=== PATIENT | female | born 1965 | race Caucasian/White ===

== ENCOUNTER 2016-05-10 15:37 | Observation (INO) | payer OTHER ==
[2016-05-10] MEDS ORDERED: ZOFRAN INJ 4 MG VIAL IVP PRN (17:17)
[2016-05-10] MEDS ORDERED: PHENERGAN INJ 25 MG IVP PRN ×2 (17:17→18:22)
[2016-05-10] MEDS ORDERED: PHENERGAN INJ 25 MG ONE (17:28)
[2016-05-10] MEDS: NS 1000 ML 1,000 ML IV SCH (17:31)
--- NOTE | 2016-05-10 18:10 | DR.H&P ---
H&P - History & Physical for Day of: H&P Date: 05/10/16 - Chief Complaint Chief Complaint: abdominal pain, N/V, weak - Allergies Allergies/Adverse Reactions: Allergies Allergy/AdvReac Type Severity Reaction Status Date / Time No Known Drug Allergy Allergy Verified 04/12/16 21:17 - History of Present Illness History of Present Illness: pt was a direct admit from dr perez office after presenting with co abdominal pain and n/v for several days. pt is very weak and had near syncope episode. PMH OA, HTN, HAMMAD, DEPRESSION. PLAN TO ADMIT, CT ABD PELVIS, IV HYDRATION, ADMISSION LABS, PAIN AND NAUSEA CONTROL - Past Medical History Past Medical History: Anxiety, Hypertension - Past Surgical History Surgical History: , Hysterectomy - Family History Family Medical History: Diabetes Mellitus, Cancer, Hypertension - Social History Does patient currently use any type of tobacco product: Yes Have you used tobacco products in the last 12 months: Yes Type of Tobacco Use: Cigarettes Does any household member use tobacco: No Alcohol Use: None Drug Use: None - Review of Systems Constitutional: No Symptoms Reported Eyes: No Symptoms Reported ENT: No Symptoms Reported Respiratory: SOB with Excertion, Wheezing Cardiovascular: No Symptoms Reported Gastrointestinal: Nausea, Vomiting, Abdominal Pain Musculoskeletal: Back Pain Skin: No Symptoms Reported Neurological: No Symptoms Reported - Physical Exam Vital Signs: Temperature 98 F Pulse Rate [Right Brachial] 79 Respiratory Rate 18 Blood Pressure [Right Arm] 169/89 Blood Pressure [Left Arm] 139/89 Blood Pressure 142/84 O2 Sat by Pulse Oximetry 97 Oriented: Normal Eyes: Normal Ear: Normal Nose: Normal Throat: Red, Exudate, Dry Respiratory: RLL Exp. Wheeze, LLL Exp. Wheeze Cardiovascular: Normal : Normal Auscultation: Bowel Sounds: Normal Palpation: Normal Tenderness: Diffuse, Epigastric Skin: Decreased Turgur Musculoskeletal: Back:Lumbar Psychiatric: Normal Mood Description: Calm Speech Pattern: Clear - Assessment/Plan (1) Abdominal pain Qualifiers: Abdominal location: A Status: Acute Plan: ADMIT, CT ABD PELVIS, ADMISSION, LABS. CBC CMP UA AMYLASE LIPASE. IV HYDRATION, IV PAIN AND NAUSEA CONTROL (2) N&V (nausea and vomiting) Qualifiers: Vomiting type: V Vomiting Intractability: V Status: Acute (3) GERD (gastroesophageal reflux disease) Qualifiers: Esophagitis presence: E Status: Acute Plan: PROTONIX (4) Hypertension Qualifiers: Hypertension type: H Status: Acute Plan: RESUME HOME MEDS, REST (5) Lumbar degenerative disc disease Status: Acute Plan: PAIN CONTROL
[2016-05-10 18:22] LABS: BASOPHILS % (AUTO) 0.3 % (0.2-1.0); EOSINOPHILS # (AUTO) 0.1 x10^3/uL (0.0-0.2); EOSINOPHILS % (AUTO) 0.9 % (0.9-2.9); HEMATOCRIT 38.2 % (36.0-47.0); HEMOGLOBIN 12.7 g/dL (12.0-16.0); LYMPHOCYTES # (AUTO) 4.1 X10^3/uL (1.3-2.9); LYMPHOCYTES % (AUTO) 44.3 % (21.0-51.0); MEAN CORPUSCULAR HEMOGLOBIN 29.6 pg (27.0-34.0); MEAN CORPUSCULAR HGB CONC 33.3 g/dL (33.0-35.0); MEAN PLATELET VOLUME 9.1 fL (7.4-11.0); MONOCYTES # (AUTO) 0.5 x10^3/uL (0.3-0.8); MONOCYTES % (AUTO) 5.4 % (0.0-13.0); NEUTROPHILS # (AUTO) 4.5 x10^3/uL (2.2-4.8); NEUTROPHILS % (AUTO) 49.1 % (42.0-75.0); PLATELET COUNT 266 X10^3/uL (150.0-450.0); RED CELL DISTRIBUTION WIDTH 14.2 % (11.6-16.5); WHITE BLOOD COUNT 9.3 X10^3/uL (3.6-10.0)
[2016-05-10 18:33] LABS: ALANINE AMINOTRANSFERASE 49 Units/L (12-78); ALBUMIN 3.8 g/dL (3.4-5.0); ALKALINE PHOSPHATASE 155 Units/L (46-116); AMYLASE 53 Units/L (25-115); ASPARTATE AMINO TRANSFERASE 38 Units/L (15-37); BLOOD UREA NITROGEN 6 mg/dL (7-18); CALCIUM 8.5 mg/dL (8.5-10.1); CARBON DIOXIDE 23.2 mmol/L (21-32); CHLORIDE 105 mmol/L (98-107); CREATININE 0.74 mg/dL (0.55-1.02); GLUCOSE 91 mg/dL (65-99); LIPASE 101 Units/L (73-393); SODIUM 141 mmol/L (136-145); TOTAL PROTEIN 8.2 g/dL (6.4-8.2); eGFR BLACK RACES > 60 (>60); eGFR NON BLACK RACES > 60 (>60)
[2016-05-10 18:49] LABS: BILIRUBIN,URINE NEGATIVE (NEGATIVE); BLOOD/HEMOGLOBIN,URINE NEGATIVE (NEGATIVE); GLUCOSE, URINE NEGATIVE (NEGATIVE); KETONES,URINE NEGATIVE (NEGATIVE); LEUKOCYTE ESTERASE ,URINE 2+ (NEGATIVE); NITRITES,URINE NEGATIVE (NEGATIVE); PROTEIN,URINE NEGATIVE (NEGATIVE); UROBILINOGEN,URINE NORMAL (NORMAL)
[2016-05-10] MEDS: MORPHINE SULFATE INJ 2 MG IVP PRN (18:51)
[2016-05-10] MEDS: PROTONIX INJ 40 MG VIAL 40 MG in NS 50 ML IV 50 ML IV SCH (18:51)
--- NOTE | 2016-05-10 18:51 | RAD ---
HISTORY: Abdominal Pain Study: Frontal view of the chest, flat and upright views of the abdomen Comparison: 04/30/2012 Findings: Cardiomediastinal silhouette is normal in size. No focal consolidations, pleural effusions or pneumo thorax. Osseous structures are without acute abnormality. Flat and upright views of the abdomen demonstrates a normal bowel gas pattern. No free air. No abno rmal calcifications or abnormal soft tissue shadows. No acute bony abnormalities. IMPRESSION: 1. No acute cardiopulmonary disease. 2. No evidence for acute abdominal pathology. Reported By:
[2016-05-10 18:55] LABS: APPEARANCE,URINE HAZY (CLEAR); BACTERIA,URINE TRACE /HPF (NEGATIVE); COLOR,URINE YELLOW (YELLOW); RBC,URINE 0-2 /HPF (NEGATIVE); SQUAMOUS EPITHELIAL CELL,UR RARE /HPF (NEGATIVE)
[2016-05-10 21:18] VITALS: BMI 29.0
[2016-05-10] MEDS ORDERED: PREVNAR 13 IM ONE (21:18)
[2016-05-10] MEDS ORDERED: AFLURIA IM ONE (21:18)
[2016-05-11] MEDS ORDERED: PREVNAR 13 IM ONE (05:18)
[2016-05-11] MEDS: MORPHINE SULFATE INJ 2 MG IVP PRN ×3 (05:23→23:37)
[2016-05-11] MEDS: NS 1000 ML 1,000 ML IV SCH ×2 (05:23→23:40)
[2016-05-11] MEDS: PROTONIX INJ 40 MG VIAL 40 MG in NS 50 ML IV 50 ML IV SCH (10:24)
[2016-05-11] MEDS ORDERED: NS 100 ML IV 100 ML IV ONE (16:40)
[2016-05-11] MEDS ORDERED: MVI INJ (ADULT) IV SCH (17:00)
[2016-05-11] MEDS ORDERED: NS 1000 ML 1,000 ML with MVI INJ (ADULT) 10 ML IV SCH ×2 (18:00)
[2016-05-11] MEDS ORDERED: METHOCARBAMOL PO PRN (21:19)
[2016-05-11] MEDS ORDERED: ULTRAM PO PRN (21:19)
[2016-05-11] MEDS ORDERED: AMBIEN PO PRN (21:19)
[2016-05-11] MEDS ORDERED: NORCO 5/325 MG TAB PO PRN (21:19)
[2016-05-11] MEDS ORDERED: ZANAFLEX PO PRN (21:33)
--- NOTE | 2016-05-11 22:36 | CT ---
HISTORY: Abdominal pain with nausea and vomiting Study: CT abdomen and pelvis with IV and oral contrast Comparison: July 15, 2013 Technique: Multiple axial images of the abdomen and pelvis were obtained from the lung bases to the pubic symph ysis with the administration of IV contrast. Sagittal and coronal reformations were provided. Findings: The visualized portions of the lung bases are unremarkable. The liver, spleen, pancreas, kidneys, a nd adrenal glands are unremarkable in their CT appearance. The gallbladder is unremarkable in its CT appearance. No significant mesenteric lymphadenopathy or stranding can be observed. No free fluid or free air is seen within the abdomen. I do not identify the appendix but no inflammatory changes are demonstrated. No bowel wall thickening or bowel dilatation is present. The colon is unremarkab le. Specifically, there is no diverticulosis noted within the sigmoid colon. The urinary bladder is grossly unremarkable. The bony structures are grossly intact. IMPRESSION: 1. Negative CT of the abdomen and pelvis. Reported By:
[2016-05-11] MEDS: NYSTATIN OINT TOP SCH (23:27)
[2016-05-11] MEDS: ROCEPHIN VIAL 1 GM 1 GM in NS 50 ML IV + SPIKE MINIBAG* 50 ML IV SCH (23:28)
[2016-05-11] MEDS: PROTONIX INJ 40 MG VIAL IVP SCH (23:28)
[2016-05-12] MEDS: NYSTATIN OINT TOP SCH ×2 (05:27→13:24)
[2016-05-12 06:09] LABS: BASOPHILS % (AUTO) 0.6 % (0.2-1.0); EOSINOPHILS # (AUTO) 0.1 x10^3/uL (0.0-0.2); EOSINOPHILS % (AUTO) 1.3 % (0.9-2.9); HEMATOCRIT 35.3 % (36.0-47.0); HEMOGLOBIN 11.7 g/dL (12.0-16.0); LYMPHOCYTES # (AUTO) 3.4 X10^3/uL (1.3-2.9); MEAN CORPUSCULAR HEMOGLOBIN 29.8 pg (27.0-34.0); MEAN CORPUSCULAR HGB CONC 33.2 g/dL (33.0-35.0); MEAN CORPUSCULAR VOLUME 89.9 fL (80.0-100.0); MEAN PLATELET VOLUME 9.3 fL (7.4-11.0); MONOCYTES # (AUTO) 0.5 x10^3/uL (0.3-0.8); MONOCYTES % (AUTO) 7.5 % (0.0-13.0); NEUTROPHILS # (AUTO) 2.9 x10^3/uL (2.2-4.8); NEUTROPHILS % (AUTO) 41.6 % (42.0-75.0); PLATELET COUNT 278 X10^3/uL (150.0-450.0); RED BLOOD COUNT 3.93 X10^6/uL (3.5-5.4); RED CELL DISTRIBUTION WIDTH 14.6 % (11.6-16.5); WHITE BLOOD COUNT 6.9 X10^3/uL (3.6-10.0)
[2016-05-12 06:28] LABS: ALANINE AMINOTRANSFERASE 75 Units/L (12-78); ALBUMIN 3.1 g/dL (3.4-5.0); ALKALINE PHOSPHATASE 131 Units/L (46-116); ASPARTATE AMINO TRANSFERASE 59 Units/L (15-37); BLOOD UREA NITROGEN 5 mg/dL (7-18); CARBON DIOXIDE 25.3 mmol/L (21-32); CHLORIDE 108 mmol/L (98-107); CHOL/HDL RATIO 5.2 (0.0-5.0); CHOLESTEROL 151 mg/dL (0-200); COR CA(FOR HYPOALB) 8.7 mg/dL (8.5-10.1); CREATININE 0.56 mg/dL (0.55-1.02); GLUCOSE 79 mg/dL (65-99); HDL CHOLESTEROL 29 mg/dL (40-60); SODIUM 145 mmol/L (136-145); TOTAL PROTEIN 7.1 g/dL (6.4-8.2); TRIGLYCERIDES 125 mg/dL (0-150); eGFR BLACK RACES > 60 (>60); eGFR NON BLACK RACES > 60 (>60)
--- NOTE | 2016-05-12 06:34 | RAD ---
HISTORY: Nausea, vomiting, abdominal pain Study: Chest one view Comparison: May 10, 2016 Findings: The heart is within normal limits in size. The mary are normal. The lungs are free of acute alveolar infiltrates. No pleural effusions are identified. The bony thorax is unremarkable. IMPRESSION: No significant abnormality identified Reported By:
[2016-05-12] MEDS ORDERED: FLEXERIL TAB 10 MG PO SCH (09:00)
[2016-05-12] MEDS ORDERED: PAXIL PO SCH (09:00)
[2016-05-12] MEDS: PROTONIX INJ 40 MG VIAL IVP SCH (10:31)
[2016-05-12] MEDS: ROCEPHIN VIAL 1 GM 1 GM in NS 50 ML IV + SPIKE MINIBAG* 50 ML IV SCH (10:31)
[2016-05-12] MEDS: PROTONIX INJ 40 MG VIAL 40 MG in NS 50 ML IV 50 ML IV SCH (10:32)
[2016-05-12] MEDS: NS 1000 ML 1,000 ML IV SCH (12:00)
[2016-05-12 18:03] VITALS: BP 130/73
[2016-05-12] MEDS ORDERED: NORVASC TAB 2.5 MG PO SCH (21:00)
[2016-05-12] MEDS ORDERED: REQUIP PO SCH (21:00)
== END 2016-05-12 18:20 | disposition home or self-care (01) ==
LOC: MED/SURG 15:37
PROVIDERS: ADMIT Internal Medicine; ATTEND Internal Medicine
PROC: 3E0234Z Introduction of Serum, Toxoid and Vaccine into Muscle, Percutaneous Approach (ICD-10-PCS; principal; 2016-05-11)
PROC: 3E0234Z Introduction of Serum, Toxoid and Vaccine into Muscle, Percutaneous Approach (ICD-10-PCS; 2016-05-11)
DX: R10.84 Generalized abdominal pain (principal); R11.2 Nausea with vomiting, unspecified; R19.7 Diarrhea, unspecified; R55 Syncope and collapse; I10 Essential (primary) hypertension; F41.8 Other specified anxiety disorders; F32.89 Other specified depressive episodes; K21.9 Gastro-esophageal reflux disease without esophagitis; M51.36 Other intervertebral disc degeneration, lumbar region; Z23 Encounter for immunization
CPT/HCPCS: 36415; 71010; 74022; 74177; 80053; 80061; 81001; 82150; 82270; 83690; 83735; 85025; A4216; A4222; C9113; 90670; G0378; J0696; J2270; J2550

== ENCOUNTER 2016-08-10 15:37 | Observation (INO) | payer OTHER ==
[2016-08-10] MEDS ORDERED: ZOFRAN INJ 4 MG VIAL IVP ONE (15:49)
[2016-08-10 15:52] VITALS: BMI 27.3
[2016-08-10] MEDS ORDERED: ZOFRAN INJ 4 MG VIAL ONE (15:52)
[2016-08-10 16:10] LABS: BASOPHILS # (AUTO) 0.1 X10^3/uL (0.0-0.1); BASOPHILS % (AUTO) 0.9 % (0.2-1.0); EOSINOPHILS % (AUTO) 0.3 % (0.9-2.9); HEMATOCRIT 38.2 % (36.0-47.0); HEMOGLOBIN 13.1 g/dL (12.0-16.0); LYMPHOCYTES # (AUTO) 2.9 X10^3/uL (1.3-2.9); LYMPHOCYTES % (AUTO) 22.4 % (21.0-51.0); MEAN CORPUSCULAR HEMOGLOBIN 31.3 pg (27.0-34.0); MEAN CORPUSCULAR HGB CONC 34.3 g/dL (33.0-35.0); MEAN CORPUSCULAR VOLUME 91.3 fL (80.0-100.0); MONOCYTES # (AUTO) 0.8 x10^3/uL (0.3-0.8); MONOCYTES % (AUTO) 5.9 % (0.0-13.0); NEUTROPHILS # (AUTO) 9.2 x10^3/uL (2.2-4.8); NEUTROPHILS % (AUTO) 70.5 % (42.0-75.0); PLATELET COUNT 399 X10^3/uL (150.0-450.0); RED BLOOD COUNT 4.19 X10^6/uL (3.5-5.4); RED CELL DISTRIBUTION WIDTH 14.3 % (11.6-16.5); WHITE BLOOD COUNT 13.1 X10^3/uL (3.6-10.0)
[2016-08-10] MEDS ORDERED: MORPHINE SULFATE INJ 4 MG IVP ONE (16:19)
[2016-08-10 16:23] LABS: BLOOD UREA NITROGEN 9 mg/dL (7-18); CALCIUM 8.9 mg/dL (8.5-10.1); CARBON DIOXIDE 27.9 mmol/L (21-32); CHLORIDE 101 mmol/L (98-107); CREATININE 0.72 mg/dL (0.55-1.02); GLUCOSE 97 mg/dL (65-99); SODIUM 137 mmol/L (136-145); TROPONIN I < 0.02 ng/mL (0-1.5); eGFR BLACK RACES > 60 (>60); eGFR NON BLACK RACES > 60 (>60)
--- NOTE | 2016-08-10 16:23 | DR.GENAD ---
HPI - PCP Primary Care Physician: saud montgomery - Complaint/Symptoms Chief Complaint Doctors Comments: Patient denies vomiting or diarrhea Chief Complaint:: patient was at her doctors office when she paseed out and fell and hit her head. patient stated her head and neck is hurting at this time. - Source History Provided: Patient, EMS - Mode of Arrival Mode of Arrival: EMS - Timing Onset of Chief Complaint: 08/10/16 PMH - PMH Past Medical History: Yes Past Medical History: Anxiety, Hypertension Past Surgical History: Yes Surgical History: , Hysterectomy - Family History History of Family Medical Conditions: No Family Medical History: Diabetes Mellitus, Cancer, Hypertension - Social History Does patient currently use any type of tobacco product: Yes Have you used tobacco products in the last 12 months: Yes Type of Tobacco Use: Cigarettes How many years tobacco product used: 20 Does any household member use tobacco: No Alcohol Use: None Do you use any recreational Drugs:: No Lives With: Family Lives Where: Home - infectious screening In the last 2 months have you had wt loss of >10#?: NO Have you had fever, night sweats or hemotysis?: No Have you traveled outside the country in the last 6 months?: No Isolation: Standard ROS - Review of Systems Eyes: No Symptoms Reported ENTM: No Symptoms Reported Respiratoy: No Symptoms Reported Cardiovascular: No Symptoms Reported Gastrointestinal/Abdominal: No Symptoms Reported Genitourinary: No Symptoms Reported Neurological: Headache Musculoskeletal: Neck Pain Integumentary: No Symptoms Reported Hematologic/Lymphatic: No Symptoms Reported Endocrine: No Symptoms Reported Psychiatric: No Symptoms Reported All Other Systems: Reviewed and Negative PE - Vital Signs Vitals: Temperature 98.8 F Pulse Rate 90 Respiratory Rate 16 Blood Pressure [Right Arm] 130/73 Blood Pressure [Left Arm] 139/89 Blood Pressure 167/108 O2 Sat by Pulse Oximetry 97 - General General Appearance: Alert, In No Apparent Distress - Head Head Exam: Normal Inspection - Eyes Eye exam: Normal Appearance, PERRL, EOMI - ENT ENT Exam: Normal Exam, Normal Oropharynx External Ear Exam: Normal External Inspection TM/Canal Exam: Bilateral Normal Nose Exam: Normal Nose Exam Mouth Exam: Normal Inspection Throat Exam: Normal Inspection - Neck Neck Exam: Tenderness - Chest Chest Inspection: Normal Inspection - Respiratory Respiratory Exam: Normal Lung Sounds Bilat Respiratory Exam: Bilateral Clear to Auscultation - Cardiovascular Cardiovascular Exam: Regular Rate, Normal Rhythm - Abdominal Exam Abdominal Exam: Normal Inspection Abdominal Tenderness: negative: RUQ, RLQ, LUQ, LLQ, Epigastrium, Suprapubic, Diffuse, Mild, Moderate, Severe, Other - Extremities Extremities Exam: Normal Inspection - Back Back Exam: Normal Inspection - Neurologic Neurological Exam: Alert, Oriented X3, CN II-XII Intact - Psychiatric Psychiatric Exam: Normal Affect - Skin Skin Exam: Warm, Dry Course - Reevaluation 1st: Improved ROR - Labs Reviewed Result Diagrams: 08/10/16 16:00 08/10/16 16:00 Laboratory: WBC 13.1 X10^3/uL (3.6-10.0) H 08/10/16 16:00 RBC 4.19 X10^6/uL (3.5-5.4) 08/10/16 16:00 Hgb 13.1 g/dL (12.0-16.0) 08/10/16 16:00 Hct 38.2 % (36.0-47.0) 08/10/16 16:00 MCV 91.3 fL (80.0-100.0) 08/10/16 16:00 MCH 31.3 pg (27.0-34.0) 08/10/16 16:00 MCHC 34.3 g/dL (33.0-35.0) 08/10/16 16:00 RDW 14.3 % (11.6-16.5) 08/10/16 16:00 Plt Count 399 X10^3/uL (150.0-450.0) 08/10/16 16:00 MPV 9.0 fL (7.4-11.0) 08/10/16 16:00 Neut % 70.5 % (42.0-75.0) 08/10/16 16:00 Lymph % 22.4 % (21.0-51.0) 08/10/16 16:00 Millard % 5.9 % (0.0-13.0) 08/10/16 16:00 Eos % 0.3 % (0.9-2.9) L 08/10/16 16:00 Baso % 0.9 % (0.2-1.0) 08/10/16 16:00 Neut # 9.2 x10^3/uL (2.2-4.8) H 08/10/16 16:00 Lymph # 2.9 X10^3/uL (1.3-2.9) 08/10/16 16:00 Millard # 0.8 x10^3/uL (0.3-0.8) 08/10/16 16:00 Eos # 0.0 x10^3/uL (0.0-0.2) 08/10/16 16:00 Baso # 0.1 X10^3/uL (0.0-0.1) 08/10/16 16:00 Absolute Nucleated RBC 0.0 /100WBC 08/10/16 16:00 Sodium 137 mmol/L (136-145) 08/10/16 16:00 Corrected Sodium TNP 08/10/16 16:00 Potassium 3.6 mmol/L (3.5-5.1) 08/10/16 16:00 Chloride 101 mmol/L (98-107) 08/10/16 16:00 Carbon Dioxide 27.9 mmol/L (21-32) 08/10/16 16:00 BUN 9 mg/dL (7-18) 08/10/16 16:00 Creatinine 0.72 mg/dL (0.55-1.02) 08/10/16 16:00 Est GFR (MDRD) Af Amer > 60 (>60) 08/10/16 16:00 Est GFR (MDRD) Non-Af > 60 (>60) 08/10/16 16:00 Glucose 97 mg/dL (65-99) 08/10/16 16:00 Calcium 8.9 mg/dL (8.5-10.1) 08/10/16 16:00 Corrected Calcium TNP 08/10/16 16:00 Total Bilirubin 0.40 mg/dL (0.2-1.0) 08/10/16 16:00 AST 15 Units/L (15-37) 08/10/16 16:00 ALT 20 Units/L (12-78) 08/10/16 16:00 Alkaline Phosphatase 166 Units/L (46-116) H 08/10/16 16:00 Creatine Kinase 65 Units/L (26-192) 08/10/16 16:00 CK-MB (CK-2) < 1.0 ng/mL (0-4.0) 08/10/16 16:00 CK/CKMB % Calc 1.5 % (<4) 08/10/16 16:00 Troponin I < 0.02 ng/mL (0-1.5) 08/10/16 16:00 Total Protein 8.4 g/dL (6.4-8.2) H 08/10/16 16:00 Albumin 3.6 g/dL (3.4-5.0) 08/10/16 16:00 Globulin 4.8 g/dL (2.5-4.5) H 08/10/16 16:00 Albumin/Globulin Ratio 0.8 Ratio (1.1-2.1) L 08/10/16 16:00 H. pylori IgG Antibody Negative (NEGATIVE) 08/10/16 16:00 - XRAY XRAY Interpreted by: Radiologist (CT Head: Negative, CT cervical spine negative) - Diagnosis Discharge Problem: Syncope and collapse - Discharge Plan Condition: Stable - Follow ups/Referrals Follow ups/Referrals: SAUD MONTGOMERY [Primary Care Provider] - 3 days - Instructions
[2016-08-10 16:28] LABS: ALANINE AMINOTRANSFERASE 20 Units/L (12-78); ALBUMIN 3.6 g/dL (3.4-5.0); ALKALINE PHOSPHATASE 166 Units/L (46-116); ASPARTATE AMINO TRANSFERASE 15 Units/L (15-37); CKMB % 1.5 % (<4); CREATINE KINASE 65 Units/L (26-192); CREATINE KINASE MB < 1.0 ng/mL (0-4.0); TOTAL PROTEIN 8.4 g/dL (6.4-8.2)
[2016-08-10] MEDS ORDERED: MORPHINE SULFATE INJ 4 MG ONE (16:31)
--- NOTE | 2016-08-10 16:41 | CT ---
HISTORY: Syncope. Study: CT brain without contrast Comparison: CT head dated August 16, 2014. Technique: Multiple axial images of the brain were obtained from the skull base to the vertex without administr ation of IV contrast. Dose reduction techniques including Automated Exposure Control (AEC) and adju stment of mA and kV were utilized. Findings: No acute intraparenchymal hemorrhage or mass can be identified. No extra-axial fluid collections ar e seen. No alteration in the attenuation of the brain parenchyma can be identified to suggest acute or subacute ischemic change. The ventricular system is symmetric and nondilated. The extracranial structures are grossly unremarkable. IMPRESSION: 1. No acute intracranial process can be identified. Reported By:
--- NOTE | 2016-08-10 16:43 | CT ---
HISTORY: Fall. Study: CT cervical spine without contrast Comparison: None. Technique: Multiple axial images of the cervical spine were obtained from the skull base to the thor acic inlet without administration of IV contrast. Sagittal and coronal reformats were performed and reviewed. Dose reduction techniques including Automated Exposure Control (AEC) and adjustment of mA and kV were utilized. Findings: Straightening of the normal cervical lordosis, which may represent positioning versus muscle spasm. No acute fracture or listhesis. No significant neural foraminal narrowing or spinal canal stenosis. The prevertebral soft tissues appear normal. Paraseptal and centrilobular emphysematous changes of t he visualized lung. IMPRESSION: No acute cervical pathology. Reported By:
--- NOTE | 2016-08-11 16:08 | DR.H&P ---
H&P - History & Physical for Day of: H&P Date: 08/11/16 - Chief Complaint Chief Complaint: IGNACIO, ADBOMINAL PAIN N/V, SEIZURE, COUGH AND SOB - Allergies Allergies/Adverse Reactions: Allergies Allergy/AdvReac Type Severity Reaction Status Date / Time MS No Known Drug Allergy Allergy Verified 08/10/16 15:38 [No Known Drug Allergy] - History of Present Illness History of Present Illness: PATIENT IS A 50-YEAR-OLD WHITE FEMALE WHO WAS A DIRECT ADMIT FROM dR. Beal'S OFFICE THIS MORNING AFTER PRESENTING WITH COMPLAINTS OF UPPER ABDOMINAL PAIN NAUSEA VOMITING. pATIENT ALSO COMPLAINED OF HEADACHE AND ELEVATED BLOOD PRESSURE. pATIENT WAS SEEN IN THE OFFICE ONE DAY AGO AND EXPERIENCED SEIZURE-LIKE ACTIVITY AND WAS TAKEN BY ems TO THE EMERGENCY ROOM. pATIENT HAD A ct SCAN OF HER BRAIN IN THE er WHICH WAS NEGATIVE FOR ACUTE FINDINGS. pATIENT WAS DISCHARGED HOME TO FOLLOW UP TODAY WITH HER PRIMARY CARE. oN EXAM THIS MORNING PATIENT WAS NOTED TO HAVE DIFFUSE RHONCHI AND EXPIRATORY WHEEZING WELL SPUTUM PRODUCTION. pLAN TO ADMIT PATIENT FOR FURTHER EVALUATION OF SEIZURE ACTIVITY WELL SHORTNESS OF BREATH AND EPIGASTRIC PAIN. pATIENT HAS A HISTORY OF GASTRIC ULCER AND WAS RECENTLY STARTED, egd, BY dR. Beal AND HAS BEEN ON TWICE A DAY ppi THERAPY. pLAN TO OBTAIN ADMISSION LABS WELL ekg ekg, eeg, mri OF THE BRAIN AND CONSULT NEURO a. wE WILL CONSULT RESPIRATORY FOR jET NEBS, CHEST X-RAY ON ADMISSION AND REPEAT A.M. LABS. wE WILL RESUME HOME MEDICATION - Past Medical History Past Medical History: Anxiety, COPD, Depression, Hypertension - Past Surgical History Surgical History: , Hysterectomy - Family History Family Medical History: Diabetes Mellitus, Cancer, Hypertension - Social History Does patient currently use any type of tobacco product: Yes Have you used tobacco products in the last 12 months: Yes Type of Tobacco Use: Cigarettes How many years tobacco product used: 20 Does any household member use tobacco: No Alcohol Use: None - Medications Home Medications: Acetaminophen [Tylenol 500 mg Tab Extra Strength] 500 mg PO Q6H PRN 08/11/16 [ History Confirmed 08/11/16] Amlodipine Besylate [NORVASC 5 MG *] 1 tab PO DAILY 08/11/16 [History Confirmed 08/11/16] Hydrocodone-Acet 5 mg/325 mg [NORCO 5 MG/325 MG *] 1 tab PO BID PRN 08/11/16 [ History Confirmed 08/11/16] Ondansetron [Zofran ODT 8 mg] 1 tab PO TID PRN 08/11/16 [History Confirmed 08/11] Ranitidine HCl 1 tab PO DAILY 08/11/16 [History Confirmed 08/11/16] - Review of Systems Constitutional: Weakness, Malaise Eyes: No Symptoms Reported ENT: No Symptoms Reported Respiratory: Cough, Shortness of Breath, Sputum, Wheezing Cardiovascular: Light Headedness Gastrointestinal: Abdominal Pain Genitourinary: No Symptoms Reported Musculoskeletal: Back Pain, Leg Pain Skin: No Symptoms Reported Neurological: Seizures - Physical Exam Vital Signs: Temperature 98.5 F Pulse Rate [Apical] 89 Respiratory Rate 20 Blood Pressure [Right Arm] 144/89 O2 Sat by Pulse Oximetry 97 Oriented: Normal Eyes: Normal Ear: Normal Throat: Normal Respiratory: Rhonchi Throughout Cardiovascular: Normal : Normal Auscultation: Bowel Sounds: Normal Tenderness: LUQ, Epigastric Skin: Decreased Turgur Musculoskeletal: Back:Thoracic, Back:Lumbar Psychiatric: Anxiety Affect: Anxious Speech Pattern: Clear, Appropriate - Assessment/Plan (1) Syncope and collapse Status: Acute Plan: ADMISSION LABS WELL ekg ekg, eeg, mri OF THE BRAIN AND CONSULT NEURO a. wE WILL CONSULT RESPIRATORY FOR jET NEBS, CHEST X-RAY ON ADMISSION AND REPEAT A.M. LABS. wE WILL RESUME HOME MEDICATION (2) COPD (chronic obstructive pulmonary disease) with acute bronchitis Status: Acute Plan: RESP CONSULT, O2, LEVAQUIN IV. SPUTUM CULTURE (3) Abdominal pain Qualifiers: Abdominal location: A Status: Acute Plan: PPI, PAIN CONTROL. NAUSEA CONTROL, NO NSAIDS (4) GERD (gastroesophageal reflux disease) Qualifiers: Esophagitis presence: E Status: Acute (5) Hypertension Qualifiers: Hypertension type: H Status: Acute (6) Lumbar degenerative disc disease Status: Acute
[2016-08-11] MEDS ORDERED: PHENERGAN INJ 25 MG IVP PRN (16:14)
[2016-08-11] MEDS ORDERED: LEVAQUIN PREMIX IV 500 MG 500 MG/100 ML BAG IV ONE (16:14)
[2016-08-11] MEDS: CATAPRES TAB 0.1 MG PO SCH ×3 (17:07→22:45)
[2016-08-11] MEDS: CARAFATE PO SCH ×2 (17:07→20:35)
[2016-08-11] MEDS: NS 1000 ML 1,000 ML IV SCH (17:08)
[2016-08-11] MEDS: PriLOSEC PO SCH ×2 (17:08→20:35)
[2016-08-11 17:11] LABS: BASOPHILS # (AUTO) 0.1 X10^3/uL (0.0-0.1); BASOPHILS % (AUTO) 0.8 % (0.2-1.0); EOSINOPHILS # (AUTO) 0.1 x10^3/uL (0.0-0.2); EOSINOPHILS % (AUTO) 0.5 % (0.9-2.9); HEMATOCRIT 35.9 % (36.0-47.0); HEMOGLOBIN 12.2 g/dL (12.0-16.0); LYMPHOCYTES # (AUTO) 3.3 X10^3/uL (1.3-2.9); LYMPHOCYTES % (AUTO) 27.6 % (21.0-51.0); MEAN CORPUSCULAR VOLUME 91.3 fL (80.0-100.0); MEAN PLATELET VOLUME 9.1 fL (7.4-11.0); MONOCYTES # (AUTO) 0.8 x10^3/uL (0.3-0.8); MONOCYTES % (AUTO) 6.5 % (0.0-13.0); NEUTROPHILS # (AUTO) 7.6 x10^3/uL (2.2-4.8); NEUTROPHILS % (AUTO) 64.6 % (42.0-75.0); PLATELET COUNT 381 X10^3/uL (150.0-450.0); RED BLOOD COUNT 3.93 X10^6/uL (3.5-5.4); RED CELL DISTRIBUTION WIDTH 14.5 % (11.6-16.5); WHITE BLOOD COUNT 11.8 X10^3/uL (3.6-10.0)
[2016-08-11 17:34] LABS: BLOOD UREA NITROGEN 11 mg/dL (7-18); CALCIUM 8.4 mg/dL (8.5-10.1); CARBON DIOXIDE 25.6 mmol/L (21-32); CHLORIDE 102 mmol/L (98-107); CREATININE 0.69 mg/dL (0.55-1.02); GLUCOSE 76 mg/dL (65-99); SODIUM 138 mmol/L (136-145); TROPONIN I < 0.02 ng/mL (0-1.5); eGFR BLACK RACES > 60 (>60); eGFR NON BLACK RACES > 60 (>60)
[2016-08-11 17:38] LABS: ALANINE AMINOTRANSFERASE 17 Units/L (12-78); ALBUMIN 3.3 g/dL (3.4-5.0); ALKALINE PHOSPHATASE 158 Units/L (46-116); ASPARTATE AMINO TRANSFERASE 15 Units/L (15-37); CKMB % 1.5 % (<4); CREATINE KINASE 68 Units/L (26-192); CREATINE KINASE MB < 1.0 ng/mL (0-4.0); TOTAL PROTEIN 7.8 g/dL (6.4-8.2)
--- NOTE | 2016-08-11 17:39 | RAD ---
HISTORY: Shortness of breath Study: PA chest Comparison: May 12, 2016 Findings: The trachea is midline. The cardiac silhouette is unremarkable. There is unchanged chronic interst itial lung disease. The lungs are mildly hyperinflated. There is no pleural effusion or pulmonary ed damien.. The bony thorax is unremarkable. IMPRESSION: 1. Unchanged COPD Reported By:
--- NOTE | 2016-08-11 18:53 | MRI ---
MRI Brain without contrast HISTORY: headache with recent fall Comparison:08/10/2016 Technique: Multiplanar multi-sequence MRI of the brain was obtained utilizing standard departmental protocol. Sagittal and axial T1 weighted images were obtained. Axial T2 and flair weighted images were performed as well. Axial diffusion weighted and ADC trace mapping was performed. Findings: There is mild increased FLAIR and T2 signal abnormality within the deep white matter bilaterally. The midline structures appear unremarkable. The evaluation of the brain parenchyma demonstrates no abnormal signal characteristics to suggest intraparenchymal mass or hemorrhage. No extra-axial flui d collections are observed. The ventricular system appears symmetric and nondilated. The CP angle is normal in its appearance without brainstem mass or evidence for acoustic neuroma. The flow void s on both T1 and T2 weighted imaging appear unremarkable. Evaluation of the diffusion weighted imag ing does not demonstrate abnormal signal characteristics to suggest acute ischemic change. The extr acranial structures are unremarkable. Mild mucosal thickening of the left frontal and bilateral ethm oid sinuses. IMPRESSION: 1. Nonspecific small foci of increased T2 and FLAIR signal abnormality within deep white matter cyndee aterally is most likely represents sequela chronic microvascular ischemic disease. No acute intracra nial abnormality identified. 2. Mild left frontal and bilateral ethmoid sinus mucosal disease. Reported By:
[2016-08-11] MEDS: MORPHINE SULFATE INJ 2 MG IVP PRN (19:15)
[2016-08-11] MEDS: DUONEB 0.5 MG/3 MG NEB SCH (20:34)
[2016-08-11] MEDS: PEPCID 20 MG IV PREMIX* 20 MG/50 ML BAG IV SCH (20:36)
[2016-08-11] MEDS ORDERED: DUONEB 0.5 MG/3 MG NEB SCH (21:00)
[2016-08-12] MEDS: MORPHINE SULFATE INJ 2 MG IVP PRN ×2 (01:18→10:12)
[2016-08-12] MEDS: CARAFATE PO SCH ×3 (05:30→16:53)
[2016-08-12] MEDS: NS 1000 ML 1,000 ML IV SCH (06:11)
[2016-08-12 06:23] LABS: BASOPHILS # (AUTO) 0.1 X10^3/uL (0.0-0.1); BASOPHILS % (AUTO) 0.6 % (0.2-1.0); EOSINOPHILS # (AUTO) 0.1 x10^3/uL (0.0-0.2); EOSINOPHILS % (AUTO) 0.8 % (0.9-2.9); HEMATOCRIT 51.1 % (36.0-47.0); HEMOGLOBIN 17.1 g/dL (12.0-16.0); LYMPHOCYTES % (AUTO) 38.7 % (21.0-51.0); MEAN CORPUSCULAR HGB CONC 33.5 g/dL (33.0-35.0); MEAN CORPUSCULAR VOLUME 92.3 fL (80.0-100.0); MEAN PLATELET VOLUME 9.8 fL (7.4-11.0); MONOCYTES # (AUTO) 0.7 x10^3/uL (0.3-0.8); MONOCYTES % (AUTO) 6.6 % (0.0-13.0); NEUTROPHILS # (AUTO) 5.5 x10^3/uL (2.2-4.8); NEUTROPHILS % (AUTO) 53.3 % (42.0-75.0); PLATELET COUNT 182 X10^3/uL (150.0-450.0); RED BLOOD COUNT 5.54 X10^6/uL (3.5-5.4); RED CELL DISTRIBUTION WIDTH 14.8 % (11.6-16.5); WHITE BLOOD COUNT 10.3 X10^3/uL (3.6-10.0)
[2016-08-12 08:02] LABS: CHLORIDE 107 mmol/L (98-107); SODIUM 141 mmol/L (136-145); eGFR BLACK RACES > 60 (>60); eGFR NON BLACK RACES > 60 (>60)
[2016-08-12 08:29] LABS: ALANINE AMINOTRANSFERASE 17 Units/L (12-78); ALBUMIN 3.1 g/dL (3.4-5.0); ALKALINE PHOSPHATASE 154 Units/L (46-116); ASPARTATE AMINO TRANSFERASE 13 Units/L (15-37); BLOOD UREA NITROGEN 12 mg/dL (7-18); CALCIUM 8.3 mg/dL (8.5-10.1); CARBON DIOXIDE 27.4 mmol/L (21-32); CREATININE 0.59 mg/dL (0.55-1.02); GLUCOSE 104 mg/dL (65-99); TOTAL PROTEIN 6.7 g/dL (6.4-8.2)
[2016-08-12] MEDS: DUONEB 0.5 MG/3 MG NEB SCH (08:58)
[2016-08-12] MEDS: PEPCID 20 MG IV PREMIX* 20 MG/50 ML BAG IV SCH (09:22)
[2016-08-12] MEDS: PriLOSEC PO SCH (09:22)
[2016-08-12] MEDS: CATAPRES TAB 0.1 MG PO SCH (09:22)
[2016-08-12] MEDS ORDERED: PATIENT'S HOME MEDICATION (Ondansetron [Zofran Odt 8 Mg] 1 TAB) PO PRN (12:35)
[2016-08-12] MEDS ORDERED: TYLENOL 500 MG TAB EXTRA STRENGTH PO PRN (12:35)
[2016-08-12] MEDS ORDERED: NORCO 5/325 MG TAB PO PRN (12:35)
[2016-08-12] MEDS ORDERED: RANITIDINE HCL PO SCH (12:45)
[2016-08-12] MEDS ORDERED: NORVASC TAB 5 MG PO SCH (13:00)
[2016-08-12] MEDS ORDERED: PAXIL PO SCH (13:00)
[2016-08-12] MEDS ORDERED: ZOFRAN TAB 4 MG PO PRN (13:51)
[2016-08-12] MEDS ORDERED: ZANTAC PO SCH (14:00)
[2016-08-12 16:24] VITALS: BP 145/81
[2016-08-12] MEDS ORDERED: FLEXERIL TAB 10 MG PO SCH (21:00)
[2016-08-12] MEDS ORDERED: REQUIP PO SCH (21:00)
== END 2016-08-12 17:49 | disposition home or self-care (01) ==
LOC: ER 15:37 → MED/SURG 08-11 13:49 → UNDOADMOB 08-11 13:49 → MED/SURG 08-11 14:47
PROVIDERS: ADMIT Internal Medicine; ATTEND Internal Medicine
DX: G40.89 Other seizures (principal); R55 Syncope and collapse; I10 Essential (primary) hypertension; F41.8 Other specified anxiety disorders; R42 Dizziness and giddiness; R10.84 Generalized abdominal pain; R11.2 Nausea with vomiting, unspecified; R06.02 Shortness of breath; R10.13 Epigastric pain; J44.0 Chronic obstructive pulmonary disease with (acute) lower respiratory infection; J40 Bronchitis, not specified as acute or chronic; K21.9 Gastro-esophageal reflux disease without esophagitis; M51.36 Other intervertebral disc degeneration, lumbar region
CPT/HCPCS: 36415; 70450; 70551; 71010; 72125; 80053; 82270; 82550; 82553; 84484; 85025; 86677; 93005; 93010; 94640; 95819; 96365; 96374; 96375; 99283; A4222; S0028; G0378; J1956; J2270; J2405; J7620

== ENCOUNTER → 2016-08-25 | Outpatient (CLI) | payer OTHER ==
[2016-08-12 16:24] VITALS: BP 145/81
== END ==
LOC: RT 12:15
PROVIDERS: ATTEND Nurse Practitioner
DX: R56.9 Unspecified convulsions (principal)
CPT/HCPCS: 95819

== ENCOUNTER 2017-01-20 19:42 | Emergency (ER) | payer OTHER ==
[2017-01-20 19:46] VITALS: BP 132/82; BMI 31.7
[2017-01-20] MEDS ORDERED: TORADOL 60 MG VIAL IM ONE (20:26)
--- NOTE | 2017-01-20 20:29 | DR.EXTPAIN ---
HPI - Time seen Time seen: 20:24 - PCP Primary Care Physician: ana - Complaint/Symptoms Chief Complaint Doctor Comments: Patient states that her grandson was trying to jump over her foot and landed on her right ankle and she twisted her right ankle trying to avoid him about two hours ago. states the pain is 7 of 10 and is worst when she stands or tries to walk on her right foot. states the pain is in he ankle and heel part when she stands she has been walking on her toes. States she has crutches at home. States she is a patient of Dr. Bowen. Chief Complaint:: playing with my grandson in [place] and he come down on my ankle and it twisted. note swelling to right ankle. - Nurses notes reviewed Nurses Notes Review: Yes - Source History Provided: Patient - Mode of arrival Mode of Arrival: Wheelchair - Timing Onset of Chief Complaint: 01/20/17 - Context History of: None - Associated signs and symptoms Associated Signs and Symptoms: Pain, Swelling PMH - PMH Past Medical History: Yes Past Medical History: Anxiety, COPD, Depression, Hypertension Past Surgical History: Yes Surgical History: , Hysterectomy - Family History History of Family Medical Conditions: Yes Family Medical History: Diabetes Mellitus, Cancer, Hypertension - Social History Type of Tobacco Use: Cigarettes Do you use any recreational Drugs:: No Lives Where: Home - infectious screening Have you traveled outside the country in the last 6 months?: No Isolation: Standard ROS - Review of Systems Constitutional: No Symptoms Reported. negative: See HPI, Chills, Diaphoresis, Fever, Malaise, Weakness, Irritable, Fatigue, Loss of Appetite, Other Eyes: No Symptoms Reported ENTM: No Symptoms Reported. negative: See HPI, Ear Pain, Ear Discharge, Pulling on Ears, Hearing Loss, Nose Pain, Nose Discharge, Epistaxis, Nose Congestion, Mouth Pain, Mouth Swelling, Loose Teeth, Drooling, Throat Pain, Throat Swelling, Ear Foreign Body Respiratoy: No Symptoms Reported Cardiovascular: No Symptoms Reported Gastrointestinal/Abdominal: No Symptoms Reported Genitourinary: No Symptoms Reported Neurological: No Symptoms Reported, Problems Walking (right foot pain) Musculoskeletal: No Symptoms Reported, Right, Ankle, Foot Integumentary: No Symptoms Reported, Bruises (right lateral ankle). negative: See HPI, Change in Color, Change in Hair/Nails, Dryness, Lesions, Lumps, Rash, Itching, Wound, Juandice, Other Hematologic/Lymphatic: No Symptoms Reported. negative: See HPI, Anemia, Blood Clots, Easy Bleeding, Easy Bruising, Swollen Glands, Lymphadenopathy, Other Endocrine: No Symptoms Reported Psychiatric: No Symptoms Reported PE - Vital Signs Vitals: Temperature 97.9 F Pulse Rate 100 Respiratory Rate 18 Blood Pressure [Right Arm] 145/81 Blood Pressure [Left Arm] 137/76 Blood Pressure 132/82 O2 Sat by Pulse Oximetry 95 - General Limitations: No Limitations General Appearance: Alert, In Distress (moderate) - Head Head Exam: Normal Inspection, Atraumatic, Normocephalic - Eyes Eye exam: Normal Appearance, PERRL, EOMI. negative: Scleral Icterus, Conjunctival Injection, Nystagmus, Miosis, Mydrasis, Periorbital Swelling, Periorbital Tenderness, Other - ENT ENT Exam: Normal Exam, Normal Oropharynx, Normal External Ear Exam, Mucous Membranes Moist, TM's Normal Bilaterally - Neck Neck Exam: Normal Inspection, Full ROM, Trachea Midline. negative: Tenderness, Meningismus, Lymphadenopathy, Thyromegaly, Other - Chest Chest Inspection: Normal Inspection, Symmetric Chest Wall Rise. negative: Tenderness, Rash, Abscess, Other - Respiratory Respiratory Exam: Normal Lung Sounds Bilat Respiratory Exam: Bilateral Clear to Auscultation - Cardiovascular Cardiovascular Exam: Regular Rate, Normal Rhythm, Normal Heart Sounds. negative : Bradycardia, Tachycardia, Irregular Rhythm, Systolic Murmur, Diastolic Murmur , Rubs, Gallop, Clicks, JVD, +S1, +S2, +S3, +S4, Other - Abdominal Exam Abdominal Exam: Normal Inspection, Normal Bowel Sounds, Soft Abdominal Tenderness: negative: RUQ, RLQ, LUQ, LLQ, Epigastrium, Suprapubic, Diffuse, Mild, Moderate, Severe, Other - Extremities Extremities Exam: Normal Inspection, Full ROM, Tenderness (right ankle tender), Normal Capillary Refill, Joint Swelling (right ankle swelling) - Upper Extremities Shoulder Exam: Normal Inspection, Full ROM Arm Exam: Normal Inspection, Full ROM Elbow Exam: Normal Inspection, Full ROM Hand Exam: Normal Inspection, Full ROM. negative: Tenderness, Swelling, Abrasion, Laceration, Ecchymosis, Skin Avulsion, Deformity, Crepitus, Erythema, Dislocation, Amputation, Nail Avulsion, Subungual Hematoma, Other Neuromotor Exam: Normal Exam, Wrist Extension (normal) Neurosensory Exam: Normal Exam Hand Tendon Exam: negative: Flexor Digitorium Profundus (Location), Flexor Digitorium Superficialis (Location) (normal), Extensor Tendon (Location), Other Upper Ext. Vascular Exam: Capillary Refill (normal), Radial Pulse (normal) - Lower Extremities Hip/Pelvis Exam: Normal Inspection, Full ROM. negative: Tenderness, Swelling, Abrasion, Laceration, Ecchymosis, Deformity, Crepitus, Dislocation, Erythema, External Rotation, Internal Rotation, Shortening, Pelvis Stable, Other Upper Leg Exam: Normal Inspection, Full ROM Knee Exam: Normal Inspection, Full ROM, Crepitus Lower Leg Exam: Normal Inspection, Full ROM Ankle Exam: Normal Inspection, Full ROM, Tenderness (right ankle with moderate swelling), Swelling Foot/Toe Exam: Normal Inspection, Full ROM. negative: Tenderness, Swelling, Abrasion, Laceration, Ecchymosis, Deformity, Crepitus, Dislocation, Erythema, Amputation, Puncture Wound, Foreign Body, Calcaneal Tenderness, Nail Avulsion, Other Neurovascular/Tendon Exam: Normal Capillary Refill Gait Exam: Not Tested/Not Observed - Back Back Exam: Normal Inspection, Full ROM. negative: Tenderness, (R) CVA Tenderness, (L) CVA Tenderness, Muscle Spasm, Paraspinal Tenderness, Vertebral Tenderness, Rashes, (R) Sciatic Notch Tenderness, (L) Sciatic Notch Tendern, (R ) Straight Leg Raise, (L) Straight Leg Raise, Other - Neurological Neurological Exam: Alert, Oriented X3, CN II-XII Intact, Normal Gait, Reflexes Normal - Psychiatric Psychiatric Exam: Normal Affect, Normal Mood. negative: Depressed, Agitated, Anxious, Flat Affect, Manic, Homicidal Ideation, Suicidal Ideation, Other - Skin Skin Exam: Warm, Dry, Intact, Normal Color. negative: Rash, Cyanosis, Diaphoresis, Erythema, Pallor, Mottled, Other Type of Lesion: negative: Rash, Abscess, Laceration, Foreign Body, Bite/Sting, Abrasion, Other Distribution: negative: Generalized, Involves Palms/Soles, Head, Face, Neck, Thorax, Chest, Back, Abdomen, Genitals, LUE, LLE, RUE, RLE, Other Description: negative: Size, Tenderness, Erythematous, Swelling, Macular, Papular, Vesicular, Blisters, Cofluent, Bullous, Petechial, Purpuric, Urticarial , Crusting, Discharge, Fluctuant, Indurated, Other ROR - Labs Reviewed Laboratory Results Reviewed?: Yes (all x-ray results reviewed and discussed with patient.) - XRAY XRAY Interpreted by: Radiologist (Right foot: No acute readiographic abnormality within the right foot.) XRAY Findings: right ankle: Sof tissue swelling within the lateral ankle consistent with - Diagnosis Discharge Problem: Contusion of right foot Right ankle sprain Qualifiers: Involved ligament of ankle: unspecified ligament - Discharge Plan Disposition: HOME, SELF-CARE Condition: Stable Prescriptions: Acetaminophen/Codeine Tab [TYLENOL w/CODEINE #3 (300 MG/30 MG) *] 1 tab PO Q4- 6H PRN #30 tab PRN Reason: Pain Naproxen [Naprosyn] 500 mg PO BID PRN #30 tab PRN Reason: Pain/Inflammation - Follow ups/Referrals Follow ups/Referrals: JENNIFER BOWEN [Primary Care Provider] - 3 days YASMANY RAINEY [STAFF PHYSICIAN] - 3 days - Instructions Instructions: Acute Ankle Sprain With Phase II Rehab-SportsMed, Acute Ankle Sprain With Phase I Rehab-SportsMed
[2017-01-20] MEDS ORDERED: TORADOL 60 MG VIAL ONE (20:32)
--- NOTE | 2017-01-20 21:10 | RAD ---
Three views of the right ankle. Indication: Ankle pain after twisting injury. Findings: No acute fracture dislocation within the right ankle. Soft tissue swelling within the later al ankle. Ankle mortise is symmetric. No osteochondral abnormality within talar dome. Mild enthesopat hic change of the Achilles and plantar fascia. Impression: Soft tissue swelling within the lateral ankle consistent with soft tissue injury/sprain; however, no acute fracture or malalignment of the right ankle. Reported By:
--- NOTE | 2017-01-20 21:15 | RAD ---
Three views of the right foot Indication: Right foot pain after injury Findings: No fracture or dislocation within the right foot. Lisfranc joint alignment is maintained. N o localizing soft tissue swelling. Enthesopathic change of the distal Achilles and proximal plantar f ascia is noted. Impression: No acute radiographic abnormality within the right foot. Reported By:
== END 2017-01-20 21:38 | disposition home or self-care (01) ==
LOC: ER 19:42
PROC: 2W3LX1Z Immobilization of Right Lower Extremity using Splint (ICD-10-PCS; principal; 2017-01-20)
DX: S90.31XA Contusion of right foot, initial encounter (principal); S93.401A Sprain of unspecified ligament of right ankle, initial encounter; Y33.XXXA Other specified events, undetermined intent, initial encounter; Y92.9 Unspecified place or not applicable
CPT/HCPCS: 29515; 73610; 73630; 96372; 99282; J1885

== ENCOUNTER 2017-01-26 10:05 | Day surgery (SDC) | payer OTHER ==
[2017-01-26] MEDS ORDERED: D5 LR 1000 ML 1,000 ML IV ONE (10:16)
[2017-01-26] MEDS ORDERED: DIPRIVAN VIAL 20 ML ONE (11:43)
[2017-01-26 12:23] VITALS: BP 120/60
== END 2017-01-26 12:20 | disposition home or self-care (01) ==
LOC: SURG1 10:05
PROVIDERS: ATTEND Internal Medicine
PROC: 0DB98ZX Excision of Duodenum, Via Natural or Artificial Opening Endoscopic, Diagnostic (ICD-10-PCS; principal; 2017-01-26 10:45)
PROC: 0DB68ZX Excision of Stomach, Via Natural or Artificial Opening Endoscopic, Diagnostic (ICD-10-PCS; principal; 2017-01-26 10:45)
PROC: 0DJ08ZZ Inspection of Upper Intestinal Tract, Via Natural or Artificial Opening Endoscopic (ICD-10-PCS; principal; 2017-01-26 10:45)
DX: R10.13 Epigastric pain (principal); K44.9 Diaphragmatic hernia without obstruction or gangrene; K20.8 Other esophagitis; K22.2 Esophageal obstruction; K29.60 Other gastritis without bleeding; K25.9 Gastric ulcer, unspecified as acute or chronic, without hemorrhage or perforation; K29.80 Duodenitis without bleeding; K31.89 Other diseases of stomach and duodenum
CPT/HCPCS: A4217; J3490; J7120

== ENCOUNTER → 2017-04-27 | Outpatient (CLI) | payer OTHER ==
--- NOTE | 2017-04-27 15:06 | MRI ---
STUDY: MRI OF THE LUMBAR SPINE HISTORY: Disc degeneration. Chronic low back pain. Comparison: None. Technique: Multiplanar multi-sequence MRI of the lumbar spine was performed. Sagittal T1, sagittal T 2, and STIR images, axial T1, and axial T2 images were obtained. Findings: Sagittal images: Vertebral body heights and alignment are within normal limits. Marrow signal is age-appropriate. Ther e is multilevel degenerative disc disease and degenerative endplate change. The conus medullaris is normal in appearance terminating at the level of L1/2. Axial images: T12 -- L1: Normal. L1 -- L2: There is bilateral facet arthropathy and ligamentum flavum infolding. The central canal and neural foramina are adequate. L2 -- L3: There is a shallow disc bulge, bilateral facet arthropathy and ligamentum flavum infolding. The central canal and neural foramina are adequate. L3 -- L4: There is a broad-based disc bulge, bilateral facet arthropathy and ligamentum flavum infold ing. The combination of these findings results in moderate central canal stenosis. There is mild righ t and moderate left neural foraminal stenosis. L4 -- L5: There is a broad-based disc bulge with left foraminal disc annular tear. This results in mi ld spinal stenosis. There is moderate bilateral neural foraminal stenosis. L5 -- S1: There is a shallow disc bulge, bilateral facet arthropathy and ligamentum flavum infolding. The central canal and neural foramina are adequate. IMPRESSION: 1. Multilevel lumbar spondylosis. 2. Moderate spinal stenosis at L3/4. 3. Mild spinal stenosis at L4/5. 4. Please see above for detail. Reported By:
== END ==
LOC: RAD 12:46
PROVIDERS: ATTEND Nurse Practitioner Family
DX: M51.36 Other intervertebral disc degeneration, lumbar region (principal)
CPT/HCPCS: 72148

== ENCOUNTER 2017-11-01 16:18 | Inpatient (IN) ==
--- NOTE | 2017-11-01 19:09 | RAD ---
CHEST RADIOGRAPHS PA AND LATERAL VIEWS CLINICAL HISTORY: 52-year-old female slipped on some water and fell on her right knee. COMPARISON: Chest radiograph 08/11/2016. FINDINGS: The cardiopericardial silhouette is stably enlarged with chronic prominence of the interst itium and perihilar lung markings with flattened hemidiaphragms consistent with COPD. There is no foc al consolidation, pleural effusion or pneumothorax. The lungs are well inflated. Pulmonary vascularit y is normal. Imaged osseous structures are intact. Soft tissues are unremarkable. IMPRESSION: No acute cardiopulmonary process in a patient with COPD. Reported By:
[2017-11-01 19:14] LABS: BASOPHILS # (AUTO) 0.1 X10^3/uL (0.0-0.1); EOSINOPHILS # (AUTO) 0.1 x10^3/uL (0.0-0.2); EOSINOPHILS % (AUTO) 0.8 % (0.9-2.9); HEMATOCRIT 35.7 % (36.0-47.0); HEMOGLOBIN 12.2 g/dL (12.0-16.0); LYMPHOCYTES # (AUTO) 2.8 X10^3/uL (1.3-2.9); LYMPHOCYTES % (AUTO) 32.8 % (21.0-51.0); MEAN CORPUSCULAR HEMOGLOBIN 29.6 pg (27.0-34.0); MEAN CORPUSCULAR HGB CONC 34.1 g/dL (33.0-35.0); MEAN CORPUSCULAR VOLUME 86.7 fL (80.0-100.0); MEAN PLATELET VOLUME 8.6 fL (7.4-11.0); MONOCYTES # (AUTO) 0.6 x10^3/uL (0.3-0.8); MONOCYTES % (AUTO) 6.5 % (0.0-13.0); NEUTROPHILS # (AUTO) 5.1 x10^3/uL (2.2-4.8); NEUTROPHILS % (AUTO) 58.9 % (42.0-75.0); PLATELET COUNT 470 X10^3/uL (150.0-450.0); RED BLOOD COUNT 4.12 X10^6/uL (3.5-5.4); RED CELL DISTRIBUTION WIDTH 14.4 % (11.6-16.5); WHITE BLOOD COUNT 8.6 X10^3/uL (3.6-10.0)
[2017-11-01 19:29] LABS: ALANINE AMINOTRANSFERASE 13 Units/L (12-78); ALBUMIN 3.3 g/dL (3.4-5.0); ALKALINE PHOSPHATASE 245 Units/L (46-116); ASPARTATE AMINO TRANSFERASE 12 Units/L (15-37); BLOOD UREA NITROGEN 5 mg/dL (7-18); CALCIUM 8.7 mg/dL (8.5-10.1); CARBON DIOXIDE 23.1 mmol/L (21-32); CHLORIDE 99 mmol/L (98-107); COR CA(FOR HYPOALB) 9.3 mg/dL (8.5-10.1); SODIUM 134 mmol/L (136-145); TOTAL PROTEIN 8.7 g/dL (6.4-8.2); eGFR NON BLACK RACES > 60 (>60)
[2017-11-01] MEDS ORDERED: NS 1/2 1000 ML IV 1,000 ML IV ONE (19:49)
[2017-11-01] MEDS: LEVAQUIN PREMIX IV 750 MG 750 MG/150 ML BAG IV SCH (20:02)
[2017-11-01] MEDS: NS 1/2 1000 ML IV 1,000 ML IV SCH (20:03)
[2017-11-01] MEDS ORDERED: SALINE 3% 15 ML NEB TX ONE (20:21)
[2017-11-01] MEDS: DUONEB 0.5 MG/3 MG NEB SCH (20:38)
[2017-11-01 21:22] VITALS: BMI 30.4
[2017-11-01] MEDS: ROBITUSSIN DM PO SCH (23:21)
[2017-11-02] MEDS: RESTORIL CAP 15 MG PO PRN
[2017-11-02] MEDS ORDERED: POTASSIUM CHL 60 MEQ/NS 0.45% 500 ML IV PRN (00:18)
[2017-11-02] MEDS ORDERED: MAGNESIUM SULFATE 1 GRAM/100 mL PREMIX 1 GM/100 ML BAG IV PRN (00:18)
[2017-11-02] MEDS ORDERED: POTASSIUM CHL 40 MEQ/NS 0.45% 500 ML IV PRN (00:18)
[2017-11-02] MEDS ORDERED: K-LYTE EFFERVESCENT PO PRN (00:18)
[2017-11-02] MEDS ORDERED: K-RIDER 10 MEQ/NS 100 ML 10 MEQ/100 ML BAG IV PRN (00:18)
[2017-11-02] MEDS: DUONEB 0.5 MG/3 MG NEB SCH ×6 (01:21→20:25)
[2017-11-02 07:10] LABS: BASOPHILS # (AUTO) 0.1 X10^3/uL (0.0-0.1); BASOPHILS % (AUTO) 0.7 % (0.2-1.0); EOSINOPHILS # (AUTO) 0.1 x10^3/uL (0.0-0.2); EOSINOPHILS % (AUTO) 0.7 % (0.9-2.9); HEMATOCRIT 33.6 % (36.0-47.0); HEMOGLOBIN 11.4 g/dL (12.0-16.0); LYMPHOCYTES # (AUTO) 3.1 X10^3/uL (1.3-2.9); LYMPHOCYTES % (AUTO) 36.1 % (21.0-51.0); MEAN CORPUSCULAR HEMOGLOBIN 29.6 pg (27.0-34.0); MEAN CORPUSCULAR HGB CONC 33.9 g/dL (33.0-35.0); MEAN CORPUSCULAR VOLUME 87.3 fL (80.0-100.0); MEAN PLATELET VOLUME 8.9 fL (7.4-11.0); MONOCYTES # (AUTO) 0.7 x10^3/uL (0.3-0.8); MONOCYTES % (AUTO) 8.6 % (0.0-13.0); NEUTROPHILS # (AUTO) 4.7 x10^3/uL (2.2-4.8); NEUTROPHILS % (AUTO) 53.9 % (42.0-75.0); PLATELET COUNT 404 X10^3/uL (150.0-450.0); RED BLOOD COUNT 3.85 X10^6/uL (3.5-5.4); RED CELL DISTRIBUTION WIDTH 14.2 % (11.6-16.5); WHITE BLOOD COUNT 8.7 X10^3/uL (3.6-10.0)
[2017-11-02 07:11] LABS: ALANINE AMINOTRANSFERASE 13 Units/L (12-78); ALKALINE PHOSPHATASE 220 Units/L (46-116); ASPARTATE AMINO TRANSFERASE 13 Units/L (15-37); BLOOD UREA NITROGEN 4 mg/dL (7-18); CALCIUM 8.4 mg/dL (8.5-10.1); CARBON DIOXIDE 24.2 mmol/L (21-32); CHLORIDE 102 mmol/L (98-107); COR CA(FOR HYPOALB) 9.2 mg/dL (8.5-10.1); CREATININE 0.74 mg/dL (0.55-1.02); SODIUM 138 mmol/L (136-145); eGFR NON BLACK RACES > 60 (>60)
[2017-11-02] MEDS: LEVAQUIN PREMIX IV 750 MG 750 MG/150 ML BAG IV SCH (09:24)
[2017-11-02] MEDS: ROBITUSSIN DM PO SCH ×4 (09:25→20:40)
[2017-11-02] MEDS ORDERED: ZOFRAN TAB 4 MG PO PRN (09:56)
[2017-11-02] MEDS: NORCO 5/325 MG TAB PO PRN ×2 (13:06→20:46)
--- NOTE | 2017-11-02 14:09 | DR.H&P ---
H&P - History & Physical for Day of: H&P Date: 11/01/17 - Chief Complaint Chief Complaint: COUGH, WHEEZING AND VOMITING - History of Present Illness History of Present Illness: 52 WF DIRECT ADMIT FROM DR. CANELA OFFICE WITH CO HOARSE BARKING COUGH, WHEEZING AND WEAKNESS. PT REPORTS UNABLE TO KEEP FOOD DOWN FOR SEVERAL DAYS. PT HAS HX OF COPD AND ESOPHAGITIS, HAS BEEN USING INHALERS, NEB TREATMENTS AND PPI THERAPY WITHOUT IMPROVEMENT. PT HAS PMH OF HTN , OA, SEIZURES, REFLUX, HAMMAD. - Past Medical History Past Medical History: Anxiety, COPD, Depression, Hypertension, Seizures - Past Surgical History Surgical History: , Hysterectomy - Family History Family Medical History: Diabetes Mellitus, Coronary Artery Disease - Social History Does patient currently use any type of tobacco product: Yes Have you used tobacco products in the last 12 months: Yes Type of Tobacco Use: Cigarettes How many years tobacco product used: 30 Alcohol Use: None Drug Use: None - Medications Home Medications: No Known Drug Allergies Allergy (Verified 01/20/17 19:46) - Review of Systems Constitutional: Weakness Eyes: No Symptoms Reported ENT: No Symptoms Reported Respiratory: Cough, Shortness of Breath, SOB with Excertion, Wheezing Cardiovascular: No Symptoms Reported Gastrointestinal: Nausea, Vomiting Genitourinary: No Symptoms Reported Musculoskeletal: Back Pain Skin: No Symptoms Reported Neurological: Weakness - Physical Exam Vital Signs: Temperature 97.3 F Pulse Rate [Radial] 90 Pulse Rate 89 Respiratory Rate 18 Blood Pressure [Right Arm] 143/71 Blood Pressure [Left Arm] 133/75 Blood Pressure 133/75 O2 Sat by Pulse Oximetry 96 Oriented: Normal Eyes: Normal Ear: Normal Nose: Normal Throat: Red, Dry Respiratory: RLL Diminished, LLL Diminished Cardiovascular: Tachycardia. negative: Edema : Normal Auscultation: Bowel Sounds: Normal Tenderness: RUQ, LUQ, Epigastric Skin: Decreased Turgur Musculoskeletal: Back:Thoracic, Back:Lumbar Psychiatric: Depression Mood Description: Depressed Affect: Anxious, Depressed Speech Pattern: Clear, Appropriate - Assessment/Plan (1) COPD (chronic obstructive pulmonary disease) with acute bronchitis Status: Acute Plan: ADMIT, PNEUMONIA PROTOCOL, BLOOD AND SPUTUM CUTLURES. RESP THERAPY, CXR ON ADMISSION, IV ATBX. IV HYDRATION, PPI THERAPY, NAUSEA CONTROL. VERIFY HOME MEDS, SOFT DIET (2) GERD (gastroesophageal reflux disease) Status: Acute (3) N&V (nausea and vomiting) Status: Acute (4) GERD (gastroesophageal reflux disease) Status: Acute (5) Hypertension Status: Acute (6) Lumbar degenerative disc disease Status: Acute - Allergies Allergies/Adverse Reactions: Allergies Allergy/AdvReac Type Severity Reaction Status Date / Time No Known Drug Allergies Allergy Verified 01/20/17 19:46
--- NOTE | 2017-11-02 14:14 | PCM.PROG ---
Progress Note - Progress Note for Day of Date of Exam: 11/02/17 - Subjective Subjective: 52 WF ADMITTED ON 11/01 WITH COPD EXACERBATION AND N/V. PT CURRENTLY ON IV LEVQUIN WITH JET NEBS AND PRN SUPPLEMENTAL O2, PT ON PPI THERAPY AND CARAFATE. PT CONTINUES WITH PERSISTENT HOARSE BARKING COUGH, NAUSEA STABLE. ENCOURAGED ORAL HYDRATION. SPUTUM PRODUCTION, REPEAT AM LABS - Past Medical Family Social History Past Med/Fam/Surg Hx: No changes since H&P Allergies: Allergies No Known Drug Allergies Allergy (Verified 01/20/17 19:46) - Review of Systems ROS: No change since H&P - Vital Signs and I&O's Vital Signs: Temperature 97.3 F Pulse Rate [Radial] 90 Pulse Rate 89 Respiratory Rate 18 Blood Pressure [Right Arm] 143/71 Blood Pressure [Left Arm] 133/75 Blood Pressure 133/75 O2 Sat by Pulse Oximetry 96 Intake and Output: Intake & Output 10/31/17 11/01/17 11/02/17 11/03/17 11:59 11:59 11:59 11:59 Intake Total 350 / 350 Balance 350 / 350 - Physical Exam Oriented: Normal Eyes: Normal Ear: Normal Nose: Normal Throat: Red, Dry Respiratory: Diminished, Wheezes Cardiovascular: Tachycardia. negative: Edema : Normal Auscultation: Bowel Sounds: Normal Tenderness: RUQ, LUQ, Epigastric Skin: Decreased Turgur Musculoskeletal: Back:Thoracic, Back:Lumbar Psychiatric: Depression Mood Description: Depressed Affect: Anxious, Depressed Speech Pattern: Clear, Appropriate - Laboratory and Diagnostics Result Diagrams: 11/02/17 06:28 11/02/17 12:37 Labs: 11/01/17 21:14 Sputum - Expectorated Sputum Sputum Culture - Preliminary 11/01/17 21:14 Sputum - Expectorated Sputum - Final Laboratory WBC 8.7 X10^3/uL (3.6-10.0) 11/02/17 06:28 RBC 3.85 X10^6/uL (3.5-5.4) 11/02/17 06:28 Hgb 11.4 g/dL (12.0-16.0) L 11/02/17 06:28 Hct 33.6 % (36.0-47.0) L 11/02/17 06:28 MCV 87.3 fL (80.0-100.0) 11/02/17 06: MCH 29.6 pg (27.0-34.0) 11/02/17 06: MCHC 33.9 g/dL (33.0-35.0) 11/02/17 06: RDW 14.2 % (11.6-16.5) 11/02/17 06: Plt Count 404 X10^3/uL (150.0-450.0) 11/02/17: MPV 8.9 fL (7.4-11.0) 11/02/17 06: Neut % (Auto) 53.9 % (42.0-75.0) 11/02/17: Lymph % (Auto) 36.1 % (21.0-51.0) 11/02/17: [place] % (Auto) 8.6 % (0.0-13.0) 11/02/17: Eos % (Auto) 0.7 % (0.9-2.9) L 11/02/17: Baso % (Auto) 0.7 % (0.2-1.0) 11/02/17 06: Neut # (Auto) 4.7 x10^3/uL (2.2-4.8) 11/02/17 06: Lymph # (Auto) 3.1 X10^3/uL (1.3-2.9) H 11/02/17 06:28 [place] # (Auto) 0.7 x10^3/uL (0.3-0.8) 11/02/17 06: Eos # (Auto) 0.1 x10^3/uL (0.0-0.2) 11/02/17 06: Baso # (Auto) 0.1 X10^3/uL (0.0-0.1) 11/02/17 06: Absolute Nucleated RBC 0.0 /100WBC 11/02/17 06: Sodium 138 mmol/L (136-145) 11/02/17 06: Corrected Sodium TNP 11/02/17 06: Potassium 3.9 mmol/L (3.5-5.1) 11/02/17 12:37 Chloride 102 mmol/L (98-107) 11/02/17 06:28 Carbon Dioxide 24.2 mmol/L (21-32) 11/02/17 06:28 BUN 4 mg/dL (7-18) L 11/02/17 06:28 Creatinine 0.74 mg/dL (0.55-1.02) 11/02/17 06:28 Est GFR (MDRD) Af Amer > 60 (>60) 11/02/17 06:28 Est GFR (MDRD) Non-Af > 60 (>60) 11/02/17 06:28 Glucose 106 mg/dL (65-99) H 11/02/17 06:28 Calcium 8.4 mg/dL (8.5-10.1) L 11/02/17 06:28 Corrected Calcium 9.2 mg/dL (8.5-10.1) 11/02/17 06:28 Magnesium 2.1 mg/dL (1.7-2.9) 11/01/17 19:04 Total Bilirubin 0.10 mg/dL (0.2-1.0) L 11/02/17 06:28 AST 13 Units/L (15-37) L 11/02/17 06:28 ALT 13 Units/L (12-78) 11/02/17 06:28 Alkaline Phosphatase 220 Units/L (46-116) H 11/02/17 06:28 Total Protein 8.0 g/dL (6.4-8.2) 11/02/17 06:28 Albumin 3.0 g/dL (3.4-5.0) L 11/02/17 06:28 Globulin 5.0 g/dL (2.5-4.5) H 11/02/17 06:28 Albumin/Globulin Ratio 0.6 Ratio (1.1-2.1) L 11/02/17 06:28 - Plan (1) COPD (chronic obstructive pulmonary disease) with acute bronchitis Status: Acute Plan: PNEUMONIA PROTOCOL, BLOOD AND SPUTUM CUTLURES. RESP THERAPY, CXR AM, IV ATBX. IV HYDRATION, PPI THERAPY, NAUSEA CONTROL. VERIFY HOME MEDS, SOFT DIET (2) GERD (gastroesophageal reflux disease) Status: Acute Plan: PPI , CARAFATE (3) N&V (nausea and vomiting) Status: Acute (4) GERD (gastroesophageal reflux disease) Status: Acute (5) Hypertension Status: Acute (6) Lumbar degenerative disc disease Status: Acute
[2017-11-02] MEDS: REQUIP PO SCH (20:40)
[2017-11-02] MEDS ORDERED: NS 1/2 1000 ML IV 1,000 ML IV ONE (20:42)
[2017-11-02] MEDS: NS 1/2 1000 ML IV 1,000 ML IV SCH (20:45)
[2017-11-03] MEDS: NS 1/2 1000 ML IV 1,000 ML IV SCH ×5 (00:32→16:42)
[2017-11-03] MEDS: DUONEB 0.5 MG/3 MG NEB SCH ×6 (00:35→20:25)
[2017-11-03] MEDS: TUSSIONEX PENNKINETIC SUSP PO PRN ×3 (02:29→21:30)
[2017-11-03 06:01] LABS: BASOPHILS # (AUTO) 0.1 X10^3/uL (0.0-0.1); BASOPHILS % (AUTO) 1.2 % (0.2-1.0); EOSINOPHILS # (AUTO) 0.1 x10^3/uL (0.0-0.2); EOSINOPHILS % (AUTO) 0.5 % (0.9-2.9); HEMATOCRIT 32.6 % (36.0-47.0); LYMPHOCYTES # (AUTO) 2.8 X10^3/uL (1.3-2.9); LYMPHOCYTES % (AUTO) 23.7 % (21.0-51.0); MEAN CORPUSCULAR HEMOGLOBIN 29.2 pg (27.0-34.0); MEAN CORPUSCULAR HGB CONC 33.6 g/dL (33.0-35.0); MEAN CORPUSCULAR VOLUME 86.9 fL (80.0-100.0); MONOCYTES # (AUTO) 0.8 x10^3/uL (0.3-0.8); MONOCYTES % (AUTO) 6.8 % (0.0-13.0); NEUTROPHILS # (AUTO) 7.9 x10^3/uL (2.2-4.8); NEUTROPHILS % (AUTO) 67.8 % (42.0-75.0); PLATELET COUNT 402 X10^3/uL (150.0-450.0); RED BLOOD COUNT 3.76 X10^6/uL (3.5-5.4); RED CELL DISTRIBUTION WIDTH 14.3 % (11.6-16.5); WHITE BLOOD COUNT 11.7 X10^3/uL (3.6-10.0)
[2017-11-03 06:25] LABS: ALANINE AMINOTRANSFERASE 14 Units/L (12-78); ALBUMIN 2.9 g/dL (3.4-5.0); ALKALINE PHOSPHATASE 212 Units/L (46-116); ASPARTATE AMINO TRANSFERASE 12 Units/L (15-37); BLOOD UREA NITROGEN 3 mg/dL (7-18); CALCIUM 8.4 mg/dL (8.5-10.1); CARBON DIOXIDE 23.9 mmol/L (21-32); CHLORIDE 102 mmol/L (98-107); COR CA(FOR HYPOALB) 9.3 mg/dL (8.5-10.1); COR NA(FOR HYPERGLY) 139 mmol/L (136-145); CREATININE 0.75 mg/dL (0.55-1.02); SODIUM 139 mmol/L (136-145); TOTAL PROTEIN 7.9 g/dL (6.4-8.2); eGFR NON BLACK RACES > 60 (>60)
--- NOTE | 2017-11-03 06:51 | RAD ---
Examination: AP chest History: Cough, COPD Comparison 11/01/2017 Findings: Continued normal heart size. No acute pulmonary or pleural lesion noted. Slight diffuse ch ronic interstitial prominence as before. No evidence for superimposed pneumonia, pneumothorax or deve loping pleural effusion. Impression: No change. The Reported By:
[2017-11-03] MEDS ORDERED: NS 1/2 1000 ML IV 1,000 ML IV ONE ×2 (08:50→16:39)
[2017-11-03] MEDS: LEVAQUIN PREMIX IV 750 MG 750 MG/150 ML BAG IV SCH (09:38)
[2017-11-03] MEDS: ROBITUSSIN DM PO SCH ×4 (09:38→21:29)
[2017-11-03] MEDS: POTASSIUM CHLORIDE LIQ 20 MEQ UDC PO PRN (09:38)
[2017-11-03] MEDS: NORVASC TAB 5 MG PO SCH (09:39)
[2017-11-03] MEDS: PAXIL PO SCH (09:39)
[2017-11-03] MEDS: NORCO 5/325 MG TAB PO PRN ×2 (09:43→21:29)
[2017-11-03] MEDS: LEVSIN/MAALOX/LIDOC VISC PO SCH ×3 (13:48→21:28)
[2017-11-03] MEDS: PROTONIX INJ 40 MG VIAL IVP SCH (13:51)
[2017-11-03] MEDS: SOLU-Medrol 40 MG VIAL IVP SCH ×2 (13:51→21:29)
[2017-11-03] MEDS: REQUIP PO SCH (21:29)
[2017-11-04] MEDS: NS 1/2 1000 ML IV 1,000 ML IV SCH ×3 (03:36→18:44)
[2017-11-04 05:42] LABS: BASOPHILS % (AUTO) 0 % (0.2-1.0); HEMATOCRIT 32.8 % (36.0-47.0); HEMOGLOBIN 10.8 g/dL (12.0-16.0); LYMPHOCYTES # (AUTO) 1.1 X10^3/uL (1.3-2.9); LYMPHOCYTES % (AUTO) 9.6 % (21.0-51.0); MEAN CORPUSCULAR HEMOGLOBIN 28.8 pg (27.0-34.0); MEAN CORPUSCULAR HGB CONC 33.1 g/dL (33.0-35.0); MEAN CORPUSCULAR VOLUME 87.1 fL (80.0-100.0); MEAN PLATELET VOLUME 9.2 fL (7.4-11.0); MONOCYTES # (AUTO) 0.3 x10^3/uL (0.3-0.8); MONOCYTES % (AUTO) 2.7 % (0.0-13.0); NEUTROPHILS # (AUTO) 10.3 x10^3/uL (2.2-4.8); NEUTROPHILS % (AUTO) 87.7 % (42.0-75.0); PLATELET COUNT 397 X10^3/uL (150.0-450.0); RED BLOOD COUNT 3.77 X10^6/uL (3.5-5.4); RED CELL DISTRIBUTION WIDTH 14.2 % (11.6-16.5); WHITE BLOOD COUNT 11.7 X10^3/uL (3.6-10.0)
[2017-11-04] MEDS ORDERED: NS 1/2 1000 ML IV 1,000 ML IV ONE (06:07)
[2017-11-04 06:08] LABS: ALANINE AMINOTRANSFERASE 13 Units/L (12-78); ALBUMIN 2.7 g/dL (3.4-5.0); ALKALINE PHOSPHATASE 206 Units/L (46-116); ASPARTATE AMINO TRANSFERASE 9 Units/L (15-37); BLOOD UREA NITROGEN 6 mg/dL (7-18); CALCIUM 8.6 mg/dL (8.5-10.1); CARBON DIOXIDE 26.5 mmol/L (21-32); CHLORIDE 103 mmol/L (98-107); COR CA(FOR HYPOALB) 9.6 mg/dL (8.5-10.1); COR NA(FOR HYPERGLY) 139 mmol/L (136-145); SODIUM 138 mmol/L (136-145); TOTAL PROTEIN 7.9 g/dL (6.4-8.2); eGFR NON BLACK RACES > 60 (>60)
[2017-11-04] MEDS: SOLU-Medrol 40 MG VIAL IVP SCH (06:32)
[2017-11-04] MEDS: ROBITUSSIN DM PO SCH ×4 (08:53→21:29)
[2017-11-04] MEDS: PAXIL PO SCH (08:53)
[2017-11-04] MEDS: PROTONIX INJ 40 MG VIAL IVP SCH (08:53)
[2017-11-04] MEDS: LEVSIN/MAALOX/LIDOC VISC PO SCH ×4 (08:54→21:28)
[2017-11-04] MEDS: LEVAQUIN PREMIX IV 750 MG 750 MG/150 ML BAG IV SCH (08:54)
[2017-11-04] MEDS: NORVASC TAB 5 MG PO SCH (08:54)
[2017-11-04] MEDS: TUSSIONEX PENNKINETIC SUSP PO PRN ×2 (08:56→21:29)
[2017-11-04] MEDS: DUONEB 0.5 MG/3 MG NEB SCH ×4 (09:02→21:23)
[2017-11-04] MEDS: NORCO 5/325 MG TAB PO PRN (15:49)
[2017-11-04] MEDS: REQUIP PO SCH (21:29)
[2017-11-04] MEDS: RESTORIL CAP 15 MG PO PRN (21:29)
[2017-11-05] MEDS: NS 1/2 1000 ML IV 1,000 ML IV SCH ×4 (02:16→21:39)
[2017-11-05] MEDS ORDERED: NS 1/2 1000 ML IV 1,000 ML IV ONE ×3 (02:18→20:41)
[2017-11-05 06:40] LABS: BASOPHILS # (AUTO) 0.1 X10^3/uL (0.0-0.1); BASOPHILS % (AUTO) 0.4 % (0.2-1.0); EOSINOPHILS % (AUTO) 0.1 % (0.9-2.9); HEMATOCRIT 31.8 % (36.0-47.0); HEMOGLOBIN 10.7 g/dL (12.0-16.0); LYMPHOCYTES # (AUTO) 4.1 X10^3/uL (1.3-2.9); LYMPHOCYTES % (AUTO) 28.3 % (21.0-51.0); MEAN CORPUSCULAR HEMOGLOBIN 29.3 pg (27.0-34.0); MEAN CORPUSCULAR HGB CONC 33.5 g/dL (33.0-35.0); MEAN CORPUSCULAR VOLUME 87.5 fL (80.0-100.0); MEAN PLATELET VOLUME 8.8 fL (7.4-11.0); MONOCYTES % (AUTO) 6.9 % (0.0-13.0); NEUTROPHILS # (AUTO) 9.4 x10^3/uL (2.2-4.8); NEUTROPHILS % (AUTO) 64.3 % (42.0-75.0); PLATELET COUNT 429 X10^3/uL (150.0-450.0); RED BLOOD COUNT 3.64 X10^6/uL (3.5-5.4); RED CELL DISTRIBUTION WIDTH 14.2 % (11.6-16.5); WHITE BLOOD COUNT 14.7 X10^3/uL (3.6-10.0)
[2017-11-05 06:49] LABS: ALANINE AMINOTRANSFERASE 17 Units/L (12-78); ALBUMIN 2.6 g/dL (3.4-5.0); ALKALINE PHOSPHATASE 188 Units/L (46-116); ASPARTATE AMINO TRANSFERASE 14 Units/L (15-37); BLOOD UREA NITROGEN 9 mg/dL (7-18); CALCIUM 8.4 mg/dL (8.5-10.1); CARBON DIOXIDE 27.9 mmol/L (21-32); CHLORIDE 103 mmol/L (98-107); COR CA(FOR HYPOALB) 9.5 mg/dL (8.5-10.1); CREATININE 0.67 mg/dL (0.55-1.02); SODIUM 139 mmol/L (136-145); TOTAL PROTEIN 7.3 g/dL (6.4-8.2); eGFR NON BLACK RACES > 60 (>60)
[2017-11-05] MEDS: LEVAQUIN PREMIX IV 750 MG 750 MG/150 ML BAG IV SCH (09:17)
[2017-11-05] MEDS: LEVSIN/MAALOX/LIDOC VISC PO SCH ×4 (09:17→21:38)
[2017-11-05] MEDS: ROBITUSSIN DM PO SCH ×4 (09:18→21:39)
[2017-11-05] MEDS: POTASSIUM CHLORIDE LIQ 20 MEQ UDC PO PRN (09:19)
[2017-11-05] MEDS: COLACE CAP 100 MG PO SCH ×2 (09:19→21:38)
[2017-11-05] MEDS: TUSSIONEX PENNKINETIC SUSP PO PRN ×2 (09:19→20:29)
[2017-11-05] MEDS: PROTONIX INJ 40 MG VIAL IVP SCH (09:19)
[2017-11-05] MEDS: MILK OF MAGNESIA PO SCH ×2 (09:19→21:39)
[2017-11-05] MEDS: NORVASC TAB 5 MG PO SCH (09:20)
[2017-11-05] MEDS: PAXIL PO SCH (09:20)
[2017-11-05] MEDS: SOLU-Medrol 40 MG VIAL IVP SCH ×3 (09:26→21:39)
[2017-11-05] MEDS: DUONEB 0.5 MG/3 MG NEB SCH ×4 (09:37→21:45)
[2017-11-05] MEDS: PULMICORT NEB TX 0.5 MG NEB SCH ×2 (09:43→21:45)
[2017-11-05] MEDS: NORCO 5/325 MG TAB PO PRN (11:41)
--- NOTE | 2017-11-05 18:06 | PCM.PROG ---
Progress Note - Progress Note for Day of Date of Exam: 11/04/17 - Subjective Subjective: 52 WF ADMITTED ON 11/01 WITH COPD EXACERBATION AND N/V. PT CURRENTLY ON IV LEVQUIN WITH JET NEBS AND PRN SUPPLEMENTAL O2, PT ON PPI THERAPY AND CARAFATE. PT CONTINUES WITH PERSISTENT HOARSE BARKING COUGH, NAUSEA STABLE, DENIES VOMITING. ENCOURAGED ORAL HYDRATION. SPUTUM PRODUCTION, REPEAT AM LABS - Past Medical Family Social History Past Med/Fam/Surg Hx: No changes since H&P Allergies: Allergies No Known Drug Allergies Allergy (Verified 01/20/17 19:46) - Review of Systems ROS: No change since H&P - Vital Signs and I&O's Vital Signs: Temperature 98.0 F Pulse Rate [Radial] 96 Pulse Rate 91 Respiratory Rate 18 Blood Pressure [Right Arm] 115/78 Blood Pressure [Left Arm] 133/75 Blood Pressure 133/75 O2 Sat by Pulse Oximetry 95 Intake and Output: Intake & Output 11/03/17 11/04/17 11/05/17 11/06/17 11:59 11:59 11:59 11:59 Intake Total 1200 / 1200 3681 / 3681 3274 / 3274 1656 / 1656 Balance 1200 / 1200 3681 / 3681 3274 / 3274 1656 / 1656 - Physical Exam Oriented: Normal Eyes: Normal Ear: Normal Nose: Normal Throat: Red, Dry Respiratory: Diminished, Wheezes Cardiovascular: Tachycardia. negative: Edema : Normal Auscultation: Bowel Sounds: Normal Tenderness: RUQ, LUQ, Epigastric Skin: Decreased Turgur Musculoskeletal: Back:Thoracic, Back:Lumbar Psychiatric: Depression Mood Description: Depressed Affect: Anxious, Depressed Speech Pattern: Clear, Appropriate - Laboratory and Diagnostics Result Diagrams: 11/05/17 05:30 11/05/17 05:30 Labs: 11/01/17 19:04 Blood Blood Culture - Preliminary 11/01/17 18:59 Blood Blood Culture - Preliminary 11/01/17 21:14 Sputum - Expectorated Sputum Sputum Culture - Final Klebsiella Pneumoniae 11/01/17 21:14 Sputum - Expectorated Sputum - Final Laboratory WBC 14.7 X10^3/uL (3.6-10.0) H 11/05/17 05:30 RBC 3.64 X10^6/uL (3.5-5.4) 11/05/17 05:30 Hgb 10.7 g/dL (12.0-16.0) L 11/05/17 05:30 Hct 31.8 % (36.0-47.0) L 11/05/17 05:30 MCV 87.5 fL (80.0-100.0) 11/05/17 05:30 MCH 29.3 pg (27.0-34.0) 11/05/17 05:30 MCHC 33.5 g/dL (33.0-35.0) 11/05/17 05:30 RDW 14.2 % (11.6-16.5) 11/05/17 05:30 Plt Count 429 X10^3/uL (150.0-450.0) 11/05/17 05:30 MPV 8.8 fL (7.4-11.0) 11/05/17 05:30 Neut % (Auto) 64.3 % (42.0-75.0) 11/05/17 05:30 Lymph % (Auto) 28.3 % (21.0-51.0) 11/05/17 05:30 [place] % (Auto) 6.9 % (0.0-13.0) 11/05/17 05:30 Eos % (Auto) 0.1 % (0.9-2.9) L 11/05/17 05:30 Baso % (Auto) 0.4 % (0.2-1.0) 11/05/17 05:30 Neut # (Auto) 9.4 x10^3/uL (2.2-4.8) H 11/05/17 05:30 Lymph # (Auto) 4.1 X10^3/uL (1.3-2.9) H 11/05/17 05:30 [place] # (Auto) 1.0 x10^3/uL (0.3-0.8) H 11/05/17 05:30 Eos # (Auto) 0.0 x10^3/uL (0.0-0.2) 11/05/17 05:30 Baso # (Auto) 0.1 X10^3/uL (0.0-0.1) 11/05/17 05:30 Absolute Nucleated RBC 0.0 /100WBC 11/05/17 05:30 Sodium 139 mmol/L (136-145) 11/05/17 05:30 Corrected Sodium TNP 11/05/17 05:30 Potassium 3.5 mmol/L (3.5-5.1) 11/05/17 05:30 Chloride 103 mmol/L (98-107) 11/05/17 05:30 Carbon Dioxide 27.9 mmol/L (21-32) 11/05/17 05:30 BUN 9 mg/dL (7-18) 11/05/17 05:30 Creatinine 0.67 mg/dL (0.55-1.02) 11/05/17 05:30 Est GFR (MDRD) Af Amer > 60 (>60) 11/05/17 05:30 Est GFR (MDRD) Non-Af > 60 (>60) 11/05/17 05:30 Glucose 98 mg/dL (65-99) 11/05/17 05:30 Calcium 8.4 mg/dL (8.5-10.1) L 11/05/17 05:30 Corrected Calcium 9.5 mg/dL (8.5-10.1) 11/05/17 05:30 Magnesium 2.1 mg/dL (1.7-2.9) 11/01/17 19:04 Total Bilirubin 0.10 mg/dL (0.2-1.0) L 11/05/17 05:30 AST 14 Units/L (15-37) L 11/05/17 05:30 ALT 17 Units/L (12-78) 11/05/17 05:30 Alkaline Phosphatase 188 Units/L (46-116) H 11/05/17 05:30 Total Protein 7.3 g/dL (6.4-8.2) 11/05/17 05:30 Albumin 2.6 g/dL (3.4-5.0) L 11/05/17 05:30 Globulin 4.7 g/dL (2.5-4.5) H 11/05/17 05:30 Albumin/Globulin Ratio 0.6 Ratio (1.1-2.1) L 11/05/17 05:30 - Plan (1) COPD (chronic obstructive pulmonary disease) with acute bronchitis Status: Acute Plan: PNEUMONIA PROTOCOL, BLOOD AND SPUTUM CUTLURES. RESP THERAPY, CXR AM, IV ATBX. IV HYDRATION, PPI THERAPY, NAUSEA CONTROL. VERIFY HOME MEDS, SOFT DIET (2) GERD (gastroesophageal reflux disease) Status: Acute Plan: PPI , CARAFATE (3) N&V (nausea and vomiting) Status: Acute (4) GERD (gastroesophageal reflux disease) Status: Acute (5) Hypertension Status: Acute (6) Lumbar degenerative disc disease Status: Acute
--- NOTE | 2017-11-05 18:07 | PCM.PROG ---
Progress Note - Progress Note for Day of Date of Exam: 11/05/17 - Subjective Subjective: 52 WF ADMITTED ON 11/01 WITH COPD EXACERBATION AND N/V. PT CURRENTLY ON IV LEVQUIN WITH JET NEBS AND PRN SUPPLEMENTAL O2, PT ON PPI THERAPY AND CARAFATE. PT CONTINUES WITH PERSISTENT HOARSE BARKING COUGH, NAUSEA STABLE, DENIES VOMITING. ENCOURAGED ORAL HYDRATION. ADDED BUDESONIDE AND REPEAT SOLU MEDROL IV 40MG X 3 DOSES. DISCUSSED POSSIBLE D/C HOME TOMORROW IF CONTINUES TO IMPROVE. SPUTUM PRODUCTION, REPEAT AM LABS - Past Medical Family Social History Past Med/Fam/Surg Hx: No changes since H&P Allergies: Allergies No Known Drug Allergies Allergy (Verified 01/20/17 19:46) - Review of Systems ROS: No change since H&P - Vital Signs and I&O's Vital Signs: Temperature 98.0 F Pulse Rate [Radial] 96 Pulse Rate 91 Respiratory Rate 18 Blood Pressure [Right Arm] 115/78 Blood Pressure [Left Arm] 133/75 Blood Pressure 133/75 O2 Sat by Pulse Oximetry 95 Intake and Output: Intake & Output 11/03/17 11/04/17 11/05/17 11/06/17 11:59 11:59 11:59 11:59 Intake Total 1200 / 1200 3681 / 3681 3274 / 3274 1656 / 1656 Balance 1200 / 1200 3681 / 3681 3274 / 3274 1656 / 1656 - Physical Exam Oriented: Normal Eyes: Normal Ear: Normal Nose: Normal Throat: Red, Dry Respiratory: Diminished, Wheezes Cardiovascular: Tachycardia. negative: Edema : Normal Auscultation: Bowel Sounds: Normal Tenderness: RUQ, LUQ, Epigastric Skin: Decreased Turgur Musculoskeletal: Back:Thoracic, Back:Lumbar Psychiatric: Depression Mood Description: Depressed Affect: Anxious, Depressed Speech Pattern: Clear, Appropriate - Laboratory and Diagnostics Result Diagrams: 11/05/17 05:30 11/05/17 05:30 Labs: 11/01/17 19:04 Blood Blood Culture - Preliminary 11/01/17 18:59 Blood Blood Culture - Preliminary 11/01/17 21:14 Sputum - Expectorated Sputum Sputum Culture - Final Klebsiella Pneumoniae 11/01/17 21:14 Sputum - Expectorated Sputum - Final Laboratory WBC 14.7 X10^3/uL (3.6-10.0) H 11/05/17 05:30 RBC 3.64 X10^6/uL (3.5-5.4) 11/05/17 05:30 Hgb 10.7 g/dL (12.0-16.0) L 11/05/17 05:30 Hct 31.8 % (36.0-47.0) L 11/05/17 05:30 MCV 87.5 fL (80.0-100.0) 11/05/17 05:30 MCH 29.3 pg (27.0-34.0) 11/05/17 05:30 MCHC 33.5 g/dL (33.0-35.0) 11/05/17 05:30 RDW 14.2 % (11.6-16.5) 11/05/17 05:30 Plt Count 429 X10^3/uL (150.0-450.0) 11/05/17 05:30 MPV 8.8 fL (7.4-11.0) 11/05/17 05:30 Neut % (Auto) 64.3 % (42.0-75.0) 11/05/17 05:30 Lymph % (Auto) 28.3 % (21.0-51.0) 11/05/17 05:30 [place] % (Auto) 6.9 % (0.0-13.0) 11/05/17 05:30 Eos % (Auto) 0.1 % (0.9-2.9) L 11/05/17 05:30 Baso % (Auto) 0.4 % (0.2-1.0) 11/05/17 05:30 Neut # (Auto) 9.4 x10^3/uL (2.2-4.8) H 11/05/17 05:30 Lymph # (Auto) 4.1 X10^3/uL (1.3-2.9) H 11/05/17 05:30 [place] # (Auto) 1.0 x10^3/uL (0.3-0.8) H 11/05/17 05:30 Eos # (Auto) 0.0 x10^3/uL (0.0-0.2) 11/05/17 05:30 Baso # (Auto) 0.1 X10^3/uL (0.0-0.1) 11/05/17 05:30 Absolute Nucleated RBC 0.0 /100WBC 11/05/17 05:30 Sodium 139 mmol/L (136-145) 11/05/17 05:30 Corrected Sodium TNP 11/05/17 05:30 Potassium 3.5 mmol/L (3.5-5.1) 11/05/17 05:30 Chloride 103 mmol/L (98-107) 11/05/17 05:30 Carbon Dioxide 27.9 mmol/L (21-32) 11/05/17 05:30 BUN 9 mg/dL (7-18) 11/05/17 05:30 Creatinine 0.67 mg/dL (0.55-1.02) 11/05/17 05:30 Est GFR (MDRD) Af Amer > 60 (>60) 11/05/17 05:30 Est GFR (MDRD) Non-Af > 60 (>60) 11/05/17 05:30 Glucose 98 mg/dL (65-99) 11/05/17 05:30 Calcium 8.4 mg/dL (8.5-10.1) L 11/05/17 05:30 Corrected Calcium 9.5 mg/dL (8.5-10.1) 11/05/17 05:30 Magnesium 2.1 mg/dL (1.7-2.9) 11/01/17 19:04 Total Bilirubin 0.10 mg/dL (0.2-1.0) L 11/05/17 05:30 AST 14 Units/L (15-37) L 11/05/17 05:30 ALT 17 Units/L (12-78) 11/05/17 05:30 Alkaline Phosphatase 188 Units/L (46-116) H 11/05/17 05:30 Total Protein 7.3 g/dL (6.4-8.2) 11/05/17 05:30 Albumin 2.6 g/dL (3.4-5.0) L 11/05/17 05:30 Globulin 4.7 g/dL (2.5-4.5) H 11/05/17 05:30 Albumin/Globulin Ratio 0.6 Ratio (1.1-2.1) L 11/05/17 05:30 - Plan (1) COPD (chronic obstructive pulmonary disease) with acute bronchitis Status: Acute Plan: PNEUMONIA PROTOCOL, BLOOD AND SPUTUM CUTLURES. RESP THERAPY, CXR AM, IV ATBX, BUDESONIDE. IV HYDRATION, PPI THERAPY, NAUSEA CONTROL. VERIFY HOME MEDS , SOFT DIET (2) GERD (gastroesophageal reflux disease) Status: Acute Plan: PPI , CARAFATE (3) N&V (nausea and vomiting) Status: Acute (4) GERD (gastroesophageal reflux disease) Status: Acute (5) Hypertension Status: Acute (6) Lumbar degenerative disc disease Status: Acute
[2017-11-05] MEDS: RESTORIL CAP 15 MG PO PRN (20:30)
[2017-11-05] MEDS: REQUIP PO SCH (21:39)
[2017-11-06] MEDS: LEVAQUIN PREMIX IV 750 MG 750 MG/150 ML BAG IV SCH (09:06)
[2017-11-06] MEDS: ROBITUSSIN DM PO SCH (09:07)
[2017-11-06] MEDS: MILK OF MAGNESIA PO SCH (09:07)
[2017-11-06] MEDS: PROTONIX INJ 40 MG VIAL IVP SCH (09:07)
[2017-11-06] MEDS: PAXIL PO SCH (09:07)
[2017-11-06] MEDS: LEVSIN/MAALOX/LIDOC VISC PO SCH (09:07)
[2017-11-06] MEDS: NORVASC TAB 5 MG PO SCH (09:07)
[2017-11-06] MEDS: COLACE CAP 100 MG PO SCH (09:07)
[2017-11-06] MEDS: NORCO 5/325 MG TAB PO PRN ×2 (09:11)
[2017-11-06] MEDS: TUSSIONEX PENNKINETIC SUSP PO PRN (09:11)
[2017-11-06] MEDS: PULMICORT NEB TX 0.5 MG NEB SCH (09:54)
[2017-11-06] MEDS: DUONEB 0.5 MG/3 MG NEB SCH (09:54)
--- NOTE | 2017-11-06 10:04 | RAD ---
HISTORY: COPD Study: Chest PA and lateral Comparison: 11/03/2017 Findings: The heart is within normal limits in size. The mary are normal. The lungs are mildly hyperinflated bu t free of acute alveolar infiltrates. Diffuse interstitial lung changes are present. No pleural effus ions are identified. The bony thorax is unremarkable. IMPRESSION: Hyperinflation with diffuse interstitial lung changes Reported By:
[2017-11-06 11:17] VITALS: BP 133/82
== END 2017-11-06 11:35 | disposition home or self-care (01) | DRG 191 ==
LOC: OBS → MED/SURG 11-02 14:01
PROVIDERS: ADMIT Internal Medicine; ATTEND Internal Medicine
DX: G40.89 Other seizures; R11.2 Nausea with vomiting, unspecified; J44.1 Chronic obstructive pulmonary disease with (acute) exacerbation; B96.1 Klebsiella pneumoniae [K. pneumoniae] as the cause of diseases classified elsewhere; R53.1 Weakness; F41.8 Other specified anxiety disorders; M51.36 Other intervertebral disc degeneration, lumbar region; I10 Essential (primary) hypertension; K21.9 Gastro-esophageal reflux disease without esophagitis; R06.02 Shortness of breath; J20.8 Acute bronchitis due to other specified organisms; F32.89 Other specified depressive episodes
CPT/HCPCS: 36415; 71010; 71020; 71045; 71046; 80053; 83735; 84132; 85025; 87040; 87070; 87077; 87186; 87205; 94640; 94760; 99231; A4222; C9113; G0378; J1956; J2920; J3480; J7620; J7626; S0181

== ENCOUNTER 2018-01-07 16:34 | Inpatient (IN) ==
[2018-01-07] MEDS: DUONEB 0.5 MG/3 MG NEB SCH ×2 (17:05→20:18)
[2018-01-07] MEDS: BROVANA IN SCH ×2 (17:51→20:18)
[2018-01-07 18:20] LABS: ABG BASE EXCESS 1.6 mmol/L (-2.0-2.0); ABG HCO3 23.4 mmol/L (22-26)
[2018-01-07 18:23] LABS: BASOPHILS # (AUTO) 0.2 X10^3/uL (0.0-0.1); EOSINOPHILS % (AUTO) 0.1 % (0.9-2.9); HEMATOCRIT 35.7 % (36.0-47.0); HEMOGLOBIN 11.8 g/dL (12.0-16.0); LYMPHOCYTES # (AUTO) 2.7 X10^3/uL (1.3-2.9); LYMPHOCYTES % (AUTO) 12.6 % (21.0-51.0); MEAN CORPUSCULAR HEMOGLOBIN 28.6 pg (27.0-34.0); MEAN CORPUSCULAR HGB CONC 32.9 g/dL (33.0-35.0); MEAN CORPUSCULAR VOLUME 86.8 fL (80.0-100.0); MEAN PLATELET VOLUME 9.4 fL (7.4-11.0); MONOCYTES # (AUTO) 1.2 x10^3/uL (0.3-0.8); MONOCYTES % (AUTO) 5.7 % (0.0-13.0); NEUTROPHILS # (AUTO) 17.5 x10^3/uL (2.2-4.8); NEUTROPHILS % (AUTO) 80.6 % (42.0-75.0); PLATELET COUNT 450 X10^3/uL (150.0-450.0); RED BLOOD COUNT 4.12 X10^6/uL (3.5-5.4); RED CELL DISTRIBUTION WIDTH 15.5 % (11.6-16.5); WHITE BLOOD COUNT 21.7 X10^3/uL (3.6-10.0)
[2018-01-07 18:32] LABS: BILIRUBIN,URINE NEGATIVE (NEGATIVE); BLOOD/HEMOGLOBIN,URINE 2+ (NEGATIVE); GLUCOSE, URINE NEGATIVE (NEGATIVE); KETONES,URINE NEGATIVE (NEGATIVE); LEUKOCYTE ESTERASE ,URINE 1+ (NEGATIVE); NITRITES,URINE NEGATIVE (NEGATIVE); PROTEIN,URINE 2+ (NEGATIVE); UROBILINOGEN,URINE 1+ (NORMAL)
[2018-01-07 18:37] LABS: APPEARANCE,URINE SLIGHTLY HAZY (CLEAR); COLOR,URINE DARK YELLOW (YELLOW)
[2018-01-07 18:37] LABS: ALANINE AMINOTRANSFERASE 13 Units/L (12-78); ALBUMIN 2.8 g/dL (3.4-5.0); ALKALINE PHOSPHATASE 215 Units/L (46-116); ASPARTATE AMINO TRANSFERASE 13 Units/L (15-37); BLOOD UREA NITROGEN 6 mg/dL (7-18); CALCIUM 8.5 mg/dL (8.5-10.1); CARBON DIOXIDE 22.2 mmol/L (21-32); CHLORIDE 96 mmol/L (98-107); COR CA(FOR HYPOALB) 9.5 mg/dL (8.5-10.1); CREATININE 0.93 mg/dL (0.55-1.02); SODIUM 134 mmol/L (136-145); TOTAL PROTEIN 8.5 g/dL (6.4-8.2); eGFR NON BLACK RACES > 60 (>60)
[2018-01-07] MEDS ORDERED: KLOR-CON PO PRN (18:39)
[2018-01-07] MEDS ORDERED: MICRO K EXTEN CAP 10 MEQ PO PRN (18:39)
[2018-01-07] MEDS ORDERED: POTASSIUM CHLORIDE LIQ 20 MEQ UDC PO PRN (18:39)
[2018-01-07] MEDS ORDERED: POTASSIUM CHL 60 MEQ/NS 0.45% 500 ML IV PRN (18:39)
[2018-01-07] MEDS ORDERED: POTASSIUM CHL 40 MEQ/NS 0.45% 500 ML IV PRN (18:39)
[2018-01-07 18:40] LABS: AMORPHOUS SEDIMENT,UR 1+ /HPF (NEGATIVE); BACTERIA,URINE 1+ /HPF (NEGATIVE); HYALINE CASTS, URINE MODERATE /LPF (NEGATIVE); SQUAMOUS EPITHELIAL CELL,UR MODERATE /HPF (NEGATIVE)
[2018-01-07] MEDS ORDERED: NS 1/2 1000 ML IV 1,000 ML IV ONE (18:43)
[2018-01-07] MEDS: TUSSIONEX PENNKINETIC SUSP PO PRN (18:51)
[2018-01-07] MEDS: PROTONIX INJ 40 MG VIAL IVP SCH (18:54)
[2018-01-07] MEDS: NS 1/2 1000 ML IV 1,000 ML IV SCH (18:54)
[2018-01-07] MEDS: PHENERGAN INJ 25 MG IV PRN (18:58)
[2018-01-07 19:25] LABS: BAND NEUTROPHILS % 6 % (0-10); PLATELET MORPHOLOGY COMMENT NORMAL (NORMAL)
[2018-01-07] MEDS: LEVAQUIN PREMIX IV 750 MG 750 MG/150 ML BAG IV SCH (19:53)
[2018-01-07] MEDS: K-DUR TAB 20 MEQ PO PRN (19:59)
[2018-01-07] MEDS: ROBITUSSIN DM PO SCH (20:00)
[2018-01-07] MEDS: SOLU-Medrol 40 MG VIAL IVP SCH (20:00)
[2018-01-07] MEDS: NORCO 5/325 MG TAB PO PRN (20:02)
[2018-01-07] MEDS: PULMICORT NEB TX 0.5 MG NEB SCH (20:18)
[2018-01-07] MEDS: MAGNESIUM SULFATE 1 GRAM/100 mL PREMIX 2 G/200 ML BAG IV SCH ×2 (20:28→21:37)
--- NOTE | 2018-01-07 21:36 | RAD ---
HISTORY: Pneumonia Study: PA and lateral views of the chest Comparison: 11/06/2017 Findings: There is a right lower lobe infiltrate suggestive of pneumonia. Hazy opacities are seen at the left lung base as well. No effusion or pneumothorax identified. Heart size is normal. The soft tissues are intact. IMPRESSION: 1. Bibasilar infiltrates, greater on the right side suggestive of pneumonia. Radiographic follow-up recommended to ensure full resolution. Reported By:
[2018-01-07] MEDS: K-RIDER 10 MEQ/NS 100 ML 10 MEQ/100 ML BAG IV PRN (23:08)
[2018-01-08] MEDS: DUONEB 0.5 MG/3 MG NEB SCH ×6 (00:52→20:18)
[2018-01-08] MEDS: K-RIDER 10 MEQ/NS 100 ML 10 MEQ/100 ML BAG IV PRN ×3 (01:14→03:18)
[2018-01-08] MEDS: K-DUR TAB 20 MEQ PO PRN (04:40)
[2018-01-08 05:39] LABS: ALANINE AMINOTRANSFERASE 13 Units/L (12-78); ALBUMIN 2.4 g/dL (3.4-5.0); ALKALINE PHOSPHATASE 188 Units/L (46-116); ASPARTATE AMINO TRANSFERASE 10 Units/L (15-37); BLOOD UREA NITROGEN 7 mg/dL (7-18); CALCIUM 8.5 mg/dL (8.5-10.1); CARBON DIOXIDE 19.6 mmol/L (21-32); CHLORIDE 101 mmol/L (98-107); COR CA(FOR HYPOALB) 9.8 mg/dL (8.5-10.1); COR NA(FOR HYPERGLY) 139 mmol/L (136-145); CREATININE 0.81 mg/dL (0.55-1.02); SODIUM 137 mmol/L (136-145); TOTAL PROTEIN 7.7 g/dL (6.4-8.2); eGFR NON BLACK RACES > 60 (>60)
[2018-01-08 06:09] LABS: BASOPHILS % (AUTO) 0.2 % (0.2-1.0); HEMATOCRIT 32.5 % (36.0-47.0); HEMOGLOBIN 10.9 g/dL (12.0-16.0); LYMPHOCYTES # (AUTO) 0.9 X10^3/uL (1.3-2.9); LYMPHOCYTES % (AUTO) 7.7 % (21.0-51.0); MEAN CORPUSCULAR HEMOGLOBIN 29.1 pg (27.0-34.0); MEAN CORPUSCULAR HGB CONC 33.6 g/dL (33.0-35.0); MEAN CORPUSCULAR VOLUME 86.5 fL (80.0-100.0); MEAN PLATELET VOLUME 9.3 fL (7.4-11.0); MONOCYTES # (AUTO) 0.2 x10^3/uL (0.3-0.8); MONOCYTES % (AUTO) 1.9 % (0.0-13.0); NEUTROPHILS # (AUTO) 11.1 x10^3/uL (2.2-4.8); NEUTROPHILS % (AUTO) 90.2 % (42.0-75.0); PLATELET COUNT 386 X10^3/uL (150.0-450.0); RED BLOOD COUNT 3.75 X10^6/uL (3.5-5.4); RED CELL DISTRIBUTION WIDTH 15.3 % (11.6-16.5)
[2018-01-08 06:15] LABS: WHITE BLOOD COUNT 12.3 X10^3/uL (3.6-10.0)
[2018-01-08 06:41] LABS: BAND NEUTROPHILS % 3 % (0-10); PLATELET MORPHOLOGY COMMENT NORMAL (NORMAL)
--- NOTE | 2018-01-08 07:23 | RAD ---
HISTORY: Follow-up pneumonia Study: Chest AP portable Comparison: 01/07/2018 Findings: The heart is within normal limits in size. The mary are normal. Diffuse interstitial lung changes are present, chronic. The previously described alveolar infiltrates in the lung bases are no longer present. No pleural effusions are identified. The bony thorax is unremarkable. IMPRESSION: No definite residual acute alveolar infiltrates Diffuse chronic interstitial lung changes, stable Reported By:
[2018-01-08] MEDS: PULMICORT NEB TX 0.5 MG NEB SCH ×2 (09:00→20:19)
[2018-01-08] MEDS: BROVANA IN SCH ×2 (09:00→20:18)
[2018-01-08 09:07] VITALS: BMI 29.5
[2018-01-08] MEDS: TUSSIONEX PENNKINETIC SUSP PO PRN ×2 (09:34→21:38)
[2018-01-08] MEDS: ROBITUSSIN DM PO SCH ×4 (09:35→20:10)
[2018-01-08] MEDS: LEVAQUIN PREMIX IV 750 MG 750 MG/150 ML BAG IV SCH (09:35)
[2018-01-08] MEDS: SOLU-Medrol 40 MG VIAL IVP SCH ×2 (09:37→20:11)
[2018-01-08] MEDS: NS 1/2 1000 ML IV 1,000 ML IV SCH ×3 (09:42→22:32)
[2018-01-08] MEDS: PROTONIX INJ 40 MG VIAL IVP SCH (09:42)
[2018-01-08] MEDS ORDERED: NS 1/2 1000 ML IV 1,000 ML IV ONE (14:53)
[2018-01-08] MEDS: NORCO 5/325 MG TAB PO PRN ×2 (15:03→21:38)
[2018-01-09] MEDS: DUONEB 0.5 MG/3 MG NEB SCH ×6 (00:53→21:29)
[2018-01-09 05:28] LABS: BASOPHILS # (AUTO) 0.1 X10^3/uL (0.0-0.1); BASOPHILS % (AUTO) 0.4 % (0.2-1.0); HEMATOCRIT 32.1 % (36.0-47.0); HEMOGLOBIN 10.4 g/dL (12.0-16.0); LYMPHOCYTES # (AUTO) 1.2 X10^3/uL (1.3-2.9); LYMPHOCYTES % (AUTO) 5.9 % (21.0-51.0); MEAN CORPUSCULAR HEMOGLOBIN 28.3 pg (27.0-34.0); MEAN CORPUSCULAR HGB CONC 32.5 g/dL (33.0-35.0); MEAN CORPUSCULAR VOLUME 87.2 fL (80.0-100.0); MEAN PLATELET VOLUME 9.6 fL (7.4-11.0); MONOCYTES # (AUTO) 0.6 x10^3/uL (0.3-0.8); MONOCYTES % (AUTO) 2.7 % (0.0-13.0); PLATELET COUNT 393 X10^3/uL (150.0-450.0); RED BLOOD COUNT 3.68 X10^6/uL (3.5-5.4); RED CELL DISTRIBUTION WIDTH 15.6 % (11.6-16.5)
[2018-01-09 05:46] LABS: ALANINE AMINOTRANSFERASE 21 Units/L (12-78); ALBUMIN 2.3 g/dL (3.4-5.0); ALKALINE PHOSPHATASE 170 Units/L (46-116); ASPARTATE AMINO TRANSFERASE 28 Units/L (15-37); BLOOD UREA NITROGEN 9 mg/dL (7-18); CALCIUM 8.4 mg/dL (8.5-10.1); CARBON DIOXIDE 19.4 mmol/L (21-32); CHLORIDE 105 mmol/L (98-107); COR CA(FOR HYPOALB) 9.8 mg/dL (8.5-10.1); COR NA(FOR HYPERGLY) 141 mmol/L (136-145); CREATININE 0.63 mg/dL (0.55-1.02); SODIUM 140 mmol/L (136-145); TOTAL PROTEIN 7.1 g/dL (6.4-8.2); eGFR NON BLACK RACES > 60 (>60)
[2018-01-09] MEDS ORDERED: NS 100 ML IV 100 ML IV ONE (05:57)
[2018-01-09 05:58] LABS: BAND NEUTROPHILS % 1 % (0-10); PLATELET MORPHOLOGY COMMENT NORMAL (NORMAL); WHITE BLOOD COUNT 20.9 X10^3/uL (3.6-10.0)
--- NOTE | 2018-01-09 08:04 | CT ---
HISTORY: Pneumonia, COPD Study: CT chest with contrast Comparison: 08/16/2014 Technique: Axial post-contrast images with coronal and sagittal reformats. Dose reduction procedures were used with mA/kv adjusted for body size. Findings: Examination of the mediastinum suggests a small left thyroid lobe nodule which is unchanged from the prior examination. No mediastinal masses, enlarged mediastinal adenopathy, or enlarged hilar adenopathy is identified. Nonenlarged mediastinal node is present. Mild coronary artery calcifications are present. No pleural effusions are identified. No chest wall or axillary abnormality is identified. Those portions of the upper abdominal organs visualized were within normal limits. Examination of the lung up demonstrated some diffuse interstitial lung changes not significantly different from the prior examination. There are some centrilobular and paraseptal emphysematous changes bilaterally also not significantly different from the prior examination. There is some honeycombing in the lower lobes suggestive of fibrosis. Very subtle peribronchial infiltrate is present in the left upper lobe likely bronchopneumonia. IMPRESSION: Chronic emphysematous and interstitial lung changes as described unchanged from the prior examination Honeycombing in the lung bases bilaterally suggestive of an element of pulmonary fibrosis Subtle and minimal peribronchial infiltrate in the left upper lobe suggestive of bronchopneumonia Reported By:
[2018-01-09] MEDS: BROVANA IN SCH ×2 (09:18→21:29)
[2018-01-09] MEDS: PULMICORT NEB TX 0.5 MG NEB SCH ×2 (09:18→21:30)
[2018-01-09] MEDS: LEVAQUIN PREMIX IV 750 MG 750 MG/150 ML BAG IV SCH (10:18)
[2018-01-09] MEDS: PROTONIX INJ 40 MG VIAL IVP SCH (10:18)
[2018-01-09] MEDS: ROBITUSSIN DM PO SCH ×4 (10:18→21:40)
[2018-01-09] MEDS: PAXIL PO SCH (10:51)
[2018-01-09] MEDS ORDERED: BENTYL CAP 10 MG PO PRN (10:55)
[2018-01-09] MEDS ORDERED: ZANAFLEX PO PRN ×2 (11:05→16:35)
[2018-01-09] MEDS: CARAFATE PO SCH ×3 (14:47→21:39)
[2018-01-09] MEDS: VITAMIN B-6 PO SCH (14:47)
[2018-01-09] MEDS: SINEMET (PLAIN) 25/100 MG PO SCH ×2 (14:47→21:40)
[2018-01-09] MEDS: PEPCID 20 MG IV PREMIX* 20 MG/50 ML BAG IV SCH ×2 (14:48→21:37)
[2018-01-09] MEDS: NORVASC TAB 10 MG PO SCH ×2 (14:49→17:00)
--- NOTE | 2018-01-09 16:41 | DR.H&P ---
H&P - History & Physical for Day of: H&P Date: 01/07/18 - Chief Complaint Chief Complaint: FEVER, SOB, CCC - History of Present Illness History of Present Illness: 52 WF DIRECT ADMIT FROM DR CANELA OFFICE WITH CO FEVER, VERY SICK FOR OVER A WEEK, INCREASED SOB AND COUGH. PT WAS GIVEN IM ROCE[facility] IN DR CANELA OFFICE ONE WEEK AGO WITH USE OF JET NEBS AND PO DOXYCYCLINE WITHOUT IMPROVEMENT. PT HAS PMH OF COPD, GERD, HTN, SEIZURE DISORDE R, MDD, HAMMAD, OA, LSPINE DDD. PT ADMITTED FOR TREATMENT OF ACUTE ILLNESS - Past Medical History Past Medical History: Anxiety, COPD, Depression, Hypertension, Seizures - Past Surgical History Surgical History: Hysterectomy - Family History Family Medical History: SC, Hypertension - Social History Does patient currently use any type of tobacco product: Yes Have you used tobacco products in the last 12 months: Yes Type of Tobacco Use: Cigarettes How many years tobacco product used: 40 Does any household member use tobacco: No Alcohol Use: None Drug Use: None - Medications Home Medications: No Known Drug Allergies Allergy (Verified 01/20/17 19:46) CONTINUE taking the following medications doxycycline hyclate 100 mg PO BID 01/08/18 [History] albuterol sulfate 2.5 mg INHALATION Q4-6H PRN 01/09/18 [History] amlodipine [Norvasc] 10 mg PO QDAY 01/09/18 [History] carbidopa-levodopa [Sinemet] 1 tab PO BID 01/09/18 [History] dicyclomine 20 mg PO TID 01/09/18 [History] doxepin 25 mg PO QHS 01/09/18 [History] folic acid 1 mg PO QDAY 01/09/18 [History] hydrocodone-acetaminophen [[place]] 1 tab PO Q4H 01/09/18 [History] methocarbamol [Robaxin-750] 1 PO Q8H PRN 01/09/18 [History] metoclopramide HCl [Reglan] 10 mg PO QID 01/09/18 [History] nystatin 1 applic TOPICAL QID 01/09/18 [History] nystatin 1 ml BUCCAL QID 01/09/18 [History] omeprazole 40 mg PO BID 01/09/18 [History] paroxetine HCl [Paxil] 20 mg PO QDAY 01/09/18 [History] pyridoxine (vitamin B6) 100 mg PO DAILY 01/09/18 [History] ranitidine HCl 300 mg PO DAILY 01/09/18 [History] ropinirole 1 mg PO QHS 01/09/18 [History] sucralfate [Carafate] 1 g PO QACHS 01/09/18 [History] tizanidine [Zanaflex] 8 mg PO Q8H PRN 01/09/18 [History] - Review of Systems Constitutional: Fever, Weakness Eyes: No Symptoms Reported ENT: No Symptoms Reported Respiratory: Cough, Shortness of Breath, Pleuritic Pain, Sputum, Wheezing Cardiovascular: No Symptoms Reported. denies: Edema Gastrointestinal: Nausea Genitourinary: No Symptoms Reported Musculoskeletal: Back Pain Skin: No Symptoms Reported Neurological: Weakness - Physical Exam Vital Signs: Temperature 97.7 F Pulse Rate [Left Brachial] 107 Pulse Rate 105 Respiratory Rate 20 Blood Pressure [Right Arm] 130/63 Blood Pressure [Left Arm] 124/70 Blood Pressure 133/82 O2 Sat by Pulse Oximetry 95 Oriented: Normal Eyes: Normal Ear: Normal Nose: Injected Throat: Dry Respiratory: Rhonchi Throughout, Wheezes Throughout Cardiovascular: Tachycardia. negative: Edema : Normal Auscultation: Bowel Sounds: Normal Palpation: Normal Tenderness: Epigastric Skin: Decreased Turgur Musculoskeletal: Back:Lumbar, Tender Psychiatric: Anxiety Affect: Anxious Speech Pattern: Clear, Appropriate - Assessment/Plan (1) Pneumonia Status: Acute Plan: PNEUMONIA PROTOCOL, IV STEROIDS, IV ATBX. SPUTUM CULTURE ON ADMISSION, RESP THERAPY, SUPPLEMENTAL O2. VERIFY HOME MEDS, PPI. ABG ON ADMISSION (2) COPD with acute bronchitis Status: Acute (3) GERD (gastroesophageal reflux disease) Status: Chronic (4) Hypertension Status: Chronic (5) Lumbar degenerative disc disease Status: Chronic - Allergies Allergies/Adverse Reactions: Allergies Allergy/AdvReac Type Severity Reaction Status Date / Time No Known Drug Allergies Allergy Verified 01/20/17 19:46
--- NOTE | 2018-01-09 16:44 | PCM.PROG ---
Progress Note - Progress Note for Day of Date of Exam: 01/08/18 - Subjective Subjective: 52 WF ADMITTED ON 01/07 WITH PNEUMONIA, CURRENTLY ON IV LEVAQUIN. WBC IMPROVED TO 11K THIS AM. PT CONTINUES WITH THICK GREEN SPUTUM AND DIFFUSE EXPIRATORY WHEEZES. PT CO CHEST WALL PAIN AND UPPER ABDOMINAL SORENESS FROM COUGHING. CT OF CHEST ORDERED FOR SUNDAY AM, CONTINUE CURRENT PNEUMONIA PROTOCOL - Past Medical Family Social History Past Med/Fam/Surg Hx: No changes since H&P Allergies: Allergies No Known Drug Allergies Allergy (Verified 01/20/17 19:46) - Review of Systems ROS: No change since H&P - Vital Signs and I&O's Vital Signs: Temperature 97.7 F Pulse Rate [Left Brachial] 107 Pulse Rate 105 Respiratory Rate 20 Blood Pressure [Right Arm] 130/63 Blood Pressure [Left Arm] 124/70 Blood Pressure 133/82 O2 Sat by Pulse Oximetry 95 Intake and Output: Intake & Output 01/07/18 01/08/18 01/09/18 01/10/18 11:59 11:59 11:59 11:59 Intake Total 1078 / 1078 2080 / 2080 240 / 240 Balance 1078 / 1078 2080 / 2080 240 / 240 - Physical Exam Oriented: Normal Eyes: Normal Ear: Normal Nose: Injected Throat: Dry Respiratory: Diminished, Wheezes, Rhonchi Cardiovascular: Tachycardia. negative: Edema : Normal Auscultation: Bowel Sounds: Normal Tenderness: Epigastric Skin: Decreased Turgur Musculoskeletal: Back:Lumbar, Tender Psychiatric: Anxiety Affect: Anxious Speech Pattern: Clear, Appropriate - Laboratory and Diagnostics Result Diagrams: 01/09/18 04:38 01/09/18 04:38 Labs: 01/07/18 18:00 Blood Blood Culture - Preliminary 01/07/18 17:55 Blood Blood Culture - Preliminary 01/07/18 17:04 Sputum - Expectorated Sputum Sputum Culture - Final Klebsiella Pneumoniae Enterobacter Aerogenes 01/07/18 17:04 Sputum - Expectorated Sputum - Final Laboratory WBC 20.9 X10^3/uL (3.6-10.0) H D 01/09/18 04:38 RBC 3.68 X10^6/uL (3.5-5.4) 01/09/18 04:38 Hgb 10.4 g/dL (12.0-16.0) L 01/09/18 04:38 Hct 32.1 % (36.0-47.0) L 01/09/18 04:38 MCV 87.2 fL (80.0-100.0) 01/09/18 04:38 MCH 28.3 pg (27.0-34.0) 01/09/18 04:38 MCHC 32.5 g/dL (33.0-35.0) L 01/09/18 04:38 RDW 15.6 % (11.6-16.5) 01/09/18 04:38 Plt Count 393 X10^3/uL (150.0-450.0) 01/09/18 04:38 Plt Count Comment Adequate (ADEQUATE) 01/09/18 04:38 MPV 9.6 fL (7.4-11.0) 01/09/18 04:38 Neut % (Auto) 91.0 % (42.0-75.0) H 01/09/18 04:38 Lymph % (Auto) 5.9 % (21.0-51.0) L 01/09/18 04:38 [place] % (Auto) 2.7 % (0.0-13.0) 01/09/18 04:38 Eos % (Auto) 0.0 % (0.9-2.9) L 01/09/18 04:38 Baso % (Auto) 0.4 % (0.2-1.0) 01/09/18 04:38 Neut # (Auto) 19.0 x10^3/uL (2.2-4.8) H 01/09/18 04:38 Lymph # (Auto) 1.2 X10^3/uL (1.3-2.9) L 01/09/18 04:38 [place] # (Auto) 0.6 x10^3/uL (0.3-0.8) 01/09/18 04:38 Eos # (Auto) 0.0 x10^3/uL (0.0-0.2) 01/09/18 04:38 Baso # (Auto) 0.1 X10^3/uL (0.0-0.1) 01/09/18 04:38 Absolute Nucleated RBC 0.0 /100WBC 01/09/18 04:38 Total Counted 100 01/09/18 04:38 Neutrophils % (Manual) 91 % (39-76) H 01/09/18 04:38 Band Neutrophils % 1 % (0-10) 01/09/18 04:38 Lymphocytes % (Manual) 7 % (13-43) L 01/09/18 04:38 Monocytes % (Manual) 1 % (4-9) L 01/09/18 04:38 Plt Morphology Comment Normal (NORMAL) 01/09/18 04:38 RBC Morphology Normal (NORMAL) 01/09/18 04:38 Sample Site Rbr 01/07/18 18:04 ABG pH 7.530 (7.35-7.45) H 01/07/18 18:04 ABG pCO2 28.0 mmHg (35.0-45.0) L 01/07/18 18:04 ABG pO2 55.0 mmHg (80.0-100.0) L 01/07/18 18:04 ABG HCO3 23.4 mmol/L (22-26) 01/07/18 18:04 ABG O2 Saturation 92.0 % (90-100) 01/07/18 18:04 ABG Base Excess 1.6 mmol/L (-2.0-2.0) 01/07/18 18:04 Lopez Test N/a 01/07/18 18:04 A-a Gradient 60.0 mmHg 01/07/18 18:04 FiO2 21.0 01/07/18 18:04 Blood Gas Comments Phuong well cdn 01/07/18 18:04 Sodium 140 mmol/L (136-145) 01/09/18 04:38 Corrected Sodium 141 mmol/L (136-145) 01/09/18 04:38 Potassium 3.7 mmol/L (3.5-5.1) 01/09/18 04:38 Chloride 105 mmol/L (98-107) 01/09/18 04:38 Carbon Dioxide 19.4 mmol/L (21-32) L 01/09/18 04:38 BUN 9 mg/dL (7-18) 01/09/18 04:38 Creatinine 0.63 mg/dL (0.55-1.02) 01/09/18 04:38 Est GFR (MDRD) Af Amer > 60 (>60) 01/09/18 04:38 Est GFR (MDRD) Non-Af > 60 (>60) 01/09/18 04:38 Glucose 131 mg/dL (65-99) H 01/09/18 04:38 Calcium 8.4 mg/dL (8.5-10.1) L 01/09/18 04:38 Corrected Calcium 9.8 mg/dL (8.5-10.1) 01/09/18 04:38 Magnesium 2.6 mg/dL (1.7-2.9) 01/08/18 04:54 Total Bilirubin 0.10 mg/dL (0.2-1.0) L 01/09/18 04:38 AST 28 Units/L (15-37) 01/09/18 04:38 ALT 21 Units/L (12-78) 01/09/18 04:38 Alkaline Phosphatase 170 Units/L (46-116) H 01/09/18 04:38 Total Protein 7.1 g/dL (6.4-8.2) 01/09/18 04:38 Albumin 2.3 g/dL (3.4-5.0) L 01/09/18 04:38 Globulin 4.8 g/dL (2.5-4.5) H 01/09/18 04:38 Albumin/Globulin Ratio 0.5 Ratio (1.1-2.1) L 01/09/18 04:38 Specimen Type Clean catch urine 01/07/18 18:20 Urine Color Dark yellow (YELLOW) 01/07/18 18:20 Urine Appearance Slightly hazy (CLEAR) 01/07/18 18:20 Urine pH 6.0 (5.0 - 8.0) 01/07/18 18:20 Ur Specific [place] 1.015 (1.000-1.030) 01/07/18 18:20 Urine Protein 2+ (NEGATIVE) 01/07/18 18:20 Urine Glucose (UA) Negative (NEGATIVE) 01/07/18 18:20 Urine Ketones Negative (NEGATIVE) 01/07/18 18:20 Urine Occult Blood 2+ (NEGATIVE) 01/07/18 18:20 Urine Nitrite Negative (NEGATIVE) 01/07/18 18:20 Urine Bilirubin Negative (NEGATIVE) 01/07/18 18:20 Urine Urobilinogen 1+ (NORMAL) 01/07/18 18:20 Ur Leukocyte Esterase 1+ (NEGATIVE) 01/07/18 18:20 Urine RBC 5-10 /HPF (NONE SEEN) 01/07/18 18:20 Urine WBC 3-5 /HPF (NONE SEEN) 01/07/18 18:20 Ur Squamous Epith Cells Moderate /HPF (NEGATIVE) 01/07/18 18:20 Amorphous Sediment 1+ /HPF (NEGATIVE) 01/07/18 18:20 Urine Bacteria 1+ /HPF (NEGATIVE) 01/07/18 18:20 Hyaline Casts Moderate /LPF (NEGATIVE) 01/07/18 18:20 Ur Culture Indicated? No/not indicated 01/07/18 18:20 - Plan (1) Pneumonia Status: Acute Plan: PNEUMONIA PROTOCOL, IV STEROIDS, IV ATBX. SPUTUM CULTURE ON ADMISSION, RESP THERAPY, SUPPLEMENTAL O2. PPI, CT CHEST WITH CONTRAST. ABG ON ADMISSION (2) COPD with acute bronchitis Status: Acute (3) GERD (gastroesophageal reflux disease) Status: Chronic (4) Hypertension Status: Chronic (5) Lumbar degenerative disc disease Status: Chronic
--- NOTE | 2018-01-09 16:47 | PCM.PROG ---
Progress Note - Progress Note for Day of Date of Exam: 01/09/18 - Subjective Subjective: 52 WF ADMITTED ON 01/07 WITH PNEUMONIA, CURRENTLY ON IV LEVAQUIN. WBC IMPROVED TO 11K THIS AM. PT CONTINUES WITH THICK GREEN SPUTUM AND DIFFUSE EXPIRATORY WHEEZES. PT CO CHEST WALL PAIN AND UPPER ABDOMINAL SORENESS FROM COUGHING. CT OF CHEST WITH FINDINGS SUGGESTIVE OF PULMONARY FIBROSIS AND PNEUMONIA. SPUTUM CULTURE PENDING, WILL CONTINUE PULMONARY TOILETING - Past Medical Family Social History Past Med/Fam/Surg Hx: No changes since H&P Allergies: Allergies No Known Drug Allergies Allergy (Verified 01/20/17 19:46) - Review of Systems ROS: No change since H&P - Vital Signs and I&O's Vital Signs: Temperature 97.7 F Pulse Rate [Left Brachial] 107 Pulse Rate 105 Respiratory Rate 20 Blood Pressure [Right Arm] 130/63 Blood Pressure [Left Arm] 124/70 Blood Pressure 133/82 O2 Sat by Pulse Oximetry 95 Intake and Output: Intake & Output 01/07/18 01/08/18 01/09/18 01/10/18 11:59 11:59 11:59 11:59 Intake Total 1078 / 1078 2080 / 2080 240 / 240 Balance 1078 / 1078 2080 / 2080 240 / 240 - Physical Exam Oriented: Normal Eyes: Normal Ear: Normal Nose: Injected Throat: Dry Respiratory: Diminished, Wheezes, Rhonchi Cardiovascular: Tachycardia. negative: Edema : Normal Auscultation: Bowel Sounds: Normal Tenderness: Epigastric Skin: Decreased Turgur Musculoskeletal: Back:Lumbar, Tender Psychiatric: Anxiety Affect: Anxious Speech Pattern: Clear, Appropriate - Laboratory and Diagnostics Result Diagrams: 01/09/18 04:38 01/09/18 04:38 Labs: 01/07/18 18:00 Blood Blood Culture - Preliminary 01/07/18 17:55 Blood Blood Culture - Preliminary 01/07/18 17:04 Sputum - Expectorated Sputum Sputum Culture - Final Klebsiella Pneumoniae Enterobacter Aerogenes 01/07/18 17:04 Sputum - Expectorated Sputum - Final Laboratory WBC 20.9 X10^3/uL (3.6-10.0) H D 01/09/18 04:38 RBC 3.68 X10^6/uL (3.5-5.4) 01/09/18 04:38 Hgb 10.4 g/dL (12.0-16.0) L 01/09/18 04:38 Hct 32.1 % (36.0-47.0) L 01/09/18 04:38 MCV 87.2 fL (80.0-100.0) 01/09/18 04:38 MCH 28.3 pg (27.0-34.0) 01/09/18 04:38 MCHC 32.5 g/dL (33.0-35.0) L 01/09/18 04:38 RDW 15.6 % (11.6-16.5) 01/09/18 04:38 Plt Count 393 X10^3/uL (150.0-450.0) 01/09/18 04:38 Plt Count Comment Adequate (ADEQUATE) 01/09/18 04:38 MPV 9.6 fL (7.4-11.0) 01/09/18 04:38 Neut % (Auto) 91.0 % (42.0-75.0) H 01/09/18 04:38 Lymph % (Auto) 5.9 % (21.0-51.0) L 01/09/18 04:38 [place] % (Auto) 2.7 % (0.0-13.0) 01/09/18 04:38 Eos % (Auto) 0.0 % (0.9-2.9) L 01/09/18 04:38 Baso % (Auto) 0.4 % (0.2-1.0) 01/09/18 04:38 Neut # (Auto) 19.0 x10^3/uL (2.2-4.8) H 01/09/18 04:38 Lymph # (Auto) 1.2 X10^3/uL (1.3-2.9) L 01/09/18 04:38 [place] # (Auto) 0.6 x10^3/uL (0.3-0.8) 01/09/18 04:38 Eos # (Auto) 0.0 x10^3/uL (0.0-0.2) 01/09/18 04:38 Baso # (Auto) 0.1 X10^3/uL (0.0-0.1) 01/09/18 04:38 Absolute Nucleated RBC 0.0 /100WBC 01/09/18 04:38 Total Counted 100 01/09/18 04:38 Neutrophils % (Manual) 91 % (39-76) H 01/09/18 04:38 Band Neutrophils % 1 % (0-10) 01/09/18 04:38 Lymphocytes % (Manual) 7 % (13-43) L 01/09/18 04:38 Monocytes % (Manual) 1 % (4-9) L 01/09/18 04:38 Plt Morphology Comment Normal (NORMAL) 01/09/18 04:38 RBC Morphology Normal (NORMAL) 01/09/18 04:38 Sample Site Rbr 01/07/18 18:04 ABG pH 7.530 (7.35-7.45) H 01/07/18 18:04 ABG pCO2 28.0 mmHg (35.0-45.0) L 01/07/18 18:04 ABG pO2 55.0 mmHg (80.0-100.0) L 01/07/18 18:04 ABG HCO3 23.4 mmol/L (22-26) 01/07/18 18:04 ABG O2 Saturation 92.0 % (90-100) 01/07/18 18:04 ABG Base Excess 1.6 mmol/L (-2.0-2.0) 01/07/18 18:04 Lopez Test N/a 01/07/18 18:04 A-a Gradient 60.0 mmHg 01/07/18 18:04 FiO2 21.0 01/07/18 18:04 Blood Gas Comments Phuong well cdn 01/07/18 18:04 Sodium 140 mmol/L (136-145) 01/09/18 04:38 Corrected Sodium 141 mmol/L (136-145) 01/09/18 04:38 Potassium 3.7 mmol/L (3.5-5.1) 01/09/18 04:38 Chloride 105 mmol/L (98-107) 01/09/18 04:38 Carbon Dioxide 19.4 mmol/L (21-32) L 01/09/18 04:38 BUN 9 mg/dL (7-18) 01/09/18 04:38 Creatinine 0.63 mg/dL (0.55-1.02) 01/09/18 04:38 Est GFR (MDRD) Af Amer > 60 (>60) 01/09/18 04:38 Est GFR (MDRD) Non-Af > 60 (>60) 01/09/18 04:38 Glucose 131 mg/dL (65-99) H 01/09/18 04:38 Calcium 8.4 mg/dL (8.5-10.1) L 01/09/18 04:38 Corrected Calcium 9.8 mg/dL (8.5-10.1) 01/09/18 04:38 Magnesium 2.6 mg/dL (1.7-2.9) 01/08/18 04:54 Total Bilirubin 0.10 mg/dL (0.2-1.0) L 01/09/18 04:38 AST 28 Units/L (15-37) 01/09/18 04:38 ALT 21 Units/L (12-78) 01/09/18 04:38 Alkaline Phosphatase 170 Units/L (46-116) H 01/09/18 04:38 Total Protein 7.1 g/dL (6.4-8.2) 01/09/18 04:38 Albumin 2.3 g/dL (3.4-5.0) L 01/09/18 04:38 Globulin 4.8 g/dL (2.5-4.5) H 01/09/18 04:38 Albumin/Globulin Ratio 0.5 Ratio (1.1-2.1) L 01/09/18 04:38 Specimen Type Clean catch urine 01/07/18 18:20 Urine Color Dark yellow (YELLOW) 01/07/18 18:20 Urine Appearance Slightly hazy (CLEAR) 01/07/18 18:20 Urine pH 6.0 (5.0 - 8.0) 01/07/18 18:20 Ur Specific [place] 1.015 (1.000-1.030) 01/07/18 18:20 Urine Protein 2+ (NEGATIVE) 01/07/18 18:20 Urine Glucose (UA) Negative (NEGATIVE) 01/07/18 18:20 Urine Ketones Negative (NEGATIVE) 01/07/18 18:20 Urine Occult Blood 2+ (NEGATIVE) 01/07/18 18:20 Urine Nitrite Negative (NEGATIVE) 01/07/18 18:20 Urine Bilirubin Negative (NEGATIVE) 01/07/18 18:20 Urine Urobilinogen 1+ (NORMAL) 01/07/18 18:20 Ur Leukocyte Esterase 1+ (NEGATIVE) 01/07/18 18:20 Urine RBC 5-10 /HPF (NONE SEEN) 01/07/18 18:20 Urine WBC 3-5 /HPF (NONE SEEN) 01/07/18 18:20 Ur Squamous Epith Cells Moderate /HPF (NEGATIVE) 01/07/18 18:20 Amorphous Sediment 1+ /HPF (NEGATIVE) 01/07/18 18:20 Urine Bacteria 1+ /HPF (NEGATIVE) 01/07/18 18:20 Hyaline Casts Moderate /LPF (NEGATIVE) 01/07/18 18:20 Ur Culture Indicated? No/not indicated 01/07/18 18:20 - Plan (1) Pneumonia Status: Acute Plan: PNEUMONIA PROTOCOL, IV STEROIDS, IV ATBX. SPUTUM CULTURE PENDING, RESP THERAPY, SUPPLEMENTAL O2. PPI, ENCOURAGE AMBULATION, PULMONARY TOILETING. ABG ON ADMISSION (2) COPD with acute bronchitis Status: Acute (3) GERD (gastroesophageal reflux disease) Status: Chronic (4) Hypertension Status: Chronic (5) Lumbar degenerative disc disease Status: Chronic
[2018-01-09] MEDS: NYSTATIN SUSP PO SCH ×2 (18:32→21:40)
[2018-01-09] MEDS: FOLIC ACID TAB 1 MG PO SCH (18:32)
[2018-01-09] MEDS: REQUIP PO SCH (21:39)
[2018-01-09] MEDS: SINEquan PO SCH (21:39)
[2018-01-09] MEDS: K-DUR TAB 20 MEQ PO PRN (21:39)
[2018-01-09] MEDS: BENTYL CAP 10 MG PO SCH (21:39)
[2018-01-09] MEDS: NORCO 5/325 MG TAB PO PRN (21:39)
[2018-01-09] MEDS: PHENERGAN INJ 25 MG IV PRN (21:52)
[2018-01-10] MEDS ORDERED: NS 1/2 1000 ML IV 1,000 ML IV ONE ×2 (00:21→23:29)
[2018-01-10] MEDS: DUONEB 0.5 MG/3 MG NEB SCH ×6 (01:22→20:34)
[2018-01-10] MEDS: NS 1/2 1000 ML IV 1,000 ML IV SCH (02:27)
[2018-01-10 06:10] LABS: BASOPHILS % (AUTO) 0.3 % (0.2-1.0); EOSINOPHILS % (AUTO) 0.1 % (0.9-2.9); HEMATOCRIT 32.5 % (36.0-47.0); HEMOGLOBIN 10.6 g/dL (12.0-16.0); LYMPHOCYTES # (AUTO) 3.8 X10^3/uL (1.3-2.9); LYMPHOCYTES % (AUTO) 28.6 % (21.0-51.0); MEAN CORPUSCULAR HEMOGLOBIN 28.6 pg (27.0-34.0); MEAN CORPUSCULAR HGB CONC 32.6 g/dL (33.0-35.0); MEAN CORPUSCULAR VOLUME 87.8 fL (80.0-100.0); MEAN PLATELET VOLUME 8.9 fL (7.4-11.0); MONOCYTES # (AUTO) 1.1 x10^3/uL (0.3-0.8); NEUTROPHILS # (AUTO) 8.4 x10^3/uL (2.2-4.8); PLATELET COUNT 373 X10^3/uL (150.0-450.0); RED CELL DISTRIBUTION WIDTH 15.4 % (11.6-16.5); WHITE BLOOD COUNT 13.3 X10^3/uL (3.6-10.0)
[2018-01-10] MEDS: CARAFATE PO SCH ×4 (06:12→21:58)
[2018-01-10] MEDS: BENTYL CAP 10 MG PO SCH ×3 (06:12→21:58)
[2018-01-10] MEDS: NORCO 5/325 MG TAB PO PRN ×2 (06:24→21:58)
[2018-01-10 07:07] LABS: ALANINE AMINOTRANSFERASE 25 Units/L (12-78); ALBUMIN 2.4 g/dL (3.4-5.0); ALKALINE PHOSPHATASE 180 Units/L (46-116); ASPARTATE AMINO TRANSFERASE 48 Units/L (15-37); BLOOD UREA NITROGEN 7 mg/dL (7-18); CARBON DIOXIDE 23.1 mmol/L (21-32); CHLORIDE 102 mmol/L (98-107); COR CA(FOR HYPOALB) 9.3 mg/dL (8.5-10.1); SODIUM 140 mmol/L (136-145); TOTAL PROTEIN 6.9 g/dL (6.4-8.2); eGFR NON BLACK RACES > 60 (>60)
[2018-01-10] MEDS: PULMICORT NEB TX 0.5 MG NEB SCH ×2 (08:37→20:34)
[2018-01-10] MEDS: BROVANA IN SCH ×2 (08:37→20:34)
[2018-01-10] MEDS: SINEMET (PLAIN) 25/100 MG PO SCH ×2 (09:01→21:59)
[2018-01-10] MEDS: PEPCID 20 MG IV PREMIX* 20 MG/50 ML BAG IV SCH ×2 (09:01→21:59)
[2018-01-10] MEDS: PAXIL PO SCH (09:01)
[2018-01-10] MEDS: FOLIC ACID TAB 1 MG PO SCH (09:01)
[2018-01-10] MEDS: NORVASC TAB 10 MG PO SCH (09:01)
[2018-01-10] MEDS: LEVAQUIN PREMIX IV 750 MG 750 MG/150 ML BAG IV SCH (09:01)
[2018-01-10] MEDS: VITAMIN B-6 PO SCH (09:01)
[2018-01-10] MEDS: MILK OF MAGNESIA PO PRN (09:02)
[2018-01-10] MEDS: PROTONIX INJ 40 MG VIAL IVP SCH (09:02)
[2018-01-10] MEDS: ROBITUSSIN DM PO SCH ×4 (09:02→22:00)
[2018-01-10] MEDS: K-DUR TAB 20 MEQ PO PRN (09:02)
[2018-01-10] MEDS: NYSTATIN SUSP PO SCH ×4 (09:02→21:58)
[2018-01-10] MEDS: TUSSIONEX PENNKINETIC SUSP PO PRN ×2 (09:11→21:59)
[2018-01-10] MEDS: COLACE CAP 100 MG PO SCH (21:57)
[2018-01-10] MEDS: REQUIP PO SCH (21:59)
[2018-01-10] MEDS: SINEquan PO SCH (22:00)
[2018-01-11] MEDS: DUONEB 0.5 MG/3 MG NEB SCH ×6 (00:48→20:11)
[2018-01-11 06:29] LABS: BASOPHILS % (AUTO) 0.3 % (0.2-1.0); EOSINOPHILS # (AUTO) 0.1 x10^3/uL (0.0-0.2); EOSINOPHILS % (AUTO) 0.5 % (0.9-2.9); HEMATOCRIT 32.6 % (36.0-47.0); HEMOGLOBIN 10.7 g/dL (12.0-16.0); MEAN CORPUSCULAR HEMOGLOBIN 28.7 pg (27.0-34.0); MEAN CORPUSCULAR HGB CONC 32.9 g/dL (33.0-35.0); MEAN CORPUSCULAR VOLUME 87.2 fL (80.0-100.0); MEAN PLATELET VOLUME 8.9 fL (7.4-11.0); MONOCYTES # (AUTO) 1.3 x10^3/uL (0.3-0.8); MONOCYTES % (AUTO) 10.3 % (0.0-13.0); NEUTROPHILS # (AUTO) 6.8 x10^3/uL (2.2-4.8); NEUTROPHILS % (AUTO) 55.9 % (42.0-75.0); PLATELET COUNT 373 X10^3/uL (150.0-450.0); RED BLOOD COUNT 3.73 X10^6/uL (3.5-5.4); RED CELL DISTRIBUTION WIDTH 15.4 % (11.6-16.5); WHITE BLOOD COUNT 12.2 X10^3/uL (3.6-10.0)
[2018-01-11 06:48] LABS: ALANINE AMINOTRANSFERASE 21 Units/L (12-78); ALBUMIN 2.4 g/dL (3.4-5.0); ALKALINE PHOSPHATASE 179 Units/L (46-116); ASPARTATE AMINO TRANSFERASE 21 Units/L (15-37); BLOOD UREA NITROGEN 7 mg/dL (7-18); CARBON DIOXIDE 24.9 mmol/L (21-32); CHLORIDE 100 mmol/L (98-107); COR CA(FOR HYPOALB) 9.3 mg/dL (8.5-10.1); CREATININE 0.57 mg/dL (0.55-1.02); SODIUM 136 mmol/L (136-145); TOTAL PROTEIN 6.9 g/dL (6.4-8.2); eGFR NON BLACK RACES > 60 (>60)
[2018-01-11] MEDS: NORCO 5/325 MG TAB PO PRN ×2 (06:48→21:07)
[2018-01-11] MEDS: CARAFATE PO SCH ×4 (06:48→21:07)
[2018-01-11] MEDS: BENTYL CAP 10 MG PO SCH ×3 (06:48→21:06)
[2018-01-11 06:57] LABS: BAND NEUTROPHILS % 6 % (0-10)
--- NOTE | 2018-01-11 06:57 | RAD ---
HISTORY: Pneumonia, COPD Study: Chest AP portable Comparison: 01/09/[address] plain film and chest CT Findings: The heart is within normal limits in size. The mary are normal. Diffuse interstitial lung changes are present not significantly different from the prior examination. No alveolar infiltrates or pleural effusions are identified. The left upper lobe infiltrate visualized on CT is not well demonstrated on plain film. The bony thorax is unremarkable IMPRESSION: No significant change from the prior examination Reported By:
[2018-01-11 06:58] LABS: PLATELET MORPHOLOGY COMMENT NORMAL (NORMAL)
[2018-01-11] MEDS: NYSTATIN SUSP PO SCH ×4 (09:00→21:07)
[2018-01-11] MEDS: PEPCID 20 MG IV PREMIX* 20 MG/50 ML BAG IV SCH ×2 (09:00→21:07)
[2018-01-11] MEDS: NORVASC TAB 10 MG PO SCH (09:00)
[2018-01-11] MEDS: FOLIC ACID TAB 1 MG PO SCH (09:00)
[2018-01-11] MEDS: VITAMIN B-6 PO SCH (09:00)
[2018-01-11] MEDS: PROTONIX INJ 40 MG VIAL IVP SCH (09:00)
[2018-01-11] MEDS: ROBITUSSIN DM PO SCH ×4 (09:00→21:07)
[2018-01-11] MEDS: SINEMET (PLAIN) 25/100 MG PO SCH ×2 (09:00→21:07)
[2018-01-11] MEDS: LEVAQUIN PREMIX IV 750 MG 750 MG/150 ML BAG IV SCH (09:00)
[2018-01-11] MEDS: PAXIL PO SCH (09:00)
[2018-01-11] MEDS: PULMICORT NEB TX 0.5 MG NEB SCH ×2 (09:34→20:12)
[2018-01-11] MEDS: BROVANA IN SCH ×2 (09:34→20:11)
[2018-01-11] MEDS ORDERED: SOLU-Medrol 40 MG VIAL IVP ONE (10:27)
--- NOTE | 2018-01-11 15:20 | PCM.PROG ---
Progress Note - Progress Note for Day of Date of Exam: 01/10/18 - Subjective Subjective: 52 WF ADMITTED ON 01/07 WITH PNEUMONIA, CURRENTLY ON IV LEVAQUIN. WBC 13.3THIS AM. PT CONTINUES WITH THICK GREEN SPUTUM AND DIFFUSE EXPIRATORY WHEEZES, TERRIBLE COUGH WITHOUT RESTING WELL AT NIGHT. PT CO CHEST WALL PAIN AND UPPER ABDOMINAL SORENESS FROM COUGHING. CT OF CHEST WITH FINDINGS SUGGESTIVE OF PULMONARY FIBROSIS AND PNEUMONIA. WILL CONTINUE PULMONARY TOILETING - Past Medical Family Social History Past Med/Fam/Surg Hx: No changes since H&P Allergies: Allergies No Known Drug Allergies Allergy (Verified 01/20/17 19:46) - Review of Systems ROS: No change since H&P - Vital Signs and I&O's Vital Signs: Temperature 97.9 F Pulse Rate [Right Brachial] 99 Pulse Rate [Left Brachial] 90 Pulse Rate 90 Respiratory Rate 18 Blood Pressure [Right Arm] 115/71 Blood Pressure [Left Arm] 129/62 Blood Pressure 133/82 O2 Sat by Pulse Oximetry 96 Intake and Output: Intake & Output 01/09/18 01/10/18 01/11/18 01/12/18 11:59 11:59 11:59 11:59 Intake Total 2079 / 2079 480 / 480 3272 / 3272 Balance 2079 480 / 480 3272 / 3272 - Physical Exam Oriented: Normal Eyes: Normal Ear: Normal Nose: Injected Throat: Dry Respiratory: Diminished, Wheezes, Rhonchi Cardiovascular: Tachycardia. negative: Edema : Normal Auscultation: Bowel Sounds: Normal Tenderness: Epigastric Skin: Decreased Turgur Musculoskeletal: Back:Lumbar, Tender Psychiatric: Anxiety Affect: Anxious Speech Pattern: Clear, Appropriate - Laboratory and Diagnostics Result Diagrams: 01/11/18 05:09 01/11/18 05:09 Labs: 01/07/18 18:00 Blood Blood Culture - Preliminary 01/07/18 17:55 Blood Blood Culture - Preliminary 01/07/18 17:04 Sputum - Expectorated Sputum Sputum Culture - Final Klebsiella Pneumoniae Enterobacter Aerogenes 01/07/18 17:04 Sputum - Expectorated Sputum - Final Laboratory WBC 12.2 X10^3/uL (3.6-10.0) H 01/11/18 05:09 RBC 3.73 X10^6/uL (3.5-5.4) 01/11/18 05:09 Hgb 10.7 g/dL (12.0-16.0) L 01/11/18 05:09 Hct 32.6 % (36.0-47.0) L 01/11/18 05:09 MCV 87.2 fL (80.0-100.0) 01/11/18 05:09 MCH 28.7 pg (27.0-34.0) 01/11/18 05:09 MCHC 32.9 g/dL (33.0-35.0) L 01/11/18 05:09 RDW 15.4 % (11.6-16.5) 01/11/18 05:09 Plt Count 373 X10^3/uL (150.0-450.0) 01/11/18 05:09 Plt Count Comment Adequate (ADEQUATE) 01/11/18 05:09 MPV 8.9 fL (7.4-11.0) 01/11/18 05:09 Neut % (Auto) 55.9 % (42.0-75.0) 01/11/18 05:09 Lymph % (Auto) 33.0 % (21.0-51.0) 01/11/18 05:09 [place] % (Auto) 10.3 % (0.0-13.0) 01/11/18 05:09 Eos % (Auto) 0.5 % (0.9-2.9) L 01/11/18 05:09 Baso % (Auto) 0.3 % (0.2-1.0) 01/11/18 05:09 Neut # (Auto) 6.8 x10^3/uL (2.2-4.8) H 01/11/18 05:09 Lymph # (Auto) 4.0 X10^3/uL (1.3-2.9) H 01/11/18 05:09 [place] # (Auto) 1.3 x10^3/uL (0.3-0.8) H 01/11/18 05:09 Eos # (Auto) 0.1 x10^3/uL (0.0-0.2) 01/11/18 05:09 Baso # (Auto) 0.0 X10^3/uL (0.0-0.1) 01/11/18 05:09 Absolute Nucleated RBC 0.0 /100WBC 01/11/18 05:09 Total Counted 100 01/11/18 05:09 Neutrophils % (Manual) 59 % (39-76) 01/11/18 05:09 Band Neutrophils % 6 % (0-10) 01/11/18 05:09 Lymphocytes % (Manual) 30 % (13-43) 01/11/18 05:09 Monocytes % (Manual) 4 % (4-9) 01/11/18 05:09 Eosinophils % (Manual) 1 % (0-6) 01/11/18 05:09 Plt Morphology Comment Normal (NORMAL) 01/11/18 05:09 RBC Morphology Normal (NORMAL) 01/11/18 05:09 Sample Site Rbr 01/07/18 18:04 ABG pH 7.530 (7.35-7.45) H 01/07/18 18:04 ABG pCO2 28.0 mmHg (35.0-45.0) L 01/07/18 18:04 ABG pO2 55.0 mmHg (80.0-100.0) L 01/07/18 18:04 ABG HCO3 23.4 mmol/L (22-26) 01/07/18 18:04 ABG O2 Saturation 92.0 % (90-100) 01/07/18 18:04 ABG Base Excess 1.6 mmol/L (-2.0-2.0) 01/07/18 18:04 Lopez Test N/a 01/07/18 18:04 A-a Gradient 60.0 mmHg 01/07/18 18:04 FiO2 21.0 01/07/18 18:04 Blood Gas Comments Phuong well cdn 01/07/18 18:04 Sodium 136 mmol/L (136-145) 01/11/18 05:09 Corrected Sodium TNP 01/11/18 05:09 Potassium 3.7 mmol/L (3.5-5.1) 01/11/18 05:09 Chloride 100 mmol/L (98-107) 01/11/18 05:09 Carbon Dioxide 24.9 mmol/L (21-32) 01/11/18 05:09 BUN 7 mg/dL (7-18) 01/11/18 05:09 Creatinine 0.57 mg/dL (0.55-1.02) 01/11/18 05:09 Est GFR (MDRD) Af Amer > 60 (>60) 01/11/18 05:09 Est GFR (MDRD) Non-Af > 60 (>60) 01/11/18 05:09 Glucose 85 mg/dL (65-99) 01/11/18 05:09 Calcium 8.0 mg/dL (8.5-10.1) L 01/11/18 05:09 Corrected Calcium 9.3 mg/dL (8.5-10.1) 01/11/18 05:09 Magnesium 2.6 mg/dL (1.7-2.9) 01/08/18 04:54 Total Bilirubin 0.20 mg/dL (0.2-1.0) 01/11/18 05:09 AST 21 Units/L (15-37) 01/11/18 05:09 ALT 21 Units/L (12-78) 01/11/18 05:09 Alkaline Phosphatase 179 Units/L (46-116) H 01/11/18 05:09 Total Protein 6.9 g/dL (6.4-8.2) 01/11/18 05:09 Albumin 2.4 g/dL (3.4-5.0) L 01/11/18 05:09 Globulin 4.5 g/dL (2.5-4.5) 01/11/18 05:09 Albumin/Globulin Ratio 0.5 Ratio (1.1-2.1) L 01/11/18 05:09 Specimen Type Clean catch urine 01/07/18 18:20 Urine Color Dark yellow (YELLOW) 01/07/18 18:20 Urine Appearance Slightly hazy (CLEAR) 01/07/18 18:20 Urine pH 6.0 (5.0 - 8.0) 01/07/18 18:20 Ur Specific [place] 1.015 (1.000-1.030) 01/07/18 18:20 Urine Protein 2+ (NEGATIVE) 01/07/18 18:20 Urine Glucose (UA) Negative (NEGATIVE) 01/07/18 18:20 Urine Ketones Negative (NEGATIVE) 01/07/18 18:20 Urine Occult Blood 2+ (NEGATIVE) 01/07/18 18:20 Urine Nitrite Negative (NEGATIVE) 01/07/18 18:20 Urine Bilirubin Negative (NEGATIVE) 01/07/18 18:20 Urine Urobilinogen 1+ (NORMAL) 01/07/18 18:20 Ur Leukocyte Esterase 1+ (NEGATIVE) 01/07/18 18:20 Urine RBC 5-10 /HPF (NONE SEEN) 01/07/18 18:20 Urine WBC 3-5 /HPF (NONE SEEN) 01/07/18 18:20 Ur Squamous Epith Cells Moderate /HPF (NEGATIVE) 01/07/18 18:20 Amorphous Sediment 1+ /HPF (NEGATIVE) 01/07/18 18:20 Urine Bacteria 1+ /HPF (NEGATIVE) 01/07/18 18:20 Hyaline Casts Moderate /LPF (NEGATIVE) 01/07/18 18:20 Ur Culture Indicated? No/not indicated 01/07/18 18:20 - Plan (1) Pneumonia Status: Acute Plan: PNEUMONIA PROTOCOL, IV ATBX, BUDESONIDE, BROVANNA, DUO NEBS. SPUTUM CULTURE PENDING, RESP THERAPY, SUPPLEMENTAL O2. PPI, ENCOURAGE AMBULATION, PULMONARY TOILETING. ABG ON ADMISSION (2) COPD with acute bronchitis Status: Acute (3) GERD (gastroesophageal reflux disease) Status: Chronic (4) Hypertension Status: Chronic (5) Lumbar degenerative disc disease Status: Chronic
--- NOTE | 2018-01-11 15:21 | PCM.PROG ---
Progress Note - Progress Note for Day of Date of Exam: 01/11/18 - Subjective Subjective: 52 WF ADMITTED ON 01/07 WITH PNEUMONIA, CURRENTLY ON IV LEVAQUIN. WBC 13.3THIS AM. PT CONTINUES WITH THICK GREEN SPUTUM AND DIFFUSE EXPIRATORY WHEEZES, TERRIBLE COUGH. PT REPORTS SHE RESTING BETTER LAST PM TAKING TUSSIONEX. PT CO CHEST WALL PAIN AND UPPER ABDOMINAL SORENESS FROM COUGHING. CT OF CHEST WITH FINDINGS SUGGESTIVE OF PULMONARY FIBROSIS AND PNEUMONIA. WILL CONTINUE PULMONARY TOILETING AND REPEAT IV STEROIDS - Past Medical Family Social History Past Med/Fam/Surg Hx: No changes since H&P Allergies: Allergies No Known Drug Allergies Allergy (Verified 01/20/17 19:46) - Review of Systems ROS: No change since H&P - Vital Signs and I&O's Vital Signs: Temperature 97.9 F Pulse Rate [Right Brachial] 99 Pulse Rate [Left Brachial] 90 Pulse Rate 90 Respiratory Rate 18 Blood Pressure [Right Arm] 115/71 Blood Pressure [Left Arm] 129/62 Blood Pressure 133/82 O2 Sat by Pulse Oximetry 96 Intake and Output: Intake & Output 01/09/18 01/10/18 01/11/18 01/12/18 11:59 11:59 11:59 11:59 Intake Total 2079 480 / 480 3272 / 3272 Balance 2079 480 / 480 3272 / 3272 - Physical Exam Oriented: Normal Eyes: Normal Ear: Normal Nose: Injected Throat: Dry Respiratory: Diminished, Wheezes, Rhonchi Cardiovascular: Tachycardia. negative: Edema : Normal Auscultation: Bowel Sounds: Normal Tenderness: Epigastric Skin: Decreased Turgur Musculoskeletal: Back:Lumbar, Tender Psychiatric: Anxiety Affect: Anxious Speech Pattern: Clear, Appropriate - Laboratory and Diagnostics Result Diagrams: 01/11/18 05:09 01/11/18 05:09 Labs: 01/07/18 18:00 Blood Blood Culture - Preliminary 01/07/18 17:55 Blood Blood Culture - Preliminary 01/07/18 17:04 Sputum - Expectorated Sputum Sputum Culture - Final Klebsiella Pneumoniae Enterobacter Aerogenes 01/07/18 17:04 Sputum - Expectorated Sputum - Final Laboratory WBC 12.2 X10^3/uL (3.6-10.0) H 01/11/18 05:09 RBC 3.73 X10^6/uL (3.5-5.4) 01/11/18 05:09 Hgb 10.7 g/dL (12.0-16.0) L 01/11/18 05:09 Hct 32.6 % (36.0-47.0) L 01/11/18 05:09 MCV 87.2 fL (80.0-100.0) 01/11/18 05:09 MCH 28.7 pg (27.0-34.0) 01/11/18 05:09 MCHC 32.9 g/dL (33.0-35.0) L 01/11/18 05:09 RDW 15.4 % (11.6-16.5) 01/11/18 05:09 Plt Count 373 X10^3/uL (150.0-450.0) 01/11/18 05:09 Plt Count Comment Adequate (ADEQUATE) 01/11/18 05:09 MPV 8.9 fL (7.4-11.0) 01/11/18 05:09 Neut % (Auto) 55.9 % (42.0-75.0) 01/11/18 05:09 Lymph % (Auto) 33.0 % (21.0-51.0) 01/11/18 05:09 [place] % (Auto) 10.3 % (0.0-13.0) 01/11/18 05:09 Eos % (Auto) 0.5 % (0.9-2.9) L 01/11/18 05:09 Baso % (Auto) 0.3 % (0.2-1.0) 01/11/18 05:09 Neut # (Auto) 6.8 x10^3/uL (2.2-4.8) H 01/11/18 05:09 Lymph # (Auto) 4.0 X10^3/uL (1.3-2.9) H 01/11/18 05:09 [place] # (Auto) 1.3 x10^3/uL (0.3-0.8) H 01/11/18 05:09 Eos # (Auto) 0.1 x10^3/uL (0.0-0.2) 01/11/18 05:09 Baso # (Auto) 0.0 X10^3/uL (0.0-0.1) 01/11/18 05:09 Absolute Nucleated RBC 0.0 /100WBC 01/11/18 05:09 Total Counted 100 01/11/18 05:09 Neutrophils % (Manual) 59 % (39-76) 01/11/18 05:09 Band Neutrophils % 6 % (0-10) 01/11/18 05:09 Lymphocytes % (Manual) 30 % (13-43) 01/11/18 05:09 Monocytes % (Manual) 4 % (4-9) 01/11/18 05:09 Eosinophils % (Manual) 1 % (0-6) 01/11/18 05:09 Plt Morphology Comment Normal (NORMAL) 01/11/18 05:09 RBC Morphology Normal (NORMAL) 01/11/18 05:09 Sample Site Rbr 01/07/18 18:04 ABG pH 7.530 (7.35-7.45) H 01/07/18 18:04 ABG pCO2 28.0 mmHg (35.0-45.0) L 01/07/18 18:04 ABG pO2 55.0 mmHg (80.0-100.0) L 01/07/18 18:04 ABG HCO3 23.4 mmol/L (22-26) 01/07/18 18:04 ABG O2 Saturation 92.0 % (90-100) 01/07/18 18:04 ABG Base Excess 1.6 mmol/L (-2.0-2.0) 01/07/18 18:04 Lopez Test N/a 01/07/18 18:04 A-a Gradient 60.0 mmHg 01/07/18 18:04 FiO2 21.0 01/07/18 18:04 Blood Gas Comments Phuong well cdn 01/07/18 18:04 Sodium 136 mmol/L (136-145) 01/11/18 05:09 Corrected Sodium TNP 01/11/18 05:09 Potassium 3.7 mmol/L (3.5-5.1) 01/11/18 05:09 Chloride 100 mmol/L (98-107) 01/11/18 05:09 Carbon Dioxide 24.9 mmol/L (21-32) 01/11/18 05:09 BUN 7 mg/dL (7-18) 01/11/18 05:09 Creatinine 0.57 mg/dL (0.55-1.02) 01/11/18 05:09 Est GFR (MDRD) Af Amer > 60 (>60) 01/11/18 05:09 Est GFR (MDRD) Non-Af > 60 (>60) 01/11/18 05:09 Glucose 85 mg/dL (65-99) 01/11/18 05:09 Calcium 8.0 mg/dL (8.5-10.1) L 01/11/18 05:09 Corrected Calcium 9.3 mg/dL (8.5-10.1) 01/11/18 05:09 Magnesium 2.6 mg/dL (1.7-2.9) 01/08/18 04:54 Total Bilirubin 0.20 mg/dL (0.2-1.0) 01/11/18 05:09 AST 21 Units/L (15-37) 01/11/18 05:09 ALT 21 Units/L (12-78) 01/11/18 05:09 Alkaline Phosphatase 179 Units/L (46-116) H 01/11/18 05:09 Total Protein 6.9 g/dL (6.4-8.2) 01/11/18 05:09 Albumin 2.4 g/dL (3.4-5.0) L 01/11/18 05:09 Globulin 4.5 g/dL (2.5-4.5) 01/11/18 05:09 Albumin/Globulin Ratio 0.5 Ratio (1.1-2.1) L 01/11/18 05:09 Specimen Type Clean catch urine 01/07/18 18:20 Urine Color Dark yellow (YELLOW) 01/07/18 18:20 Urine Appearance Slightly hazy (CLEAR) 01/07/18 18:20 Urine pH 6.0 (5.0 - 8.0) 01/07/18 18:20 Ur Specific [place] 1.015 (1.000-1.030) 01/07/18 18:20 Urine Protein 2+ (NEGATIVE) 01/07/18 18:20 Urine Glucose (UA) Negative (NEGATIVE) 01/07/18 18:20 Urine Ketones Negative (NEGATIVE) 01/07/18 18:20 Urine Occult Blood 2+ (NEGATIVE) 01/07/18 18:20 Urine Nitrite Negative (NEGATIVE) 11/26/18 18:20 Urine Bilirubin Negative (NEGATIVE) 01/07/18 18:20 Urine Urobilinogen 1+ (NORMAL) 01/07/18 18:20 Ur Leukocyte Esterase 1+ (NEGATIVE) 01/07/18 18:20 Urine RBC 5-10 /HPF (NONE SEEN) 01/07/18 18:20 Urine WBC 3-5 /HPF (NONE SEEN) 01/07/18 18:20 Ur Squamous Epith Cells Moderate /HPF (NEGATIVE) 01/07/18 18:20 Amorphous Sediment 1+ /HPF (NEGATIVE) 01/07/18 18:20 Urine Bacteria 1+ /HPF (NEGATIVE) 01/07/18 18:20 Hyaline Casts Moderate /LPF (NEGATIVE) 01/07/18 18:20 Ur Culture Indicated? No/not indicated 01/07/18 18:20 - Plan (1) Pneumonia Status: Acute Plan: PNEUMONIA PROTOCOL, IV ATBX, BUDESONIDE, BROVANNA, DUO NEBS. SPUTUM CULTURE PENDING, RESP THERAPY, SUPPLEMENTAL O2. PPI, ENCOURAGE AMBULATION, PULMONARY TOILETING. ABG ON ADMISSION (2) COPD with acute bronchitis Status: Acute (3) GERD (gastroesophageal reflux disease) Status: Chronic (4) Hypertension Status: Chronic (5) Lumbar degenerative disc disease Status: Chronic
[2018-01-11] MEDS ORDERED: NS 1/2 1000 ML IV 1,000 ML IV ONE (16:27)
[2018-01-11] MEDS: NS 1/2 1000 ML IV 1,000 ML IV SCH ×2 (16:44→21:06)
[2018-01-11] MEDS: K-DUR TAB 20 MEQ PO PRN (21:07)
[2018-01-11] MEDS: SINEquan PO SCH (21:07)
[2018-01-11] MEDS: REQUIP PO SCH (21:07)
[2018-01-11] MEDS: COLACE CAP 100 MG PO SCH (21:08)
[2018-01-11] MEDS: PHENERGAN INJ 25 MG IV PRN (23:45)
[2018-01-12] MEDS: DUONEB 0.5 MG/3 MG NEB SCH ×6 (00:29→20:41)
[2018-01-12] MEDS: BENTYL CAP 10 MG PO SCH ×3 (06:19→21:19)
[2018-01-12] MEDS: CARAFATE PO SCH ×4 (06:19→20:43)
[2018-01-12 06:23] LABS: BASOPHILS # (AUTO) 0.1 X10^3/uL (0.0-0.1); BASOPHILS % (AUTO) 0.5 % (0.2-1.0); EOSINOPHILS % (AUTO) 0.1 % (0.9-2.9); HEMATOCRIT 32.1 % (36.0-47.0); HEMOGLOBIN 10.7 g/dL (12.0-16.0); LYMPHOCYTES # (AUTO) 2.6 X10^3/uL (1.3-2.9); LYMPHOCYTES % (AUTO) 15.3 % (21.0-51.0); MEAN CORPUSCULAR HEMOGLOBIN 28.9 pg (27.0-34.0); MEAN CORPUSCULAR HGB CONC 33.4 g/dL (33.0-35.0); MEAN CORPUSCULAR VOLUME 86.7 fL (80.0-100.0); MEAN PLATELET VOLUME 8.5 fL (7.4-11.0); MONOCYTES # (AUTO) 1.1 x10^3/uL (0.3-0.8); MONOCYTES % (AUTO) 6.6 % (0.0-13.0); NEUTROPHILS # (AUTO) 13.4 x10^3/uL (2.2-4.8); NEUTROPHILS % (AUTO) 77.5 % (42.0-75.0); PLATELET COUNT 416 X10^3/uL (150.0-450.0); RED CELL DISTRIBUTION WIDTH 15.4 % (11.6-16.5); WHITE BLOOD COUNT 17.3 X10^3/uL (3.6-10.0)
[2018-01-12 06:26] LABS: ALANINE AMINOTRANSFERASE 21 Units/L (12-78); ALBUMIN 2.6 g/dL (3.4-5.0); ALKALINE PHOSPHATASE 180 Units/L (46-116); ASPARTATE AMINO TRANSFERASE 13 Units/L (15-37); BLOOD UREA NITROGEN 8 mg/dL (7-18); CALCIUM 8.3 mg/dL (8.5-10.1); CARBON DIOXIDE 23.5 mmol/L (21-32); CHLORIDE 102 mmol/L (98-107); COR CA(FOR HYPOALB) 9.4 mg/dL (8.5-10.1); COR NA(FOR HYPERGLY) 139 mmol/L (136-145); CREATININE 0.56 mg/dL (0.55-1.02); SODIUM 138 mmol/L (136-145); TOTAL PROTEIN 7.3 g/dL (6.4-8.2); eGFR NON BLACK RACES > 60 (>60)
[2018-01-12] MEDS: K-RIDER 10 MEQ/NS 100 ML 10 MEQ/100 ML BAG IV PRN ×4 (06:58→12:50)
[2018-01-12] MEDS: TUSSIONEX PENNKINETIC SUSP PO PRN (07:00)
[2018-01-12] MEDS: BROVANA IN SCH ×2 (09:02→20:41)
[2018-01-12] MEDS: PEPCID 20 MG IV PREMIX* 20 MG/50 ML BAG IV SCH ×2 (09:02→20:45)
[2018-01-12] MEDS: LEVAQUIN PREMIX IV 750 MG 750 MG/150 ML BAG IV SCH (09:03)
[2018-01-12] MEDS: NORVASC TAB 10 MG PO SCH (09:03)
[2018-01-12] MEDS: ROBITUSSIN DM PO SCH ×4 (09:03→20:43)
[2018-01-12] MEDS: FOLIC ACID TAB 1 MG PO SCH (09:03)
[2018-01-12] MEDS: PROTONIX INJ 40 MG VIAL IVP SCH (09:03)
[2018-01-12] MEDS: VITAMIN B-6 PO SCH (09:03)
[2018-01-12] MEDS: SINEMET (PLAIN) 25/100 MG PO SCH ×2 (09:03→20:43)
[2018-01-12] MEDS: PULMICORT NEB TX 0.5 MG NEB SCH ×2 (09:03→20:41)
[2018-01-12] MEDS: PAXIL PO SCH (09:03)
[2018-01-12] MEDS: NYSTATIN SUSP PO SCH ×4 (09:03→20:43)
[2018-01-12] MEDS ORDERED: NS 250 ML IV 250 ML IV ONE (09:13)
[2018-01-12] MEDS ORDERED: NS 1/2 1000 ML IV 1,000 ML IV ONE (16:03)
[2018-01-12] MEDS: NS 1/2 1000 ML IV 1,000 ML IV SCH ×2 (16:04→16:05)
[2018-01-12] MEDS: K-DUR TAB 20 MEQ PO PRN ×2 (17:45→21:54)
[2018-01-12] MEDS: SINEquan PO SCH (20:42)
[2018-01-12] MEDS: REQUIP PO SCH (20:43)
[2018-01-12] MEDS: COLACE CAP 100 MG PO SCH (20:43)
[2018-01-12] MEDS: NORCO 5/325 MG TAB PO PRN (21:46)
[2018-01-13] MEDS: NS 1/2 1000 ML IV 1,000 ML IV SCH ×2 (00:38→16:55)
[2018-01-13] MEDS: DUONEB 0.5 MG/3 MG NEB SCH ×6 (00:52→21:17)
[2018-01-13] MEDS ORDERED: NS 1/2 1000 ML IV 1,000 ML IV ONE ×2 (05:07→16:34)
[2018-01-13] MEDS: BENTYL CAP 10 MG PO SCH ×3 (05:28→21:04)
[2018-01-13] MEDS: CARAFATE PO SCH ×4 (05:31→20:29)
[2018-01-13 06:55] LABS: BASOPHILS % (AUTO) 0.3 % (0.2-1.0); EOSINOPHILS # (AUTO) 0.2 x10^3/uL (0.0-0.2); EOSINOPHILS % (AUTO) 1.6 % (0.9-2.9); HEMATOCRIT 32.8 % (36.0-47.0); HEMOGLOBIN 10.8 g/dL (12.0-16.0); LYMPHOCYTES # (AUTO) 3.2 X10^3/uL (1.3-2.9); MEAN CORPUSCULAR HEMOGLOBIN 28.9 pg (27.0-34.0); MEAN CORPUSCULAR VOLUME 87.7 fL (80.0-100.0); MEAN PLATELET VOLUME 8.5 fL (7.4-11.0); MONOCYTES # (AUTO) 1.5 x10^3/uL (0.3-0.8); MONOCYTES % (AUTO) 10.4 % (0.0-13.0); NEUTROPHILS # (AUTO) 9.1 x10^3/uL (2.2-4.8); NEUTROPHILS % (AUTO) 64.7 % (42.0-75.0); PLATELET COUNT 422 X10^3/uL (150.0-450.0); RED BLOOD COUNT 3.74 X10^6/uL (3.5-5.4); RED CELL DISTRIBUTION WIDTH 15.4 % (11.6-16.5); WHITE BLOOD COUNT 14.1 X10^3/uL (3.6-10.0)
[2018-01-13 07:06] LABS: ALANINE AMINOTRANSFERASE 26 Units/L (12-78); ALBUMIN 2.5 g/dL (3.4-5.0); ALKALINE PHOSPHATASE 169 Units/L (46-116); ASPARTATE AMINO TRANSFERASE 23 Units/L (15-37); BLOOD UREA NITROGEN 7 mg/dL (7-18); CALCIUM 8.3 mg/dL (8.5-10.1); CARBON DIOXIDE 22.1 mmol/L (21-32); CHLORIDE 101 mmol/L (98-107); COR CA(FOR HYPOALB) 9.5 mg/dL (8.5-10.1); CREATININE 0.62 mg/dL (0.55-1.02); SODIUM 137 mmol/L (136-145); TOTAL PROTEIN 7.2 g/dL (6.4-8.2); eGFR NON BLACK RACES > 60 (>60)
[2018-01-13 07:53] LABS: BAND NEUTROPHILS % 3 % (0-10); PLATELET MORPHOLOGY COMMENT NORMAL (NORMAL)
[2018-01-13] MEDS: BROVANA IN SCH ×2 (08:51→21:17)
[2018-01-13] MEDS: PULMICORT NEB TX 0.5 MG NEB SCH ×2 (08:51→21:17)
[2018-01-13] MEDS: LEVAQUIN PREMIX IV 750 MG 750 MG/150 ML BAG IV SCH (09:07)
[2018-01-13] MEDS: ROBITUSSIN DM PO SCH ×4 (09:08→20:29)
[2018-01-13] MEDS: PEPCID 20 MG IV PREMIX* 20 MG/50 ML BAG IV SCH ×2 (09:08→20:28)
[2018-01-13] MEDS: PROTONIX INJ 40 MG VIAL IVP SCH (09:08)
[2018-01-13] MEDS: NYSTATIN SUSP PO SCH ×4 (09:08→20:29)
[2018-01-13] MEDS: SINEMET (PLAIN) 25/100 MG PO SCH ×2 (09:09→20:29)
[2018-01-13] MEDS: VITAMIN B-6 PO SCH (09:09)
[2018-01-13] MEDS: FOLIC ACID TAB 1 MG PO SCH (09:09)
[2018-01-13] MEDS: NORVASC TAB 10 MG PO SCH (09:09)
[2018-01-13] MEDS: PAXIL PO SCH (09:09)
[2018-01-13] MEDS: NORCO 5/325 MG TAB PO PRN ×2 (09:15→18:06)
[2018-01-13] MEDS ORDERED: BENTYL CAP 10 MG PO ONE ×2 (13:19→13:20)
--- NOTE | 2018-01-13 13:50 | RAD ---
HISTORY: Shortness of breath, pneumonia Study: Two-view chest Comparison: 01/11/2018 Findings: The trachea is midline. The cardiac silhouette is unremarkable. Diffuse interstitial lung changes are again noted. There is no focal consolidation or pleural effusion. The bony thorax is grossly intact. IMPRESSION: 1. Diffuse interstitial lung changes without consolidation or pleural effusion identified Reported By:
[2018-01-13] MEDS ORDERED: TYLENOL 325 MG TAB PO PRN (19:54)
[2018-01-13] MEDS: COLACE CAP 100 MG PO SCH (20:29)
[2018-01-13] MEDS: REQUIP PO SCH (20:29)
[2018-01-13] MEDS: SINEquan PO SCH (20:29)
[2018-01-14] MEDS: DUONEB 0.5 MG/3 MG NEB SCH ×6 (00:56→20:24)
[2018-01-14] MEDS: NS 1/2 1000 ML IV 1,000 ML IV SCH ×2 (04:24→13:08)
[2018-01-14] MEDS: BENTYL CAP 10 MG PO SCH ×3 (05:02→21:52)
[2018-01-14] MEDS: NORCO 5/325 MG TAB PO PRN ×2 (05:12→19:18)
[2018-01-14] MEDS: CARAFATE PO SCH ×5 (06:00→20:38)
[2018-01-14 06:13] LABS: BASOPHILS # (AUTO) 0.1 X10^3/uL (0.0-0.1); BASOPHILS % (AUTO) 0.7 % (0.2-1.0); EOSINOPHILS # (AUTO) 0.1 x10^3/uL (0.0-0.2); EOSINOPHILS % (AUTO) 1.2 % (0.9-2.9); HEMATOCRIT 33.3 % (36.0-47.0); LYMPHOCYTES # (AUTO) 2.8 X10^3/uL (1.3-2.9); LYMPHOCYTES % (AUTO) 23.3 % (21.0-51.0); MEAN CORPUSCULAR HEMOGLOBIN 28.6 pg (27.0-34.0); MEAN CORPUSCULAR HGB CONC 32.9 g/dL (33.0-35.0); MEAN CORPUSCULAR VOLUME 87.1 fL (80.0-100.0); MEAN PLATELET VOLUME 8.3 fL (7.4-11.0); MONOCYTES # (AUTO) 1.7 x10^3/uL (0.3-0.8); NEUTROPHILS # (AUTO) 7.2 x10^3/uL (2.2-4.8); NEUTROPHILS % (AUTO) 60.8 % (42.0-75.0); PLATELET COUNT 413 X10^3/uL (150.0-450.0); RED BLOOD COUNT 3.83 X10^6/uL (3.5-5.4); RED CELL DISTRIBUTION WIDTH 15.6 % (11.6-16.5); WHITE BLOOD COUNT 11.9 X10^3/uL (3.6-10.0)
[2018-01-14 06:24] LABS: ALANINE AMINOTRANSFERASE 19 Units/L (12-78); ALBUMIN 2.5 g/dL (3.4-5.0); ALKALINE PHOSPHATASE 164 Units/L (46-116); ASPARTATE AMINO TRANSFERASE 22 Units/L (15-37); BLOOD UREA NITROGEN 9 mg/dL (7-18); CALCIUM 8.2 mg/dL (8.5-10.1); CARBON DIOXIDE 22.6 mmol/L (21-32); CHLORIDE 100 mmol/L (98-107); COR CA(FOR HYPOALB) 9.4 mg/dL (8.5-10.1); CREATININE 0.67 mg/dL (0.55-1.02); SODIUM 135 mmol/L (136-145); TOTAL PROTEIN 7.3 g/dL (6.4-8.2); eGFR NON BLACK RACES > 60 (>60)
[2018-01-14 06:45] LABS: BAND NEUTROPHILS % 3 % (0-10)
[2018-01-14 06:46] LABS: PLATELET MORPHOLOGY COMMENT NORMAL (NORMAL)
[2018-01-14] MEDS: NYSTATIN SUSP PO SCH ×4 (09:05→20:39)
[2018-01-14] MEDS: ROBITUSSIN DM PO SCH ×4 (09:05→20:38)
[2018-01-14] MEDS: VITAMIN B-6 PO SCH (09:05)
[2018-01-14] MEDS: NORVASC TAB 10 MG PO SCH (09:05)
[2018-01-14] MEDS: PEPCID 20 MG IV PREMIX* 20 MG/50 ML BAG IV SCH ×2 (09:05→20:40)
[2018-01-14] MEDS: SINEMET (PLAIN) 25/100 MG PO SCH ×2 (09:05→20:38)
[2018-01-14] MEDS: PAXIL PO SCH (09:06)
[2018-01-14] MEDS: FOLIC ACID TAB 1 MG PO SCH (09:06)
[2018-01-14] MEDS: PROTONIX INJ 40 MG VIAL IVP SCH (09:06)
[2018-01-14] MEDS: BROVANA IN SCH ×2 (09:15→20:24)
[2018-01-14] MEDS: PULMICORT NEB TX 0.5 MG NEB SCH ×2 (09:16→20:24)
[2018-01-14] MEDS: LEVAQUIN PREMIX IV 750 MG 750 MG/150 ML BAG IV SCH (09:55)
[2018-01-14] MEDS ORDERED: NS 1/2 1000 ML IV 1,000 ML IV ONE (13:05)
--- NOTE | 2018-01-14 13:33 | PCM.PROG ---
Progress Note - Progress Note for Day of Date of Exam: 01/12/18 - Subjective Subjective: 52 WF ADMITTED ON 01/07 WITH PNEUMONIA, CURRENTLY ON IV LEVAQUIN. PT CONTINUES WITH THICK GREEN SPUTUM AND DIFFUSE EXPIRATORY WHEEZES, TERRIBLE COUGH. CT OF CHEST WITH FINDINGS SUGGESTIVE OF PULMONARY FIBROSIS AND PNEUMONIA. WILL CONTINUE PULMONARY TOILETING AND D/C STEROIDS DUE TO INCREASED NAUSEA AND REFLUX SYMPTOMS. PT REPORTS CONTINUES TO FEEL WEAK, SOB AT REST MUCH IMPROVED. SPUTUM + KLEBSIELLA AND ENTEROBACTER - Past Medical Family Social History Past Med/Fam/Surg Hx: No changes since H&P Allergies: Allergies No Known Drug Allergies Allergy (Verified 01/20/17 19:46) - Review of Systems ROS: No change since H&P - Vital Signs and I&O's Vital Signs: Temperature 98.6 F Pulse Rate [Right Brachial] 94 Pulse Rate [Left Brachial] 90 Pulse Rate 102 Respiratory Rate 18 Blood Pressure [Right Arm] 113/71 Blood Pressure [Left Arm] 129/62 Blood Pressure 133/82 O2 Sat by Pulse Oximetry 94 Intake and Output: Intake & Output 01/12/18 01/13/18 01/14/18 01/15/18 11:59 11:59 11:59 11:59 Intake Total 1050 / 1050 1610 / 1610 2960 / 2960 Balance 1050 / 1050 1610 / 1610 2960 / 2960 - Physical Exam Oriented: Normal Eyes: Normal Ear: Normal Nose: Injected Throat: Dry Respiratory: Diminished, Wheezes, Rhonchi Cardiovascular: Tachycardia. negative: Edema : Normal Auscultation: Bowel Sounds: Normal Tenderness: Epigastric Skin: Decreased Turgur Musculoskeletal: Back:Lumbar, Tender Psychiatric: Anxiety Affect: Anxious Speech Pattern: Clear, Appropriate - Laboratory and Diagnostics Result Diagrams: 01/14/18 05:50 01/14/18 05:50 Labs: 01/07/18 18:00 Blood Blood Culture - Final 01/07/18 17:55 Blood Blood Culture - Final 01/07/18 17:04 Sputum - Expectorated Sputum Sputum Culture - Final Klebsiella Pneumoniae Enterobacter Aerogenes 01/07/18 17:04 Sputum - Expectorated Sputum - Final Laboratory WBC 11.9 X10^3/uL (3.6-10.0) H 01/14/18 05:50 RBC 3.83 X10^6/uL (3.5-5.4) 01/14/18 05:50 Hgb 11.0 g/dL (12.0-16.0) L 01/14/18 05:50 Hct 33.3 % (36.0-47.0) L 01/14/18 05:50 MCV 87.1 fL (80.0-100.0) 01/14/18 05:50 MCH 28.6 pg (27.0-34.0) 01/14/18 05:50 MCHC 32.9 g/dL (33.0-35.0) L 01/14/18 05:50 RDW 15.6 % (11.6-16.5) 01/14/18 05:50 Plt Count 413 X10^3/uL (150.0-450.0) 01/14/18 05:50 Plt Count Comment Adequate (ADEQUATE) 01/14/18 05:50 MPV 8.3 fL (7.4-11.0) 01/14/18 05:50 Neut % (Auto) 60.8 % (42.0-75.0) 01/14/18 05:50 Lymph % (Auto) 23.3 % (21.0-51.0) 01/14/18 05:50 [place] % (Auto) 14.0 % (0.0-13.0) H 01/14/18 05:50 Eos % (Auto) 1.2 % (0.9-2.9) 01/14/18 05:50 Baso % (Auto) 0.7 % (0.2-1.0) 01/14/18 05:50 Neut # (Auto) 7.2 x10^3/uL (2.2-4.8) H 01/14/18 05:50 Lymph # (Auto) 2.8 X10^3/uL (1.3-2.9) 01/14/18 05:50 [place] # (Auto) 1.7 x10^3/uL (0.3-0.8) H 01/14/18 05:50 Eos # (Auto) 0.1 x10^3/uL (0.0-0.2) 01/14/18 05:50 Baso # (Auto) 0.1 X10^3/uL (0.0-0.1) 01/14/18 05:50 Absolute Nucleated RBC 0.1 /100WBC 01/14/18 05:50 Total Counted 100 01/14/18 05:50 Neutrophils % (Manual) 70 % (39-76) 01/14/18 05:50 Band Neutrophils % 3 % (0-10) 01/14/18 05:50 Lymphocytes % (Manual) 20 % (13-43) 01/14/18 05:50 Monocytes % (Manual) 6 % (4-9) 01/14/18 05:50 Eosinophils % (Manual) 1 % (0-6) 01/14/18 05:50 Plt Morphology Comment Normal (NORMAL) 01/14/18 05:50 RBC Morphology Normal (NORMAL) 01/14/18 05:50 Sample Site Rbr 01/07/18 18:04 ABG pH 7.530 (7.35-7.45) H 01/07/18 18:04 ABG pCO2 28.0 mmHg (35.0-45.0) L 01/07/18 18:04 ABG pO2 55.0 mmHg (80.0-100.0) L 01/07/18 18:04 ABG HCO3 23.4 mmol/L (22-26) 01/07/18 18:04 ABG O2 Saturation 92.0 % (90-100) 01/07/18 18:04 ABG Base Excess 1.6 mmol/L (-2.0-2.0) 01/07/18 18:04 Lopez Test N/a 01/07/18 18:04 A-a Gradient 60.0 mmHg 01/07/18 18:04 FiO2 21.0 01/07/18 18:04 Blood Gas Comments Phuong well cdn 01/07/18 18:04 Sodium 135 mmol/L (136-145) L 01/14/18 05:50 Corrected Sodium TNP 01/14/18 05:50 Potassium 4.0 mmol/L (3.5-5.1) 01/14/18 05:50 Chloride 100 mmol/L (98-107) 01/14/18 05:50 Carbon Dioxide 22.6 mmol/L (21-32) 01/14/18 05:50 BUN 9 mg/dL (7-18) 01/14/18 05:50 Creatinine 0.67 mg/dL (0.55-1.02) 01/14/18 05:50 Est GFR (MDRD) Af Amer > 60 (>60) 01/14/18 05:50 Est GFR (MDRD) Non-Af > 60 (>60) 01/14/18 05:50 Glucose 108 mg/dL (65-99) H 01/14/18 05:50 Calcium 8.2 mg/dL (8.5-10.1) L 01/14/18 05:50 Corrected Calcium 9.4 mg/dL (8.5-10.1) 01/14/18 05:50 Magnesium 2.1 mg/dL (1.7-2.9) 01/12/18 05:40 Total Bilirubin 0.30 mg/dL (0.2-1.0) 01/14/18 05:50 AST 22 Units/L (15-37) 01/14/18 05:50 ALT 19 Units/L (12-78) 01/14/18 05:50 Alkaline Phosphatase 164 Units/L (46-116) H 01/14/18 05:50 Total Protein 7.3 g/dL (6.4-8.2) 01/14/18 05:50 Albumin 2.5 g/dL (3.4-5.0) L 01/14/18 05:50 Globulin 4.8 g/dL (2.5-4.5) H 01/14/18 05:50 Albumin/Globulin Ratio 0.5 Ratio (1.1-2.1) L 01/14/18 05:50 Specimen Type Clean catch urine 01/07/18 18:20 Urine Color Dark yellow (YELLOW) 01/07/18 18:20 Urine Appearance Slightly hazy (CLEAR) 01/07/18 18:20 Urine pH 6.0 (5.0 - 8.0) 01/07/18 18:20 Ur Specific [place] 1.015 (1.000-1.030) 01/07/18 18:20 Urine Protein 2+ (NEGATIVE) 01/07/18 18:20 Urine Glucose (UA) Negative (NEGATIVE) 01/07/18 18:20 Urine Ketones Negative (NEGATIVE) 01/07/18 18:20 Urine Occult Blood 2+ (NEGATIVE) 01/07/18 18:20 Urine Nitrite Negative (NEGATIVE) 01/07/18 18:20 Urine Bilirubin Negative (NEGATIVE) 01/07/18 18:20 Urine Urobilinogen 1+ (NORMAL) 01/07/18 18:20 Ur Leukocyte Esterase 1+ (NEGATIVE) 01/07/18 18:20 Urine RBC 5-10 /HPF (NONE SEEN) 01/07/18 18:20 Urine WBC 3-5 /HPF (NONE SEEN) 01/07/18 18:20 Ur Squamous Epith Cells Moderate /HPF (NEGATIVE) 01/07/18 18:20 Amorphous Sediment 1+ /HPF (NEGATIVE) 01/07/18 18:20 Urine Bacteria 1+ /HPF (NEGATIVE) 01/07/18 18:20 Hyaline Casts Moderate /LPF (NEGATIVE) 01/07/18 18:20 Ur Culture Indicated? No/not indicated 01/07/18 18:20 - Plan (1) Pneumonia Status: Acute Qualifiers: Pneumonia type: due to Klebsiella pneumoniae Plan: PNEUMONIA PROTOCOL, IV ATBX, BUDESONIDE, BROVANNA, DUO NEBS. SPUTUM CULTURE PENDING, RESP THERAPY, SUPPLEMENTAL O2. PPI, ENCOURAGE AMBULATION, PULMONARY TOILETING. ABG ON ADMISSION (2) COPD with acute bronchitis Status: Acute (3) GERD (gastroesophageal reflux disease) Status: Chronic Plan: PPI, CARAFATE, NAUSEA CONTROL (4) Hypertension Status: Chronic (5) Lumbar degenerative disc disease Status: Chronic
--- NOTE | 2018-01-14 13:35 | PCM.PROG ---
Progress Note - Progress Note for Day of Date of Exam: 01/13/18 - Subjective Subjective: 52 WF ADMITTED ON 01/07 WITH PNEUMONIA, CURRENTLY ON IV LEVAQUIN. PT CONTINUES WITH HOARSE BARKING COUGH, DECREASED SPUTUM PRODUCTION, RESTING BETTER AT NIGHT. PT REPORTS CONTINUES TO FEEL WEAK, SOB AT REST MUCH IMPROVED. SPUTUM + KLEBSIELLA AND ENTEROBACTER, SENSATIVE TO LEVAQUIN. REPEAT CXR WITH IMPROVING PNEUMONIA. REPEAT AM LABS, CONTINUE RESP THERAPY AND PULMONARY TOILETING - Past Medical Family Social History Past Med/Fam/Surg Hx: No changes since H&P Allergies: Allergies No Known Drug Allergies Allergy (Verified 01/20/17 19:46) - Review of Systems ROS: No change since H&P - Vital Signs and I&O's Vital Signs: Temperature 98.6 F Pulse Rate [Right Brachial] 94 Pulse Rate [Left Brachial] 90 Pulse Rate 102 Respiratory Rate 18 Blood Pressure [Right Arm] 113/71 Blood Pressure [Left Arm] 129/62 Blood Pressure 133/82 O2 Sat by Pulse Oximetry 94 Intake and Output: Intake & Output 01/12/18 01/13/18 01/14/18 01/15/18 11:59 11:59 11:59 11:59 Intake Total 1050 / 1050 1610 / 1610 2960 / 2960 Balance 1050 / 1050 1610 / 1610 2960 / 2960 - Physical Exam Oriented: Normal Eyes: Normal Ear: Normal Nose: Injected Throat: Dry Respiratory: Diminished, Wheezes, Rhonchi Cardiovascular: Tachycardia. negative: Edema : Normal Auscultation: Bowel Sounds: Normal Tenderness: Epigastric Skin: Decreased Turgur Musculoskeletal: Back:Lumbar, Tender Psychiatric: Anxiety Affect: Anxious Speech Pattern: Clear, Appropriate - Laboratory and Diagnostics Result Diagrams: 01/14/18 05:50 01/14/18 05:50 Labs: 01/07/18 18:00 Blood Blood Culture - Final 01/07/18 17:55 Blood Blood Culture - Final 01/07/18 17:04 Sputum - Expectorated Sputum Sputum Culture - Final Klebsiella Pneumoniae Enterobacter Aerogenes 01/07/18 17:04 Sputum - Expectorated Sputum - Final Laboratory WBC 11.9 X10^3/uL (3.6-10.0) H 01/14/18 05:50 RBC 3.83 X10^6/uL (3.5-5.4) 01/14/18 05:50 Hgb 11.0 g/dL (12.0-16.0) L 01/14/18 05:50 Hct 33.3 % (36.0-47.0) L 01/14/18 05:50 MCV 87.1 fL (80.0-100.0) 01/14/18 05:50 MCH 28.6 pg (27.0-34.0) 01/14/18 05:50 MCHC 32.9 g/dL (33.0-35.0) L 01/14/18 05:50 RDW 15.6 % (11.6-16.5) 01/14/18 05:50 Plt Count 413 X10^3/uL (150.0-450.0) 01/14/18 05:50 Plt Count Comment Adequate (ADEQUATE) 01/14/18 05:50 MPV 8.3 fL (7.4-11.0) 01/14/18 05:50 Neut % (Auto) 60.8 % (42.0-75.0) 01/14/18 05:50 Lymph % (Auto) 23.3 % (21.0-51.0) 01/14/18 05:50 [place] % (Auto) 14.0 % (0.0-13.0) H 01/14/18 05:50 Eos % (Auto) 1.2 % (0.9-2.9) 01/14/18 05:50 Baso % (Auto) 0.7 % (0.2-1.0) 01/14/18 05:50 Neut # (Auto) 7.2 x10^3/uL (2.2-4.8) H 01/14/18 05:50 Lymph # (Auto) 2.8 X10^3/uL (1.3-2.9) 01/14/18 05:50 [place] # (Auto) 1.7 x10^3/uL (0.3-0.8) H 01/14/18 05:50 Eos # (Auto) 0.1 x10^3/uL (0.0-0.2) 01/14/18 05:50 Baso # (Auto) 0.1 X10^3/uL (0.0-0.1) 01/14/18 05:50 Absolute Nucleated RBC 0.1 /100WBC 01/14/18 05:50 Total Counted 100 01/14/18 05:50 Neutrophils % (Manual) 70 % (39-76) 01/14/18 05:50 Band Neutrophils % 3 % (0-10) 01/14/18 05:50 Lymphocytes % (Manual) 20 % (13-43) 01/14/18 05:50 Monocytes % (Manual) 6 % (4-9) 01/14/18 05:50 Eosinophils % (Manual) 1 % (0-6) 01/14/18 05:50 Plt Morphology Comment Normal (NORMAL) 01/14/18 05:50 RBC Morphology Normal (NORMAL) 01/14/18 05:50 Sample Site Rbr 01/07/18 18:04 ABG pH 7.530 (7.35-7.45) H 01/07/18 18:04 ABG pCO2 28.0 mmHg (35.0-45.0) L 01/07/18 18:04 ABG pO2 55.0 mmHg (80.0-100.0) L 01/07/18 18:04 ABG HCO3 23.4 mmol/L (22-26) 01/07/18 18:04 ABG O2 Saturation 92.0 % (90-100) 01/07/18 18:04 ABG Base Excess 1.6 mmol/L (-2.0-2.0) 01/07/18 18:04 Lopez Test N/a 01/07/18 18:04 A-a Gradient 60.0 mmHg 01/07/18 18:04 FiO2 21.0 01/07/18 18:04 Blood Gas Comments Phuong well cdn 01/07/18 18:04 Sodium 135 mmol/L (136-145) L 01/14/18 05:50 Corrected Sodium TNP 01/14/18 05:50 Potassium 4.0 mmol/L (3.5-5.1) 01/14/18 05:50 Chloride 100 mmol/L (98-107) 01/14/18 05:50 Carbon Dioxide 22.6 mmol/L (21-32) 01/14/18 05:50 BUN 9 mg/dL (7-18) 01/14/18 05:50 Creatinine 0.67 mg/dL (0.55-1.02) 01/14/18 05:50 Est GFR (MDRD) Af Amer > 60 (>60) 01/14/18 05:50 Est GFR (MDRD) Non-Af > 60 (>60) 01/14/18 05:50 Glucose 108 mg/dL (65-99) H 01/14/18 05:50 Calcium 8.2 mg/dL (8.5-10.1) L 01/14/18 05:50 Corrected Calcium 9.4 mg/dL (8.5-10.1) 01/14/18 05:50 Magnesium 2.1 mg/dL (1.7-2.9) 01/12/18 05:40 Total Bilirubin 0.30 mg/dL (0.2-1.0) 01/14/18 05:50 AST 22 Units/L (15-37) 01/14/18 05:50 ALT 19 Units/L (12-78) 01/14/18 05:50 Alkaline Phosphatase 164 Units/L (46-116) H 01/14/18 05:50 Total Protein 7.3 g/dL (6.4-8.2) 01/14/18 05:50 Albumin 2.5 g/dL (3.4-5.0) L 01/14/18 05:50 Globulin 4.8 g/dL (2.5-4.5) H 01/14/18 05:50 Albumin/Globulin Ratio 0.5 Ratio (1.1-2.1) L 01/14/18 05:50 Specimen Type Clean catch urine 01/07/18 18:20 Urine Color Dark yellow (YELLOW) 01/07/18 18:20 Urine Appearance Slightly hazy (CLEAR) 01/07/18 18:20 Urine pH 6.0 (5.0 - 8.0) 01/07/18 18:20 Ur Specific [place] 1.015 (1.000-1.030) 01/07/18 18:20 Urine Protein 2+ (NEGATIVE) 01/07/18 18:20 Urine Glucose (UA) Negative (NEGATIVE) 01/07/18 18:20 Urine Ketones Negative (NEGATIVE) 01/07/18 18:20 Urine Occult Blood 2+ (NEGATIVE) 01/07/18 18:20 Urine Nitrite Negative (NEGATIVE) 01/07/18 18:20 Urine Bilirubin Negative (NEGATIVE) 01/07/18 18:20 Urine Urobilinogen 1+ (NORMAL) 01/07/18 18:20 Ur Leukocyte Esterase 1+ (NEGATIVE) 01/07/18 18:20 Urine RBC 5-10 /HPF (NONE SEEN) 01/07/18 18:20 Urine WBC 3-5 /HPF (NONE SEEN) 01/07/18 18:20 Ur Squamous Epith Cells Moderate /HPF (NEGATIVE) 01/07/18 18:20 Amorphous Sediment 1+ /HPF (NEGATIVE) 01/07/18 18:20 Urine Bacteria 1+ /HPF (NEGATIVE) 01/07/18 18:20 Hyaline Casts Moderate /LPF (NEGATIVE) 01/07/18 18:20 Ur Culture Indicated? No/not indicated 01/07/18 18:20 - Plan (1) Pneumonia Status: Acute Qualifiers: Pneumonia type: due to Klebsiella pneumoniae Plan: PNEUMONIA PROTOCOL, IV ATBX, BUDESONIDE, BROVANNA, DUO NEBS. SPUTUM CULTURE PENDING, RESP THERAPY, SUPPLEMENTAL O2. PPI, ENCOURAGE AMBULATION, PULMONARY TOILETING. ABG ON ADMISSION (2) COPD with acute bronchitis Status: Acute (3) GERD (gastroesophageal reflux disease) Status: Chronic Plan: PPI, CARAFATE, NAUSEA CONTROL (4) Hypertension Status: Chronic (5) Lumbar degenerative disc disease Status: Chronic
--- NOTE | 2018-01-14 13:41 | PCM.PROG ---
Progress Note - Progress Note for Day of Date of Exam: 01/14/18 - Subjective Subjective: 52 WF ADMITTED ON 01/07 WITH PNEUMONIA, CURRENTLY ON IV LEVAQUIN. PT CONTINUES WITH HOARSE BARKING COUGH, DECREASED SPUTUM PRODUCTION, RESTING BETTER AT NIGHT. SPUTUM + KLEBSIELLA AND ENTEROBACTER, SENSATIVE TO LEVAQUIN. REPEAT CXR WITH IMPROVING PNEUMONIA. REPEAT AM LABS, CONTINUE RESP THERAPY AND PULMONARY TOILETING. PT HAD FEVER 101.8 DURING THE NIGHT, REPEAT BC ORDERED. - Past Medical Family Social History Past Med/Fam/Surg Hx: No changes since H&P Allergies: Allergies No Known Drug Allergies Allergy (Verified 01/20/17 19:46) - Review of Systems ROS: No change since H&P - Vital Signs and I&O's Vital Signs: Temperature 98.6 F Pulse Rate [Right Brachial] 94 Pulse Rate [Left Brachial] 90 Pulse Rate 102 Respiratory Rate 18 Blood Pressure [Right Arm] 113/71 Blood Pressure [Left Arm] 129/62 Blood Pressure 133/82 O2 Sat by Pulse Oximetry 94 Intake and Output: Intake & Output 01/12/18 01/13/18 01/14/18 01/15/18 11:59 11:59 11:59 11:59 Intake Total 1050 / 1050 1610 / 1610 2960 / 2960 Balance 1050 / 1050 1610 / 1610 2960 / 2960 - Physical Exam Oriented: Normal Eyes: Normal Ear: Normal Nose: Injected Throat: Dry Respiratory: Diminished, Wheezes, Rhonchi Cardiovascular: Tachycardia. negative: Edema : Normal Auscultation: Bowel Sounds: Normal Tenderness: Epigastric Skin: Decreased Turgur Musculoskeletal: Back:Lumbar, Tender Psychiatric: Anxiety Affect: Anxious Speech Pattern: Clear, Appropriate - Laboratory and Diagnostics Result Diagrams: 01/14/18 05:50 01/14/18 05:50 Labs: 01/07/18 18:00 Blood Blood Culture - Final 01/07/18 17:55 Blood Blood Culture - Final 01/07/18 17:04 Sputum - Expectorated Sputum Sputum Culture - Final Klebsiella Pneumoniae Enterobacter Aerogenes 01/07/18 17:04 Sputum - Expectorated Sputum - Final Laboratory WBC 11.9 X10^3/uL (3.6-10.0) H 01/14/18 05:50 RBC 3.83 X10^6/uL (3.5-5.4) 01/14/18 05:50 Hgb 11.0 g/dL (12.0-16.0) L 01/14/18 05:50 Hct 33.3 % (36.0-47.0) L 01/14/18 05:50 MCV 87.1 fL (80.0-100.0) 01/14/18 05:50 MCH 28.6 pg (27.0-34.0) 01/14/18 05:50 MCHC 32.9 g/dL (33.0-35.0) L 01/14/18 05:50 RDW 15.6 % (11.6-16.5) 01/14/18 05:50 Plt Count 413 X10^3/uL (150.0-450.0) 01/14/18 05:50 Plt Count Comment Adequate (ADEQUATE) 01/14/18 05:50 MPV 8.3 fL (7.4-11.0) 01/14/18 05:50 Neut % (Auto) 60.8 % (42.0-75.0) 01/14/18 05:50 Lymph % (Auto) 23.3 % (21.0-51.0) 01/14/18 05:50 [place] % (Auto) 14.0 % (0.0-13.0) H 01/14/18 05:50 Eos % (Auto) 1.2 % (0.9-2.9) 01/14/18 05:50 Baso % (Auto) 0.7 % (0.2-1.0) 01/14/18 05:50 Neut # (Auto) 7.2 x10^3/uL (2.2-4.8) H 01/14/18 05:50 Lymph # (Auto) 2.8 X10^3/uL (1.3-2.9) 01/14/18 05:50 [place] # (Auto) 1.7 x10^3/uL (0.3-0.8) H 01/14/18 05:50 Eos # (Auto) 0.1 x10^3/uL (0.0-0.2) 01/14/18 05:50 Baso # (Auto) 0.1 X10^3/uL (0.0-0.1) 01/14/18 05:50 Absolute Nucleated RBC 0.1 /100WBC 01/14/18 05:50 Total Counted 100 01/14/18 05:50 Neutrophils % (Manual) 70 % (39-76) 01/14/18 05:50 Band Neutrophils % 3 % (0-10) 01/14/18 05:50 Lymphocytes % (Manual) 20 % (13-43) 01/14/18 05:50 Monocytes % (Manual) 6 % (4-9) 01/14/18 05:50 Eosinophils % (Manual) 1 % (0-6) 01/14/18 05:50 Plt Morphology Comment Normal (NORMAL) 01/14/18 05:50 RBC Morphology Normal (NORMAL) 01/14/18 05:50 Sample Site Rbr 01/07/18 18:04 ABG pH 7.530 (7.35-7.45) H 01/07/18 18:04 ABG pCO2 28.0 mmHg (35.0-45.0) L 01/07/18 18:04 ABG pO2 55.0 mmHg (80.0-100.0) L 01/07/18 18:04 ABG HCO3 23.4 mmol/L (22-26) 01/07/18 18:04 ABG O2 Saturation 92.0 % (90-100) 01/07/18 18:04 ABG Base Excess 1.6 mmol/L (-2.0-2.0) 01/07/18 18:04 Lopez Test N/a 01/07/18 18:04 A-a Gradient 60.0 mmHg 01/07/18 18:04 FiO2 21.0 01/07/18 18:04 Blood Gas Comments Phuong well cdn 01/07/18 18:04 Sodium 135 mmol/L (136-145) L 01/14/18 05:50 Corrected Sodium TNP 01/14/18 05:50 Potassium 4.0 mmol/L (3.5-5.1) 01/14/18 05:50 Chloride 100 mmol/L (98-107) 01/14/18 05:50 Carbon Dioxide 22.6 mmol/L (21-32) 01/14/18 05:50 BUN 9 mg/dL (7-18) 01/14/18 05:50 Creatinine 0.67 mg/dL (0.55-1.02) 01/14/18 05:50 Est GFR (MDRD) Af Amer > 60 (>60) 01/14/18 05:50 Est GFR (MDRD) Non-Af > 60 (>60) 01/14/18 05:50 Glucose 108 mg/dL (65-99) H 01/14/18 05:50 Calcium 8.2 mg/dL (8.5-10.1) L 01/14/18 05:50 Corrected Calcium 9.4 mg/dL (8.5-10.1) 01/14/18 05:50 Magnesium 2.1 mg/dL (1.7-2.9) 01/12/18 05:40 Total Bilirubin 0.30 mg/dL (0.2-1.0) 01/14/18 05:50 AST 22 Units/L (15-37) 01/14/18 05:50 ALT 19 Units/L (12-78) 01/14/18 05:50 Alkaline Phosphatase 164 Units/L (46-116) H 01/14/18 05:50 Total Protein 7.3 g/dL (6.4-8.2) 01/14/18 05:50 Albumin 2.5 g/dL (3.4-5.0) L 01/14/18 05:50 Globulin 4.8 g/dL (2.5-4.5) H 01/14/18 05:50 Albumin/Globulin Ratio 0.5 Ratio (1.1-2.1) L 01/14/18 05:50 Specimen Type Clean catch urine 01/07/18 18:20 Urine Color Dark yellow (YELLOW) 01/07/18 18:20 Urine Appearance Slightly hazy (CLEAR) 01/07/18 18:20 Urine pH 6.0 (5.0 - 8.0) 01/07/18 18:20 Ur Specific [place] 1.015 (1.000-1.030) 01/07/18 18:20 Urine Protein 2+ (NEGATIVE) 01/07/18 18:20 Urine Glucose (UA) Negative (NEGATIVE) 01/07/18 18:20 Urine Ketones Negative (NEGATIVE) 01/07/18 18:20 Urine Occult Blood 2+ (NEGATIVE) 01/07/18 18:20 Urine Nitrite Negative (NEGATIVE) 01/07/18 18:20 Urine Bilirubin Negative (NEGATIVE) 01/07/18 18:20 Urine Urobilinogen 1+ (NORMAL) 01/07/18 18:20 Ur Leukocyte Esterase 1+ (NEGATIVE) 01/07/18 18:20 Urine RBC 5-10 /HPF (NONE SEEN) 01/07/18 18:20 Urine WBC 3-5 /HPF (NONE SEEN) 01/07/18 18:20 Ur Squamous Epith Cells Moderate /HPF (NEGATIVE) 01/07/18 18:20 Amorphous Sediment 1+ /HPF (NEGATIVE) 01/07/18 18:20 Urine Bacteria 1+ /HPF (NEGATIVE) 01/07/18 18:20 Hyaline Casts Moderate /LPF (NEGATIVE) 01/07/18 18:20 Ur Culture Indicated? No/not indicated 01/07/18 18:20 - Plan (1) Pneumonia Status: Acute Qualifiers: Pneumonia type: due to Klebsiella pneumoniae Plan: PNEUMONIA PROTOCOL, IV ATBX, BUDESONIDE, BROVANNA, DUO NEBS. SPUTUM CULTURE PENDING, RESP THERAPY, SUPPLEMENTAL O2. PPI, ENCOURAGE AMBULATION, PULMONARY TOILETING. ABG ON ADMISSION (2) COPD with acute bronchitis Status: Acute (3) GERD (gastroesophageal reflux disease) Status: Chronic Plan: PPI, CARAFATE, NAUSEA CONTROL (4) Hypertension Status: Chronic (5) Lumbar degenerative disc disease Status: Chronic
[2018-01-14 18:41] LABS: BILIRUBIN,URINE NEGATIVE (NEGATIVE); BLOOD/HEMOGLOBIN,URINE NEGATIVE (NEGATIVE); GLUCOSE, URINE NEGATIVE (NEGATIVE); KETONES,URINE NEGATIVE (NEGATIVE); LEUKOCYTE ESTERASE ,URINE NEGATIVE (NEGATIVE); NITRITES,URINE NEGATIVE (NEGATIVE); PROTEIN,URINE NEGATIVE (NEGATIVE); UROBILINOGEN,URINE NORMAL (NORMAL)
[2018-01-14 18:43] LABS: APPEARANCE,URINE CLEAR (CLEAR); COLOR,URINE YELLOW (YELLOW)
[2018-01-14] MEDS: MILK OF MAGNESIA PO PRN (20:38)
[2018-01-14] MEDS: COLACE CAP 100 MG PO SCH (20:38)
[2018-01-14] MEDS: REQUIP PO SCH (20:38)
[2018-01-14] MEDS: SINEquan PO SCH (20:38)
[2018-01-14] MEDS ORDERED: COLACE CAP 100 MG PO SCH (21:00)
[2018-01-15] MEDS: DUONEB 0.5 MG/3 MG NEB SCH ×3 (01:04→09:33)
[2018-01-15] MEDS: PHENERGAN INJ 25 MG IV PRN (01:11)
[2018-01-15 05:16] LABS: BASOPHILS # (AUTO) 0.1 X10^3/uL (0.0-0.1); BASOPHILS % (AUTO) 0.7 % (0.2-1.0); EOSINOPHILS # (AUTO) 0.1 x10^3/uL (0.0-0.2); EOSINOPHILS % (AUTO) 0.7 % (0.9-2.9); HEMATOCRIT 32.9 % (36.0-47.0); HEMOGLOBIN 10.8 g/dL (12.0-16.0); LYMPHOCYTES # (AUTO) 3.2 X10^3/uL (1.3-2.9); LYMPHOCYTES % (AUTO) 23.5 % (21.0-51.0); MEAN CORPUSCULAR HEMOGLOBIN 28.3 pg (27.0-34.0); MEAN CORPUSCULAR HGB CONC 32.7 g/dL (33.0-35.0); MEAN CORPUSCULAR VOLUME 86.5 fL (80.0-100.0); MEAN PLATELET VOLUME 8.3 fL (7.4-11.0); MONOCYTES # (AUTO) 1.9 x10^3/uL (0.3-0.8); MONOCYTES % (AUTO) 14.1 % (0.0-13.0); NEUTROPHILS # (AUTO) 8.3 x10^3/uL (2.2-4.8); PLATELET COUNT 417 X10^3/uL (150.0-450.0); RED CELL DISTRIBUTION WIDTH 15.2 % (11.6-16.5); WHITE BLOOD COUNT 13.5 X10^3/uL (3.6-10.0)
[2018-01-15] MEDS: BENTYL CAP 10 MG PO SCH (05:29)
[2018-01-15] MEDS: CARAFATE PO SCH ×2 (05:30→11:39)
[2018-01-15] MEDS: NS 1/2 1000 ML IV 1,000 ML IV SCH (05:32)
[2018-01-15] MEDS ORDERED: NS 1/2 1000 ML IV 1,000 ML IV ONE (05:36)
[2018-01-15 05:39] LABS: ALANINE AMINOTRANSFERASE 23 Units/L (12-78); ALBUMIN 2.5 g/dL (3.4-5.0); ALKALINE PHOSPHATASE 168 Units/L (46-116); ASPARTATE AMINO TRANSFERASE 19 Units/L (15-37); BLOOD UREA NITROGEN 7 mg/dL (7-18); CALCIUM 8.5 mg/dL (8.5-10.1); CHLORIDE 99 mmol/L (98-107); COR CA(FOR HYPOALB) 9.7 mg/dL (8.5-10.1); SODIUM 135 mmol/L (136-145); TOTAL PROTEIN 7.6 g/dL (6.4-8.2); eGFR NON BLACK RACES > 60 (>60)
[2018-01-15] MEDS: PEPCID 20 MG IV PREMIX* 20 MG/50 ML BAG IV SCH (09:32)
[2018-01-15] MEDS: ROBITUSSIN DM PO SCH (09:33)
[2018-01-15] MEDS: VITAMIN B-6 PO SCH (09:33)
[2018-01-15] MEDS: BROVANA IN SCH (09:33)
[2018-01-15] MEDS: FOLIC ACID TAB 1 MG PO SCH (09:33)
[2018-01-15] MEDS: NYSTATIN SUSP PO SCH (09:33)
[2018-01-15] MEDS: PULMICORT NEB TX 0.5 MG NEB SCH (09:33)
[2018-01-15] MEDS: PAXIL PO SCH (09:33)
[2018-01-15] MEDS: NORVASC TAB 10 MG PO SCH (09:33)
[2018-01-15] MEDS: SINEMET (PLAIN) 25/100 MG PO SCH (09:33)
[2018-01-15] MEDS: PROTONIX INJ 40 MG VIAL IVP SCH (09:33)
[2018-01-15] MEDS: NORCO 5/325 MG TAB PO PRN (09:45)
[2018-01-15] MEDS: LEVAQUIN PREMIX IV 750 MG 750 MG/150 ML BAG IV SCH (11:20)
[2018-01-15 12:12] VITALS: BP 106/61
== END 2018-01-15 13:34 | disposition home or self-care (01) | DRG 190 ==
LOC: MED/SURG 16:41
PROVIDERS: ADMIT Internal Medicine; ATTEND Internal Medicine
DX: K21.9 Gastro-esophageal reflux disease without esophagitis; J44.1 Chronic obstructive pulmonary disease with (acute) exacerbation; J20.8 Acute bronchitis due to other specified organisms; B96.89 Other specified bacterial agents as the cause of diseases classified elsewhere; G40.802 Other epilepsy, not intractable, without status epilepticus; J15.0 Pneumonia due to Klebsiella pneumoniae; F41.8 Other specified anxiety disorders; R50.9 Fever, unspecified; M19.90 Unspecified osteoarthritis, unspecified site; I10 Essential (primary) hypertension; F32.89 Other specified depressive episodes; J44.0 Chronic obstructive pulmonary disease with (acute) lower respiratory infection; R06.02 Shortness of breath; M51.36 Other intervertebral disc degeneration, lumbar region
CPT/HCPCS: 36415; 36600; 71010; 71020; 71045; 71046; 71260; 80053; 81001; 81003; 82803; 83735; 84132; 85025; 87040; 87070; 87077; 87186; 87205; 94640; 94760; A4222; C9113; S0028; J1956; J2550; J2920; J3475; J3480; J3490; J7050; J7620; J7626

== ENCOUNTER 2018-07-29 14:49 | Inpatient (IN) ==
[2018-07-29] MEDS ORDERED: TUSSIONEX PENNKINETIC SUSP PO PRN (16:31)
[2018-07-29 16:49] LABS: ABG HCO3 29.1 mmol/L (22-26)
--- NOTE | 2018-07-29 16:52 | DR.H&P ---
H&P - History & Physical for Day of: H&P Date: 07/29/18 - Chief Complaint Chief Complaint: COUGH, SOB - History of Present Illness History of Present Illness: 52 WF DIRECT ADMIT FROM DR HILTON WELLS AFTER PRESENTING WITH CO CCC, WHEEZING AND SOB FOR OVER A WEEK. PT STATES SHE COUGHS UNTIL SHE "BLACKS OUT". PT HAS BEEN USING BREATHING TREATMENTS AND OTC ROBITUSSIN WITHOUT IMPROVEMENT. PT ADMITTED FROM OFFICE WITH O2 SAT 90, RESP 22 DIFFUSE WHEEZING AND SOB. PT HAS PMH OF COPD, HTN, GERD, OA, HAMMAD, MDD. - Past Medical History Past Medical History: Anxiety, COPD, Depression, Hypertension, Seizures - Past Surgical History Surgical History: Hysterectomy - Family History Family Medical History: SD, Hypertension - Social History Does patient currently use any type of tobacco product: Yes Have you used tobacco products in the last 12 months: Yes Type of Tobacco Use: Cigarettes Does any household member use tobacco: No Alcohol Use: None Risks, benefits, and alternatives of opioids discussed: No - Medications Home Medications: No Known Drug Allergies Allergy (Verified 07/29/18 16:04) - Review of Systems Constitutional: Sweats, Weakness, Malaise Eyes: No Symptoms Reported ENT: Throat Pain Respiratory: Cough, Shortness of Breath, SOB with Excertion, Wheezing Cardiovascular: Light Headedness Gastrointestinal: No Symptoms Reported Genitourinary: No Symptoms Reported Musculoskeletal: Back Pain Skin: No Symptoms Reported Neurological: Weakness, Other (DIZZY SPELLS WHEN SHE HAS SEVERE COUGING EPISODES) - Physical Exam Vital Signs: Temperature 99.1 F Pulse Rate [Right Brachial] 84 Respiratory Rate 20 Blood Pressure [Right Arm] 129/73 Blood Pressure [Left Arm] 129/62 Blood Pressure 106/61 O2 Sat by Pulse Oximetry 96 Oriented: Normal Eyes: Normal Ear: Normal Nose: Discharge Throat: Red, Dry Respiratory: Diminished Throughout, Wheezes Throughout Cardiovascular: Tachycardia. negative: Edema : Normal Auscultation: Bowel Sounds: Normal Tenderness: Normal Skin: Normal Musculoskeletal: Back:Lumbar Psychiatric: Anxiety Affect: Anxious Speech Pattern: Clear, Appropriate - Assessment/Plan (1) COPD with acute bronchitis Status: Acute Plan: ADMIT, PNEUMONIA PROTOCOL. ABG ON ADMISSION, BLOOD AND SPUTUM CULTURES WITH IV ATBX THERAPY. SUPPLEMENTAL O2, RESP THERAPY. IV HYDRATION, PEPCID IV. ROBITUSSIN, BUDESONIDE AND IV SOLU MEDROL, VERIFY HOME MEDICATIONS, BP CONTROL (2) HAMMAD (generalized anxiety disorder) Status: Acute (3) GERD (gastroesophageal reflux disease) Status: Chronic (4) Hypertension Status: Chronic (5) Lumbar degenerative disc disease Status: Chronic - Allergies Allergies/Adverse Reactions: Allergies Allergy/AdvReac Type Severity Reaction Status Date / Time No Known Drug Allergies Allergy Verified 07/29/18 16:04
[2018-07-29] MEDS: PROVENTIL NEB TX 0.083% 2.5MG/ 3ML NEB SCH ×2 (17:05→20:14)
[2018-07-29 17:12] LABS: BASOPHILS # (AUTO) 0.1 X10^3/uL (0.0-0.1); BASOPHILS % (AUTO) 0.6 % (0.2-1.0); EOSINOPHILS # (AUTO) 0.1 x10^3/uL (0.0-0.2); EOSINOPHILS % (AUTO) 0.7 % (0.9-2.9); HEMATOCRIT 34.2 % (36.0-47.0); HEMOGLOBIN 11.5 g/dL (12.0-16.0); LYMPHOCYTES # (AUTO) 3.1 X10^3/uL (1.3-2.9); LYMPHOCYTES % (AUTO) 32.7 % (21.0-51.0); MEAN CORPUSCULAR HEMOGLOBIN 29.1 pg (27.0-34.0); MEAN CORPUSCULAR HGB CONC 33.5 g/dL (33.0-35.0); MEAN CORPUSCULAR VOLUME 86.9 fL (80.0-100.0); MEAN PLATELET VOLUME 8.1 fL (7.4-11.0); MONOCYTES # (AUTO) 0.8 x10^3/uL (0.3-0.8); NEUTROPHILS # (AUTO) 5.5 x10^3/uL (2.2-4.8); PLATELET COUNT 455 X10^3/uL (150.0-450.0); RED BLOOD COUNT 3.94 X10^6/uL (3.5-5.4); RED CELL DISTRIBUTION WIDTH 14.2 % (11.6-16.5); WHITE BLOOD COUNT 9.5 X10^3/uL (3.6-10.0)
[2018-07-29] MEDS ORDERED: SALINE 3% 15 ML NEB TX NEB ONE (17:20)
[2018-07-29 17:24] LABS: ALANINE AMINOTRANSFERASE 10 Units/L (12-78); ALBUMIN 3.1 g/dL (3.4-5.0); ALKALINE PHOSPHATASE 198 Units/L (46-116); ASPARTATE AMINO TRANSFERASE 12 Units/L (15-37); BLOOD UREA NITROGEN 11 mg/dL (7-18); CALCIUM 8.9 mg/dL (8.5-10.1); CARBON DIOXIDE 25.7 mmol/L (21-32); CHLORIDE 103 mmol/L (98-107); COR CA(FOR HYPOALB) 9.6 mg/dL (8.5-10.1); CREATININE 0.77 mg/dL (0.55-1.02); SODIUM 139 mmol/L (136-145); TOTAL PROTEIN 7.7 g/dL (6.4-8.2); eGFR NON BLACK RACES > 60 (>60)
[2018-07-29] MEDS ORDERED: KLOR-CON PO PRN (18:03)
[2018-07-29] MEDS ORDERED: POTASSIUM CHL 60 MEQ/NS 0.45% 500 ML IV PRN (18:03)
[2018-07-29] MEDS ORDERED: POTASSIUM CHL 40 MEQ/NS 0.45% 500 ML IV PRN (18:03)
[2018-07-29] MEDS ORDERED: MICRO K EXTEN CAP 10 MEQ PO PRN (18:03)
[2018-07-29] MEDS ORDERED: POTASSIUM CHLORIDE LIQ 20 MEQ UDC PO PRN (18:03)
[2018-07-29] MEDS ORDERED: K-RIDER 10 MEQ/NS 100 ML 10 MEQ/100 ML BAG IV PRN (18:03)
[2018-07-29] MEDS ORDERED: NS 1/2 1000 ML IV 1,000 ML ONE (18:24)
[2018-07-29] MEDS: NORCO 7.5/325 MG TAB PO PRN (18:29)
[2018-07-29] MEDS: K-DUR TAB 20 MEQ PO PRN (18:30)
[2018-07-29] MEDS: ROBITUSSIN DM PO SCH ×2 (18:30→22:00)
[2018-07-29] MEDS: CARAFATE ORAL SUSP PO SCH ×2 (18:30→21:17)
[2018-07-29] MEDS: NS 1/2 1000 ML IV 1,000 ML IV SCH (18:30)
[2018-07-29] MEDS: LEVAQUIN PREMIX IV 750 MG 750 MG/150 ML BAG IV SCH (18:38)
[2018-07-29 18:53] VITALS: BMI 30.2
[2018-07-29] MEDS: VSL#3 PO SCH (21:00)
[2018-07-29] MEDS: ZOSYN VIAL 4.5 GRAMS 4.5 G in NS 100 ML IV + SPIKE MINIBAG* 100 ML IV SCH (21:15)
[2018-07-29] MEDS: PEPCID 20 MG IV PREMIX* 20 MG/50 ML BAG IV SCH (21:15)
[2018-07-29] MEDS: COLACE CAP 100 MG PO SCH (21:16)
[2018-07-29] MEDS: SOLU-Medrol 125 MG VIAL IVP SCH (21:17)
--- NOTE | 2018-07-29 22:03 | RAD ---
History: COPD pneumonia Exam: Chest X ray Comparison: 01/07/2018 Technique: A portable AP chest was obtained. Findings: The heart is normal. The pulmonary vessels are normal. The lungs are hyperinflated and emphysematous with moderate chronic interstitial changes throughout. There are mild linear densities along the lung bases which are less prominent. No obvious consolidation or effusion is seen. IMPRESSION: Chronic obstructive lung changes and moderate pulmonary interstitial fibrosis with mild discoid atelectasis or scarring along the lung bases which is less prominent. Reported By:
[2018-07-30] MEDS: PROVENTIL NEB TX 0.083% 2.5MG/ 3ML NEB SCH ×6 (00:55→20:43)
[2018-07-30] MEDS: SOLU-Medrol 125 MG VIAL IVP SCH ×2 (05:41→15:24)
[2018-07-30] MEDS: ZOSYN VIAL 4.5 GRAMS 4.5 G in NS 100 ML IV + SPIKE MINIBAG* 100 ML IV SCH ×3 (05:42→21:41)
[2018-07-30] MEDS: CARAFATE ORAL SUSP PO SCH ×4 (05:42→21:33)
[2018-07-30 06:06] LABS: BASOPHILS % (AUTO) 0.2 % (0.2-1.0); HEMATOCRIT 36.5 % (36.0-47.0); HEMOGLOBIN 11.8 g/dL (12.0-16.0); LYMPHOCYTES # (AUTO) 0.8 X10^3/uL (1.3-2.9); LYMPHOCYTES % (AUTO) 13.5 % (21.0-51.0); MEAN CORPUSCULAR HEMOGLOBIN 28.5 pg (27.0-34.0); MEAN CORPUSCULAR HGB CONC 32.5 g/dL (33.0-35.0); MEAN CORPUSCULAR VOLUME 87.9 fL (80.0-100.0); MEAN PLATELET VOLUME 8.1 fL (7.4-11.0); MONOCYTES # (AUTO) 0 x10^3/uL (0.3-0.8); MONOCYTES % (AUTO) 0.8 % (0.0-13.0); NEUTROPHILS % (AUTO) 85.5 % (42.0-75.0); PLATELET COUNT 497 X10^3/uL (150.0-450.0); RED BLOOD COUNT 4.15 X10^6/uL (3.5-5.4); RED CELL DISTRIBUTION WIDTH 14.2 % (11.6-16.5); WHITE BLOOD COUNT 5.9 X10^3/uL (3.6-10.0)
[2018-07-30 06:34] LABS: ALANINE AMINOTRANSFERASE 13 Units/L (12-78); ALBUMIN 3.1 g/dL (3.4-5.0); ALKALINE PHOSPHATASE 205 Units/L (46-116); ASPARTATE AMINO TRANSFERASE 12 Units/L (15-37); BLOOD UREA NITROGEN 13 mg/dL (7-18); CALCIUM 9.3 mg/dL (8.5-10.1); CARBON DIOXIDE 24.3 mmol/L (21-32); CHLORIDE 103 mmol/L (98-107); COR NA(FOR HYPERGLY) 140 mmol/L (136-145); CREATININE 0.82 mg/dL (0.55-1.02); SODIUM 139 mmol/L (136-145); TOTAL PROTEIN 8.3 g/dL (6.4-8.2); eGFR NON BLACK RACES > 60 (>60)
[2018-07-30] MEDS: NORCO 7.5/325 MG TAB PO PRN ×3 (09:17→21:34)
[2018-07-30] MEDS: PEPCID 20 MG IV PREMIX* 20 MG/50 ML BAG IV SCH ×2 (09:33→21:35)
[2018-07-30] MEDS: VSL#3 PO SCH (09:33)
[2018-07-30] MEDS: ROBITUSSIN DM PO SCH ×4 (09:33→21:33)
[2018-07-30] MEDS: LEVAQUIN PREMIX IV 750 MG 750 MG/150 ML BAG IV SCH (09:33)
[2018-07-30] MEDS ORDERED: ZANAFLEX PO PRN (09:36)
[2018-07-30] MEDS ORDERED: CARAFATE PO SCH (10:00)
[2018-07-30] MEDS: REQUIP PO SCH ×2 (12:32→21:36)
[2018-07-30] MEDS: NS 1/2 1000 ML IV 1,000 ML IV SCH ×2 (12:36→21:00)
[2018-07-30] MEDS: REGLAN TAB 10 MG PO SCH ×3 (12:46→21:34)
[2018-07-30] MEDS: NORVASC TAB 10 MG PO SCH (14:13)
[2018-07-30] MEDS: PAXIL PO SCH (14:14)
[2018-07-30] MEDS: PriLOSEC PO SCH (21:34)
[2018-07-30] MEDS: COLACE CAP 100 MG PO SCH (21:35)
[2018-07-31] MEDS: PROVENTIL NEB TX 0.083% 2.5MG/ 3ML NEB SCH ×6 (01:03→20:53)
[2018-07-31] MEDS ORDERED: NS 1/2 1000 ML IV 1,000 ML ONE (05:31)
[2018-07-31] MEDS: CARAFATE ORAL SUSP PO SCH ×4 (05:52→22:07)
[2018-07-31] MEDS: ZOSYN VIAL 4.5 GRAMS 4.5 G in NS 100 ML IV + SPIKE MINIBAG* 100 ML IV SCH ×2 (05:52→14:03)
[2018-07-31] MEDS: REGLAN TAB 10 MG PO SCH ×4 (05:52→22:06)
[2018-07-31] MEDS: NS 1/2 1000 ML IV 1,000 ML IV SCH ×2 (05:52→11:23)
[2018-07-31 06:26] LABS: BASOPHILS # (AUTO) 0.1 X10^3/uL (0.0-0.1); BASOPHILS % (AUTO) 0.5 % (0.2-1.0); HEMATOCRIT 31.5 % (36.0-47.0); HEMOGLOBIN 10.4 g/dL (12.0-16.0); LYMPHOCYTES # (AUTO) 1.8 X10^3/uL (1.3-2.9); MEAN CORPUSCULAR HEMOGLOBIN 28.8 pg (27.0-34.0); MEAN CORPUSCULAR HGB CONC 32.9 g/dL (33.0-35.0); MEAN CORPUSCULAR VOLUME 87.7 fL (80.0-100.0); MEAN PLATELET VOLUME 8.3 fL (7.4-11.0); MONOCYTES # (AUTO) 1.2 x10^3/uL (0.3-0.8); MONOCYTES % (AUTO) 5.4 % (0.0-13.0); NEUTROPHILS # (AUTO) 19.7 x10^3/uL (2.2-4.8); NEUTROPHILS % (AUTO) 86.1 % (42.0-75.0); PLATELET COUNT 414 X10^3/uL (150.0-450.0)
[2018-07-31 06:36] LABS: WHITE BLOOD COUNT 22.9 X10^3/uL (3.6-10.0)
[2018-07-31] MEDS: NORCO 7.5/325 MG TAB PO PRN ×3 (06:41→23:06)
[2018-07-31 06:56] LABS: ALANINE AMINOTRANSFERASE 12 Units/L (12-78); ALBUMIN 2.8 g/dL (3.4-5.0); ALKALINE PHOSPHATASE 175 Units/L (46-116); ASPARTATE AMINO TRANSFERASE 8 Units/L (15-37); BLOOD UREA NITROGEN 10 mg/dL (7-18); CALCIUM 8.8 mg/dL (8.5-10.1); CARBON DIOXIDE 23.8 mmol/L (21-32); CHLORIDE 106 mmol/L (98-107); COR CA(FOR HYPOALB) 9.8 mg/dL (8.5-10.1); COR NA(FOR HYPERGLY) 142 mmol/L (136-145); CREATININE 0.72 mg/dL (0.55-1.02); SODIUM 142 mmol/L (136-145); TOTAL PROTEIN 7.3 g/dL (6.4-8.2); eGFR NON BLACK RACES > 60 (>60)
[2018-07-31 07:00] LABS: PLATELET MORPHOLOGY COMMENT NORMAL (NORMAL)
[2018-07-31] MEDS: ROBITUSSIN DM PO SCH ×4 (08:39→22:05)
[2018-07-31] MEDS: VSL#3 PO SCH (08:40)
[2018-07-31] MEDS: PriLOSEC PO SCH ×2 (08:40→22:07)
[2018-07-31] MEDS: PAXIL PO SCH (08:40)
[2018-07-31] MEDS: PEPCID 20 MG IV PREMIX* 20 MG/50 ML BAG IV SCH ×3 (08:41→23:24)
[2018-07-31] MEDS: LEVAQUIN PREMIX IV 750 MG 750 MG/150 ML BAG IV SCH (08:41)
[2018-07-31] MEDS: NORVASC TAB 10 MG PO SCH (08:41)
--- NOTE | 2018-07-31 08:41 | RAD ---
HISTORY: Bronchitis, COPD Study: Single-view chest Comparison: 07/29/2018. Findings: Trachea is midline. Cardiac shadow is enlarged. Stable increased lung markings are noted bilaterally, likely representing pulmonary interstitial fibrotic change. No consolidation, CHF, pleural fluid or pneumothorax is seen. Osseous structures are intact. IMPRESSION: Mild cardiac enlargement. Stable diffuse increased interstitial markings bilaterally, likely indicating fibrotic change. No consolidation, CHF or pleural fluid is seen. Reported By:
[2018-07-31] MEDS ORDERED: NS 250 ML IV 250 ML ONE (14:16)
--- NOTE | 2018-07-31 17:57 | PCM.PROG ---
Progress Note - Progress Note for Day of Date of Exam: 07/31/18 - Subjective Subjective: 52 WF ADMITTED ON 07/29 WITH BRONCHOPNEUMONIA, COPD EXACERBATION. PT HAD BC ON ADMISSION NEGATIVE AT THIS TIME, SPUTUM + FOR PSEUDOMONAS AND KLESIELLA. PT IS ON LEVAQUIN AND ZOSYN IV. WE D/C ZOSYN AND STARTED HER ON ROCEPHIN WITH CONTIUATION OF LEVAQUIN. PT WBC ELEVATED THIS AM, PT HAS HAD SOLU MEDROL. PLAN TO CONTINUE GENTLE IV HYDRATION AND RESP THERAPY WITH REPEAT AM CXR. PT STATES SHE IS HAVING LESS PRODUCTIVE COUGH AND CONTINUES WITH DIFFUSE WHEEZES AND UPPER ABDOMINAL PAIN FROM COUGHING. - Past Medical Family Social History Past Med/Fam/Surg Hx: No changes since H&P Allergies: Allergies No Known Drug Allergies Allergy (Verified 07/29/18 16:04) - Review of Systems ROS: No change since H&P - Vital Signs and I&O's Vital Signs: Temperature 97.7 F Pulse Rate [Right Brachial] 94 Pulse Rate 83 Respiratory Rate 18 Blood Pressure [Right Arm] 132/74 Blood Pressure [Left Arm] 131/64 Blood Pressure 106/61 O2 Sat by Pulse Oximetry 98 Intake and Output: Intake & Output 07/29/18 07/30/18 07/31/18 08/01/18 11:59 11:59 11:59 11:59 Intake Total 1685 / 1685 3265 / 3265 1620 / 1620 Balance 1685 / 1685 3265 / 3265 1620 / 1620 - Physical Exam Oriented: Normal Eyes: Normal Ear: Normal Nose: Discharge Throat: Red, Dry Respiratory: Diminished, Rhonchi Cardiovascular: Tachycardia. negative: Edema : Normal Auscultation: Bowel Sounds: Normal Tenderness: Normal Skin: Normal Musculoskeletal: Back:Lumbar Psychiatric: Anxiety Affect: Anxious Speech Pattern: Clear, Appropriate - Laboratory and Diagnostics Result Diagrams: 07/31/18 05:45 07/31/18 05:45 Labs: 07/29/18 16:51 Blood Blood Culture - Preliminary 07/29/18 16:57 Blood Blood Culture - Preliminary 07/29/18 17:38 Sputum - Expectorated Sputum Sputum Culture - Final Enterobacter Aerogenes Klebsiella Pneumoniae 07/29/18 17:38 Sputum - Expectorated Sputum - Final Laboratory WBC 22.9 X10^3/uL (3.6-10.0) H D 07/31/18 05:45 RBC 3.60 X10^6/uL (3.5-5.4) 07/31/18 05:45 Hgb 10.4 g/dL (12.0-16.0) L 07/31/18 05:45 Hct 31.5 % (36.0-47.0) L 07/31/18 05:45 MCV 87.7 fL (80.0-100.0) 07/31/18 05:45 MCH 28.8 pg (27.0-34.0) 07/31/18 05:45 MCHC 32.9 g/dL (33.0-35.0) L 07/31/18 05:45 RDW 14.0 % (11.6-16.5) 07/31/18 05:45 Plt Count 414 X10^3/uL (150.0-450.0) 07/31/18 05:45 Plt Count Comment Adequate (ADEQUATE) 07/31/18 05:45 MPV 8.3 fL (7.4-11.0) 07/31/18 05:45 Neut % (Auto) 86.1 % (42.0-75.0) H 07/31/18 05:45 Lymph % (Auto) 8.0 % (21.0-51.0) L 07/31/18 05:45 [place] % (Auto) 5.4 % (0.0-13.0) 07/31/18 05:45 Eos % (Auto) 0.0 % (0.9-2.9) L 07/31/18 05:45 Baso % (Auto) 0.5 % (0.2-1.0) 07/31/18 05:45 Neut # (Auto) 19.7 x10^3/uL (2.2-4.8) H 07/31/18 05:45 Lymph # (Auto) 1.8 X10^3/uL (1.3-2.9) 07/31/18 05:45 [place] # (Auto) 1.2 x10^3/uL (0.3-0.8) H 07/31/18 05:45 Eos # (Auto) 0.0 x10^3/uL (0.0-0.2) 07/31/18 05:45 Baso # (Auto) 0.1 X10^3/uL (0.0-0.1) 07/31/18 05:45 Absolute Nucleated RBC 0.0 /100WBC 07/31/18 05:45 Total Counted 100 07/31/18 05:45 Neutrophils % (Manual) 84 % (39-76) H 07/31/18 05:45 Lymphocytes % (Manual) 11 % (13-43) L 07/31/18 05:45 Monocytes % (Manual) 5 % (4-9) 07/31/18 05:45 Plt Morphology Comment Normal (NORMAL) 07/31/18 05:45 RBC Morphology Normal (NORMAL) 07/31/18 05:45 Sample Site Right brachial 07/29/18 16:41 ABG pH 7.470 (7.35-7.45) H 07/29/18 16:41 ABG pCO2 40.0 mmHg (35.0-45.0) 07/29/18 16:41 ABG pO2 68.0 mmHg (80.0-100.0) L 07/29/18 16:41 ABG HCO3 29.1 mmol/L (22-26) H 07/29/18 16:41 ABG O2 Saturation 94.0 % (90-100) 07/29/18 16:41 ABG Base Excess 5.0 mmol/L (-2.0-2.0) H 07/29/18 16:41 Lopez Test Na 07/29/18 16:41 A-a Gradient 32.0 mmHg 07/29/18 16:41 FiO2 21.0 07/29/18 16:41 Blood Gas Comments Phuong well aw 07/29/18 16:41 Sodium 142 mmol/L (136-145) 07/31/18 05:45 Corrected Sodium 142 mmol/L (136-145) 07/31/18 05:45 Potassium 3.6 mmol/L (3.5-5.1) 07/31/18 05:45 Chloride 106 mmol/L (98-107) 07/31/18 05:45 Carbon Dioxide 23.8 mmol/L (21-32) 07/31/18 05:45 BUN 10 mg/dL (7-18) 07/31/18 05:45 Creatinine 0.72 mg/dL (0.55-1.02) 07/31/18 05:45 Est GFR (MDRD) Af Amer > 60 (>60) 07/31/18 05:45 Est GFR (MDRD) Non-Af > 60 (>60) 07/31/18 05:45 Glucose 120 mg/dL (65-99) H 07/31/18 05:45 Calcium 8.8 mg/dL (8.5-10.1) 07/31/18 05:45 Corrected Calcium 9.8 mg/dL (8.5-10.1) 07/31/18 05:45 Magnesium 2.2 mg/dL (1.7-2.9) 07/29/18 16:51 Total Bilirubin 0.10 mg/dL (0.2-1.0) L 07/31/18 05:45 AST 8 Units/L (15-37) L 07/31/18 05:45 ALT 12 Units/L (12-78) 07/31/18 05:45 Alkaline Phosphatase 175 Units/L (46-116) H 07/31/18 05:45 Total Protein 7.3 g/dL (6.4-8.2) 07/31/18 05:45 Albumin 2.8 g/dL (3.4-5.0) L 07/31/18 05:45 Globulin 4.5 g/dL (2.5-4.5) 07/31/18 05:45 Albumin/Globulin Ratio 0.6 Ratio (1.1-2.1) L 07/31/18 05:45 - Plan (1) COPD with acute bronchitis Status: Acute Plan: CONTINUE PNEUMONIA PROTOCOL. ABG ON ADMISSION, BLOOD AND SPUTUM CULTURES WITH IV ATBX THERAPY. SUPPLEMENTAL O2, RESP THERAPY. IV HYDRATION, PEPCID IV. ROBITUSSIN, BUDESONIDE AND IV SOLU MEDROL, VERIFY HOME MEDICATIONS, BP CONTROL (2) HAMMAD (generalized anxiety disorder) Status: Acute (3) GERD (gastroesophageal reflux disease) Status: Chronic (4) Hypertension Status: Chronic (5) Lumbar degenerative disc disease Status: Chronic
[2018-07-31] MEDS: ROCEPHIN VIAL 1 GRAM IVP SCH (19:09)
[2018-07-31] MEDS: REQUIP PO SCH (22:05)
[2018-07-31] MEDS: COLACE CAP 100 MG PO SCH (22:07)
[2018-08-01] MEDS: PROVENTIL NEB TX 0.083% 2.5MG/ 3ML NEB SCH ×6 (01:22→20:46)
[2018-08-01 05:21] LABS: BASOPHILS # (AUTO) 0.1 X10^3/uL (0.0-0.1); BASOPHILS % (AUTO) 0.4 % (0.2-1.0); EOSINOPHILS % (AUTO) 0.1 % (0.9-2.9); HEMATOCRIT 33.9 % (36.0-47.0); LYMPHOCYTES # (AUTO) 4.7 X10^3/uL (1.3-2.9); LYMPHOCYTES % (AUTO) 37.9 % (21.0-51.0); MEAN CORPUSCULAR HEMOGLOBIN 28.8 pg (27.0-34.0); MEAN CORPUSCULAR HGB CONC 32.6 g/dL (33.0-35.0); MEAN CORPUSCULAR VOLUME 88.4 fL (80.0-100.0); MEAN PLATELET VOLUME 8.6 fL (7.4-11.0); MONOCYTES % (AUTO) 8.3 % (0.0-13.0); NEUTROPHILS # (AUTO) 6.6 x10^3/uL (2.2-4.8); NEUTROPHILS % (AUTO) 53.3 % (42.0-75.0); PLATELET COUNT 470 X10^3/uL (150.0-450.0); RED BLOOD COUNT 3.83 X10^6/uL (3.5-5.4); RED CELL DISTRIBUTION WIDTH 14.4 % (11.6-16.5); WHITE BLOOD COUNT 12.4 X10^3/uL (3.6-10.0)
[2018-08-01] MEDS ORDERED: NS 1/2 1000 ML IV 1,000 ML ONE ×2 (05:32→16:52)
[2018-08-01 05:37] LABS: ALANINE AMINOTRANSFERASE 14 Units/L (12-78); ALKALINE PHOSPHATASE 167 Units/L (46-116); ASPARTATE AMINO TRANSFERASE 11 Units/L (15-37); BLOOD UREA NITROGEN 6 mg/dL (7-18); CALCIUM 8.4 mg/dL (8.5-10.1); CARBON DIOXIDE 30.4 mmol/L (21-32); CHLORIDE 105 mmol/L (98-107); COR CA(FOR HYPOALB) 9.2 mg/dL (8.5-10.1); SODIUM 143 mmol/L (136-145); TOTAL PROTEIN 7.2 g/dL (6.4-8.2); eGFR NON BLACK RACES > 60 (>60)
[2018-08-01] MEDS: NS 1/2 1000 ML IV 1,000 ML IV SCH ×3 (06:13→17:02)
[2018-08-01] MEDS: CARAFATE ORAL SUSP PO SCH ×4 (06:16→21:17)
[2018-08-01] MEDS: REGLAN TAB 10 MG PO SCH ×4 (06:16→21:17)
[2018-08-01] MEDS: LEVAQUIN PREMIX IV 750 MG 750 MG/150 ML BAG IV SCH (08:26)
[2018-08-01] MEDS: NORVASC TAB 10 MG PO SCH (08:27)
[2018-08-01] MEDS: PAXIL PO SCH (08:27)
[2018-08-01] MEDS: VSL#3 PO SCH (08:27)
[2018-08-01] MEDS: PriLOSEC PO SCH ×2 (08:27→21:18)
[2018-08-01] MEDS: PEPCID 20 MG IV PREMIX* 20 MG/50 ML BAG IV SCH ×2 (08:27→21:18)
[2018-08-01] MEDS: ROCEPHIN VIAL 1 GRAM IVP SCH (08:28)
[2018-08-01] MEDS: K-DUR TAB 20 MEQ PO PRN (08:28)
[2018-08-01] MEDS: ROBITUSSIN DM PO SCH ×4 (08:28→21:17)
[2018-08-01] MEDS: NORCO 7.5/325 MG TAB PO PRN ×2 (12:58→21:19)
--- NOTE | 2018-08-01 17:49 | PCM.PROG ---
Progress Note - Progress Note for Day of Date of Exam: 08/01/18 - Subjective Subjective: 52 WF ADMITTED ON 07/29 WITH BRONCHOPNEUMONIA, COPD EXACERBATION. PT HAD BC ON ADMISSION NEGATIVE AT THIS TIME, SPUTUM + FOR PSEUDOMONAS AND KLESIELLA. PT IS ON LEVAQUIN AND ROCEPHIN. PT WBC ELEVATED THIS AM12.9, DOWN FROM 22 ON SUNDAY, PT HAS HAD SOLU MEDROL. PLAN TO CONTINUE GENTLE IV HY DRATION AND RESP THERAPY WITH REPEAT AM CXR. PT STATES SHE IS HAVING LESS PRODUCTIVE COUGH AND CONTINUES WITH DIFFUSE WHEEZES AND UPPER ABDOMINAL PAIN FROM COUGHING. - Past Medical Family Social History Past Med/Fam/Surg Hx: No changes since H&P Allergies: Allergies No Known Drug Allergies Allergy (Verified 07/29/18 16:04) - Review of Systems ROS: No change since H&P - Vital Signs and I&O's Vital Signs: Temperature 98.3 F Pulse Rate [Right Brachial] 88 Pulse Rate 86 Respiratory Rate 18 Blood Pressure [Right Arm] 137/70 Blood Pressure [Left Arm] 131/64 Blood Pressure 106/61 O2 Sat by Pulse Oximetry 98 Intake and Output: Intake & Output 07/30/18 07/31/18 08/01/18 08/02/18 11:59 11:59 11:59 11:59 Intake Total 1685 / 1685 3265 / 3265 3350 / 3350 900 / 900 Balance 1685 / 1685 3265 / 3265 3350 / 3350 900 / 900 - Physical Exam Oriented: Normal Eyes: Normal Ear: Normal Nose: Discharge Throat: Red, Dry Respiratory: Diminished, Rhonchi Cardiovascular: Tachycardia. negative: Edema : Normal Auscultation: Bowel Sounds: Normal Tenderness: Normal Skin: Normal Musculoskeletal: Back:Lumbar Psychiatric: Anxiety Affect: Anxious Speech Pattern: Clear, Appropriate - Laboratory and Diagnostics Result Diagrams: 08/01/18 04:40 08/01/18 04:40 Labs: 07/29/18 16:51 Blood Blood Culture - Preliminary 07/29/18 16:57 Blood Blood Culture - Preliminary 07/29/18 17:38 Sputum - Expectorated Sputum Sputum Culture - Final Enterobacter Aerogenes Klebsiella Pneumoniae 07/29/18 17:38 Sputum - Expectorated Sputum - Final Laboratory WBC 12.4 X10^3/uL (3.6-10.0) H D 08/01/18 04:40 RBC 3.83 X10^6/uL (3.5-5.4) 08/01/18 04:40 Hgb 11.0 g/dL (12.0-16.0) L 08/01/18 04:40 Hct 33.9 % (36.0-47.0) L 08/01/18 04:40 MCV 88.4 fL (80.0-100.0) 08/01/18 04:40 MCH 28.8 pg (27.0-34.0) 08/01/18 04:40 MCHC 32.6 g/dL (33.0-35.0) L 08/01/18 04:40 RDW 14.4 % (11.6-16.5) 08/01/18 04:40 Plt Count 470 X10^3/uL (150.0-450.0) H 08/01/18 04:40 Plt Count Comment Adequate (ADEQUATE) 07/31/18 05:45 MPV 8.6 fL (7.4-11.0) 08/01/18 04:40 Neut % (Auto) 53.3 % (42.0-75.0) 08/01/18 04:40 Lymph % (Auto) 37.9 % (21.0-51.0) 08/01/18 04:40 [place] % (Auto) 8.3 % (0.0-13.0) 08/01/18 04:40 Eos % (Auto) 0.1 % (0.9-2.9) L 08/01/18 04:40 Baso % (Auto) 0.4 % (0.2-1.0) 08/01/18 04:40 Neut # (Auto) 6.6 x10^3/uL (2.2-4.8) H 08/01/18 04:40 Lymph # (Auto) 4.7 X10^3/uL (1.3-2.9) H 08/01/18 04:40 [place] # (Auto) 1.0 x10^3/uL (0.3-0.8) H 08/01/18 04:40 Eos # (Auto) 0.0 x10^3/uL (0.0-0.2) 08/01/18 04:40 Baso # (Auto) 0.1 X10^3/uL (0.0-0.1) 08/01/18 04:40 Absolute Nucleated RBC 0.0 /100WBC 08/01/18 04:40 Total Counted 100 07/31/18 05:45 Neutrophils % (Manual) 84 % (39-76) H 07/31/18 05:45 Lymphocytes % (Manual) 11 % (13-43) L 07/31/18 05:45 Monocytes % (Manual) 5 % (4-9) 07/31/18 05:45 Plt Morphology Comment Normal (NORMAL) 07/31/18 05:45 RBC Morphology Normal (NORMAL) 07/31/18 05:45 Sample Site Right brachial 07/29/18 16:41 ABG pH 7.470 (7.35-7.45) H 07/29/18 16:41 ABG pCO2 40.0 mmHg (35.0-45.0) 07/29/18 16:41 ABG pO2 68.0 mmHg (80.0-100.0) L 07/29/18 16:41 ABG HCO3 29.1 mmol/L (22-26) H 07/29/18 16:41 ABG O2 Saturation 94.0 % (90-100) 07/29/18 16:41 ABG Base Excess 5.0 mmol/L (-2.0-2.0) H 07/29/18 16:41 Lopez Test Na 07/29/18 16:41 A-a Gradient 32.0 mmHg 07/29/18 16:41 FiO2 21.0 07/29/18 16:41 Blood Gas Comments Phuong well aw 07/29/18 16:41 Sodium 143 mmol/L (136-145) 08/01/18 04:40 Corrected Sodium TNP 08/01/18 04:40 Potassium 3.2 mmol/L (3.5-5.1) L 08/01/18 04:40 Chloride 105 mmol/L (98-107) 08/01/18 04:40 Carbon Dioxide 30.4 mmol/L (21-32) 08/01/18 04:40 BUN 6 mg/dL (7-18) L 08/01/18 04:40 Creatinine 0.70 mg/dL (0.55-1.02) 08/01/18 04:40 Est GFR (MDRD) Af Amer > 60 (>60) 08/01/18 04:40 Est GFR (MDRD) Non-Af > 60 (>60) 08/01/18 04:40 Glucose 93 mg/dL (65-99) 08/01/18 04:40 Calcium 8.4 mg/dL (8.5-10.1) L 08/01/18 04:40 Corrected Calcium 9.2 mg/dL (8.5-10.1) 08/01/18 04:40 Magnesium 2.2 mg/dL (1.7-2.9) 07/29/18 16:51 Total Bilirubin 0.10 mg/dL (0.2-1.0) L 08/01/18 04:40 AST 11 Units/L (15-37) L 08/01/18 04:40 ALT 14 Units/L (12-78) 08/01/18 04:40 Alkaline Phosphatase 167 Units/L (46-116) H 08/01/18 04:40 Total Protein 7.2 g/dL (6.4-8.2) 08/01/18 04:40 Albumin 3.0 g/dL (3.4-5.0) L 08/01/18 04:40 Globulin 4.2 g/dL (2.5-4.5) 08/01/18 04:40 Albumin/Globulin Ratio 0.7 Ratio (1.1-2.1) L 08/01/18 04:40 - Plan (1) COPD with acute bronchitis Status: Acute Plan: CONTINUE PNEUMONIA PROTOCOL. ABG ON ADMISSION, BLOOD AND SPUTUM CULTURES WITH IV ATBX THERAPY. SUPPLEMENTAL O2, RESP THERAPY. IV HYDRATION, PEPCID IV. ROBITUSSIN, BUDESONIDE AND IV SOLU MEDROL, VERIFY HOME MEDICATIONS, BP CONTROL (2) HAMMAD (generalized anxiety disorder) Status: Acute (3) GERD (gastroesophageal reflux disease) Status: Chronic (4) Hypertension Status: Chronic (5) Lumbar degenerative disc disease Status: Chronic
--- NOTE | 2018-08-01 20:45 | RAD ---
Chest radiograph, one view. History: COPD. Comparison: 07/31/2018. Findings: The trachea is midline. Cardiac silhouette is enlarged. There are increased interstitial lung markings, likely reflecting chronic interstitial fibrotic change. Findings are stable from prior exam. There is no new consolidation, sizeable pleural effusion, or pneumothorax. No acute osseous findings. Conclusion: Stable examination. Reported By:
[2018-08-01] MEDS: REQUIP PO SCH (21:17)
[2018-08-01] MEDS: COLACE CAP 100 MG PO SCH (21:18)
[2018-08-02] MEDS: PROVENTIL NEB TX 0.083% 2.5MG/ 3ML NEB SCH ×3 (00:56→08:55)
[2018-08-02] MEDS: NS 1/2 1000 ML IV 1,000 ML IV SCH (05:29)
[2018-08-02] MEDS: REGLAN TAB 10 MG PO SCH ×2 (05:42→11:17)
[2018-08-02] MEDS: CARAFATE ORAL SUSP PO SCH ×2 (05:43→11:16)
[2018-08-02 06:02] LABS: BASOPHILS % (AUTO) 0.4 % (0.2-1.0); EOSINOPHILS # (AUTO) 0.1 x10^3/uL (0.0-0.2); EOSINOPHILS % (AUTO) 1.2 % (0.9-2.9); HEMATOCRIT 36.4 % (36.0-47.0); LYMPHOCYTES # (AUTO) 4.3 X10^3/uL (1.3-2.9); LYMPHOCYTES % (AUTO) 42.4 % (21.0-51.0); MEAN CORPUSCULAR HEMOGLOBIN 28.7 pg (27.0-34.0); MEAN CORPUSCULAR HGB CONC 32.9 g/dL (33.0-35.0); MEAN CORPUSCULAR VOLUME 87.3 fL (80.0-100.0); MONOCYTES # (AUTO) 0.9 x10^3/uL (0.3-0.8); MONOCYTES % (AUTO) 8.7 % (0.0-13.0); NEUTROPHILS # (AUTO) 4.8 x10^3/uL (2.2-4.8); NEUTROPHILS % (AUTO) 47.3 % (42.0-75.0); PLATELET COUNT 466 X10^3/uL (150.0-450.0); RED BLOOD COUNT 4.16 X10^6/uL (3.5-5.4); RED CELL DISTRIBUTION WIDTH 14.2 % (11.6-16.5); WHITE BLOOD COUNT 10.1 X10^3/uL (3.6-10.0)
[2018-08-02 06:28] LABS: ALANINE AMINOTRANSFERASE 14 Units/L (12-78); ALKALINE PHOSPHATASE 174 Units/L (46-116); ASPARTATE AMINO TRANSFERASE 11 Units/L (15-37); BLOOD UREA NITROGEN 8 mg/dL (7-18); CALCIUM 8.8 mg/dL (8.5-10.1); CARBON DIOXIDE 29.1 mmol/L (21-32); CHLORIDE 103 mmol/L (98-107); COR CA(FOR HYPOALB) 9.6 mg/dL (8.5-10.1); SODIUM 141 mmol/L (136-145); TOTAL PROTEIN 7.5 g/dL (6.4-8.2); eGFR NON BLACK RACES > 60 (>60)
[2018-08-02 08:04] VITALS: BP 137/76
[2018-08-02] MEDS: ROBITUSSIN DM PO SCH (09:42)
[2018-08-02] MEDS: PriLOSEC PO SCH (09:42)
[2018-08-02] MEDS: PEPCID 20 MG IV PREMIX* 20 MG/50 ML BAG IV SCH (09:42)
[2018-08-02] MEDS: NORCO 7.5/325 MG TAB PO PRN (09:42)
[2018-08-02] MEDS: LEVAQUIN PREMIX IV 750 MG 750 MG/150 ML BAG IV SCH (09:42)
[2018-08-02] MEDS: ROCEPHIN VIAL 1 GRAM IVP SCH (09:42)
[2018-08-02] MEDS: PAXIL PO SCH (09:43)
[2018-08-02] MEDS: NORVASC TAB 10 MG PO SCH (09:43)
[2018-08-02] MEDS: K-DUR TAB 20 MEQ PO PRN (09:43)
[2018-08-02] MEDS: VSL#3 PO SCH (11:15)
== END 2018-08-02 12:00 | disposition home or self-care (01) | DRG 194 ==
LOC: MED/SURG
PROVIDERS: ADMIT Internal Medicine; ATTEND Internal Medicine
DX: B96.1 Klebsiella pneumoniae [K. pneumoniae] as the cause of diseases classified elsewhere; F41.8 Other specified anxiety disorders; J20.8 Acute bronchitis due to other specified organisms; B96.5 Pseudomonas (aeruginosa) (mallei) (pseudomallei) as the cause of diseases classified elsewhere; M13.89 Other specified arthritis, multiple sites; J44.1 Chronic obstructive pulmonary disease with (acute) exacerbation; J18.0 Bronchopneumonia, unspecified organism; J44.0 Chronic obstructive pulmonary disease with (acute) lower respiratory infection; K21.9 Gastro-esophageal reflux disease without esophagitis; M51.36 Other intervertebral disc degeneration, lumbar region; I10 Essential (primary) hypertension
CPT/HCPCS: 36415; 36600; 71010; 71045; 80053; 82803; 83735; 85025; 87040; 87070; 87077; 87186; 87205; 94640; 94669; 94760; A4222; S0028; G0378; J0696; J1956; J2543; J2930; J7050; J7613

== ENCOUNTER 2019-05-28 16:03 | Inpatient (IN) ==
--- NOTE | 2019-05-28 16:42 | DR.H&P ---
H&P - History & Physical for Day of: H&P Date: 05/28/19 - Chief Complaint Chief Complaint: CCC, SOB, WHEEZING, WEAKNESS - History of Present Illness History of Present Illness: PT IS 53 WF DIRECT ADMIT FROM DR HILTON BALL OFFICE AFTER FAILING OUTPT THERAPY FOR AB. PT HAS HAD LOW GRADE FEVER AND CHILLS, CO WEAKNESS IN LOWER LEGS AND DEHYDRATION. PT COMPLETED ROUND OF ZITHROMAX AND USING DUO NEBS AT HOME WITHOUT IMPROVEMENT. PT HAD COVID 19 SWAB ON OUTPT BASIS, WHICH WAS NEGATIVE. PT ADMITTED FOR TREATMENT OF COPD EXACERBATION. - Past Medical History Past Medical History: Hypertension, Depression, Anxiety, Seizures, COPD - Past Surgical History Surgical History: , Hysterectomy - Family History Family Medical History: [place], Hypertension - Social History Does patient currently use any type of tobacco product: Yes Have you used tobacco products in the last 12 months: Yes Type of Tobacco Use: Cigarettes Does any household member use tobacco: No Alcohol Use: None Drug Use: None Prescription drug monitoring program results: PDMP reviewed and no concerns identified - Medications Home Medications: No Known Drug Allergies Allergy (Verified 02/18/19 17:54) - Review of Systems Constitutional: Fever, Chills, Weakness, Malaise Eyes: No Symptoms Reported ENT: Throat Pain Respiratory: Cough, Shortness of Breath, SOB with Excertion, Wheezing Cardiovascular: No Symptoms Reported Gastrointestinal: Nausea Genitourinary: No Symptoms Reported Musculoskeletal: Back Pain Skin: No Symptoms Reported Neurological: Weakness - Physical Exam Vital Signs: Blood Pressure [Right Arm] 127/62 Oriented: Normal Eyes: Normal Ear: Normal Nose: Normal Throat: Normal Respiratory: Wheezes Throughout, RLL Diminished, LLL Diminished Cardiovascular: Normal : Normal Auscultation: Bowel Sounds: Normal Tenderness: Normal Skin: Decreased Turgur Musculoskeletal: Back:Lumbar Psychiatric: Anxiety Mood Description: Calm Affect: Anxious Speech Pattern: Clear, Appropriate - Assessment/Plan (1) COPD with acute bronchitis Status: Acute Plan: ADMIT, RESP CONSULT. DUO NEBS, IV ATBX, BLOOD AND SPUTUM CULTURE ON ADMISSON. ADMISSION LABS CBC CMP UA, MAG, RSV AND MYCOPLASMA SWAB. VERIFY HOME MEDICATIONS, SUPPLEMENTAL O2, ABG ON ADMISSION. CXR ON ADMISSION. (2) GERD (gastroesophageal reflux disease) Status: Chronic (3) Hypertension Status: Chronic (4) Lumbar degenerative disc disease Status: Chronic - Allergies Allergies/Adverse Reactions: Allergies Allergy/AdvReac Type Severity Reaction Status Date / Time No Known Drug Allergies Allergy Verified 02/18/19 17:54
[2019-05-28] MEDS ORDERED: TUSSIONEX PENNKINETIC SUSP PO PRN (16:44)
[2019-05-28 17:02] LABS: ABG ALLEN TEST POS; ABG BASE EXCESS 1.5 mmol/L (-2.0-2.0); ABG HCO3 25.9 mmol/L (22-26)
--- NOTE | 2019-05-28 17:06 | RAD ---
HISTORYCOPDSTUDYCHEST, PA/LAT ADULTCOMPARISONNoneFINDINGSThe heart is normal. The pulmonary vessels are normal. The lungs are mildly hyperinflated and emphysematous. There are mild increased interstitial markings throughout both lungs. There are mild linear density scattered along both lung bases. No consolidation or effusion is seen. The bones are intact.IMPRESSIONMild chronic obstructive lung changes probable mild chronic interstitial changes throughout with mild discoid atelectasis or scarring along the lung bases.Electronically signed by: JENNIFER SLAUGHTER (May 28, 2019 17:05:03)
[2019-05-28] MEDS: PULMICORT NEB TX 0.5 MG NEB SCH ×2 (17:08→20:53)
[2019-05-28] MEDS: NS 1000 ML 1,000 ML IV SCH (17:11)
[2019-05-28] MEDS: LEVAQUIN PREMIX IV 750 MG 750 MG/150 ML BAG IV SCH (17:11)
[2019-05-28] MEDS: ROBITUSSIN DM PO SCH ×2 (17:12→20:18)
[2019-05-28] MEDS: NYSTATIN SUSP MT SCH ×2 (17:12→20:18)
[2019-05-28] MEDS: PROTONIX INJ 40 MG VIAL IVP SCH (17:12)
[2019-05-28 17:27] VITALS: BMI 31.1
[2019-05-28 17:51] LABS: BASOPHILS # (AUTO) 0.1 X10^3/uL (0.0-0.1); BASOPHILS % (AUTO) 0.4 % (0.2-1.0); EOSINOPHILS # (AUTO) 0.1 x10^3/uL (0.0-0.2); EOSINOPHILS % (AUTO) 0.5 % (0.9-2.9); HEMATOCRIT 39.6 % (36.0-47.0); LYMPHOCYTES % (AUTO) 22.1 % (21.0-51.0); MEAN CORPUSCULAR HEMOGLOBIN 29.3 pg (27.0-34.0); MEAN CORPUSCULAR HGB CONC 32.8 g/dL (33.0-35.0); MEAN CORPUSCULAR VOLUME 89.3 fL (80.0-100.0); MONOCYTES # (AUTO) 0.7 x10^3/uL (0.3-0.8); MONOCYTES % (AUTO) 4.9 % (0.0-13.0); NEUTROPHILS # (AUTO) 9.9 x10^3/uL (2.2-4.8); NEUTROPHILS % (AUTO) 72.1 % (42.0-75.0); PLATELET COUNT 445 X10^3/uL (150.0-450.0); RED BLOOD COUNT 4.43 X10^6/uL (3.5-5.4); RED CELL DISTRIBUTION WIDTH 15.4 % (11.6-16.5); WHITE BLOOD COUNT 13.8 X10^3/uL (3.6-10.0)
[2019-05-28 17:54] LABS: ALANINE AMINOTRANSFERASE 13 Units/L (12-78); ALBUMIN 3.3 g/dL (3.4-5.0); ALKALINE PHOSPHATASE 218 Units/L (46-116); ASPARTATE AMINO TRANSFERASE 14 Units/L (15-37); BLOOD UREA NITROGEN 7 mg/dL (7-18); CALCIUM 8.9 mg/dL (8.5-10.1); CARBON DIOXIDE 27.7 mmol/L (21-32); CHLORIDE 100 mmol/L (98-107); COR CA(FOR HYPOALB) 9.5 mg/dL (8.5-10.1); CREATININE 0.83 mg/dL (0.55-1.02); MAGNESIUM 1.9 mg/dL (1.7-2.9); SODIUM 139 mmol/L (136-145); TOTAL PROTEIN 9.1 g/dL (6.4-8.2); eGFR NON BLACK RACES > 60 (>60)
[2019-05-28 18:02] LABS: MYCOPLASMA PNEUMONIAE IGM AB NEGATIVE (NEGATIVE)
[2019-05-28 18:02] LABS: RSV AG DETECTION NEGATIVE (NEGATIVE)
[2019-05-28] MEDS ORDERED: NYSTATIN POWDER ONE (18:04)
[2019-05-28] MEDS: DIFLUCAN PO SCH (18:07)
[2019-05-28] MEDS: NYSTATIN POWDER TOP SCH ×2 (18:07→20:17)
[2019-05-28] MEDS: NICOTINE PATCH TD SCH (18:08)
[2019-05-28 18:55] LABS: BILIRUBIN,URINE NEGATIVE (NEGATIVE); BLOOD/HEMOGLOBIN,URINE NEGATIVE (NEGATIVE); GLUCOSE, URINE NEGATIVE (NEGATIVE); KETONES,URINE NEGATIVE (NEGATIVE); LEUKOCYTE ESTERASE ,URINE NEGATIVE (NEGATIVE); NITRITES,URINE NEGATIVE (NEGATIVE); PROTEIN,URINE NEGATIVE (NEGATIVE); UROBILINOGEN,URINE NORMAL (NORMAL)
[2019-05-28 18:56] LABS: APPEARANCE,URINE CLEAR (CLEAR); COLOR,URINE YELLOW (YELLOW)
[2019-05-28] MEDS: NORCO 5/325 MG TAB PO PRN (19:52)
[2019-05-28] MEDS ORDERED: MUCOMYST 20% 200 MG/ML NEB SCH (21:00)
[2019-05-28] MEDS: MUCOMYST 20% 200 MG/ML NEB SCH (21:07)
[2019-05-28] MEDS: DUONEB 0.5 MG/3 MG (3 mL) NEB SCH (21:07)
[2019-05-28] MEDS ORDERED: K-DUR TAB 20 MEQ PO ONE ×2 (21:43→21:44)
[2019-05-29] MEDS: DUONEB 0.5 MG/3 MG (3 mL) NEB SCH ×6 (00:20→21:18)
[2019-05-29] MEDS: NORCO 5/325 MG TAB PO PRN ×2 (03:13→10:45)
[2019-05-29] MEDS: NS 1000 ML 1,000 ML IV SCH ×2 (06:24→20:57)
[2019-05-29 06:33] LABS: BASOPHILS # (AUTO) 0.1 X10^3/uL (0.0-0.1); BASOPHILS % (AUTO) 1.1 % (0.2-1.0); EOSINOPHILS % (AUTO) 0.4 % (0.9-2.9); HEMATOCRIT 34.5 % (36.0-47.0); HEMOGLOBIN 11.3 g/dL (12.0-16.0); LYMPHOCYTES # (AUTO) 3.8 X10^3/uL (1.3-2.9); LYMPHOCYTES % (AUTO) 37.9 % (21.0-51.0); MEAN CORPUSCULAR HEMOGLOBIN 29.1 pg (27.0-34.0); MEAN CORPUSCULAR HGB CONC 32.9 g/dL (33.0-35.0); MEAN CORPUSCULAR VOLUME 88.5 fL (80.0-100.0); MEAN PLATELET VOLUME 8.7 fL (7.4-11.0); MONOCYTES # (AUTO) 0.7 x10^3/uL (0.3-0.8); MONOCYTES % (AUTO) 6.6 % (0.0-13.0); NEUTROPHILS # (AUTO) 5.5 x10^3/uL (2.2-4.8); PLATELET COUNT 363 X10^3/uL (150.0-450.0); RED BLOOD COUNT 3.89 X10^6/uL (3.5-5.4); RED CELL DISTRIBUTION WIDTH 15.4 % (11.6-16.5); WHITE BLOOD COUNT 10.1 X10^3/uL (3.6-10.0)
[2019-05-29 06:52] LABS: ALANINE AMINOTRANSFERASE 12 Units/L (12-78); ALBUMIN 2.9 g/dL (3.4-5.0); ALKALINE PHOSPHATASE 199 Units/L (46-116); ASPARTATE AMINO TRANSFERASE 19 Units/L (15-37); BLOOD UREA NITROGEN 12 mg/dL (7-18); CALCIUM 8.6 mg/dL (8.5-10.1); CARBON DIOXIDE 25.3 mmol/L (21-32); CHLORIDE 104 mmol/L (98-107); COR CA(FOR HYPOALB) 9.5 mg/dL (8.5-10.1); CREATININE 0.79 mg/dL (0.55-1.02); SODIUM 140 mmol/L (136-145); TOTAL PROTEIN 8.1 g/dL (6.4-8.2); eGFR NON BLACK RACES > 60 (>60)
[2019-05-29] MEDS ORDERED: PREVNAR 13 IM ONE (08:36)
[2019-05-29] MEDS: MUCOMYST 20% 200 MG/ML NEB SCH ×4 (08:55→21:19)
[2019-05-29] MEDS: PULMICORT NEB TX 0.5 MG NEB SCH ×2 (08:55→21:19)
[2019-05-29] MEDS ORDERED: SOLU-Medrol 125 MG VIAL IVP SCH (09:00)
[2019-05-29] MEDS: DIFLUCAN PO SCH (10:45)
[2019-05-29] MEDS: ROBITUSSIN DM PO SCH ×4 (10:45→20:58)
[2019-05-29] MEDS: NICOTINE PATCH TD SCH (10:45)
[2019-05-29] MEDS: LEVAQUIN PREMIX IV 750 MG 750 MG/150 ML BAG IV SCH (10:45)
[2019-05-29] MEDS: PROTONIX INJ 40 MG VIAL IVP SCH (10:45)
[2019-05-29] MEDS: NYSTATIN SUSP MT SCH ×4 (10:45→20:58)
[2019-05-29] MEDS: NYSTATIN POWDER TOP SCH ×2 (10:45→20:57)
[2019-05-29] MEDS: MORPHINE SULFATE INJ 2 MG INJ IVP PRN ×2 (14:00→20:59)
[2019-05-29] MEDS: SINEMET (PLAIN) 25/100 MG PO SCH ×2 (14:00→20:58)
[2019-05-29] MEDS: NORVASC TAB 10 MG PO SCH (14:09)
[2019-05-29] MEDS: REQUIP PO SCH ×2 (14:09→20:58)
[2019-05-29] MEDS: PAXIL PO SCH (14:09)
[2019-05-29] MEDS: FOLIC ACID TAB 1 MG PO SCH (14:10)
[2019-05-29] MEDS: SINEquan PO SCH (20:59)
[2019-05-29] MEDS: ZANAFLEX PO PRN (21:02)
[2019-05-30] MEDS: DUONEB 0.5 MG/3 MG (3 mL) NEB SCH ×6 (00:29→20:10)
[2019-05-30 05:07] LABS: BASOPHILS # (AUTO) 0.1 X10^3/uL (0.0-0.1); BASOPHILS % (AUTO) 0.9 % (0.2-1.0); EOSINOPHILS # (AUTO) 0.1 x10^3/uL (0.0-0.2); EOSINOPHILS % (AUTO) 0.6 % (0.9-2.9); HEMATOCRIT 33.5 % (36.0-47.0); HEMOGLOBIN 11.1 g/dL (12.0-16.0); LYMPHOCYTES # (AUTO) 2.7 X10^3/uL (1.3-2.9); LYMPHOCYTES % (AUTO) 25.6 % (21.0-51.0); MEAN CORPUSCULAR HEMOGLOBIN 29.3 pg (27.0-34.0); MEAN CORPUSCULAR HGB CONC 33.1 g/dL (33.0-35.0); MEAN CORPUSCULAR VOLUME 88.4 fL (80.0-100.0); MEAN PLATELET VOLUME 8.6 fL (7.4-11.0); MONOCYTES # (AUTO) 0.7 x10^3/uL (0.3-0.8); MONOCYTES % (AUTO) 6.6 % (0.0-13.0); NEUTROPHILS % (AUTO) 66.3 % (42.0-75.0); PLATELET COUNT 378 X10^3/uL (150.0-450.0); RED BLOOD COUNT 3.79 X10^6/uL (3.5-5.4); RED CELL DISTRIBUTION WIDTH 15.3 % (11.6-16.5); WHITE BLOOD COUNT 10.6 X10^3/uL (3.6-10.0)
[2019-05-30 05:17] LABS: ALANINE AMINOTRANSFERASE 8 Units/L (12-78); ALBUMIN 2.8 g/dL (3.4-5.0); ALKALINE PHOSPHATASE 182 Units/L (46-116); ASPARTATE AMINO TRANSFERASE 15 Units/L (15-37); BLOOD UREA NITROGEN 8 mg/dL (7-18); CALCIUM 8.7 mg/dL (8.5-10.1); CARBON DIOXIDE 29.4 mmol/L (21-32); CHLORIDE 104 mmol/L (98-107); COR CA(FOR HYPOALB) 9.7 mg/dL (8.5-10.1); CREATININE 0.73 mg/dL (0.55-1.02); SODIUM 141 mmol/L (136-145); TOTAL PROTEIN 7.7 g/dL (6.4-8.2); eGFR NON BLACK RACES > 60 (>60)
[2019-05-30] MEDS: MUCOMYST 20% 200 MG/ML NEB SCH ×4 (08:51→20:10)
[2019-05-30] MEDS: PULMICORT NEB TX 0.5 MG NEB SCH ×2 (08:52→20:10)
[2019-05-30] MEDS ORDERED: PREVNAR 13 IM ONE (09:00)
[2019-05-30] MEDS: SINEMET (PLAIN) 25/100 MG PO SCH ×2 (10:00→21:15)
[2019-05-30] MEDS: FOLIC ACID TAB 1 MG PO SCH (10:00)
[2019-05-30] MEDS: NICOTINE PATCH TD SCH (10:00)
[2019-05-30] MEDS: NYSTATIN SUSP MT SCH ×4 (10:00→21:15)
[2019-05-30] MEDS: PROTONIX INJ 40 MG VIAL IVP SCH (10:00)
[2019-05-30] MEDS: NYSTATIN POWDER TOP SCH ×2 (10:00→21:15)
[2019-05-30] MEDS: LEVAQUIN PREMIX IV 750 MG 750 MG/150 ML BAG IV SCH (10:00)
[2019-05-30] MEDS: PAXIL PO SCH (10:00)
[2019-05-30] MEDS: DIFLUCAN PO SCH (10:04)
[2019-05-30] MEDS: NORVASC TAB 10 MG PO SCH (10:06)
[2019-05-30] MEDS: ROBITUSSIN DM PO SCH ×4 (10:09→21:15)
[2019-05-30] MEDS: NS 1000 ML 1,000 ML IV SCH (11:15)
[2019-05-30] MEDS: NORCO 5/325 MG TAB PO PRN ×2 (11:20→18:24)
[2019-05-30] MEDS: REQUIP PO SCH ×2 (11:20→21:15)
[2019-05-30] MEDS ORDERED: MICRO K EXTEN CAP 10 MEQ PO PRN (19:36)
[2019-05-30] MEDS ORDERED: POTASSIUM CHL 60 MEQ/NS 0.45% 500 ML IV PRN (19:36)
[2019-05-30] MEDS ORDERED: KLOR-CON PO PRN (19:36)
[2019-05-30] MEDS ORDERED: K-RIDER 10 MEQ/NS 100 ML 10 MEQ/100 ML BAG IV PRN (19:36)
[2019-05-30] MEDS ORDERED: POTASSIUM CHLORIDE LIQ 20 MEQ UDC PO PRN (19:36)
[2019-05-30] MEDS ORDERED: POTASSIUM CHL 40 MEQ/NS 0.45% 500 ML IV PRN (19:36)
[2019-05-30] MEDS: K-DUR TAB 20 MEQ PO PRN (21:15)
[2019-05-30] MEDS: SINEquan PO SCH (21:15)
[2019-05-30] MEDS: ZANAFLEX PO PRN (21:15)
[2019-05-31] MEDS: DUONEB 0.5 MG/3 MG (3 mL) NEB SCH ×6 (00:20→20:53)
[2019-05-31] MEDS: NORCO 5/325 MG TAB PO PRN ×3 (01:07→20:47)
[2019-05-31] MEDS: NS 1000 ML 1,000 ML IV SCH ×3 (01:08→14:34)
[2019-05-31 06:19] LABS: BASOPHILS % (AUTO) 0.5 % (0.2-1.0); EOSINOPHILS # (AUTO) 0.1 x10^3/uL (0.0-0.2); EOSINOPHILS % (AUTO) 0.5 % (0.9-2.9); HEMATOCRIT 34.2 % (36.0-47.0); HEMOGLOBIN 11.4 g/dL (12.0-16.0); LYMPHOCYTES # (AUTO) 2.8 X10^3/uL (1.3-2.9); LYMPHOCYTES % (AUTO) 25.8 % (21.0-51.0); MEAN CORPUSCULAR HEMOGLOBIN 29.5 pg (27.0-34.0); MEAN CORPUSCULAR HGB CONC 33.3 g/dL (33.0-35.0); MEAN CORPUSCULAR VOLUME 88.6 fL (80.0-100.0); MEAN PLATELET VOLUME 8.7 fL (7.4-11.0); MONOCYTES # (AUTO) 1.1 x10^3/uL (0.3-0.8); MONOCYTES % (AUTO) 9.9 % (0.0-13.0); NEUTROPHILS # (AUTO) 6.9 x10^3/uL (2.2-4.8); NEUTROPHILS % (AUTO) 63.3 % (42.0-75.0); PLATELET COUNT 398 X10^3/uL (150.0-450.0); RED BLOOD COUNT 3.86 X10^6/uL (3.5-5.4); RED CELL DISTRIBUTION WIDTH 15.4 % (11.6-16.5); WHITE BLOOD COUNT 10.8 X10^3/uL (3.6-10.0)
[2019-05-31 06:43] LABS: ALANINE AMINOTRANSFERASE 7 Units/L (12-78); ALBUMIN 2.7 g/dL (3.4-5.0); ALKALINE PHOSPHATASE 189 Units/L (46-116); ASPARTATE AMINO TRANSFERASE 15 Units/L (15-37); BLOOD UREA NITROGEN 7 mg/dL (7-18); CALCIUM 8.8 mg/dL (8.5-10.1); CARBON DIOXIDE 28.6 mmol/L (21-32); CHLORIDE 103 mmol/L (98-107); COR CA(FOR HYPOALB) 9.8 mg/dL (8.5-10.1); CREATININE 0.73 mg/dL (0.55-1.02); MAGNESIUM 2.1 mg/dL (1.7-2.9); SODIUM 140 mmol/L (136-145); eGFR NON BLACK RACES > 60 (>60)
[2019-05-31] MEDS: MUCOMYST 20% 200 MG/ML NEB SCH ×3 (09:20→17:10)
[2019-05-31] MEDS: PULMICORT NEB TX 0.5 MG NEB SCH ×2 (09:20→20:53)
[2019-05-31] MEDS: FOLIC ACID TAB 1 MG PO SCH (09:38)
[2019-05-31] MEDS: NORVASC TAB 10 MG PO SCH (09:39)
[2019-05-31] MEDS: LEVAQUIN PREMIX IV 750 MG 750 MG/150 ML BAG IV SCH (09:39)
[2019-05-31] MEDS: NICOTINE PATCH TD SCH (09:39)
[2019-05-31] MEDS: NYSTATIN SUSP MT SCH ×4 (09:40→20:45)
[2019-05-31] MEDS: NYSTATIN POWDER TOP SCH ×2 (09:40→20:45)
[2019-05-31] MEDS: K-DUR TAB 20 MEQ PO PRN (09:40)
[2019-05-31] MEDS: ROBITUSSIN DM PO SCH ×4 (09:41→20:46)
[2019-05-31] MEDS: SINEMET (PLAIN) 25/100 MG PO SCH ×2 (09:41→20:46)
[2019-05-31] MEDS: PAXIL PO SCH (09:42)
[2019-05-31] MEDS: PROTONIX INJ 40 MG VIAL IVP SCH (09:50)
[2019-05-31] MEDS: REQUIP PO SCH ×2 (11:57→20:46)
[2019-05-31] MEDS: SINEquan PO SCH (20:46)
[2019-06-01] MEDS: DUONEB 0.5 MG/3 MG (3 mL) NEB SCH ×3 (00:51→09:10)
[2019-06-01] MEDS: NS 1000 ML 1,000 ML IV SCH ×2 (01:09→06:41)
[2019-06-01] MEDS: ZANAFLEX PO PRN (01:20)
[2019-06-01 06:19] LABS: BASOPHILS # (AUTO) 0.1 X10^3/uL (0.0-0.1); BASOPHILS % (AUTO) 0.5 % (0.2-1.0); EOSINOPHILS # (AUTO) 0.1 x10^3/uL (0.0-0.2); EOSINOPHILS % (AUTO) 0.9 % (0.9-2.9); HEMATOCRIT 31.4 % (36.0-47.0); HEMOGLOBIN 10.5 g/dL (12.0-16.0); LYMPHOCYTES # (AUTO) 2.7 X10^3/uL (1.3-2.9); LYMPHOCYTES % (AUTO) 26.6 % (21.0-51.0); MEAN CORPUSCULAR HEMOGLOBIN 29.5 pg (27.0-34.0); MEAN CORPUSCULAR HGB CONC 33.3 g/dL (33.0-35.0); MEAN CORPUSCULAR VOLUME 88.5 fL (80.0-100.0); MEAN PLATELET VOLUME 8.8 fL (7.4-11.0); MONOCYTES # (AUTO) 1.1 x10^3/uL (0.3-0.8); MONOCYTES % (AUTO) 10.6 % (0.0-13.0); NEUTROPHILS # (AUTO) 6.3 x10^3/uL (2.2-4.8); NEUTROPHILS % (AUTO) 61.4 % (42.0-75.0); PLATELET COUNT 377 X10^3/uL (150.0-450.0); RED BLOOD COUNT 3.55 X10^6/uL (3.5-5.4); RED CELL DISTRIBUTION WIDTH 15.5 % (11.6-16.5); WHITE BLOOD COUNT 10.3 X10^3/uL (3.6-10.0)
[2019-06-01 06:34] LABS: ALANINE AMINOTRANSFERASE 12 Units/L (12-78); ALBUMIN 2.5 g/dL (3.4-5.0); ALKALINE PHOSPHATASE 185 Units/L (46-116); ASPARTATE AMINO TRANSFERASE 15 Units/L (15-37); BLOOD UREA NITROGEN 6 mg/dL (7-18); CALCIUM 8.5 mg/dL (8.5-10.1); CARBON DIOXIDE 27.3 mmol/L (21-32); CHLORIDE 103 mmol/L (98-107); COR CA(FOR HYPOALB) 9.7 mg/dL (8.5-10.1); CREATININE 0.78 mg/dL (0.55-1.02); SODIUM 139 mmol/L (136-145); TOTAL PROTEIN 7.6 g/dL (6.4-8.2); eGFR NON BLACK RACES > 60 (>60)
[2019-06-01] MEDS ORDERED: VIBRAMYCIN PO SCH (09:00)
[2019-06-01] MEDS: FOLIC ACID TAB 1 MG PO SCH (09:00)
[2019-06-01] MEDS: SINEMET (PLAIN) 25/100 MG PO SCH (09:01)
[2019-06-01] MEDS: PROTONIX INJ 40 MG VIAL IVP SCH (09:01)
[2019-06-01] MEDS: ROBITUSSIN DM PO SCH (09:01)
[2019-06-01] MEDS: LEVAQUIN PREMIX IV 750 MG 750 MG/150 ML BAG IV SCH (09:02)
[2019-06-01] MEDS: NICOTINE PATCH TD SCH (09:03)
[2019-06-01] MEDS: NORVASC TAB 10 MG PO SCH (09:04)
[2019-06-01] MEDS: NYSTATIN POWDER TOP SCH (09:05)
[2019-06-01] MEDS: PAXIL PO SCH (09:05)
[2019-06-01] MEDS: NYSTATIN SUSP MT SCH (09:06)
[2019-06-01] MEDS: PULMICORT NEB TX 0.5 MG NEB SCH (09:10)
[2019-06-01 09:13] VITALS: BP 130/78
--- NOTE | 2019-06-03 18:28 | PCM.PROG ---
Progress Note - Progress Note for Day of Date of Exam: 05/31/19 - Subjective Subjective: The patient is a 53-year-old white female who was a direct admit from our office after failing to improve with outpatient therapy for bronchitis. The patient had been swabbed for COVID-19 on an outpatient basis and it was negative. On admission, her white blood cell count was 13.8 and was down to 10.8 today. K+ normal on cmp this AM.The patient continues to complain of a sore throat, harsh cough, and shortness of breath on exertion. She does have on exam bilateral diminished lung sounds, diffuse expiratory wheezes, and central rhonchi. Heart rate is regular rate and rhythm. Abdomen is soft and nontender. Bowel sounds are present times all four quadrants. No lower extremity edema not ed. She does have lumbar spine tenderness on exam and she does have moderate oral mucosal erythema. - Past Medical Family Social History Past Med/Fam/Surg Hx: No changes since H&P Allergies: Allergies No Known Drug Allergies Allergy (Verified 02/18/19 17:54) - Review of Systems ROS: No change since H&P - Vital Signs and I&O's Vital Signs: Temperature 98.2 F Pulse Rate [Right Brachial] 82 Pulse Rate 82 Respiratory Rate 22 Blood Pressure [Right Arm] 130/78 Blood Pressure 149/75 O2 Sat by Pulse Oximetry 97 Intake and Output: Intake & Output 06/01/19 06/02/19 06/03/19 06/04/19 11:59 11:59 11:59 11:59 Intake Total 3536 / 3536 Output Total / Balance 3532 / 3532 - Physical Exam Oriented: Normal Eyes: Normal Ear: Normal Nose: Normal Throat: Normal Respiratory: Wheezes, Rhonchi Cardiovascular: Normal : Normal Auscultation: Bowel Sounds: Normal Tenderness: Normal Skin: Decreased Turgur Musculoskeletal: Back:Lumbar Psychiatric: Anxiety Mood Description: Calm Affect: Anxious Speech Pattern: Clear, Appropriate - Laboratory and Diagnostics Result Diagrams: 06/01/19 04:27 06/01/19 04:27 Labs: 05/28/19 17:25 Blood Blood Culture - Final 05/28/19 17:20 Blood Blood Culture - Final 05/28/19 17:07 Sputum - Expectorated Sputum Sputum Culture - Final Klebsiella Oxytoca Enterobacter Aerogenes 05/28/19 17:07 Sputum - Expectorated Sputum - Final Laboratory WBC 10.3 X10^3/uL (3.6-10.0) H 06/01/19 04:27 RBC 3.55 X10^6/uL (3.5-5.4) 06/01/19 04:27 Hgb 10.5 g/dL (12.0-16.0) L 06/01/19 04:27 Hct 31.4 % (36.0-47.0) L 06/01/19 04:27 MCV 88.5 fL (80.0-100.0) 06/01/19 04:27 MCH 29.5 pg (27.0-34.0) 06/01/19 04:27 MCHC 33.3 g/dL (33.0-35.0) 06/01/19 04:27 RDW 15.5 % (11.6-16.5) 06/01/19 04:27 Plt Count 377 X10^3/uL (150.0-450.0) 06/01/19 04:27 MPV 8.8 fL (7.4-11.0) 06/01/19 04:27 Neut % (Auto) 61.4 % (42.0-75.0) 06/01/19 04:27 Lymph % (Auto) 26.6 % (21.0-51.0) 06/01/19 04:27 [place] % (Auto) 10.6 % (0.0-13.0) 06/01/19 04:27 Eos % (Auto) 0.9 % (0.9-2.9) 06/01/19 04:27 Baso % (Auto) 0.5 % (0.2-1.0) 06/01/19 04:27 Neut # (Auto) 6.3 x10^3/uL (2.2-4.8) H 06/01/19 04:27 Lymph # (Auto) 2.7 X10^3/uL (1.3-2.9) 06/01/19 04:27 [place] # (Auto) 1.1 x10^3/uL (0.3-0.8) H 06/01/19 04:27 Eos # (Auto) 0.1 x10^3/uL (0.0-0.2) 06/01/19 04:27 Baso # (Auto) 0.1 X10^3/uL (0.0-0.1) 06/01/19 04:27 Absolute Nucleated RBC 0.1 /100WBC 06/01/19 04:27 Sample Site Lr 05/28/19 16:55 ABG pH 7.430 (7.35-7.45) 05/28/19 16:55 ABG pCO2 39.0 mmHg (35.0-45.0) 05/28/19 16:55 ABG pO2 73.0 mmHg (80.0-100.0) L 05/28/19 16:55 ABG HCO3 25.9 mmol/L (22-26) 05/28/19 16:55 ABG O2 Saturation 95.0 % (90-100) 05/28/19 16:55 ABG Base Excess 1.5 mmol/L (-2.0-2.0) 05/28/19 16:55 Lopez Test Pos 05/28/19 16:55 A-a Gradient 28.0 mmHg 05/28/19 16:55 FiO2 21.0 05/28/19 16:55 Blood Gas Comments Pt pillo well. cdn 05/28/19 16:55 Sodium 139 mmol/L (136-145) 06/01/19 04:27 Corrected Sodium TNP 06/01/19 04:27 Potassium 3.8 mmol/L (3.5-5.1) 06/01/19 04:27 Chloride 103 mmol/L (98-107) 06/01/19 04:27 Carbon Dioxide 27.3 mmol/L (21-32) 06/01/19 04:27 BUN 6 mg/dL (7-18) L 06/01/19 04:27 Creatinine 0.78 mg/dL (0.55-1.02) 06/01/19 04:27 Est GFR (MDRD) Af Amer > 60 (>60) 06/01/19 04:27 Est GFR (MDRD) Non-Af > 60 (>60) 06/01/19 04:27 Glucose 100 mg/dL (65-99) H 06/01/19 04:27 Calcium 8.5 mg/dL (8.5-10.1) 06/01/19 04:27 Corrected Calcium 9.7 mg/dL (8.5-10.1) 06/01/19 04:27 Magnesium 2.1 mg/dL (1.7-2.9) 05/31/19 05:08 Total Bilirubin 0.20 mg/dL (0.2-1.0) 06/01/19 04:27 AST 15 Units/L (15-37) 06/01/19 04:27 ALT 12 Units/L (12-78) 06/01/19 04:27 Alkaline Phosphatase 185 Units/L (46-116) H 06/01/19 04:27 Total Protein 7.6 g/dL (6.4-8.2) 06/01/19 04:27 Albumin 2.5 g/dL (3.4-5.0) L 06/01/19 04:27 Globulin 5.1 g/dL (2.5-4.5) H 06/01/19 04:27 Albumin/Globulin Ratio 0.5 Ratio (1.1-2.1) L 06/01/19 04:27 Specimen Type Clean catch urine 05/28/19 18:45 Urine Color Yellow (YELLOW) 05/28/19 18:45 Urine Appearance Clear (CLEAR) 05/28/19 18:45 Urine pH 6.0 (5.0 - 8.0) 05/28/19 18:45 Ur Specific [place] 1.010 (1.000-1.030) 05/28/19 18:45 Urine Protein Negative (NEGATIVE) 05/28/19 18:45 Urine Glucose (UA) Negative (NEGATIVE) 05/28/19 18:45 Urine Ketones Negative (NEGATIVE) 05/28/19 18:45 Urine Occult Blood Negative (NEGATIVE) 05/28/19 18:45 Urine Nitrite Negative (NEGATIVE) 05/28/19 18:45 Urine Bilirubin Negative (NEGATIVE) 05/28/19 18:45 Urine Urobilinogen Normal (NORMAL) 05/28/19 18:45 Ur Leukocyte Esterase Negative (NEGATIVE) 05/28/19 18:45 RSV Nasal Swab Negative (NEGATIVE) 05/28/19 17:40 Influenza Type A (PCR) Negative (NEGATIVE) 05/29/19 10:45 Influenza Type B (PCR) Negative (NEGATIVE) 05/29/19 10:45 Mycoplasma pneumon IgG Negative (NEGATIVE) 05/28/19 17:20 Miscellaneous Test Covid 19 05/29/19 10:45 - Plan (1) COPD with acute bronchitis Status: Acute Plan: DUO NEBS, IV ATBX, BLOOD AND SPUTUM CULTURE ON ADMISSON. ADMISSION LABS CBC CMP UA, MAG, RSV AND MYCOPLASMA SWAB. REPEAT AM LABS. SUPPLEMENTAL O2, ABG ON ADMISSION. BP CONTROL, PAIN CONTROL, ENCOURAGE PO HYDRATION (2) GERD (gastroesophageal reflux disease) Status: Chronic (3) Hypertension Status: Chronic (4) Lumbar degenerative disc disease Status: Chronic
== END 2019-06-01 11:15 | disposition home or self-care (01) | DRG 192 ==
LOC: MED/SURG
PROVIDERS: ADMIT Internal Medicine; ATTEND Internal Medicine
DX: R06.02 Shortness of breath; E86.0 Dehydration; K21.9 Gastro-esophageal reflux disease without esophagitis; Z20.828 Contact with and (suspected) exposure to other viral communicable diseases; M51.36 Other intervertebral disc degeneration, lumbar region; B96.89 Other specified bacterial agents as the cause of diseases classified elsewhere; J20.9 Acute bronchitis, unspecified; J44.1 Chronic obstructive pulmonary disease with (acute) exacerbation; G25.81 Restless legs syndrome; J44.0 Chronic obstructive pulmonary disease with (acute) lower respiratory infection; R53.1 Weakness

== ENCOUNTER 2019-12-22 11:06 | Inpatient (IN) ==
[2019-12-22] MEDS ORDERED: ZOFRAN INJ 4 MG VIAL IVP PRN (12:33)
[2019-12-22] MEDS ORDERED: BENADRYL INJ 50 MG VIAL IVP ONE (12:33)
[2019-12-22] MEDS ORDERED: NS 500 ML IV 500 ML IV PRN (13:00)
[2019-12-22] MEDS ORDERED: SOLU-Medrol 125 MG VIAL IVP SCH (13:00)
[2019-12-22 13:03] LABS: BASOPHILS # (AUTO) 0.1 X10^3/uL (0.0-0.1); BASOPHILS % (AUTO) 1.9 % (0.2-1.0); EOSINOPHILS # (AUTO) 0.1 x10^3/uL (0.0-0.2); EOSINOPHILS % (AUTO) 1.2 % (0.9-2.9); HEMATOCRIT 36.7 % (36.0-47.0); HEMOGLOBIN 11.8 g/dL (12.0-16.0); LYMPHOCYTES # (AUTO) 2.6 X10^3/uL (1.3-2.9); MEAN CORPUSCULAR HEMOGLOBIN 27.7 pg (27.0-34.0); MEAN CORPUSCULAR HGB CONC 32.2 g/dL (33.0-35.0); MEAN CORPUSCULAR VOLUME 86.2 fL (80.0-100.0); MEAN PLATELET VOLUME 7.8 fL (7.4-11.0); MONOCYTES # (AUTO) 0.5 x10^3/uL (0.3-0.8); MONOCYTES % (AUTO) 7.2 % (0.0-13.0); NEUTROPHILS # (AUTO) 4.1 x10^3/uL (2.2-4.8); NEUTROPHILS % (AUTO) 54.7 % (42.0-75.0); PLATELET COUNT 515 X10^3/uL (150.0-450.0); RED BLOOD COUNT 4.26 X10^6/uL (3.5-5.4); RED CELL DISTRIBUTION WIDTH 15.9 % (11.6-16.5); WHITE BLOOD COUNT 7.5 X10^3/uL (3.6-10.0)
[2019-12-22] MEDS ORDERED: NS 500 ML IV 500 ML IV ONE (13:04)
[2019-12-22] MEDS: SOLU-Medrol 40 MG VIAL IVP SCH ×2 (13:08→21:17)
[2019-12-22] MEDS: ROBITUSSIN DM PO SCH ×3 (13:08→21:17)
[2019-12-22] MEDS: LEVAQUIN PREMIX IV 500 MG 500 MG/100 ML BAG IV SCH (13:09)
[2019-12-22 13:12] LABS: ABG ALLEN TEST POS; ABG BASE EXCESS 2.5 mmol/L (-2.0-2.0); ABG HCO3 26.3 mmol/L (22-26)
--- NOTE | 2019-12-22 13:22 | DR.H&P ---
H&P - History & Physical for Day of: H&P Date: 12/22/19 - Chief Complaint Chief Complaint: CCC, SOB, WHEEZING, FATIGUE N/V - History of Present Illness History of Present Illness: PT IS 54 WF DIRECT ADMIT FROM DR CANELA OFFICE WITH CO CCC, SOB, INCREASED WHEEZING. PT STATES SHE HAD ONSET OF ILLNESS LAST WEEK. PT REPORTS SHE HAD STARTED WORKING AT [employer] AND HAD BEEN AROUND MANY PEOPLE, NO KNOWN COVID EXPOSURE. PT HAD COPD AND REPORTS THICK GREEN MUCOUS AND SOB. PT CO FATIGUE AND NOT APPETITE. PT ADMITTED FOR TREATMENT OF ACUTE ILLNESS, R/O COVID 19. - Past Medical History Past Medical History: Anxiety, Arthritis, COPD, Depression, GERD, Hypertension, Seizures - Past Surgical History Surgical History: , Hysterectomy - Family History Family Medical History: Diabetes Mellitus, [place], Hypertension - Social History Does patient currently use any type of tobacco product: Yes Have you used tobacco products in the last 12 months: Yes Type of Tobacco Use: Cigarettes Does any household member use tobacco: Yes Alcohol Use: None Drug Use: None Prescription drug monitoring program results: PDMP reviewed and no concerns nova ntified - Medications Home Medications: No Known Drug Allergies Allergy (Verified 02/18/19 17:54) - Review of Systems Constitutional: Chills, Sweats, Weakness, Malaise Eyes: No Symptoms Reported Respiratory: Cough, Shortness of Breath, SOB with Excertion, Wheezing Cardiovascular: Chest Pain Gastrointestinal: No Symptoms Reported, Nausea, Vomiting Genitourinary: No Symptoms Reported Musculoskeletal: Back Pain Skin: No Symptoms Reported Neurological: No Symptoms Reported - Physical Exam Vital Signs: Blood Pressure [Right Arm] 130/78 Oriented: Normal Eyes: Normal Ear: Normal Nose: Normal Throat: Normal Respiratory: Diminished Throughout, Wheezes Throughout Cardiovascular: Tachycardia. negative: Edema : Normal Auscultation: Bowel Sounds: Normal Palpation: Normal Tenderness: Normal Skin: Decreased Turgur Musculoskeletal: Back:Lumbar Psychiatric: Anxiety Affect: Anxious Speech Pattern: Clear, Appropriate - Assessment/Plan (1) SOB (shortness of breath) Status: Acute Plan: ADMIT, R/O COVID 19 ON ADMISSION. ABG, CXR BC AND SPUTUM CULTURE ON ADMISSION. CBC CMP MAG. RESP CONSULT, DUO NEBS, SUPPLEMENTAL O2. IV LEVAQUIN, GENTLE IV HYDRATION (2) COPD with acute bronchitis Status: Acute (3) GERD (gastroesophageal reflux disease) Status: Chronic (4) Hypertension Status: Chronic (5) Lumbar degenerative disc disease Status: Chronic - Allergies Allergies/Adverse Reactions: Allergies Allergy/AdvReac Type Severity Reaction Status Date / Time No Known Drug Allergies Allergy Verified 02/18/19 17:54
[2019-12-22 13:28] VITALS: BMI 32.3
[2019-12-22 13:50] LABS: BLOOD UREA NITROGEN 7 mg/dL (7-18); CARBON DIOXIDE 28.3 mmol/L (21-32); CHLORIDE 104 mmol/L (98-107); CREATININE 0.72 mg/dL (0.55-1.02); SODIUM 140 mmol/L (136-145); TROPONIN I < 0.02 ng/mL (0-1.5); eGFR NON BLACK RACES > 60 (>60)
[2019-12-22 14:02] LABS: ALANINE AMINOTRANSFERASE 9 Units/L (12-78); ALKALINE PHOSPHATASE 273 Units/L (46-116); ASPARTATE AMINO TRANSFERASE 15 Units/L (15-37); CKMB % 1.4 % (<4); COR CA(FOR HYPOALB) 9.8 mg/dL (8.5-10.1); CREATINE KINASE 74 Units/L (26-192); CREATINE KINASE MB < 1.0 ng/mL (0-4.0); MAGNESIUM 2.1 mg/dL (1.7-2.9); TOTAL PROTEIN 8.1 g/dL (6.4-8.2)
--- NOTE | 2019-12-22 14:22 | RAD ---
HISTORYSOB, COPDSTUDYCHEST, 1 [id number] view of the chestFINDINGSCardiac and mediastinal contours are within normal limits. Worsening of mild bilateral diffuse interstitial opacities. No large pleural effusion. No pneumothorax.IMPRESSIONBilateral interstitial opacities can be seen with pulmonary edema and atypical pneumonia in the acute setting. The opacities appear progressed from prior so there may be acute on chronic disease.Electronically signed by: Moises Marsh (Dec 22, 2019 14:21:16)
[2019-12-22] MEDS ORDERED: NORCO 5/325 MG TAB ONE (16:55)
[2019-12-22] MEDS: NORCO 5/325 MG TAB PO PRN (17:05)
[2019-12-22] MEDS: DUONEB 0.5 MG/3 MG (3 mL) NEB SCH ×2 (17:15→21:25)
[2019-12-22] MEDS ORDERED: PULMICORT NEB TX 0.5 MG NEB ONE (19:30)
[2019-12-22] MEDS: SEROquel TAB 25 mg PO SCH (21:17)
[2019-12-22] MEDS: PROTONIX INJ 40 MG VIAL IVP SCH (21:17)
[2019-12-22] MEDS: TUSSIONEX PENNKINETIC SUSP PO PRN (21:18)
[2019-12-22] MEDS: PULMICORT NEB TX 0.5 MG NEB SCH (21:25)
[2019-12-22] MEDS ORDERED: REQUIP PO ONE (22:02)
[2019-12-22] MEDS ORDERED: ZANAFLEX ONE (22:03)
[2019-12-22] MEDS: ZANAFLEX PO PRN (22:05)
[2019-12-23] MEDS: NORCO 5/325 MG TAB PO PRN ×4 (01:02→23:45)
[2019-12-23] MEDS: SOLU-Medrol 40 MG VIAL IVP SCH ×3 (05:08→23:15)
[2019-12-23 05:49] LABS: ALANINE AMINOTRANSFERASE 13 Units/L (12-78); ALKALINE PHOSPHATASE 264 Units/L (46-116); ASPARTATE AMINO TRANSFERASE 14 Units/L (15-37); BLOOD UREA NITROGEN 9 mg/dL (7-18); CARBON DIOXIDE 24.3 mmol/L (21-32); CHLORIDE 104 mmol/L (98-107); COR CA(FOR HYPOALB) 9.8 mg/dL (8.5-10.1); COR NA(FOR HYPERGLY) 142 mmol/L (136-145); CREATININE 0.81 mg/dL (0.55-1.02); SODIUM 141 mmol/L (136-145); TOTAL PROTEIN 8.5 g/dL (6.4-8.2); eGFR NON BLACK RACES > 60 (>60)
[2019-12-23 05:58] LABS: ABG BASE EXCESS 2.3 mmol/L (-2.0-2.0); ABG HCO3 27.3 mmol/L (22-26)
[2019-12-23 05:59] LABS: ABG ALLEN TEST POS
[2019-12-23 06:02] LABS: BASOPHILS % (AUTO) 0.4 % (0.2-1.0); HEMATOCRIT 35.7 % (36.0-47.0); HEMOGLOBIN 11.6 g/dL (12.0-16.0); LYMPHOCYTES # (AUTO) 1.2 X10^3/uL (1.3-2.9); LYMPHOCYTES % (AUTO) 15.9 % (21.0-51.0); MEAN CORPUSCULAR HEMOGLOBIN 28.4 pg (27.0-34.0); MEAN CORPUSCULAR HGB CONC 32.6 g/dL (33.0-35.0); MEAN PLATELET VOLUME 8.4 fL (7.4-11.0); MONOCYTES # (AUTO) 0.1 x10^3/uL (0.3-0.8); MONOCYTES % (AUTO) 1.1 % (0.0-13.0); NEUTROPHILS # (AUTO) 6.4 x10^3/uL (2.2-4.8); NEUTROPHILS % (AUTO) 82.6 % (42.0-75.0); PLATELET COUNT 483 X10^3/uL (150.0-450.0); RED CELL DISTRIBUTION WIDTH 15.6 % (11.6-16.5); WHITE BLOOD COUNT 7.7 X10^3/uL (3.6-10.0)
[2019-12-23] MEDS ORDERED: ZANAFLEX PO PRN (08:03)
[2019-12-23] MEDS ORDERED: MUCOMYST 20% 200 MG/ML NEB SCH (08:15)
[2019-12-23] MEDS: PROTONIX INJ 40 MG VIAL IVP SCH ×2 (08:25→23:15)
[2019-12-23] MEDS: LEVAQUIN PREMIX IV 500 MG 500 MG/100 ML BAG IV SCH (08:31)
[2019-12-23] MEDS: ROBITUSSIN DM PO SCH ×4 (08:31→21:00)
[2019-12-23] MEDS: DUONEB 0.5 MG/3 MG (3 mL) NEB SCH ×4 (09:10→21:16)
[2019-12-23] MEDS: PULMICORT NEB TX 0.5 MG NEB SCH ×2 (09:10→21:16)
[2019-12-23] MEDS: MUCOMYST 20% 200 MG/ML NEB SCH ×4 (09:10→21:16)
[2019-12-23] MEDS: NORVASC TAB 10 MG PO SCH (09:52)
[2019-12-23] MEDS: CYMBALTA PO SCH ×2 (09:52→21:00)
[2019-12-23] MEDS: CARAFATE PO SCH ×3 (09:52→16:42)
[2019-12-23] MEDS: MAGIC MOUTHWASH PO SCH ×4 (09:52→21:00)
[2019-12-23] MEDS: FOLIC ACID TAB 1 MG PO SCH (09:52)
[2019-12-23] MEDS: PAXIL PO SCH (09:53)
[2019-12-23] MEDS: SINEMET (PLAIN) 25/100 MG PO SCH ×2 (09:53→21:00)
[2019-12-23] MEDS: REQUIP PO SCH ×2 (09:53→21:00)
[2019-12-23] MEDS: REGLAN TAB 10 MG PO SCH ×4 (09:53→21:00)
[2019-12-23] MEDS: ZOSYN VIAL 3.375 GRAMS 3.375 G in NS 100 ML IV + SPIKE MINIBAG* 100 ML IV SCH ×3 (09:54→23:15)
[2019-12-23] MEDS ORDERED: POTASSIUM CHLORIDE LIQ 20 MEQ UDC PO PRN (16:23)
[2019-12-23] MEDS ORDERED: K-RIDER 10 MEQ/NS 100 ML 10 MEQ/100 ML BAG IV PRN (16:23)
[2019-12-23] MEDS ORDERED: KLOR-CON PO PRN (16:23)
[2019-12-23] MEDS ORDERED: POTASSIUM CHL 40 MEQ/NS 0.45% 500 ML IV PRN (16:23)
[2019-12-23] MEDS ORDERED: MICRO K EXTEN CAP 10 MEQ PO PRN (16:23)
[2019-12-23] MEDS ORDERED: POTASSIUM CHL 60 MEQ/NS 0.45% 500 ML IV PRN (16:23)
[2019-12-23] MEDS ORDERED: K-DUR TAB 20 MEQ PO ONE (16:35)
[2019-12-23] MEDS: K-DUR TAB 20 MEQ PO PRN (16:42)
[2019-12-23] MEDS: ZANAFLEX PO PRN (21:00)
[2019-12-23] MEDS ORDERED: REQUIP PO SCH (21:00)
[2019-12-23] MEDS: SEROquel TAB 25 mg PO SCH (21:00)
[2019-12-24] MEDS: SOLU-Medrol 40 MG VIAL IVP SCH ×3 (05:13→21:06)
[2019-12-24] MEDS: ZOSYN VIAL 3.375 GRAMS 3.375 G in NS 100 ML IV + SPIKE MINIBAG* 100 ML IV SCH ×3 (05:14→21:06)
[2019-12-24] MEDS: CARAFATE PO SCH ×3 (05:33→17:10)
[2019-12-24] MEDS: REGLAN TAB 10 MG PO SCH ×4 (05:33→21:06)
[2019-12-24 05:38] LABS: BASOPHILS # (AUTO) 0.1 X10^3/uL (0.0-0.1); BASOPHILS % (AUTO) 0.5 % (0.2-1.0); HEMATOCRIT 31.6 % (36.0-47.0); LYMPHOCYTES # (AUTO) 1.3 X10^3/uL (1.3-2.9); LYMPHOCYTES % (AUTO) 6.6 % (21.0-51.0); MEAN CORPUSCULAR HEMOGLOBIN 27.9 pg (27.0-34.0); MEAN CORPUSCULAR HGB CONC 31.8 g/dL (33.0-35.0); MEAN CORPUSCULAR VOLUME 87.8 fL (80.0-100.0); MEAN PLATELET VOLUME 8.7 fL (7.4-11.0); MONOCYTES # (AUTO) 0.6 x10^3/uL (0.3-0.8); NEUTROPHILS # (AUTO) 17.7 x10^3/uL (2.2-4.8); NEUTROPHILS % (AUTO) 89.9 % (42.0-75.0); PLATELET COUNT 438 X10^3/uL (150.0-450.0); RED CELL DISTRIBUTION WIDTH 15.6 % (11.6-16.5)
[2019-12-24 05:45] LABS: ALANINE AMINOTRANSFERASE 9 Units/L (12-78); ALBUMIN 2.6 g/dL (3.4-5.0); ALKALINE PHOSPHATASE 213 Units/L (46-116); ASPARTATE AMINO TRANSFERASE 13 Units/L (15-37); BLOOD UREA NITROGEN 9 mg/dL (7-18); CALCIUM 8.6 mg/dL (8.5-10.1); CARBON DIOXIDE 27.7 mmol/L (21-32); CHLORIDE 106 mmol/L (98-107); COR CA(FOR HYPOALB) 9.7 mg/dL (8.5-10.1); COR NA(FOR HYPERGLY) 143 mmol/L (136-145); CREATININE 0.71 mg/dL (0.55-1.02); SODIUM 142 mmol/L (136-145); TOTAL PROTEIN 7.2 g/dL (6.4-8.2); eGFR NON BLACK RACES > 60 (>60)
[2019-12-24 05:50] LABS: WHITE BLOOD COUNT 19.7 X10^3/uL (3.6-10.0)
[2019-12-24 06:02] LABS: ABG ALLEN TEST POS
[2019-12-24] MEDS: K-DUR TAB 20 MEQ PO PRN ×2 (06:09→09:25)
[2019-12-24] MEDS: DUONEB 0.5 MG/3 MG (3 mL) NEB SCH ×4 (09:00→21:10)
[2019-12-24] MEDS: MUCOMYST 20% 200 MG/ML NEB SCH ×4 (09:00→21:10)
[2019-12-24] MEDS: PULMICORT NEB TX 0.5 MG NEB SCH ×2 (09:00→21:10)
[2019-12-24] MEDS: CYMBALTA PO SCH ×2 (09:16→21:05)
[2019-12-24] MEDS: FOLIC ACID TAB 1 MG PO SCH (09:16)
[2019-12-24] MEDS: MAGIC MOUTHWASH PO SCH ×4 (09:16→21:05)
[2019-12-24] MEDS: PAXIL PO SCH (09:17)
[2019-12-24] MEDS: NORVASC TAB 10 MG PO SCH (09:17)
[2019-12-24] MEDS: SINEMET (PLAIN) 25/100 MG PO SCH ×2 (09:18→21:06)
[2019-12-24] MEDS: PROTONIX INJ 40 MG VIAL IVP SCH ×2 (09:18→21:05)
[2019-12-24] MEDS: ROBITUSSIN DM PO SCH ×4 (09:19→21:06)
[2019-12-24] MEDS: LEVAQUIN PREMIX IV 500 MG 500 MG/100 ML BAG IV SCH (09:19)
[2019-12-24] MEDS: NORCO 5/325 MG TAB PO PRN ×2 (09:24→21:06)
--- NOTE | 2019-12-24 11:05 | RAD ---
HISTORYShortness of breathSTUDYChest AP [id number]/2020FINDINGSThe heart is within normal limits in size. The mary are normal. Diffuse interstitial lung infiltrates are unchanged when compared to the prior examination. No alveolar infiltrates or pleural effusions are identified. Bony thorax is unremarkable.IMPRESSIONNo change diffuse bilateral interstitial lung infiltratesElectronically signed by: MONICA TIWARI (Dec 24, 2019 11:03:40)
[2019-12-24] MEDS ORDERED: SOLU-Medrol 40 MG VIAL ONE (12:20)
[2019-12-24] MEDS: ZANAFLEX PO PRN ×2 (13:26→23:16)
[2019-12-24] MEDS: REQUIP PO SCH (21:06)
[2019-12-24] MEDS: SEROquel TAB 25 mg PO SCH (21:06)
[2019-12-24] MEDS: TUSSIONEX PENNKINETIC SUSP PO PRN (21:08)
[2019-12-25 05:34] LABS: BASOPHILS % (AUTO) 0.3 % (0.2-1.0); HEMATOCRIT 33.1 % (36.0-47.0); HEMOGLOBIN 10.5 g/dL (12.0-16.0); LYMPHOCYTES # (AUTO) 1.7 X10^3/uL (1.3-2.9); LYMPHOCYTES % (AUTO) 11.8 % (21.0-51.0); MEAN CORPUSCULAR HGB CONC 31.8 g/dL (33.0-35.0); MEAN CORPUSCULAR VOLUME 87.9 fL (80.0-100.0); MEAN PLATELET VOLUME 8.5 fL (7.4-11.0); MONOCYTES # (AUTO) 0.7 x10^3/uL (0.3-0.8); MONOCYTES % (AUTO) 4.6 % (0.0-13.0); NEUTROPHILS # (AUTO) 12.1 x10^3/uL (2.2-4.8); NEUTROPHILS % (AUTO) 83.3 % (42.0-75.0); PLATELET COUNT 435 X10^3/uL (150.0-450.0); RED BLOOD COUNT 3.77 X10^6/uL (3.5-5.4); RED CELL DISTRIBUTION WIDTH 15.7 % (11.6-16.5); WHITE BLOOD COUNT 14.5 X10^3/uL (3.6-10.0)
[2019-12-25 05:40] LABS: ALANINE AMINOTRANSFERASE 14 Units/L (12-78); ALBUMIN 2.8 g/dL (3.4-5.0); ALKALINE PHOSPHATASE 197 Units/L (46-116); ASPARTATE AMINO TRANSFERASE 19 Units/L (15-37); BLOOD UREA NITROGEN 11 mg/dL (7-18); CALCIUM 8.5 mg/dL (8.5-10.1); CARBON DIOXIDE 29.5 mmol/L (21-32); CHLORIDE 103 mmol/L (98-107); COR CA(FOR HYPOALB) 9.5 mg/dL (8.5-10.1); COR NA(FOR HYPERGLY) 142 mmol/L (136-145); CREATININE 0.69 mg/dL (0.55-1.02); SODIUM 142 mmol/L (136-145); TOTAL PROTEIN 7.1 g/dL (6.4-8.2); eGFR NON BLACK RACES > 60 (>60)
[2019-12-25] MEDS: SOLU-Medrol 40 MG VIAL IVP SCH ×3 (06:28→21:00)
[2019-12-25] MEDS: ZOSYN VIAL 3.375 GRAMS 3.375 G in NS 100 ML IV + SPIKE MINIBAG* 100 ML IV SCH ×3 (06:28→21:00)
[2019-12-25] MEDS: REGLAN TAB 10 MG PO SCH ×4 (06:29→21:00)
[2019-12-25] MEDS: CARAFATE PO SCH ×3 (06:29→16:50)
[2019-12-25] MEDS: LEVAQUIN PREMIX IV 500 MG 500 MG/100 ML BAG IV SCH (08:29)
[2019-12-25] MEDS: SINEMET (PLAIN) 25/100 MG PO SCH ×2 (08:30→21:00)
[2019-12-25] MEDS: ROBITUSSIN DM PO SCH ×4 (08:30→21:00)
[2019-12-25] MEDS: FOLIC ACID TAB 1 MG PO SCH (08:30)
[2019-12-25] MEDS: PROTONIX INJ 40 MG VIAL IVP SCH ×2 (08:30→21:00)
[2019-12-25] MEDS: NORVASC TAB 10 MG PO SCH (08:30)
[2019-12-25] MEDS: CYMBALTA PO SCH ×2 (08:30→21:00)
[2019-12-25] MEDS: PAXIL PO SCH (08:30)
[2019-12-25] MEDS: MAGIC MOUTHWASH PO SCH ×4 (08:31→21:00)
[2019-12-25] MEDS: DUONEB 0.5 MG/3 MG (3 mL) NEB SCH ×4 (09:39→21:40)
[2019-12-25] MEDS: PULMICORT NEB TX 0.5 MG NEB SCH ×2 (09:39→21:40)
[2019-12-25] MEDS: MUCOMYST 20% 200 MG/ML NEB SCH ×4 (09:39→22:14)
[2019-12-25] MEDS: TUSSIONEX PENNKINETIC SUSP PO PRN ×2 (11:10→21:00)
[2019-12-25] MEDS: K-DUR TAB 20 MEQ PO PRN (11:55)
[2019-12-25] MEDS: DIFLUCAN 100 MG IV (MIX by PHARMACY)* 100 MG/50 ML BAG IV SCH (12:31)
[2019-12-25] MEDS: NORCO 5/325 MG TAB PO PRN ×2 (15:40→21:00)
[2019-12-25] MEDS: REQUIP PO SCH (21:00)
[2019-12-25] MEDS: ZANAFLEX PO PRN (21:00)
[2019-12-25] MEDS: SEROquel TAB 25 mg PO SCH (21:00)
--- NOTE | 2019-12-26 04:03 | RAD ---
HISTORYPNEUMONIASTUDYCHEST, 1 [id number]/2020FINDINGSThe trachea is midline. The cardiac silhouette is mildly prominent similar to prior exam.. Interstitial opacities/infiltrates similar to prior exam. No new consolidation. No pleural effusion or pneumothorax.. The bony thorax is stable.IMPRESSIONNo significant interval change.Electronically signed by: Elizabeth Vieyra (Dec 26, 2019 04:02:01)
[2019-12-26 06:16] LABS: BASOPHILS % (AUTO) 0.1 % (0.2-1.0); HEMATOCRIT 34.6 % (36.0-47.0); HEMOGLOBIN 11.3 g/dL (12.0-16.0); LYMPHOCYTES # (AUTO) 1.8 X10^3/uL (1.3-2.9); LYMPHOCYTES % (AUTO) 13.7 % (21.0-51.0); MEAN CORPUSCULAR HEMOGLOBIN 28.3 pg (27.0-34.0); MEAN CORPUSCULAR HGB CONC 32.6 g/dL (33.0-35.0); MEAN PLATELET VOLUME 8.4 fL (7.4-11.0); MONOCYTES # (AUTO) 0.9 x10^3/uL (0.3-0.8); MONOCYTES % (AUTO) 7.2 % (0.0-13.0); NEUTROPHILS # (AUTO) 10.3 x10^3/uL (2.2-4.8); PLATELET COUNT 471 X10^3/uL (150.0-450.0); RED BLOOD COUNT 3.98 X10^6/uL (3.5-5.4); RED CELL DISTRIBUTION WIDTH 15.8 % (11.6-16.5)
[2019-12-26] MEDS: SOLU-Medrol 40 MG VIAL IVP SCH (06:31)
[2019-12-26] MEDS: CARAFATE PO SCH ×2 (06:32→11:30)
[2019-12-26] MEDS: REGLAN TAB 10 MG PO SCH ×2 (06:32→11:31)
[2019-12-26] MEDS: ZOSYN VIAL 3.375 GRAMS 3.375 G in NS 100 ML IV + SPIKE MINIBAG* 100 ML IV SCH (06:32)
[2019-12-26 06:36] LABS: ALANINE AMINOTRANSFERASE 20 Units/L (12-78); ALKALINE PHOSPHATASE 205 Units/L (46-116); ASPARTATE AMINO TRANSFERASE 20 Units/L (15-37); BLOOD UREA NITROGEN 13 mg/dL (7-18); CALCIUM 8.6 mg/dL (8.5-10.1); CHLORIDE 98 mmol/L (98-107); COR CA(FOR HYPOALB) 9.4 mg/dL (8.5-10.1); COR NA(FOR HYPERGLY) 135 mmol/L (136-145); CREATININE 0.69 mg/dL (0.55-1.02); SODIUM 135 mmol/L (136-145); TOTAL PROTEIN 7.7 g/dL (6.4-8.2); eGFR NON BLACK RACES > 60 (>60)
[2019-12-26] MEDS: MUCOMYST 20% 200 MG/ML NEB SCH (09:00)
[2019-12-26] MEDS: DUONEB 0.5 MG/3 MG (3 mL) NEB SCH (09:00)
[2019-12-26] MEDS: PULMICORT NEB TX 0.5 MG NEB SCH (09:00)
[2019-12-26] MEDS: PROTONIX INJ 40 MG VIAL IVP SCH (09:20)
[2019-12-26] MEDS: DIFLUCAN 100 MG IV (MIX by PHARMACY)* 100 MG/50 ML BAG IV SCH (09:20)
[2019-12-26] MEDS: ROBITUSSIN DM PO SCH (09:24)
[2019-12-26] MEDS: SINEMET (PLAIN) 25/100 MG PO SCH (09:25)
[2019-12-26] MEDS: NORVASC TAB 10 MG PO SCH (09:25)
[2019-12-26] MEDS: PAXIL PO SCH (09:25)
[2019-12-26] MEDS: CYMBALTA PO SCH (09:25)
[2019-12-26] MEDS: FOLIC ACID TAB 1 MG PO SCH (09:25)
[2019-12-26] MEDS: MAGIC MOUTHWASH PO SCH (09:25)
[2019-12-26] MEDS: NORCO 5/325 MG TAB PO PRN (09:26)
[2019-12-26] MEDS: LEVAQUIN PREMIX IV 500 MG 500 MG/100 ML BAG IV SCH (10:30)
[2019-12-26 13:16] VITALS: BP 137/78
== END 2019-12-26 13:10 | disposition home or self-care (01) | DRG 178 ==
LOC: ICU
PROVIDERS: ADMIT Internal Medicine; ATTEND Internal Medicine
DX: K21.9 Gastro-esophageal reflux disease without esophagitis; Z20.828 Contact with and (suspected) exposure to other viral communicable diseases; B37.0 Candidal stomatitis; R06.02 Shortness of breath; G25.81 Restless legs syndrome; R53.83 Other fatigue; J15.0 Pneumonia due to Klebsiella pneumoniae; I10 Essential (primary) hypertension; M13.89 Other specified arthritis, multiple sites; J44.0 Chronic obstructive pulmonary disease with (acute) lower respiratory infection; J44.1 Chronic obstructive pulmonary disease with (acute) exacerbation; J20.8 Acute bronchitis due to other specified organisms; M51.36 Other intervertebral disc degeneration, lumbar region; F41.8 Other specified anxiety disorders

== ENCOUNTER 2020-01-01 02:01 | Inpatient (IN) ==
[2020-01-01] MEDS ORDERED: THIAMINE HCL INJ IM ONE (02:13)
[2020-01-01 02:16] VITALS: BMI 32.8
--- NOTE | 2020-01-01 02:19 | DR.AMS ---
HPI Time Seen Time Seen by Provider: 01/01/20 02:11 HPI Comment HPI Comment: PATIENT IS 54YR OLD FEMALE IN ER RESTLESS AND AGGITATED. EMS CALLED TO PATIENT THAT HAD ALCOHOL INTOXICATION AND HAD SUICIDAL IDEATION. SHE IS NOT ANSWERING QUESTIONS COHERENTLY AT THIS TIME. Complaint Cheif Complaint Doctors Comments: AMS AND ALCOHOL INTOXICATION. COVID-19 Coronavirus risk:travel/contact w/high risk person: No Has patient experienced Coronavirus symptoms: No Reviewed Nurses Notes Reviewed: Yes Source History Provided: Patient and EMS Mode of Arrival Mode of Arrival: EMS Timing Came On: Suddenly Symptoms: Worsening Duration Duration: Constant Duration: Hours Quality Quality: Change in Behavior (UNRESPONSIVE.) Severity Severity: Severe Context Recent: Drug Use (ALCOHOL USE.) History Of: Seizure Associated Signs and Symptoms Associated Signs and Symptoms: Change in Behavior, Confusion and Unresponsiveness PMH PMH Past Medical History: Anxiety, Arthritis, COPD, Depression, GERD, Hypertension and Seizures Past Surgical History: Yes Surgical History: and Hysterectomy Family History Family Medical History: Diabetes Mellitus and Coronary Artery Disease Social History Do you use any recreational Drugs:: No Travel Risk Coronavirus risk:travel/contact w/high risk person: No Has patient experienced Coronavirus symptoms: No ROS Review of Systems Constitutional: No Symptoms Reported, See HPI, Irritable and Other; negative Fever, Weakness and Fatigue Eyes: No Symptoms Reported and See HPI ENTM: See HPI, Pulling on Ears and Nose Congestion Respiratoy: See HPI and Short of Breath (ON EXERTION.); negative Wheezing Cardiovascular: No Symptoms Reported, See HPI and Chest Pain; negative Palpitations Gastrointestinal/Abdominal: No Symptoms Reported, See HPI and Abdominal Pain (ABDOMINAL DISTENSION.) Genitourinary: No Symptoms Reported and See HPI; negative Dysuria Neurological: No Symptoms Reported, See HPI, Headache, Weakness and Dizziness Musculoskeletal: No Symptoms Reported, See HPI and Muscle Pain Integumentary: No Symptoms Reported and See HPI Hematologic/Lymphatic: No Symptoms Reported and See HPI; negative Easy Bruising and Swollen Glands Endocrine: No Symptoms Reported, See HPI and Increased Urine; negative Increased Thirst Psychiatric: No Symptoms Reported, See HPI and Hallucinations All Other Systems: Reviewed and Negative PE Vitals Vital Signs: Temp Pulse Resp BP BP BP Pulse Ox 01/01/20 08:01 100 H 18 130/85 92 L 01/01/20 08:00 100 H 18 92 L 01/01/20 07:45 102 H 24 92 L 01/01/20 07:30 98 H 23 130/83 95 01/01/20 07:15 97 H 19 95 01/01/20 07:00 103 H 26 H 122/77 93 L 01/01/20 06:45 104 H 23 94 L 01/01/20 06:30 100 H 15 149/87 93 L 01/01/20 06:15 94 H 19 93 L 01/01/20 06:00 103 H 33 H 115/81 94 L 01/01/20 05:45 97 H 20 95 01/01/20 05:40 97.8 F 01/01/20 05:31 95 H 19 127/72 92 L 01/01/20 05:30 95 H 20 91 L 01/01/20 05:15 98 H 29 H 92 L 01/01/20 05:00 93 H 20 93/57 91 L 01/01/20 04:45 88 23 94 L 01/01/20 04:30 86 28 H 104/56 96 01/01/20 04:26 85 26 H 103/59 95 01/01/20 04:25 85 27 H 97 01/01/20 04:23 85 18 01/01/20 04:00 81 20 94 L 01/01/20 03:55 84 26 H 108/75 97 01/01/20 03:45 82 22 98 01/01/20 03:30 79 27 H 79/50 96 01/01/20 03:15 77 18 94 L 01/01/20 03:00 78 26 H 91/53 98 01/01/20 02:46 77 21 106/50 96 01/01/20 02:45 77 39 H 98 01/01/20 02:30 75 27 H 96 01/01/20 02:15 78 69 H 98 01/01/20 02:13 79 66 H 100 01/01/20 02:03 96.9 F L 77 20 98/54 100 12/26/19 13:00 137/78 06/01/19 08:00 130/78 07/30/18 12:00 131/64 General Limitations: Other (AGGITATED.) General Appearance: In No Apparent Distress and In Distress Head Head Exam: Normal Inspection and Atraumatic Head Exam Physical: Other (NONE SEE.) Eyes Eye exam: Conjunctival Injection (CONJUCTIN) Pupils: Regular, Round: Bilateral and Reactive: Bilateral ENT ENT Exam: Normal Exam, Normal Oropharynx, Normal External Ear Exam and TM's Normal Bilaterally External Ear Exam: Normal External Inspection; negative Mastoid Tenderness Nose Exam: Normal Nose Exam; negative Nasal Deviation Respiratory Respiratory Exam: Normal Lung Sounds Bilat; negative Accessory Muscle Use and Chest Wall Tenderness Respiratory Exam: Bilateral: Wheezing and Bilateral: Rhonchi and Lower: Wheezing Cardiovascular Cardiovascular Exam: Regular Rate, Normal Rhythm and Normal Heart Sounds; negative Systolic Murmur and Diastolic Murmur Abdominal Exam Abdominal Exam: Normal Bowel Sounds, Soft and Distention Extremities Extremities Exam: Tenderness and Normal Capillary Refill Neurological Neurological Exam: Alert Patient Oriented To: negative Person and Place Motor Strength - LUE: 5/5 Motor Strength - RUE: 5/5 Motor Strength - LLE: 5/5 Motor Strength - RLE: 5/5 Upper Motor Neuron Exam: Babinski Sign: Normal Psychological Psychiatric Exam: Agitated Skin Skin Exam: Dry MDM Additional Information Obtained Additional Information Obtained From: Old Records Differential Diagnosis Metabolic: Dehydration, Hypercalcemia, Hypernatremia, HHNC, Hypoglycemia, Hyp onatremia and Hypoxemia Structural: Closed Head Injury, CVA and Mass Lesion Infectious: Sepsis and UTI COURSE Treatment Treatment: SEE ORDERS. HALDOL 5MG IM. Consultation Consultation Comments: DISCUSED PATIENT WITH DR. BARBOSA. HE WILL ADMIT PATIENT. Education/Counseling Education/Counseling: Patient Educated On: Treatment and Diagnosis ROR Labs Reviewed Laboratory Results Reviewed?: Yes Result Diagrams: 01/02/20 06:05 01/02/20 06:05 Laboratory: 01/01/20 05:25 Blood Blood Culture - Preliminary 01/01/20 05:20 Blood Blood Culture - Preliminary WBC 14.5 X10^3/uL (3.6-10.0) H 01/01/20 03:05 RBC 3.61 X10^6/uL (3.5-5.4) 01/01/20 03:05 Hgb 10.0 g/dL (12.0-16.0) L 01/01/20 03:05 Hct 31.8 % (36.0-47.0) L 01/01/20 03:05 MCV 88.0 fL (80.0-100.0) 01/01/20 03:05 MCH 27.8 pg (27.0-34.0) 01/01/20 03:05 MCHC 31.6 g/dL (33.0-35.0) L 01/01/20 03:05 RDW 16.0 % (11.6-16.5) 01/01/20 03:05 Plt Count 350 X10^3/uL (150.0-450.0) 01/01/20 03:05 MPV 8.3 fL (7.4-11.0) 01/01/20 03:05 Neut % (Auto) 74.4 % (42.0-75.0) 01/01/20 03:05 Lymph % (Auto) 15.0 % (21.0-51.0) L 01/01/20 03:05 [place] % (Auto) 9.9 % (0.0-13.0) 01/01/20 03:05 Eos % (Auto) 0.3 % (0.9-2.9) L 01/01/20 03:05 Baso % (Auto) 0.4 % (0.2-1.0) 01/01/20 03:05 Neut # (Auto) 10.8 x10^3/uL (2.2-4.8) H 01/01/20 03:05 Lymph # (Auto) 2.2 X10^3/uL (1.3-2.9) 01/01/20 03:05 [place] # (Auto) 1.4 x10^3/uL (0.3-0.8) H 01/01/20 03:05 Eos # (Auto) 0.0 x10^3/uL (0.0-0.2) 01/01/20 03:05 Baso # (Auto) 0.1 X10^3/uL (0.0-0.1) 01/01/20 03:05 Absolute Nucleated RBC 0.0 /100WBC 01/01/20 03:05 Sodium 137 mmol/L (136-145) 01/01/20 02:21 Corrected Sodium TNP 01/01/20 02:21 Potassium 3.1 mmol/L (3.5-5.1) L 01/01/20 02:21 Chloride 102 mmol/L (98-107) 01/01/20 02:21 Carbon Dioxide 20.2 mmol/L (21-32) L 01/01/20 02:21 BUN 7 mg/dL (7-18) 01/01/20 02:21 Creatinine 0.76 mg/dL (0.55-1.02) 01/01/20 02:21 Est GFR (MDRD) Af Amer > 60 (>60) 01/01/20 02:21 Est GFR (MDRD) Non-Af > 60 (>60) 01/01/20 02:21 Glucose 88 mg/dL (65-99) 01/01/20 02:21 Calcium 8.1 mg/dL (8.5-10.1) L 01/01/20 02:21 Corrected Calcium 9.3 mg/dL (8.5-10.1) 01/01/20 02:21 Magnesium 1.9 mg/dL (1.7-2.9) 01/01/20 02:21 Total Bilirubin 0.10 mg/dL (0.2-1.0) L 01/01/20 02:21 AST 11 Units/L (15-37) L 01/01/20 02:21 ALT 9 Units/L (12-78) L 01/01/20 02:21 Alkaline Phosphatase 196 Units/L (46-116) H 01/01/20 02:21 Creatine Kinase 30 Units/L (26-192) 01/01/20 02:21 CK-MB (CK-2) < 1.0 ng/mL (0-4.0) 01/01/20 02:21 CK/CKMB % Calc 3.3 % (<4) 01/01/20 02:21 Troponin I < 0.02 ng/mL (0-1.5) 01/01/20 02:21 Total Protein 7.1 g/dL (6.4-8.2) 01/01/20 02:21 Albumin 2.5 g/dL (3.4-5.0) L 01/01/20 02:21 Globulin 4.6 g/dL (2.5-4.5) H 01/01/20 02:21 Albumin/Globulin Ratio 0.5 Ratio (1.1-2.1) L 01/01/20 02:21 Specimen Type Catherized urine 01/01/20 02:06 Urine Color Straw (YELLOW) 01/01/20 02:06 Urine Appearance Clear (CLEAR) 01/01/20 02:06 Urine pH 6.5 (5.0 - 8.0) 01/01/20 02:06 Ur Specific [place] 1.010 (1.000-1.030) 01/01/20 02:06 Urine Protein Negative (NEGATIVE) 01/01/20 02:06 Urine Glucose (UA) Negative (NEGATIVE) 01/01/20 02:06 Urine Ketones Negative (NEGATIVE) 01/01/20 02:06 Urine Occult Blood Negative (NEGATIVE) 01/01/20 02:06 Urine Nitrite Negative (NEGATIVE) 01/01/20 02:06 Urine Bilirubin Negative (NEGATIVE) 01/01/20 02:06 Urine Urobilinogen Normal (NORMAL) 01/01/20 02:06 Ur Leukocyte Esterase Negative (NEGATIVE) 01/01/20 02:06 Salicylates 6.4 mg/dL (2.8-20) 01/01/20 02:21 Urine Opiates Screen Negative (NEG=<300) 01/01/20 02:06 Urine Methadone Screen Negative (NEG=<300) 01/01/20 02:06 Acetaminophen 1.6 ug/mL (10-30) L 01/01/20 02:21 Ur Barbiturates Screen Positive (NEG=<200) A 01/01/20 02:06 Ur Phencyclidine Scrn Negative (NEG=<25) 01/01/20 02:06 Ur Amphetamines Screen Negative (NEG=<1000) 01/01/20 02:06 U Benzodiazepines Scrn Negative (NEG=<200) 01/01/20 02:06 Urine Cocaine Screen Negative (NEG=<300) 01/01/20 02:06 U Marijuana (THC) Screen Negative (NEG=<50) 01/01/20 02:06 Ethyl Alcohol mg/dL 13 mg/dL (0-19.9) 01/01/20 07:29 SARS-CoV-2 (PCR) Negative (NEGATIVE) 01/01/20 08:03 Opioid Opioid Risk Tool Age (Joesph box if 16-45): No History of Preadolescent Sexual Abuse: No Total: 0 Total Score Risk Category: Low Risk Copyright: Heller predicting aberrant behaviors Diagnosis Discharge Problem: Bronchitis, Hypokalemia, Suicide ideation Altered mental state Qualifiers: Altered mental status type: transient alteration of awareness Qualified Code(s): R40.4 - Transient alteration of awareness Alcohol intoxication Qualifiers: Complication of substance-induced condition: with unspecified complication Qualified Code(s): F10.929 - Alcohol use, unspecified with intoxication, unspecified CHF (congestive heart failure) Qualifiers: Heart failure type: combined systolic and diastolic Heart failure chronicity: acute on chronic Qualified Code(s): I50.43 - Acute on chronic combined systolic (congestive) and diastolic (congestive) heart failure Instructions Instructions: Shortness of Breath, Adult, Mgiy-kt-Fzwg Alcohol Intoxication, Omxg-jv-Ovdb Steps to Quit Smoking, Xkak-ru-Jlpk Chronic Obstructive Pulmonary Disease, Gvup-kd-Zcxp Depression Screening Suicidal Feelings: How to Help Yourself Hypertension, Rclt-nr-Dbyz Heart Failure, Orma-gt-Thjv Community-Acquired Pneumonia, Adult, Qqow-zu-Jutl Forms: Excuse From Work or School Precautions for COVID19 Patient Portal Social Distancing
[2020-01-01] MEDS ORDERED: NS 1000 ML 1,000 ML ONE (02:25)
--- NOTE | 2020-01-01 02:40 | RAD ---
HISTORYINTOXICATIONSTUDYCHEST, 1 [id number]/13/2020FINDINGSThe trachea is midline. The cardiac silhouette is mildly enlarged.. Diffuse interstitial opacities/infiltrates throughout both lungs. No pleural effusion or pneumothorax.. The bony thorax is unremarkable.IMPRESSIONDiffuse interstitial opacities/infiltrates bilaterally. No significant change from previous 12/26/2019Electronically signed by: Joel Pike (Jan 01, 2020 02:38:38)
[2020-01-01] MEDS ORDERED: NS 1000 ML 1,000 ML IV ONE (02:43)
[2020-01-01 02:52] LABS: BILIRUBIN,URINE NEGATIVE (NEGATIVE); BLOOD/HEMOGLOBIN,URINE NEGATIVE (NEGATIVE); GLUCOSE, URINE NEGATIVE (NEGATIVE); KETONES,URINE NEGATIVE (NEGATIVE); LEUKOCYTE ESTERASE ,URINE NEGATIVE (NEGATIVE); NITRITES,URINE NEGATIVE (NEGATIVE); PH,URINE 6.5 (5.0 - 8.0); PROTEIN,URINE NEGATIVE (NEGATIVE); UROBILINOGEN,URINE NORMAL (NORMAL)
[2020-01-01 02:55] LABS: APPEARANCE,URINE CLEAR (CLEAR); COLOR,URINE STRAW (YELLOW)
[2020-01-01 02:58] LABS: ALANINE AMINOTRANSFERASE 9 Units/L (12-78); ALBUMIN 2.5 g/dL (3.4-5.0); ALKALINE PHOSPHATASE 196 Units/L (46-116); ASPARTATE AMINO TRANSFERASE 11 Units/L (15-37); BLOOD ALCOHOL 167 mg/dL (0-19.9); BLOOD UREA NITROGEN 7 mg/dL (7-18); CALCIUM 8.1 mg/dL (8.5-10.1); CARBON DIOXIDE 20.2 mmol/L (21-32); CHLORIDE 102 mmol/L (98-107); COR CA(FOR HYPOALB) 9.3 mg/dL (8.5-10.1); CREATININE 0.76 mg/dL (0.55-1.02); SALICYLATE 6.4 mg/dL (2.8-20); SODIUM 137 mmol/L (136-145); TOTAL PROTEIN 7.1 g/dL (6.4-8.2); eGFR NON BLACK RACES > 60 (>60)
[2020-01-01 03:02] LABS: ACETAMINOPHEN 1.6 ug/mL (10-30)
[2020-01-01] MEDS ORDERED: HALDOL INJ IM ONE (03:10)
[2020-01-01 03:11] LABS: CKMB % 3.3 % (<4); CREATINE KINASE 30 Units/L (26-192); CREATINE KINASE MB < 1.0 ng/mL (0-4.0); MAGNESIUM 1.9 mg/dL (1.7-2.9); TROPONIN I < 0.02 ng/mL (0-1.5)
[2020-01-01] MEDS ORDERED: HALDOL INJ ONE (03:14)
[2020-01-01 03:18] LABS: BASOPHILS # (AUTO) 0.1 X10^3/uL (0.0-0.1); BASOPHILS % (AUTO) 0.4 % (0.2-1.0); EOSINOPHILS % (AUTO) 0.3 % (0.9-2.9); HEMATOCRIT 31.8 % (36.0-47.0); LYMPHOCYTES # (AUTO) 2.2 X10^3/uL (1.3-2.9); MEAN CORPUSCULAR HEMOGLOBIN 27.8 pg (27.0-34.0); MEAN CORPUSCULAR HGB CONC 31.6 g/dL (33.0-35.0); MEAN PLATELET VOLUME 8.3 fL (7.4-11.0); MONOCYTES # (AUTO) 1.4 x10^3/uL (0.3-0.8); MONOCYTES % (AUTO) 9.9 % (0.0-13.0); NEUTROPHILS # (AUTO) 10.8 x10^3/uL (2.2-4.8); NEUTROPHILS % (AUTO) 74.4 % (42.0-75.0); PLATELET COUNT 350 X10^3/uL (150.0-450.0); RED BLOOD COUNT 3.61 X10^6/uL (3.5-5.4); WHITE BLOOD COUNT 14.5 X10^3/uL (3.6-10.0)
[2020-01-01] MEDS ORDERED: ROCEPHIN VIAL 1 GRAM 1 G in NS 100 ML IV + SPIKE MINIBAG* 100 ML IV ONE (04:57)
--- NOTE | 2020-01-01 04:57 | CT ---
History: AMS PMH: COPD, HTN PSH: CSEC, HYSTExam :BRAIN W/O CONTechnique: Thin section axial ct images of the brain were obtained from the foramen magnum to the vertex without contrast. Sagittal and coronal reconstructions were also performed.Comparison: NoneFindings:The ventricles are within normal limits in size. No midline shift, mass effect or extra-axial fluid collections. No evidence of acute hemorrhage or acute macroinfarction.Partial opacification of the ethmoid air cells bilaterally. The mastoid air cells are unremarkable.calvarium is intact.Impression:Normal noncontrast CT of the brain; no acute intracranial pathologyChronic ethmoid sinusitisElectronically signed by: Joel Pike (Jan 01, 2020 04:55:17)
[2020-01-01] MEDS ORDERED: ROCEPHIN VIAL 1 GRAM ONE (05:08)
[2020-01-01] MEDS ORDERED: NS 100 ML IV + SPIKE MINIBAG* 100 ML IV ONE (05:08)
--- NOTE | 2020-01-01 05:08 | CT ---
HISTORYSOB, ELEVATED D-DIMERSTUDYCTA [id number]/28/2018TECHNIQUEMultiple axial images of the chest were obtained from the thoracic inlet to the upper abdomen after the administration of IV contrast. 3D reconstructions utilizing axi al MIPS imaging was performed and reviewed. Dose reduction techniques including Automated Exposure C ontrol (AEC) and adjustment of mA and kV were utilized.FINDINGSThe mediastinum does not demonstrate s ignificant pathological lymphadenopathy. There is no paracardial effusion observed. The thoracic ao rta is normal in its contour without evidence for aneurysmal dilatation. The central pulmonary arter ial system does not demonstrate central filling defects to suggest pulmonary emboli.Evaluation of the lung parenchyma demonstrate diffuse emphysematous and is interstitial changes are again noted.. Emmanuel ycombing noted in the lower lobes suggestive of fibrosis. Diffuse increased opacification is noted th roughout the lungs suggestive of interstitial edema. no pulmonary nodule or mass can be identified. The bony thorax is unremarkable in its appearance . The visualized portions of the upper abdomen are grossly unremarkable .IMPRESSIONThe thoracic aorta and pulmonary arteries are unremarkable.Diffuse em physematous and chronic interstitial changes noted with honeycombing in the lower lobe suggestive of fibrosis.Pulmonary vascular congestion and interstitial edema consistent with congestive failure. IsE lectronically signed by: Joel Pike (Jan 01, 2020 05:07:04)
[2020-01-01] MEDS ORDERED: K-RIDER 10 MEQ/NS 100 ML 10 MEQ/100 ML BAG IV ONE ×2 (07:16→07:28)
[2020-01-01 10:42] LABS: CKMB % 0.5 % (<4); CREATINE KINASE 214 Units/L (26-192); CREATINE KINASE MB < 1.0 ng/mL (0-4.0); TROPONIN I < 0.02 ng/mL (0-1.5)
[2020-01-01] MEDS: ROCEPHIN VIAL 1 GRAM 1 G, ROCEPHIN VIAL 500 MG 500 MG in NS 50 ML IV 50 ML IV SCH (11:58)
[2020-01-01] MEDS ORDERED: DUONEB 0.5 MG/3 MG (3 mL) NEB ONE (12:01)
[2020-01-01] MEDS ORDERED: MUCOMYST (RESPIRATORY USE ONLY) ONE (12:02)
[2020-01-01] MEDS: DUONEB 0.5 MG/3 MG (3 mL) NEB SCH ×3 (12:08→20:40)
[2020-01-01] MEDS: MUCOMYST 20% 200 MG/ML NEB SCH ×3 (12:08→20:40)
[2020-01-01] MEDS: K-DUR TAB 20 MEQ PO SCH (12:25)
[2020-01-01] MEDS: LASIX IVP SCH (13:29)
--- NOTE | 2020-01-01 17:10 | DR.H&P ---
H&P - History & Physical for Day of: H&P Date: 01/01/20 - Chief Complaint Chief Complaint: AMS, VOICED SUICIDAL IDEATIONS - History of Present Illness History of Present Illness: PT IS 54 WF ER ADMISSION WITH AMS DUE TO ETOH INTOXICATION, PT VOICED SHE HAS HAD SUICIDAL IDEATIONS, SELF HARM THOUGHTS. PT DID HAVE PNEUMONIA ONE WEEK AGO, DC HOME ON PO LEVAQUIN AND REPORTS SHE HAD BEEN TAKING PRESCRIPTION MEDICATIONS. PT HAD CTA OF LUNGS IN ER WITH CONFIRMED PNEUMONIA, COVID NEGATIVE. - Past Medical History Past Medical History: Hypertension, Depression, Anxiety, Seizures, COPD, GERD, Arthritis - Past Surgical History Surgical History: , Hysterectomy - Family History Family Medical History: IA - Social History Does patient currently use any type of tobacco product: Yes Have you used tobacco products in the last 12 months: Yes Type of Tobacco Use: Cigarettes How many years tobacco product used: 40 Does any household member use tobacco: No Alcohol Use: Occasionally, DAILY Drug Use: Prescription Drugs - Medications Home Medications: No Known Drug Allergies Allergy (Verified 02/18/19 17:54) CONTINUE taking the following medications doxepin 25 mg PO HS 01/01/20 [History] hydrocodone-acetaminophen [[place]] 1 tab PO BID PRN 01/01/20 [History] ropinirole 1 mg PO HS 01/01/20 [History] - Review of Systems Constitutional: Weakness Eyes: No Symptoms Reported ENT: No Symptoms Reported Respiratory: Cough, Shortness of Breath, SOB with Excertion, Sputum, Wheezing Cardiovascular: No Symptoms Reported Gastrointestinal: No Symptoms Reported Genitourinary: No Symptoms Reported Musculoskeletal: Back Pain Skin: No Symptoms Reported Neurological: Weakness, Confusion - Physical Exam Vital Signs: Temperature 99 F Pulse Rate [Right Brachial] 110 Pulse Rate 106 Respiratory Rate 20 Blood Pressure [Right Arm] 125/86 Blood Pressure [Left Arm] 125/75 Blood Pressure 116/67 O2 Sat by Pulse Oximetry 97 Oriented: Person Eyes: Normal Ear: Normal Nose: Normal Throat: Red, Dry Respiratory: Wheezes Throughout Cardiovascular: Normal : Normal Auscultation: Bowel Sounds: Normal Palpation: Normal Tenderness: Normal Skin: Decreased Turgur Musculoskeletal: Back:Lumbar Psychiatric: Anxiety, Depression Mood Description: Depressed Affect: Depressed Speech Pattern: Appropriate - Assessment/Plan (1) Altered mental state Qualifiers: Altered mental status type: transient alteration of awareness Qualified Code(s): R40.4 - Transient alteration of awareness Status: Acute Plan: ADMIT, PNEUMONIA PROTOCOL. IV HDYRATION, SUICIDAL PRECAUTIONS. RESP THERAPY, SUPPLEMENTAL O2. AM LABS, UDS ON ADMISSION. MENTAL HEALTH REFERRAL (2) SOB (shortness of breath) Status: Acute (3) Alcohol intoxication Qualifiers: Complication of substance-induced condition: with unspecified complication Qualified Code(s): F10.929 - Alcohol use, unspecified with intoxication, unspecified Status: Acute (4) HAMMAD (generalized anxiety disorder) Status: Acute (5) GERD (gastroesophageal reflux disease) Status: Chronic (6) Hypertension Status: Chronic (7) Lumbar degenerative disc disease Status: Chronic - Allergies Allergies/Adverse Reactions: Allergies Allergy/AdvReac Type Severity Reaction Status Date / Time No Known Drug Allergies Allergy Verified 02/18/19 17:54
[2020-01-01 17:30] LABS: CKMB % 0.5 % (<4); CREATINE KINASE 192 Units/L (26-192); CREATINE KINASE MB < 1.0 ng/mL (0-4.0); TROPONIN I < 0.02 ng/mL (0-1.5)
[2020-01-01] MEDS: PULMICORT NEB TX 0.5 MG NEB SCH (20:40)
[2020-01-01] MEDS: TYLENOL 325 MG TAB PO PRN (21:31)
[2020-01-02 06:21] LABS: BASOPHILS % (AUTO) 0.3 % (0.2-1.0); EOSINOPHILS # (AUTO) 0.1 x10^3/uL (0.0-0.2); EOSINOPHILS % (AUTO) 0.8 % (0.9-2.9); HEMATOCRIT 36.4 % (36.0-47.0); HEMOGLOBIN 11.7 g/dL (12.0-16.0); LYMPHOCYTES # (AUTO) 2.8 X10^3/uL (1.3-2.9); MEAN CORPUSCULAR HEMOGLOBIN 28.2 pg (27.0-34.0); MEAN CORPUSCULAR HGB CONC 32.3 g/dL (33.0-35.0); MEAN CORPUSCULAR VOLUME 87.4 fL (80.0-100.0); MEAN PLATELET VOLUME 8.3 fL (7.4-11.0); MONOCYTES # (AUTO) 1.3 x10^3/uL (0.3-0.8); MONOCYTES % (AUTO) 11.7 % (0.0-13.0); NEUTROPHILS # (AUTO) 6.9 x10^3/uL (2.2-4.8); NEUTROPHILS % (AUTO) 62.2 % (42.0-75.0); PLATELET COUNT 482 X10^3/uL (150.0-450.0); RED BLOOD COUNT 4.16 X10^6/uL (3.5-5.4); WHITE BLOOD COUNT 11.1 X10^3/uL (3.6-10.0)
[2020-01-02 07:31] LABS: ALANINE AMINOTRANSFERASE 14 Units/L (12-78); ALBUMIN 2.8 g/dL (3.4-5.0); ALKALINE PHOSPHATASE 218 Units/L (46-116); ASPARTATE AMINO TRANSFERASE 16 Units/L (15-37); BLOOD UREA NITROGEN 8 mg/dL (7-18); CARBON DIOXIDE 27.3 mmol/L (21-32); CHLORIDE 101 mmol/L (98-107); COR NA(FOR HYPERGLY) 138 mmol/L (136-145); CREATININE 0.79 mg/dL (0.55-1.02); SODIUM 138 mmol/L (136-145); eGFR NON BLACK RACES > 60 (>60)
[2020-01-02] MEDS: DUONEB 0.5 MG/3 MG (3 mL) NEB SCH ×2 (08:55→12:00)
[2020-01-02] MEDS: PULMICORT NEB TX 0.5 MG NEB SCH (08:55)
[2020-01-02] MEDS: MUCOMYST 20% 200 MG/ML NEB SCH ×2 (08:55→12:00)
[2020-01-02] MEDS: ROCEPHIN VIAL 1 GRAM 1 G, ROCEPHIN VIAL 500 MG 500 MG in NS 50 ML IV 50 ML IV SCH (09:49)
[2020-01-02] MEDS: LASIX IVP SCH (09:49)
[2020-01-02] MEDS: K-DUR TAB 20 MEQ PO SCH (09:49)
[2020-01-02] MEDS: TYLENOL 325 MG TAB PO PRN (11:37)
[2020-01-02 12:20] VITALS: BP 126/80
== END 2020-01-02 14:35 | disposition home or self-care (01) | DRG 293 ==
LOC: ER 02:02 → MED/SURG 08:08
PROVIDERS: ADMIT Internal Medicine; ATTEND Internal Medicine
DX: M51.36 Other intervertebral disc degeneration, lumbar region; F41.8 Other specified anxiety disorders; I11.0 Hypertensive heart disease with heart failure; T14.91XA Suicide attempt, initial encounter; F10.129 Alcohol abuse with intoxication, unspecified; I50.43 Acute on chronic combined systolic (congestive) and diastolic (congestive) heart failure; Z20.828 Contact with and (suspected) exposure to other viral communicable diseases; R26.89 Other abnormalities of gait and mobility; R40.4 Transient alteration of awareness; R94.31 Abnormal electrocardiogram [ECG] [EKG]; R06.02 Shortness of breath; J20.8 Acute bronchitis due to other specified organisms; K21.9 Gastro-esophageal reflux disease without esophagitis; E87.6 Hypokalemia

== ENCOUNTER 2021-01-17 17:55 | Observation (INO) ==
[2021-01-17] MEDS ORDERED: LEVSIN/MAALOX/LIDOC VISC PO PRN (18:05)
[2021-01-17] MEDS ORDERED: ZOFRAN INJ 4 MG VIAL IVP PRN (18:06)
--- NOTE | 2021-01-17 18:10 | DR.H&P ---
H&P - History & Physical for Day of: H&P Date: 01/17/21 - Chief Complaint Chief Complaint: CCC, FEVER, FLU LIKE SYMPTOMS - History of Present Illness History of Present Illness: PT IS 55WF DIRECT ADMIT FROM DR NEW OFFICE WITH FEVER AND CCC. PT REPORTS THICK GREEN SPUTUM, FATIGUE AND CRUZ. PT HAS COPD, USING DUO NEBS AND INHALERS WITHOUT IMPROVEMENT. PT WAS NEGATIVE FOR RAPID COVID SWAB IN OFFICE. PT REPORTS SORE IN CHEST FROM COUGHING AND VOMITING. PT DENIES DIARRHEA. PT ADMITTED FOR TREATMENT OF ACUTE ILLNESS. - Past Medical History Past Medical History: Hypertension, Depression, COPD - Past Surgical History Surgical History: , Hysterectomy - Family History Family Medical History: Hypertension - Social History Does patient currently use any type of tobacco product: Yes Have you used tobacco products in the last 12 months: Yes Type of Tobacco Use: Cigarettes Does any household member use tobacco: No Alcohol Use: None Drug Use: None Risks, benefits, and alternatives of opioids discussed: Yes Prescription drug monitoring program results: PDMP reviewed and no concerns identified - Medications Home Medications: No Known Drug Allergies Allergy (Verified 04/12/20 18:42) - Review of Systems Constitutional: Fever, Weakness, Malaise Eyes: No Symptoms Reported ENT: Nose Discharge, Nose Congestion Respiratory: Cough, Shortness of Breath, SOB with Excertion, Sputum, Wheezing Cardiovascular: Chest Pain Gastrointestinal: Nausea, Vomiting. denies: Diarrhea Genitourinary: No Symptoms Reported Musculoskeletal: Back Pain Skin: No Symptoms Reported Neurological: Weakness - Physical Exam Vital Signs: Blood Pressure [Right Arm] 126/80 Blood Pressure [Left Arm] 125/75 Blood Pressure 151/68 Oriented: Normal Eyes: Normal Ear: Normal Nose: Normal Throat: Normal Respiratory: Rhonchi Throughout, Wheezes Throughout Cardiovascular: Normal : Normal Auscultation: Bowel Sounds: Normal Palpation: Normal Tenderness: Normal Skin: Decreased Turgur Musculoskeletal: Back:Thoracic, Back:Lumbar Psychiatric: Anxiety Affect: Anxious Speech Pattern: Clear, Appropriate - Assessment/Plan (1) COPD with acute bronchitis Status: Acute Plan: ADMIT, COVID SWAB ON ADMISSION. RSV, FLU SWAB. IV HYDRATION. RESP THERAPY. CXR. SPUTUM CULTURE, IV ATBX THERAPY. ORAL THRUSH TREATMENT (2) Restless leg Status: Acute (3) Flu-like symptoms Status: Acute (4) HAMMAD (generalized anxiety disorder) Status: Acute (5) Hypertension Status: Chronic (6) Lumbar degenerative disc disease Status: Chronic - Allergies Allergies/Adverse Reactions: Allergies Allergy/AdvReac Type Severity Reaction Status Date / Time No Known Drug Allergies Allergy Verified 04/12/20 18:42
[2021-01-17] MEDS ORDERED: LEVAQUIN PREMIX IV 500 MG 500 MG/100 ML BAG IV SCH ×2 (19:00→21:00)
[2021-01-17 19:25] LABS: MYCOPLASMA PNEUMONIAE IGM AB NEGATIVE (NEGATIVE)
[2021-01-17] MEDS ORDERED: PULMICORT NEB TX 0.5 MG NEB ONE (19:59)
[2021-01-17] MEDS ORDERED: XOPENEX 1.25 MG/3 ML NEBULE NEB ONE (20:56)
[2021-01-17] MEDS ORDERED: SALINE 0.9% 3 ML NEB TX ONE (20:57)
[2021-01-17] MEDS ORDERED: PULMICORT NEB TX 0.5 MG NEB SCH (21:00)
[2021-01-17 21:10] VITALS: BMI 29.0
[2021-01-17] MEDS ORDERED: DIFLUCAN 100 MG IV (MIX by PHARMACY)* 100 MG/50 ML BAG IV SCH (22:00)
[2021-01-17] MEDS ORDERED: DIFLUCAN 200 MG IV PREMIX* 100 MG/50 ML BAG IV SCH ×3 (22:00→23:00)
[2021-01-17] MEDS: NS 1,000 ML IV 1,000 ML IV SCH (23:02)
--- NOTE | 2021-01-17 23:06 | RAD ---
HISTORYcough, congestion, copdSTUDYCHEST, PA/LAT ADULTCOMPARISONNone availableTECHNIQUEChest radiographic imaging, AP portable projection, 1 imageFINDINGSNo cardiomegaly.Diffuse bilateral airspace opacities with increased interstitial markings.No pleural effusion.No pneumothorax.No acute osseous abnormality.IMPRESSIONFindings are concerning for an atypical/viral infectious process superimposed on chronic interstitial changes.Electronically signed by: Terence Mitchell (Jan 17, 2021 23:04:36)
[2021-01-17] MEDS: REQUIP PO SCH (23:12)
[2021-01-17] MEDS: NYSTATIN SUSP MT SCH (23:12)
[2021-01-17] MEDS: PROTONIX INJ 40 MG VIAL IVP SCH (23:15)
[2021-01-17] MEDS: SOLU-Medrol 125 MG VIAL IVP SCH (23:21)
[2021-01-18] MEDS ORDERED: XOPENEX 1.25 MG/3 ML NEBULE NEB SCH
[2021-01-18] MEDS: LEVAQUIN PREMIX IV 500 MG 500 MG/100 ML BAG IV SCH ×2 (00:18→21:25)
[2021-01-18] MEDS: NORCO 5/325 MG TAB PO PRN ×2 (00:18→18:12)
[2021-01-18 04:57] LABS: RSV AG DETECTION NEGATIVE (NEGATIVE)
[2021-01-18] MEDS: SOLU-Medrol 125 MG VIAL IVP SCH ×3 (06:02→22:56)
[2021-01-18] MEDS: XOPENEX 1.25 MG/3 ML NEBULE NEB SCH ×3 (06:16→21:07)
[2021-01-18 07:54] LABS: BASOPHILS % (AUTO) 0.3 % (0.2-1.0); HEMATOCRIT 32.7 % (36.0-47.0); HEMOGLOBIN 10.7 g/dL (12.0-16.0); LYMPHOCYTES # (AUTO) 0.6 X10^3/uL (1.3-2.9); LYMPHOCYTES % (AUTO) 9.4 % (21.0-51.0); MEAN CORPUSCULAR HEMOGLOBIN 28.3 pg (27.0-34.0); MEAN CORPUSCULAR HGB CONC 32.8 g/dL (33.0-35.0); MEAN CORPUSCULAR VOLUME 86.1 fL (80.0-100.0); MEAN PLATELET VOLUME 8.6 fL (7.4-11.0); MONOCYTES # (AUTO) 0 x10^3/uL (0.3-0.8); MONOCYTES % (AUTO) 0.2 % (0.0-13.0); NEUTROPHILS % (AUTO) 90.1 % (42.0-75.0); PLATELET COUNT 404 X10^3/uL (150.0-450.0); RED CELL DISTRIBUTION WIDTH 16.7 % (11.6-16.5); WHITE BLOOD COUNT 6.7 X10^3/uL (3.6-10.0)
[2021-01-18 08:16] LABS: ALANINE AMINOTRANSFERASE 15 Units/L (12-78); ALBUMIN 2.2 g/dL (3.4-5.0); ALKALINE PHOSPHATASE 227 Units/L (46-116); ASPARTATE AMINO TRANSFERASE 23 Units/L (15-37); BLOOD UREA NITROGEN 6 mg/dL (7-18); CALCIUM 8.9 mg/dL (8.5-10.1); CARBON DIOXIDE 24.5 mmol/L (21-32); CHLORIDE 101 mmol/L (98-107); COR CA(FOR HYPOALB) 10.3 mg/dL (8.5-10.1); COR NA(FOR HYPERGLY) 141 mmol/L (136-145); SODIUM 139 mmol/L (136-145); TOTAL PROTEIN 8.3 g/dL (6.4-8.2); eGFR NON BLACK RACES > 60 (>60)
[2021-01-18 08:17] LABS: ANISOCYTOSIS SLIGHT; BAND NEUTROPHILS % 4 % (0-10); PLATELET MORPHOLOGY COMMENT NORMAL (NORMAL)
[2021-01-18] MEDS: REQUIP PO SCH ×3 (08:33→21:33)
[2021-01-18] MEDS: NORVASC TAB 10 MG PO SCH (08:33)
[2021-01-18] MEDS: NYSTATIN SUSP MT SCH ×5 (08:33→21:25)
[2021-01-18] MEDS: PROTONIX INJ 40 MG VIAL IVP SCH ×2 (08:33→21:26)
[2021-01-18] MEDS: NS 1,000 ML IV 1,000 ML IV SCH ×2 (08:36→14:01)
[2021-01-18] MEDS: PULMICORT NEB TX 0.5 MG NEB SCH ×2 (09:06→21:07)
[2021-01-18] MEDS: LOVENOX INJ 40 MG SYR SC SCH (11:54)
[2021-01-18] MEDS ORDERED: POTASSIUM CHL 40 MEQ/NS 0.45% 500 ML IV PRN (14:34)
[2021-01-18] MEDS ORDERED: K-RIDER 10 MEQ/NS 100 ML 10 MEQ/100 ML BAG IV PRN (14:34)
[2021-01-18] MEDS ORDERED: MICRO K EXTEN CAP 10 MEQ PO PRN (14:34)
[2021-01-18] MEDS ORDERED: MAGNESIUM SULFATE 1 GRAM/100 mL PREMIX 1 G/100 ML BAG IV PRN (14:34)
[2021-01-18] MEDS ORDERED: POTASSIUM CHLORIDE LIQ 20 MEQ UDC PO PRN (14:34)
[2021-01-18] MEDS ORDERED: POTASSIUM CHL 60 MEQ/NS 0.45% 500 ML IV PRN (14:34)
[2021-01-18] MEDS ORDERED: KLOR-CON PO PRN (14:34)
[2021-01-18] MEDS: K-DUR TAB 20 MEQ PO PRN (16:18)
--- NOTE | 2021-01-18 18:21 | PCM.PROG ---
Progress Note - Subjective Subjective: Patient is a 55 year old white female who was admitted due to COPD, dyspnea, r/o pneumonia. Patient reports improvement from previous however states she still does not feel well. States she continues to be SOB. Patient reports continued cough with phlegm. Reports mouth pain. No other concerns; no major changes from previous. - Past Medical Family Social History Past Med/Fam/Surg Hx: No changes since H&P Allergies: Allergies No Known Drug Allergies Allergy (Verified 04/12/20 18:42) - Review of Systems ROS: No change since H&P - Vital Signs and I&O's Vital Signs: Temperature 99.0 F Pulse Rate [Bilateral] 88 Pulse Rate 90 Respiratory Rate 24 Blood Pressure [Right Arm] 127/62 Blood Pressure [Left Arm] 125/75 Blood Pressure 151/68 O2 Sat by Pulse Oximetry 93 Intake and Output: Intake & Output 01/15/21 01/16/21 01/17/21 01/18/21 23:59 23:59 23:59 23:59 Intake Total 305 / 305 1765 / 1765 Balance 305 / 305 1765 / 1765 - Physical Exam Oriented: Normal, Time, Person, Place Eyes: Normal Ear: Normal Nose: Normal Throat: Normal Respiratory: Rhonchi Cardiovascular: Normal : Normal Auscultation: Bowel Sounds: Normal Palpation: Normal Tenderness: Normal Skin: Decreased Turgur Musculoskeletal: Back:Thoracic, Back:Lumbar, Instability Psychiatric: Normal Mood Description: Calm Affect: Normal Speech Pattern: Clear, Appropriate - Laboratory and Diagnostics Result Diagrams: 01/18/21 07:40 01/18/21 07:40 Labs: 01/18/21 04:05 Sputum - Expectorated Sputum - Final Laboratory WBC 6.7 X10^3/uL (3.6-10.0) 01/18/21 07:40 RBC 3.80 X10^6/uL (3.5-5.4) 01/18/21 07:40 Hgb 10.7 g/dL (12.0-16.0) L 01/18/21 07:40 Hct 32.7 % (36.0-47.0) L 01/18/21 07:40 MCV 86.1 fL (80.0-100.0) 01/18/21 07:40 MCH 28.3 pg (27.0-34.0) 01/18/21 07:40 MCHC 32.8 g/dL (33.0-35.0) L 01/18/21 07:40 RDW 16.7 % (11.6-16.5) H 01/18/21 07:40 Plt Count 404 X10^3/uL (150.0-450.0) 01/18/21 07:40 Plt Count Comment Adequate (ADEQUATE) 01/18/21 07:40 MPV 8.6 fL (7.4-11.0) 01/18/21 07:40 Neut % (Auto) 90.1 % (42.0-75.0) H 01/18/21 07:40 Lymph % (Auto) 9.4 % (21.0-51.0) L 01/18/21 07:40 [place] % (Auto) 0.2 % (0.0-13.0) 01/18/21 07:40 Eos % (Auto) 0.0 % (0.9-2.9) L 01/18/21 07:40 Baso % (Auto) 0.3 % (0.2-1.0) 01/18/21 07:40 Neut # (Auto) 6.0 x10^3/uL (2.2-4.8) H 01/18/21 07:40 Lymph # (Auto) 0.6 X10^3/uL (1.3-2.9) L 01/18/21 07:40 [place] # (Auto) 0 x10^3/uL (0.3-0.8) L 01/18/21 07:40 Eos # (Auto) 0.0 x10^3/uL (0.0-0.2) 01/18/21 07:40 Baso # (Auto) 0.0 X10^3/uL (0.0-0.1) 01/18/21 07:40 Absolute Nucleated RBC 0.1 /100WBC 01/18/21 07:40 Total Counted 100 01/18/21 07:40 Neutrophils % (Manual) 89 % (39-76) H 01/18/21 07:40 Band Neutrophils % 4 % (0-10) 01/18/21 07:40 Lymphocytes % (Manual) 7 % (13-43) L 01/18/21 07:40 Plt Morphology Comment Normal (NORMAL) 01/18/21 07:40 RBC Morphology Abnormal (NORMAL) A 01/18/21 07:40 Anisocytosis Slight A 01/18/21 07:40 Sodium 139 mmol/L (136-145) 01/18/21 07:40 Corrected Sodium 141 mmol/L (136-145) 01/18/21 07:40 Potassium 3.4 mmol/L (3.5-5.1) L 01/18/21 07:40 Chloride 101 mmol/L (98-107) 01/18/21 07:40 Carbon Dioxide 24.5 mmol/L (21-32) 01/18/21 07:40 BUN 6 mg/dL (7-18) L 01/18/21 07:40 Creatinine 0.80 mg/dL (0.55-1.02) 01/18/21 07:40 Est GFR (MDRD) Af Amer > 60 (>60) 01/18/21 07:40 Est GFR (MDRD) Non-Af > 60 (>60) 01/18/21 07:40 Glucose 163 mg/dL (65-99) H 01/18/21 07:40 Calcium 8.9 mg/dL (8.5-10.1) 01/18/21 07:40 Corrected Calcium 10.3 mg/dL (8.5-10.1) H 01/18/21 07:40 Magnesium 2.1 mg/dL (1.7-2.9) 01/17/21 18:57 Total Bilirubin 0.30 mg/dL (0.2-1.0) 01/18/21 07:40 AST 23 Units/L (15-37) 01/18/21 07:40 ALT 15 Units/L (12-78) 01/18/21 07:40 Alkaline Phosphatase 227 Units/L (46-116) H 01/18/21 07:40 Total Protein 8.3 g/dL (6.4-8.2) H 01/18/21 07:40 Albumin 2.2 g/dL (3.4-5.0) L 01/18/21 07:40 Globulin 6.1 g/dL (2.5-4.5) H 01/18/21 07:40 Albumin/Globulin Ratio 0.4 Ratio (1.1-2.1) L 01/18/21 07:40 RSV Nasal Swab Negative (NEGATIVE) 01/18/21 04:00 Influenza Type A Ag Negative-presumptive (NEGATIVE) 01/18/21 04:00 Influenza Type B Ag Negative-presumptive (NEGATIVE) 01/18/21 04:00 Mycoplasma pneumon IgG Negative (NEGATIVE) 01/17/21 18:57 SARS CoV-2 RNA Rapid DARBY Negative (NEGATIVE) 01/17/21 18:28 - Plan (1) SOB (shortness of breath) Status: Acute Plan: Duo nebs, oxygen supplementation. IV abx and steroids. Repeat labs in am. See EMR for further orders (2) Bronchitis Status: Acute (3) COPD with acute bronchitis Status: Acute Plan: ADMIT, COVID SWAB ON ADMISSION. RSV, FLU SWAB. IV HYDRATION. RESP THERAPY. CXR. SPUTUM CULTURE, IV ATBX THERAPY. ORAL THRUSH TREATMENT (4) Candidiasis Status: Acute Plan: oral; nystatin PO, diflucan
[2021-01-18] MEDS ORDERED: NORVASC TAB 10 MG PO SCH (19:00)
[2021-01-18] MEDS ORDERED: SINEMET (PLAIN) 25/100 MG PO SCH (19:00)
[2021-01-18] MEDS: BUSPAR PO SCH (21:24)
[2021-01-18] MEDS: PriLOSEC PO SCH (21:25)
[2021-01-18] MEDS: SEROquel TAB 25 mg PO SCH (21:26)
[2021-01-18] MEDS: SINEMET (PLAIN) 25/100 MG PO SCH (21:27)
[2021-01-18] MEDS: SINEquan PO SCH (21:30)
[2021-01-18] MEDS: BENTYL CAP 10 MG PO SCH (22:56)
[2021-01-18] MEDS: DIFLUCAN 200 MG IV PREMIX* 200 MG/100 ML BAG IV SCH (22:57)
[2021-01-18] MEDS: TUSSIONEX PENNKINETIC SUSP PO PRN (22:57)
[2021-01-19] MEDS: NS 1,000 ML IV 1,000 ML IV SCH ×4 (04:31→20:38)
[2021-01-19 05:17] LABS: BASOPHILS % (AUTO) 0.4 % (0.2-1.0); HEMATOCRIT 27.5 % (36.0-47.0); HEMOGLOBIN 9.1 g/dL (12.0-16.0); MEAN CORPUSCULAR HEMOGLOBIN 28.2 pg (27.0-34.0); MEAN CORPUSCULAR VOLUME 85.2 fL (80.0-100.0); MEAN PLATELET VOLUME 8.5 fL (7.4-11.0); MONOCYTES # (AUTO) 0.4 x10^3/uL (0.3-0.8); MONOCYTES % (AUTO) 3.1 % (0.0-13.0); NEUTROPHILS # (AUTO) 10.8 x10^3/uL (2.2-4.8); NEUTROPHILS % (AUTO) 88.5 % (42.0-75.0); PLATELET COUNT 427 X10^3/uL (150.0-450.0); RED BLOOD COUNT 3.23 X10^6/uL (3.5-5.4); RED CELL DISTRIBUTION WIDTH 16.8 % (11.6-16.5); WHITE BLOOD COUNT 12.2 X10^3/uL (3.6-10.0)
[2021-01-19 05:24] LABS: ABG ALLEN TEST POS; ABG BASE EXCESS 1.7 mmol/L (-2.0-2.0); ABG HCO3 25.8 mmol/L (22-26)
[2021-01-19] MEDS: XOPENEX 1.25 MG/3 ML NEBULE NEB SCH ×3 (05:25→20:27)
[2021-01-19 05:28] LABS: ALANINE AMINOTRANSFERASE 20 Units/L (12-78); ALKALINE PHOSPHATASE 195 Units/L (46-116); ASPARTATE AMINO TRANSFERASE 39 Units/L (15-37); BLOOD UREA NITROGEN 11 mg/dL (7-18); CALCIUM 8.5 mg/dL (8.5-10.1); CARBON DIOXIDE 26.3 mmol/L (21-32); CHLORIDE 105 mmol/L (98-107); COR CA(FOR HYPOALB) 10.1 mg/dL (8.5-10.1); COR NA(FOR HYPERGLY) 142 mmol/L (136-145); CREATININE 0.61 mg/dL (0.55-1.02); SODIUM 141 mmol/L (136-145); eGFR NON BLACK RACES > 60 (>60)
[2021-01-19] MEDS: SOLU-Medrol 125 MG VIAL IVP SCH ×3 (05:56→21:00)
[2021-01-19] MEDS: BENTYL CAP 10 MG PO SCH ×3 (05:56→21:00)
--- NOTE | 2021-01-19 07:21 | RAD ---
HISTORYCOPDSTUDYChest AP [id number]/06/2021 chest x-ray, 04/12/2020 CT chestFINDINGSThe heart is within normal limits in size. The mary are normal. Diffuse bilateral severe interstitial lung changes are present most of which appears to be chronic. A superimposed acute pneumonitis would be difficult to exclude with this degree of chronic change present. No definite alveolar infiltrates or areas of consolidation are identified. No pneumothorax or pleural effusion is identified. Bony thorax is unremarkable.IMPRESSIONDiffuse severe interstitial lung changes right greater than left most of which appear to be chronic. A superimposed acute pneumonitis could not be entirely excluded. No alveolar infiltrates or areas of consolidation identified.Electronically signed by: MONICA TIWARI (Jan 19, 2021 07:20:09)
[2021-01-19] MEDS ORDERED: ZOLOFT PO SCH (09:00)
[2021-01-19] MEDS: PULMICORT NEB TX 0.5 MG NEB SCH ×2 (09:11→20:27)
[2021-01-19] MEDS: NICOTINE PATCH TD SCH (10:00)
[2021-01-19] MEDS: BUSPAR PO SCH ×2 (10:00→20:43)
[2021-01-19] MEDS: PROTONIX INJ 40 MG VIAL IVP SCH ×2 (10:00→20:40)
[2021-01-19] MEDS: PEPCID TAB 40 MG PO SCH (10:00)
[2021-01-19] MEDS: LOVENOX INJ 40 MG SYR SC SCH (10:00)
[2021-01-19] MEDS: ZOLOFT PO SCH (10:00)
[2021-01-19] MEDS: REQUIP PO SCH ×3 (10:00→20:43)
[2021-01-19] MEDS: PriLOSEC PO SCH ×2 (10:00→20:43)
[2021-01-19] MEDS: VILAZODONE 40 MG PO SCH (10:00)
[2021-01-19] MEDS: NORVASC TAB 10 MG PO SCH ×2 (10:00→10:12)
[2021-01-19] MEDS: NYSTATIN SUSP MT SCH ×4 (10:00→20:45)
[2021-01-19] MEDS: SINEMET (PLAIN) 25/100 MG PO SCH ×3 (10:14→20:43)
[2021-01-19] MEDS: NORCO 5/325 MG TAB PO PRN ×2 (13:19→21:58)
[2021-01-19] MEDS: TUSSIONEX PENNKINETIC SUSP PO PRN (13:24)
[2021-01-19] MEDS: K-DUR TAB 20 MEQ PO PRN ×2 (16:01→20:44)
--- NOTE | 2021-01-19 20:27 | PCM.PROG ---
Progress Note - Subjective Subjective: Patient is a 55 year old white female who was admitted due to COPD, dyspnea, r/o pneumonia. Patient reports improvement from previous however states she still does not feel well. States she continues to be SOB. Patient reports continued cough with phlegm. Reports mouth pain improved. No other concerns; no major changes from previous. Plan for possible discharge in am. - Past Medical Family Social History Past Med/Fam/Surg Hx: No changes since H&P Allergies: Allergies No Known Drug Allergies Allergy (Verified 04/12/20 18:42) - Review of Systems ROS: No change since H&P - Vital Signs and I&O's Vital Signs: Temperature 98.1 F Pulse Rate [Bilateral] 83 Pulse Rate 82 Respiratory Rate 20 Blood Pressure [Right Arm] 128/70 Blood Pressure [Left Arm] 125/75 Blood Pressure 151/68 O2 Sat by Pulse Oximetry 96 Intake and Output: Intake & Output 01/16/21 01/17/21 01/18/21 01/19/21 23:59 23:59 23:59 23:59 Intake Total 305 / 305 2905 / 2905 2119 Balance 305 / 305 2905 / 2905 2119 - Physical Exam Oriented: Normal, Time, Person, Place Eyes: Normal Ear: Normal Nose: Normal Throat: Normal Respiratory: Rhonchi Cardiovascular: Normal : Normal Auscultation: Bowel Sounds: Normal Tenderness: Normal Skin: Decreased Turgur Musculoskeletal: Back:Thoracic, Back:Lumbar, Instability Psychiatric: Normal Mood Description: Calm Affect: Normal Speech Pattern: Clear - Laboratory and Diagnostics Result Diagrams: 01/19/21 04:49 01/19/21 18:30 Labs: 01/18/21 04:05 Sputum - Expectorated Sputum Sputum Culture - Preliminary 01/18/21 04:05 Sputum - Expectorated Sputum - Final 01/17/21 22:20 Blood Blood Culture - Preliminary 01/17/21 22:16 Blood Blood Culture - Preliminary Laboratory WBC 12.2 X10^3/uL (3.6-10.0) H 01/19/21 04:49 RBC 3.23 X10^6/uL (3.5-5.4) L 01/19/21 04:49 Hgb 9.1 g/dL (12.0-16.0) L 01/19/21 04:49 Hct 27.5 % (36.0-47.0) L 01/19/21 04:49 MCV 85.2 fL (80.0-100.0) 01/19/21 04:49 MCH 28.2 pg (27.0-34.0) 01/19/21 04:49 MCHC 33.0 g/dL (33.0-35.0) 01/19/21 04:49 RDW 16.8 % (11.6-16.5) H 01/19/21 04:49 Plt Count 427 X10^3/uL (150.0-450.0) 01/19/21 04:49 Plt Count Comment Adequate (ADEQUATE) 01/18/21 07:40 MPV 8.5 fL (7.4-11.0) 01/19/21 04:49 Neut % (Auto) 88.5 % (42.0-75.0) H 01/19/21 04:49 Lymph % (Auto) 8.0 % (21.0-51.0) L 01/19/21 04:49 [place] % (Auto) 3.1 % (0.0-13.0) 01/19/21 04:49 Eos % (Auto) 0.0 % (0.9-2.9) L 01/19/21 04:49 Baso % (Auto) 0.4 % (0.2-1.0) 01/19/21 04:49 Neut # (Auto) 10.8 x10^3/uL (2.2-4.8) H 01/19/21 04:49 Lymph # (Auto) 1.0 X10^3/uL (1.3-2.9) L 01/19/21 04:49 [place] # (Auto) 0.4 x10^3/uL (0.3-0.8) 01/19/21 04:49 Eos # (Auto) 0.0 x10^3/uL (0.0-0.2) 01/19/21 04:49 Baso # (Auto) 0.0 X10^3/uL (0.0-0.1) 01/19/21 04:49 Absolute Nucleated RBC 0.0 /100WBC 01/19/21 04:49 Total Counted 100 01/18/21 07:40 Neutrophils % (Manual) 89 % (39-76) H 01/18/21 07:40 Band Neutrophils % 4 % (0-10) 01/18/21 07:40 Lymphocytes % (Manual) 7 % (13-43) L 01/18/21 07:40 Plt Morphology Comment Normal (NORMAL) 01/18/21 07:40 RBC Morphology Abnormal (NORMAL) A 01/18/21 07:40 Anisocytosis Slight A 01/18/21 07:40 Sample Site Lrad 01/19/21 05:20 ABG pH 7.440 (7.35-7.45) 01/19/21 05:20 ABG pCO2 38.0 mmHg (35.0-45.0) 01/19/21 05:20 ABG pO2 82.0 mmHg (80.0-100.0) 01/19/21 05:20 ABG HCO3 25.8 mmol/L (22-26) 01/19/21 05:20 ABG O2 Saturation 96.0 % (90-100) 01/19/21 05:20 ABG Base Excess 1.7 mmol/L (-2.0-2.0) 01/19/21 05:20 Lopez Test Pos 01/19/21 05:20 A-a Gradient 20.0 mmHg 01/19/21 05:20 FiO2 21.0 01/19/21 05:20 Blood Gas Comments [place] well ms 01/19/21 05:20 Sodium 141 mmol/L (136-145) 01/19/21 04:49 Corrected Sodium 142 mmol/L (136-145) 01/19/21 04:49 Potassium 3.1 mmol/L (3.5-5.1) L 01/19/21 18:30 Chloride 105 mmol/L (98-107) 01/19/21 04:49 Carbon Dioxide 26.3 mmol/L (21-32) 01/19/21 04:49 BUN 11 mg/dL (7-18) 01/19/21 04:49 Creatinine 0.61 mg/dL (0.55-1.02) 01/19/21 04:49 Est GFR (MDRD) Af Amer > 60 (>60) 01/19/21 04:49 Est GFR (MDRD) Non-Af > 60 (>60) 01/19/21 04:49 Glucose 125 mg/dL (65-99) H 01/19/21 04:49 Calcium 8.5 mg/dL (8.5-10.1) 01/19/21 04:49 Corrected Calcium 10.1 mg/dL (8.5-10.1) 01/19/21 04:49 Magnesium 2.1 mg/dL (1.7-2.9) 01/17/21 18:57 Total Bilirubin 0.10 mg/dL (0.2-1.0) L 01/19/21 04:49 AST 39 Units/L (15-37) H 01/19/21 04:49 ALT 20 Units/L (12-78) 01/19/21 04:49 Alkaline Phosphatase 195 Units/L (46-116) H 01/19/21 04:49 Total Protein 7.0 g/dL (6.4-8.2) 01/19/21 04:49 Albumin 2.0 g/dL (3.4-5.0) L 01/19/21 04:49 Globulin 5.0 g/dL (2.5-4.5) H 01/19/21 04:49 Albumin/Globulin Ratio 0.4 Ratio (1.1-2.1) L 01/19/21 04:49 RSV Nasal Swab Negative (NEGATIVE) 01/18/21 04:00 Influenza Type A Ag Negative-presumptive (NEGATIVE) 01/18/21 04:00 Influenza Type B Ag Negative-presumptive (NEGATIVE) 01/18/21 04:00 Mycoplasma pneumon IgG Negative (NEGATIVE) 01/17/21 18:57 SARS CoV-2 RNA Rapid DARBY Negative (NEGATIVE) 01/17/21 18:28 - Plan (1) SOB (shortness of breath) Status: Acute Plan: Duo nebs, oxygen supplementation. IV abx and steroids. Repeat labs in am . See EMR for further orders (2) Bronchitis Status: Acute (3) COPD with acute bronchitis Status: Acute Plan: ADMIT, COVID SWAB ON ADMISSION. RSV, FLU SWAB. IV HYDRATION. RESP THERAPY. CXR. SPUTUM CULTURE, IV ATBX THERAPY. ORAL THRUSH TREATMENT (4) Candidiasis Status: Acute Plan: oral; nystatin PO, diflucan (5) Pneumonia Status: Acute
[2021-01-19] MEDS: LEVAQUIN PREMIX IV 500 MG 500 MG/100 ML BAG IV SCH (20:39)
[2021-01-19] MEDS: SEROquel TAB 25 mg PO SCH (20:43)
[2021-01-19] MEDS: SINEquan PO SCH (20:43)
[2021-01-19] MEDS: DIFLUCAN 200 MG IV PREMIX* 200 MG/100 ML BAG IV SCH (21:52)
[2021-01-20] MEDS: NS 1,000 ML IV 1,000 ML IV SCH ×3 (02:02→20:05)
[2021-01-20] MEDS: TUSSIONEX PENNKINETIC SUSP PO PRN ×2 (03:05→21:11)
[2021-01-20 04:40] LABS: ABG ALLEN TEST POS; ABG BASE EXCESS 3.3 mmol/L (-2.0-2.0); ABG HCO3 26.8 mmol/L (22-26)
[2021-01-20] MEDS: BENTYL CAP 10 MG PO SCH ×3 (05:07→21:00)
[2021-01-20] MEDS: SOLU-Medrol 125 MG VIAL IVP SCH ×3 (05:07→21:00)
[2021-01-20] MEDS: XOPENEX 1.25 MG/3 ML NEBULE NEB SCH ×3 (05:10→20:30)
[2021-01-20 06:20] LABS: BASOPHILS % (AUTO) 0.3 % (0.2-1.0); HEMATOCRIT 29.3 % (36.0-47.0); HEMOGLOBIN 9.3 g/dL (12.0-16.0); LYMPHOCYTES # (AUTO) 1.2 X10^3/uL (1.3-2.9); LYMPHOCYTES % (AUTO) 8.4 % (21.0-51.0); MEAN CORPUSCULAR HEMOGLOBIN 27.2 pg (27.0-34.0); MEAN CORPUSCULAR HGB CONC 31.7 g/dL (33.0-35.0); MEAN CORPUSCULAR VOLUME 85.8 fL (80.0-100.0); MEAN PLATELET VOLUME 8.7 fL (7.4-11.0); MONOCYTES # (AUTO) 0.6 x10^3/uL (0.3-0.8); MONOCYTES % (AUTO) 4.6 % (0.0-13.0); NEUTROPHILS # (AUTO) 11.9 x10^3/uL (2.2-4.8); NEUTROPHILS % (AUTO) 86.7 % (42.0-75.0); PLATELET COUNT 465 X10^3/uL (150.0-450.0); RED BLOOD COUNT 3.42 X10^6/uL (3.5-5.4); RED CELL DISTRIBUTION WIDTH 17.2 % (11.6-16.5); WHITE BLOOD COUNT 13.8 X10^3/uL (3.6-10.0)
[2021-01-20 06:33] LABS: ALANINE AMINOTRANSFERASE 41 Units/L (12-78); ALBUMIN 2.1 g/dL (3.4-5.0); ALKALINE PHOSPHATASE 188 Units/L (46-116); ASPARTATE AMINO TRANSFERASE 58 Units/L (15-37); BLOOD UREA NITROGEN 12 mg/dL (7-18); CALCIUM 8.2 mg/dL (8.5-10.1); CARBON DIOXIDE 25.9 mmol/L (21-32); CHLORIDE 104 mmol/L (98-107); COR CA(FOR HYPOALB) 9.7 mg/dL (8.5-10.1); COR NA(FOR HYPERGLY) 139 mmol/L (136-145); CREATININE 0.65 mg/dL (0.55-1.02); SODIUM 139 mmol/L (136-145); TOTAL PROTEIN 6.8 g/dL (6.4-8.2); eGFR NON BLACK RACES > 60 (>60)
--- NOTE | 2021-01-20 06:58 | RAD ---
HISTORYCOPDSTUDYCHEST, 1 [id number]/08/2021.TECHNIQUEAP view of the chestFINDINGSThe cardiac and mediastinal contours appear stable. No significant change in bilateral airspace and interstitial opacities, slightly worse on the right. 2.8 cm right midlung nodular opacity. There is blunting of the costophrenic sulci. No pneumothorax.IMPRESSIONNo significant change in airspace and interstitial opacities which may represent chronic fibrosis with COPD. Blunted costophrenic sulci may represent scar or pleural effusions.There is a nodular opacity in the right midlung not present on prior radiograph from 04/12/2020. Recommend attention on follow-up to ensure resolution versus CT chest to exclude a pulmonary nodule or mass. The opacity measures up to 2.8 cm medial-lateral.Electronically signed by: Moises Marsh (Jan 20, 2021 06:56:26)
[2021-01-20] MEDS: LOVENOX INJ 40 MG SYR SC SCH (08:25)
[2021-01-20] MEDS: BUSPAR PO SCH ×2 (08:25→20:03)
[2021-01-20] MEDS: NYSTATIN SUSP MT SCH ×4 (08:26→20:11)
[2021-01-20] MEDS: NICOTINE PATCH TD SCH (08:26)
[2021-01-20] MEDS: PEPCID TAB 40 MG PO SCH (08:26)
[2021-01-20] MEDS: NORVASC TAB 10 MG PO SCH (08:26)
[2021-01-20] MEDS: PriLOSEC PO SCH ×2 (08:26→20:03)
[2021-01-20] MEDS: ZOLOFT PO SCH (08:27)
[2021-01-20] MEDS: PROTONIX INJ 40 MG VIAL IVP SCH ×2 (08:27→20:06)
[2021-01-20] MEDS: SINEMET (PLAIN) 25/100 MG PO SCH ×2 (08:27→20:03)
[2021-01-20] MEDS: REQUIP PO SCH ×2 (09:09→20:03)
[2021-01-20] MEDS: VILAZODONE 40 MG PO SCH (09:09)
[2021-01-20] MEDS: PULMICORT NEB TX 0.5 MG NEB SCH ×2 (09:15→20:30)
[2021-01-20] MEDS: NORCO 5/325 MG TAB PO PRN (12:21)
--- NOTE | 2021-01-20 12:53 | CT ---
HISTORYBRONCHO PNEUMONIASTUDYCT chest with IV contrastCOMPARISONCT 04/12/2020 and x-ray 01/20/2021TECHNIQUEMultiple axial images of the chest were obtained from the thoracic inlet to the upper abdomenwith the administration of IV contrast. 75 cc Omnipaque 350 IV contrast. Sagittal and coronal reformations are performed. Dose reduction techniques including Automated Exposure Control (AEC) and adjustment of mA and kV were utilized.FINDINGSLikely worsening COPD and fibrotic changes compared to prior study. The areas of honeycombing have greater septal and interstitial density compared to prior study. No definite evidence of pneumonia is seen. Mild pulmonary edema is not excluded. There is cardiomegaly and possible mild pulmonary venous congestion.No pericardial effusion is seen but prominent cardiophrenic fat pads are present. Probably reactive mediastinal lymph nodes are slightly less prominent than on prior study. The thoracic aorta is normal in size without evidence of dissection.IMPRESSIONLikely worsening COPD and pulmonary fibrosis.There is increased soft tissue prominence of the septae with increased interstitial densities associated with the areas of fibrosis. No definite pneumonia is seen.Borderline CHF. Mild pulmonary edema is not excluded.Electronically signed by: Tobin Lazo (Jan 20, 2021 12:51:50)
--- NOTE | 2021-01-20 17:53 | PCM.PROG ---
Progress Note - Subjective Subjective: Patient is a 55 year old white female who was admitted due to COPD, dyspnea, r/o pneumonia. Patient reports improvement from previous however states she still does not feel well. States she continues to be SOB. Patient reports continued cough with phlegm which is improving. Reports mouth pain improved. CT chest with contrast pending. No other concerns; no major changes from previous. ABG reveals room air hypoxia. - Past Medical Family Social History Past Med/Fam/Surg Hx: No changes since H&P Allergies: Allergies No Known Drug Allergies Allergy (Verified 04/12/20 18:42) - Review of Systems ROS: No change since H&P - Vital Signs and I&O's Vital Signs: Temperature 98.5 F Pulse Rate [Radial] 83 Pulse Rate [Bilateral] 83 Pulse Rate 87 Respiratory Rate 20 Blood Pressure [Right Arm] 129/70 Blood Pressure [Left Arm] 125/75 Blood Pressure 151/68 O2 Sat by Pulse Oximetry 97 Intake and Output: Intake & Output 01/17/21 01/18/21 01/19/21 01/20/21 23:59 23:59 23:59 23:59 Intake Total 305 / 305 2905 / 2905 3395 / 3395 2105 / 210 Balance 305 / 305 2905 / 2905 3395 / 3395 2104 / 2104 - Physical Exam Oriented: Normal, Time, Person, Place Eyes: Normal Ear: Normal Nose: Normal Throat: Normal Respiratory: Rhonchi Cardiovascular: Normal : Normal Auscultation: Bowel Sounds: Normal Palpation: Normal Tenderness: Normal Skin: Decreased Turgur Musculoskeletal: Back:Thoracic, Back:Lumbar, Instability Psychiatric: Normal Mood Description: Calm Affect: Normal Speech Pattern: Clear, Appropriate - Laboratory and Diagnostics Result Diagrams: 01/20/21 05:14 01/20/21 05:14 Labs: 01/18/21 04:05 Sputum - Expectorated Sputum Sputum Culture - Final 01/18/21 04:05 Sputum - Expectorated Sputum - Final 01/17/21 22:20 Blood Blood Culture - Preliminary 01/17/21 22:16 Blood Blood Culture - Preliminary Laboratory WBC 13.8 X10^3/uL (3.6-10.0) H 01/20/21 05:14 RBC 3.42 X10^6/uL (3.5-5.4) L 01/20/21 05:14 Hgb 9.3 g/dL (12.0-16.0) L 01/20/21 05:14 Hct 29.3 % (36.0-47.0) L 01/20/21 05:14 MCV 85.8 fL (80.0-100.0) 01/20/21 05:14 MCH 27.2 pg (27.0-34.0) 01/20/21 05:14 MCHC 31.7 g/dL (33.0-35.0) L 01/20/21 05:14 RDW 17.2 % (11.6-16.5) H 01/20/21 05:14 Plt Count 465 X10^3/uL (150.0-450.0) H 01/20/21 05:14 Plt Count Comment Adequate (ADEQUATE) 01/18/21 07:40 MPV 8.7 fL (7.4-11.0) 01/20/21 05:14 Neut % (Auto) 86.7 % (42.0-75.0) H 01/20/21 05:14 Lymph % (Auto) 8.4 % (21.0-51.0) L 01/20/21 05:14 [place] % (Auto) 4.6 % (0.0-13.0) 01/20/21 05:14 Eos % (Auto) 0.0 % (0.9-2.9) L 01/20/21 05:14 Baso % (Auto) 0.3 % (0.2-1.0) 01/20/21 05:14 Neut # (Auto) 11.9 x10^3/uL (2.2-4.8) H 01/20/21 05:14 Lymph # (Auto) 1.2 X10^3/uL (1.3-2.9) L 01/20/21 05:14 [place] # (Auto) 0.6 x10^3/uL (0.3-0.8) 01/20/21 05:14 Eos # (Auto) 0.0 x10^3/uL (0.0-0.2) 01/20/21 05:14 Baso # (Auto) 0.0 X10^3/uL (0.0-0.1) 01/20/21 05:14 Absolute Nucleated RBC 0.0 /100WBC 01/20/21 05:14 Total Counted 100 01/18/21 07:40 Neutrophils % (Manual) 89 % (39-76) H 01/18/21 07:40 Band Neutrophils % 4 % (0-10) 01/18/21 07:40 Lymphocytes % (Manual) 7 % (13-43) L 01/18/21 07:40 Plt Morphology Comment Normal (NORMAL) 01/18/21 07:40 RBC Morphology Abnormal (NORMAL) A 01/18/21 07:40 Anisocytosis Slight A 01/18/21 07:40 Sample Site Lrad 01/20/21 04:35 ABG pH 7.480 (7.35-7.45) H 01/20/21 04:35 ABG pCO2 36.0 mmHg (35.0-45.0) 01/20/21 04:35 ABG pO2 51.0 mmHg (80.0-100.0) L 01/20/21 04:35 ABG HCO3 26.8 mmol/L (22-26) H 01/20/21 04:35 ABG O2 Saturation 88.0 % (90-100) L 01/20/21 04:35 ABG Base Excess 3.3 mmol/L (-2.0-2.0) H 01/20/21 04:35 Lopez Test Pos 01/20/21 04:35 A-a Gradient 54.0 mmHg 01/20/21 04:35 FiO2 21.0 01/20/21 04:35 Blood Gas Comments Phuong well ms 01/20/21 04:35 Sodium 139 mmol/L (136-145) 01/20/21 05:14 Corrected Sodium 139 mmol/L (136-145) 01/20/21 05:14 Potassium 3.5 mmol/L (3.5-5.1) 01/20/21 05:14 Chloride 104 mmol/L (98-107) 01/20/21 05:14 Carbon Dioxide 25.9 mmol/L (21-32) 01/20/21 05:14 BUN 12 mg/dL (7-18) 01/20/21 05:14 Creatinine 0.65 mg/dL (0.55-1.02) 01/20/21 05:14 Est GFR (MDRD) Af Amer > 60 (>60) 01/20/21 05:14 Est GFR (MDRD) Non-Af > 60 (>60) 01/20/21 05:14 Glucose 120 mg/dL (65-99) H 01/20/21 05:14 Calcium 8.2 mg/dL (8.5-10.1) L 01/20/21 05:14 Corrected Calcium 9.7 mg/dL (8.5-10.1) 01/20/21 05:14 Magnesium 2.1 mg/dL (1.7-2.9) 01/17/21 18:57 Total Bilirubin 0.10 mg/dL (0.2-1.0) L 01/20/21 05:14 AST 58 Units/L (15-37) H 01/20/21 05:14 ALT 41 Units/L (12-78) 01/20/21 05:14 Alkaline Phosphatase 188 Units/L (46-116) H 01/20/21 05:14 Total Protein 6.8 g/dL (6.4-8.2) 01/20/21 05:14 Albumin 2.1 g/dL (3.4-5.0) L 01/20/21 05:14 Globulin 4.7 g/dL (2.5-4.5) H 01/20/21 05:14 Albumin/Globulin Ratio 0.4 Ratio (1.1-2.1) L 01/20/21 05:14 RSV Nasal Swab Negative (NEGATIVE) 01/18/21 04:00 Influenza Type A Ag Negative-presumptive (NEGATIVE) 01/18/21 04:00 Influenza Type B Ag Negative-presumptive (NEGATIVE) 01/18/21 04:00 Mycoplasma pneumon IgG Negative (NEGATIVE) 01/17/21 18:57 SARS CoV-2 RNA Rapid DARBY Negative (NEGATIVE) 01/17/21 18:28 - Plan (1) Pneumonia Status: Acute (2) SOB (shortness of breath) Status: Acute Plan: Duo nebs, oxygen supplementation. IV abx and steroids. Repeat labs in am. See EMR for further orders (3) Bronchitis Status: Acute (4) COPD with acute bronchitis Status: Acute Plan: ADMIT, COVID SWAB ON ADMISSION. RSV, FLU SWAB. IV HYDRATION. RESP THERAPY. CXR. SPUTUM CULTURE, IV ATBX THERAPY. ORAL THRUSH TREATMENT (5) Candidiasis Status: Acute Plan: oral; nystatin PO, diflucan
[2021-01-20 18:24] LABS: ABG BASE EXCESS 4.2 mmol/L (-2.0-2.0); ABG HCO3 25.3 mmol/L (22-26)
[2021-01-20 18:27] LABS: ABG ALLEN TEST POS
[2021-01-20 19:03] LABS: HEMOGLOBIN 10.1 g/dL (12.0-16.0); MEAN CORPUSCULAR HEMOGLOBIN 27.8 pg (27.0-34.0); MEAN CORPUSCULAR HGB CONC 32.5 g/dL (33.0-35.0); MEAN CORPUSCULAR VOLUME 85.5 fL (80.0-100.0); NEUTROPHILS % (AUTO) 87.2 % (42.0-75.0)
[2021-01-20 19:09] LABS: BASOPHILS % (AUTO) 0.3 % (0.2-1.0); EOSINOPHILS % (AUTO) 0.1 % (0.9-2.9); HEMATOCRIT 31.1 % (36.0-47.0); LYMPHOCYTES # (AUTO) 1.1 X10^3/uL (1.3-2.9); LYMPHOCYTES % (AUTO) 7.9 % (21.0-51.0); MEAN PLATELET VOLUME 8.5 fL (7.4-11.0); MONOCYTES # (AUTO) 0.6 x10^3/uL (0.3-0.8); MONOCYTES % (AUTO) 4.5 % (0.0-13.0); NEUTROPHILS # (AUTO) 11.6 x10^3/uL (2.2-4.8); PLATELET COUNT 526 X10^3/uL (150.0-450.0); RED BLOOD COUNT 3.63 X10^6/uL (3.5-5.4); WHITE BLOOD COUNT 13.3 X10^3/uL (3.6-10.0)
[2021-01-20 19:12] LABS: ALANINE AMINOTRANSFERASE 42 Units/L (12-78); ALBUMIN 2.2 g/dL (3.4-5.0); ALKALINE PHOSPHATASE 222 Units/L (46-116); ASPARTATE AMINO TRANSFERASE 40 Units/L (15-37); BLOOD UREA NITROGEN 10 mg/dL (7-18); CALCIUM 8.3 mg/dL (8.5-10.1); CARBON DIOXIDE 29.8 mmol/L (21-32); CHLORIDE 103 mmol/L (98-107); COR CA(FOR HYPOALB) 9.7 mg/dL (8.5-10.1); COR NA(FOR HYPERGLY) 142 mmol/L (136-145); CREATININE 0.86 mg/dL (0.55-1.02); SODIUM 141 mmol/L (136-145); TOTAL PROTEIN 7.2 g/dL (6.4-8.2); eGFR NON BLACK RACES > 60 (>60)
[2021-01-20] MEDS: SEROquel TAB 25 mg PO SCH (20:03)
[2021-01-20] MEDS: LEVAQUIN PREMIX IV 500 MG 500 MG/100 ML BAG IV SCH (20:07)
[2021-01-20] MEDS: SINEquan PO SCH (20:09)
[2021-01-20] MEDS: DIFLUCAN 200 MG IV PREMIX* 200 MG/100 ML BAG IV SCH (21:08)
[2021-01-21] MEDS: XOPENEX 1.25 MG/3 ML NEBULE NEB SCH ×2 (05:00→13:23)
[2021-01-21] MEDS: BENTYL CAP 10 MG PO SCH ×2 (05:08→14:14)
[2021-01-21] MEDS: SOLU-Medrol 125 MG VIAL IVP SCH ×2 (05:09→14:14)
[2021-01-21] MEDS: NS 1,000 ML IV 1,000 ML IV SCH (06:03)
--- NOTE | 2021-01-21 07:24 | RAD ---
HISTORYCOPDSTUDYCHEST, 1 [id number]/09/2021.TECHNIQUEAP view of the chestFINDINGSCardiac and mediastinal contours are within normal limits. No significant change in bilateral interstitial opacities. No definite pleural effusion or pneumothorax. Soft tissue attenuation limits evaluation. Background of COPD.IMPRESSIONNo significant change in COPD and pulmonary fibrosis.Electronically signed by: Moises Marsh (Jan 21, 2021 07:22:45)
[2021-01-21] MEDS: BUSPAR PO SCH (08:12)
[2021-01-21] MEDS: NICOTINE PATCH TD SCH (08:12)
[2021-01-21] MEDS: LOVENOX INJ 40 MG SYR SC SCH (08:12)
[2021-01-21] MEDS: NORVASC TAB 10 MG PO SCH (08:13)
[2021-01-21] MEDS: SINEMET (PLAIN) 25/100 MG PO SCH (08:13)
[2021-01-21] MEDS: REQUIP PO SCH (08:13)
[2021-01-21] MEDS: PEPCID TAB 40 MG PO SCH (08:13)
[2021-01-21] MEDS: NYSTATIN SUSP MT SCH ×2 (08:13→14:14)
[2021-01-21] MEDS: PriLOSEC PO SCH (08:13)
[2021-01-21] MEDS: ZOLOFT PO SCH (08:14)
[2021-01-21] MEDS: PULMICORT NEB TX 0.5 MG NEB SCH (09:10)
[2021-01-21] MEDS: PROTONIX INJ 40 MG VIAL IVP SCH (09:56)
[2021-01-21 10:04] LABS: ABG BASE EXCESS 4.9 mmol/L (-2.0-2.0); ABG HCO3 27.9 mmol/L (22-26)
[2021-01-21 10:05] LABS: ABG ALLEN TEST POS
[2021-01-21] MEDS: VILAZODONE 40 MG PO SCH (10:22)
[2021-01-21] MEDS: NORCO 5/325 MG TAB PO PRN (10:50)
[2021-01-21 12:16] VITALS: BP 131/74
== END 2021-01-21 15:40 | disposition home or self-care (01) ==
LOC: MED/SURG
PROVIDERS: ADMIT Internal Medicine; ATTEND Internal Medicine
DX: B37.0 Candidal stomatitis; M51.37 Other intervertebral disc degeneration, lumbosacral region; R06.02 Shortness of breath; I10 Essential (primary) hypertension; R07.89 Other chest pain; J44.9 Chronic obstructive pulmonary disease, unspecified; J18.0 Bronchopneumonia, unspecified organism; Z20.822 Contact with and (suspected) exposure to COVID-19; G25.81 Restless legs syndrome; F41.1 Generalized anxiety disorder

== ENCOUNTER 2021-06-13 15:25 | Inpatient (IN) ==
[2021-06-13] MEDS ORDERED: TUSSIONEX PENNKINETIC SUSP PO PRN (15:29)
[2021-06-13] MEDS: NS 1/2 1,000 ML IV 1,000 ML IV SCH (16:45)
[2021-06-13] MEDS: ROBITUSSIN DM PO SCH ×2 (16:45→21:09)
[2021-06-13] MEDS: VSL#3 PO SCH (16:45)
[2021-06-13] MEDS: LEVAQUIN PREMIX IV 500 MG 500 MG/100 ML BAG IV SCH (16:45)
[2021-06-13] MEDS ORDERED: PROVENTIL NEB TX 0.083% 2.5MG/ 3ML NEB PRN (16:56)
[2021-06-13] MEDS ORDERED: PROVENTIL NEB TX 0.083% 2.5MG/ 3ML ONE (17:07)
[2021-06-13] MEDS: PROVENTIL NEB TX 0.083% 2.5MG/ 3ML NEB SCH ×2 (17:15→20:50)
[2021-06-13 17:40] LABS: BASOPHILS % (AUTO) 0.3 % (0.2-1.0); EOSINOPHILS # (AUTO) 0.1 x10^3/uL (0.0-0.2); EOSINOPHILS % (AUTO) 0.5 % (0.9-2.9); HEMATOCRIT 35.5 % (36.0-47.0); HEMOGLOBIN 11.8 g/dL (12.0-16.0); LYMPHOCYTES # (AUTO) 2.4 X10^3/uL (1.3-2.9); LYMPHOCYTES % (AUTO) 25.4 % (21.0-51.0); MEAN CORPUSCULAR HEMOGLOBIN 27.7 pg (27.0-34.0); MEAN CORPUSCULAR HGB CONC 33.2 g/dL (33.0-35.0); MEAN CORPUSCULAR VOLUME 83.5 fL (80.0-100.0); MEAN PLATELET VOLUME 8.6 fL (7.4-11.0); MONOCYTES # (AUTO) 0.6 x10^3/uL (0.3-0.8); MONOCYTES % (AUTO) 5.9 % (0.0-13.0); NEUTROPHILS # (AUTO) 6.5 x10^3/uL (2.2-4.8); NEUTROPHILS % (AUTO) 67.9 % (42.0-75.0); RED BLOOD COUNT 4.26 X10^6/uL (3.5-5.4); RED CELL DISTRIBUTION WIDTH 15.6 % (11.6-16.5); WHITE BLOOD COUNT 9.6 X10^3/uL (3.6-10.0)
[2021-06-13] MEDS ORDERED: NS 1/2 1,000 ML IV 1,000 ML IV ONE (17:40)
[2021-06-13 17:54] LABS: ALANINE AMINOTRANSFERASE 13 Units/L (12-78); ALBUMIN 2.8 g/dL (3.4-5.0); ALKALINE PHOSPHATASE 199 Units/L (46-116); ASPARTATE AMINO TRANSFERASE 23 Units/L (15-37); BLOOD UREA NITROGEN 11 mg/dL (7-18); CALCIUM 8.6 mg/dL (8.5-10.1); CARBON DIOXIDE 27.6 mmol/L (21-32); CHLORIDE 99 mmol/L (98-107); COR CA(FOR HYPOALB) 9.6 mg/dL (8.5-10.1); CREATININE 0.68 mg/dL (0.55-1.02); SODIUM 136 mmol/L (136-145); eGFR NON BLACK RACES > 60 (>60)
[2021-06-13] MEDS ORDERED: POTASSIUM CHL 40 MEQ/NS 0.45% 500 ML IV PRN (18:03)
[2021-06-13] MEDS ORDERED: MICRO K EXTEN CAP 10 MEQ PO PRN (18:03)
[2021-06-13] MEDS ORDERED: POTASSIUM CHLORIDE LIQ 20 MEQ UDC PO PRN (18:03)
[2021-06-13] MEDS ORDERED: POTASSIUM CHL 60 MEQ/NS 0.45% 500 ML IV PRN (18:03)
[2021-06-13] MEDS ORDERED: KLOR-CON PO PRN (18:03)
[2021-06-13] MEDS: PULMICORT NEB TX 0.5 MG NEB SCH (20:50)
[2021-06-13] MEDS ORDERED: NORCO 5/325 MG TAB PO PRN (21:05)
[2021-06-13] MEDS: K-DUR TAB 20 MEQ PO PRN (21:08)
[2021-06-14] MEDS: PROVENTIL NEB TX 0.083% 2.5MG/ 3ML NEB SCH ×6 (00:54→20:59)
[2021-06-14] MEDS ORDERED: NS 1/2 1,000 ML IV 1,000 ML IV ONE (05:00)
[2021-06-14] MEDS: NS 1/2 1,000 ML IV 1,000 ML IV SCH ×2 (05:32→20:00)
--- NOTE | 2021-06-14 06:57 | RAD ---
HISTORYPneumoniaSTUDYChest PA and lateral [id number]/10/2021FINDINGSStable normal heart size. Diffuse interstitial process noted bilaterally without evidence for localized/lobar airspace involvement or pleural effusion.IMPRESSIONInterval increase in bilateral interstitial infiltrates since 01/21/2021. This may represent progression of CT-documented fibrosis and/or superimposed inflammatory process. Follow-up suggested.Electronically signed by: BRAD RICHARD (June 14, 2021 06:56:47)
--- NOTE | 2021-06-14 08:31 | DR.H&P ---
H&P - History & Physical for Day of: H&P Date: 06/13/21 - Chief Complaint Chief Complaint: CCC, SOB - History of Present Illness History of Present Illness: PT IS 55 WF DIRECT ADMIT FROM DR NEW OFFICE WITH PRODUCTIVE COUGH FOR A WEEK AND SOB. PT HAS PMH OF COPD, USING INHALERS AND NEB TREATMENTS AT HOME. PT REPORTS NAUSEA, VOMITING AND DIARRHEA ONSET SUNDAY. PT ADMITTED FOR TREATMENT OF ACUTE ILLNESS. - Past Medical History Past Medical History: Hypertension, Depression, COPD - Past Surgical History Surgical History: Appendectomy, , Cholecystectomy, Hysterectomy - Family History Family Medical History: Cancer, [place], Hypertension - Social History Does patient currently use any type of tobacco product: Yes Have you used tobacco products in the last 12 months: Yes Type of Tobacco Use: Cigarettes How many years tobacco product used: 10 Packs per day or dips/chews per day: 1/2 Alcohol Use: None Drug Use: None Prescription drug monitoring program results: PDMP reviewed and no concerns identified - Medications Home Medications: No Known Drug Allergies Allergy (Verified 04/12/20 18:42) - Review of Systems Constitutional: Chills, Weakness, Malaise Eyes: No Symptoms Reported ENT: Nose Discharge, Nose Congestion, Mouth Pain, Throat Pain Respiratory: Shortness of Breath, SOB with Excertion, Sputum Cardiovascular: No Symptoms Reported Gastrointestinal: Nausea, Vomiting, Diarrhea Genitourinary: No Symptoms Reported Musculoskeletal: Back Pain Skin: No Symptoms Reported Neurological: Weakness - Physical Exam Vital Signs: Temperature 98 F Pulse Rate [Bilateral Radial] 86 Pulse Rate 86 Respiratory Rate 21 Blood Pressure [Right Arm] 106/55 Blood Pressure [Left Arm] 117/83 Blood Pressure 132/69 O2 Sat by Pulse Oximetry 97 Oriented: Normal Eyes: Normal Ear: Normal Nose: Normal Throat: Red, Exudate Respiratory: Diminished Throughout, Rhonchi Throughout, Wheezes Throughout Cardiovascular: Normal. negative: Edema : Normal Auscultation: Bowel Sounds: Normal Palpation: Normal Tenderness: Normal Skin: Decreased Turgur Musculoskeletal: Back:Thoracic, Back:Lumbar Psychiatric: Anxiety Affect: Anxious Speech Pattern: Clear, Appropriate - Assessment/Plan (1) COPD with acute bronchitis Status: Acute Plan: ADMIT, PNEUMONIA PROTOCOL. BLOOD AND SPUTUM CULTURES. IV HYDRATION, IV ATBX. RESP THERAPY, PRN SUPPLEMENTAL O2. VERIFY HOME MEDICATIONS. CXR ON ADMISSION (2) Candidiasis Status: Acute (3) HAMMAD (generalized anxiety disorder) Status: Acute (4) GERD (gastroesophageal reflux disease) Status: Chronic (5) Hypertension Status: Chronic (6) Lumbar degenerative disc disease Status: Chronic - Allergies Allergies/Adverse Reactions: Allergies Allergy/AdvReac Type Severity Reaction Status Date / Time No Known Drug Allergies Allergy Verified 04/12/20 18:42
[2021-06-14] MEDS: PULMICORT NEB TX 0.5 MG NEB SCH ×2 (08:35→21:00)
[2021-06-14] MEDS ORDERED: VILAZODONE 40 MG PO SCH (09:00)
[2021-06-14] MEDS ORDERED: NYSTATIN SUSP PO SCH (09:00)
[2021-06-14] MEDS ORDERED: PROTONIX INJ 40 MG VIAL IVP SCH (09:00)
[2021-06-14] MEDS: BUSPAR PO SCH ×2 (09:58→21:41)
[2021-06-14] MEDS: REQUIP PO SCH ×2 (09:59→21:38)
[2021-06-14] MEDS: ROBITUSSIN DM PO SCH ×4 (10:00→21:38)
[2021-06-14] MEDS: LOVENOX INJ 40 MG SYR SC SCH (10:00)
[2021-06-14] MEDS: VSL#3 PO SCH (10:00)
[2021-06-14] MEDS: SINEMET (PLAIN) 25/100 MG PO SCH ×2 (10:00→21:37)
[2021-06-14] MEDS: SOLU-Medrol 125 MG VIAL IVP SCH ×3 (10:00→21:38)
[2021-06-14] MEDS: MAALOX or MYLANTA PO SCH ×4 (10:00→21:40)
[2021-06-14] MEDS: LEVAQUIN PREMIX IV 500 MG 500 MG/100 ML BAG IV SCH (10:00)
[2021-06-14 12:35] VITALS: BMI 31.9
--- NOTE | 2021-06-14 14:05 | PCM.PROG ---
Progress Note - Subjective Subjective: Patient is a 55 year old female who was admitted as per HPI. Patient reports vomiting and diarrhea have improved. Continues to report nausea but is tolerating food without vomiting. Patient reports dyspnea has improved as well. States she was sick all last week with GI symptoms. No other concerns at present. Meds, vitals, labs reviewed. - Past Medical Family Social History Past Med/Fam/Surg Hx: No changes since H&P Allergies: Allergies No Known Drug Allergies Allergy (Verified 04/12/20 18:42) - Review of Systems ROS: No change since H&P - Vital Signs and I&O's Vital Signs: Temperature 98.0 F Pulse Rate [Bilateral Radial] 83 Pulse Rate 86 Respiratory Rate 20 Blood Pressure [Right Arm] 114/71 Blood Pressure [Left Arm] 117/83 Blood Pressure 132/69 O2 Sat by Pulse Oximetry 97 Intake and Output: Intake & Output 06/11/21 06/12/21 06/13/21 06/14/21 23:59 23:59 23:59 23:59 Intake Total 660 / 660 686 / 686 Balance 660 / 660 686 / 686 - Physical Exam Oriented: Normal Eyes: Normal Ear: Normal Nose: Normal Throat: Red, Exudate Respiratory: Rhonchi Cardiovascular: Normal. negative: Edema : Normal Auscultation: Bowel Sounds: Normal Palpation: Normal Tenderness: Normal Skin: Normal Musculoskeletal: Back:Thoracic, Back:Lumbar Psychiatric: Normal Mood Description: Calm Affect: Normal Speech Pattern: Clear, Appropriate - Laboratory and Diagnostics Result Diagrams: 06/13/21 16:46 06/14/21 09:40 Labs: 06/13/21 17:22 Sputum - Expectorated Sputum Sputum Culture - Preliminary 06/13/21 17:22 Sputum - Expectorated Sputum - Final Laboratory WBC 9.6 X10^3/uL (3.6-10.0) 06/13/21 16:46 RBC 4.26 X10^6/uL (3.5-5.4) 06/13/21 16:46 Hgb 11.8 g/dL (12.0-16.0) L 06/13/21 16:46 Hct 35.5 % (36.0-47.0) L 06/13/21 16:46 MCV 83.5 fL (80.0-100.0) 06/13/21 16:46 MCH 27.7 pg (27.0-34.0) 06/13/21 16:46 MCHC 33.2 g/dL (33.0-35.0) 06/13/21 16:46 RDW 15.6 % (11.6-16.5) 06/13/21 16:46 Plt Count 528 X10^3/uL (150.0-450.0) H 06/13/21 16:46 MPV 8.6 fL (7.4-11.0) 06/13/21 16:46 Neut % (Auto) 67.9 % (42.0-75.0) 06/13/21 16:46 Lymph % (Auto) 25.4 % (21.0-51.0) 06/13/21 16:46 [place] % (Auto) 5.9 % (0.0-13.0) 06/13/21 16:46 Eos % (Auto) 0.5 % (0.9-2.9) L 06/13/21 16:46 Baso % (Auto) 0.3 % (0.2-1.0) 06/13/21 16:46 Neut # (Auto) 6.5 x10^3/uL (2.2-4.8) H 06/13/21 16:46 Lymph # (Auto) 2.4 X10^3/uL (1.3-2.9) 06/13/21 16:46 [place] # (Auto) 0.6 x10^3/uL (0.3-0.8) 06/13/21 16:46 Eos # (Auto) 0.1 x10^3/uL (0.0-0.2) 06/13/21 16:46 Baso # (Auto) 0.0 X10^3/uL (0.0-0.1) 06/13/21 16:46 Absolute Nucleated RBC 0.0 /100WBC 06/13/21 16:46 Sodium 136 mmol/L (136-145) 06/13/21 16:46 Corrected Sodium TNP 06/13/21 16:46 Potassium 3.2 mmol/L (3.5-5.1) L 06/14/21 09:40 Chloride 99 mmol/L (98-107) 06/13/21 16:46 Carbon Dioxide 27.6 mmol/L (21-32) 06/13/21 16:46 BUN 11 mg/dL (7-18) 06/13/21 16:46 Creatinine 0.68 mg/dL (0.55-1.02) 06/13/21 16:46 Est GFR (MDRD) Af Amer > 60 (>60) 06/13/21 16:46 Est GFR (MDRD) Non-Af > 60 (>60) 06/13/21 16:46 Glucose 90 mg/dL (65-99) 06/13/21 16:46 Calcium 8.6 mg/dL (8.5-10.1) 06/13/21 16:46 Corrected Calcium 9.6 mg/dL (8.5-10.1) 06/13/21 16:46 Magnesium 2.3 mg/dL (1.7-2.9) 06/13/21 16:46 Total Bilirubin 0.20 mg/dL (0.2-1.0) 06/13/21 16:46 AST 23 Units/L (15-37) 06/13/21 16:46 ALT 13 Units/L (12-78) 06/13/21 16:46 Alkaline Phosphatase 199 Units/L (46-116) H 06/13/21 16:46 Total Protein 8.0 g/dL (6.4-8.2) 06/13/21 16:46 Albumin 2.8 g/dL (3.4-5.0) L 06/13/21 16:46 Globulin 5.2 g/dL (2.5-4.5) H 06/13/21 16:46 Albumin/Globulin Ratio 0.5 Ratio (1.1-2.1) L 06/13/21 16:46 SARS CoV-2 RNA Rapid DARBY Negative (NEGATIVE) 06/13/21 17:00 - Plan (1) Nausea & vomiting Status: Acute (2) SOB (shortness of breath) Status: Acute (3) Lower back pain Status: Chronic Qualifiers: Chronicity: acute Back pain laterality: bilateral Sciatica presence: with sciatica Sciatica laterality: sciatica of right side Qualified Code(s): M54.41 - Lumbago with sciatica, right side (4) COPD with acute bronchitis Status: Acute Plan: ADMIT, PNEUMONIA PROTOCOL. BLOOD AND SPUTUM CULTURES. IV HYDRATION, IV ATBX. RESP THERAPY, PRN SUPPLEMENTAL O2. VERIFY HOME MEDICATIONS. CXR in am. Labs in am (5) GERD (gastroesophageal reflux disease) Status: Chronic
[2021-06-14] MEDS: BENTYL CAP 10 MG PO SCH ×2 (15:00→21:37)
--- NOTE | 2021-06-14 15:08 | RAD ---
HISTORYCOPDSTUDYChest PA and lateral [id number] is no change in appearance of heart or lungs since 1 day prior. Heart size remains normal with extensive bilateral interstitial lung disease. No superimposed airspace consolidation, complicating pneumothorax or pleural fluid identified.IMPRESSIONNo change.Electronically signed by: BRAD RICHARD (June 14, 2021 15:08:12)
[2021-06-14] MEDS: K-DUR TAB 20 MEQ PO PRN (16:47)
[2021-06-14] MEDS: NORCO 5/325 MG TAB PO PRN (16:49)
[2021-06-14] MEDS ORDERED: NORVASC TAB 10 MG PO SCH (21:00)
[2021-06-14] MEDS ORDERED: SINEquan PO SCH (21:00)
[2021-06-14] MEDS: PriLOSEC PO SCH (21:39)
[2021-06-15] MEDS: PROVENTIL NEB TX 0.083% 2.5MG/ 3ML NEB SCH ×5 (01:14→17:40)
[2021-06-15] MEDS ORDERED: NS 1/2 1,000 ML IV 1,000 ML IV ONE (02:30)
[2021-06-15] MEDS: NS 1/2 1,000 ML IV 1,000 ML IV SCH ×2 (02:40→10:23)
[2021-06-15 04:20] LABS: BASOPHILS # (AUTO) 0.1 X10^3/uL (0.0-0.1); BASOPHILS % (AUTO) 0.8 % (0.2-1.0); HEMATOCRIT 32.9 % (36.0-47.0); HEMOGLOBIN 10.6 g/dL (12.0-16.0); LYMPHOCYTES # (AUTO) 0.9 X10^3/uL (1.3-2.9); LYMPHOCYTES % (AUTO) 7.8 % (21.0-51.0); MEAN CORPUSCULAR HEMOGLOBIN 27.1 pg (27.0-34.0); MEAN CORPUSCULAR HGB CONC 32.2 g/dL (33.0-35.0); MEAN CORPUSCULAR VOLUME 84.2 fL (80.0-100.0); MEAN PLATELET VOLUME 8.5 fL (7.4-11.0); MONOCYTES # (AUTO) 0.2 x10^3/uL (0.3-0.8); MONOCYTES % (AUTO) 1.5 % (0.0-13.0); NEUTROPHILS # (AUTO) 9.9 x10^3/uL (2.2-4.8); NEUTROPHILS % (AUTO) 89.9 % (42.0-75.0); RED BLOOD COUNT 3.91 X10^6/uL (3.5-5.4); RED CELL DISTRIBUTION WIDTH 15.3 % (11.6-16.5); WHITE BLOOD COUNT 11.1 X10^3/uL (3.6-10.0)
[2021-06-15 04:35] LABS: ALANINE AMINOTRANSFERASE 8 Units/L (12-78); ALBUMIN 2.5 g/dL (3.4-5.0); ALKALINE PHOSPHATASE 180 Units/L (46-116); ASPARTATE AMINO TRANSFERASE 17 Units/L (15-37); BLOOD UREA NITROGEN 11 mg/dL (7-18); CALCIUM 8.3 mg/dL (8.5-10.1); CARBON DIOXIDE 23.7 mmol/L (21-32); CHLORIDE 105 mmol/L (98-107); COR CA(FOR HYPOALB) 9.5 mg/dL (8.5-10.1); COR NA(FOR HYPERGLY) 140 mmol/L (136-145); CREATININE 0.79 mg/dL (0.55-1.02); SODIUM 139 mmol/L (136-145); TOTAL PROTEIN 7.2 g/dL (6.4-8.2); eGFR NON BLACK RACES > 60 (>60)
[2021-06-15] MEDS: BENTYL CAP 10 MG PO SCH ×2 (05:48→14:00)
[2021-06-15] MEDS: SOLU-Medrol 125 MG VIAL IVP SCH ×2 (05:49→14:00)
[2021-06-15] MEDS: K-RIDER 10 MEQ/NS 100 ML 10 MEQ/100 ML BAG IV PRN ×2 (07:22→18:44)
[2021-06-15] MEDS ORDERED: PEPCID TAB 40 MG PO SCH (09:00)
[2021-06-15] MEDS: LEVAQUIN PREMIX IV 500 MG 500 MG/100 ML BAG IV SCH (09:06)
[2021-06-15] MEDS: BUSPAR PO SCH (09:06)
[2021-06-15] MEDS: LOVENOX INJ 40 MG SYR SC SCH (09:07)
[2021-06-15] MEDS: PriLOSEC PO SCH (09:08)
[2021-06-15] MEDS: SINEMET (PLAIN) 25/100 MG PO SCH (09:08)
[2021-06-15] MEDS: REQUIP PO SCH (09:08)
[2021-06-15] MEDS: ROBITUSSIN DM PO SCH ×3 (09:08→18:15)
[2021-06-15] MEDS: VSL#3 PO SCH (09:09)
[2021-06-15] MEDS: NORCO 5/325 MG TAB PO PRN (09:28)
[2021-06-15] MEDS: PULMICORT NEB TX 0.5 MG NEB SCH (09:35)
[2021-06-15 17:17] VITALS: BP 106/57
[2021-06-15] MEDS ORDERED: NYSTATIN POWDER TOP PRN (18:39)
[2021-06-15] MEDS: K-DUR TAB 20 MEQ PO PRN (18:44)
[2021-06-15] MEDS ORDERED: NYSTATIN SUSP MT SCH (21:00)
[2021-06-15] MEDS ORDERED: DIFLUCAN PO SCH (21:00)
== END 2021-06-15 17:00 | disposition left against medical advice (07) | DRG 202 ==
LOC: MED/SURG
PROVIDERS: ADMIT Internal Medicine; ATTEND Internal Medicine
DX: R13.10 Dysphagia, unspecified; J44.0 Chronic obstructive pulmonary disease with (acute) lower respiratory infection; I10 Essential (primary) hypertension; Z20.822 Contact with and (suspected) exposure to COVID-19; B37.9 Candidiasis, unspecified; R19.7 Diarrhea, unspecified; M51.36 Other intervertebral disc degeneration, lumbar region; G25.81 Restless legs syndrome; B96.89 Other specified bacterial agents as the cause of diseases classified elsewhere; J44.1 Chronic obstructive pulmonary disease with (acute) exacerbation; F41.1 Generalized anxiety disorder; R11.2 Nausea with vomiting, unspecified; M15.9 Polyosteoarthritis, unspecified; J20.9 Acute bronchitis, unspecified; F32.A Depression, unspecified; K21.9 Gastro-esophageal reflux disease without esophagitis

== ENCOUNTER 2022-11-14 15:19 | Inpatient (IN) ==
[2022-11-14 16:53] VITALS: BMI 31.6
[2022-11-14] MEDS ORDERED: ZOFRAN INJ 4 MG VIAL IVP PRN (16:59)
[2022-11-14] MEDS ORDERED: DUONEB 0.5 MG/3 MG (3 mL) NEB SCH (17:00)
[2022-11-14] MEDS ORDERED: PROVENTIL NEB TX 0.083% 2.5MG/ 3ML NEB ONE (17:25)
[2022-11-14 17:53] LABS: BASOPHILS # (AUTO) 0.1 X10^3/uL (0.0-0.1); BASOPHILS % (AUTO) 0.8 % (0.2-1.0); EOSINOPHILS # (AUTO) 0.1 x10^3/uL (0.0-0.2); EOSINOPHILS % (AUTO) 0.9 % (0.9-2.9); HEMATOCRIT 35.5 % (36.0-47.0); HEMOGLOBIN 11.6 g/dL (12.0-16.0); LYMPHOCYTES # (AUTO) 2.9 X10^3/uL (1.3-2.9); LYMPHOCYTES % (AUTO) 34.9 % (21.0-51.0); MEAN CORPUSCULAR HEMOGLOBIN 27.4 pg (27.0-34.0); MEAN CORPUSCULAR HGB CONC 32.6 g/dL (33.0-35.0); MEAN CORPUSCULAR VOLUME 84.1 fL (80.0-100.0); MEAN PLATELET VOLUME 8.3 fL (7.4-11.0); MONOCYTES # (AUTO) 0.6 x10^3/uL (0.3-0.8); NEUTROPHILS # (AUTO) 4.7 x10^3/uL (2.2-4.8); NEUTROPHILS % (AUTO) 56.4 % (42.0-75.0); PLATELET COUNT 391 X10^3/uL (150.0-450.0); RED BLOOD COUNT 4.22 X10^6/uL (3.5-5.4); RED CELL DISTRIBUTION WIDTH 16.4 % (11.6-16.5); WHITE BLOOD COUNT 8.3 X10^3/uL (3.6-10.0)
[2022-11-14 18:12] LABS: ALANINE AMINOTRANSFERASE 10 Units/L (12-78); ALKALINE PHOSPHATASE 243 Units/L (46-116); ASPARTATE AMINO TRANSFERASE 14 Units/L (15-37); BLOOD UREA NITROGEN 9 mg/dL (7-18); CALCIUM 8.2 mg/dL (8.5-10.1); CARBON DIOXIDE 28.1 mmol/L (21-32); CHLORIDE 101 mmol/L (98-107); CREATININE 0.86 mg/dL (0.55-1.02); GLUCOSE 93 mg/dL (65-99); POTASSIUM 3.5 mmol/L (3.5-5.1); SODIUM 138 mmol/L (136-145); TOTAL PROTEIN 8.3 g/dL (6.4-8.2); TSH (3RD GENERATION) 1.776 uIU/mL (0.358-3.74); eGFR NON BLACK RACES > 60 (>60)
--- NOTE | 2022-11-14 18:16 | DR.H&P ---
H&P - History & Physical for Day of: H&P Date: 11/14/22 - Chief Complaint Chief Complaint: fever, ccc, sob - History of Present Illness History of Present Illness: PT IS 57 WF, DIRECT ADMIT FROM DR NEW OFFICE WITH FEVER, CCC AND SOB DUE TO INFLUENZA A AND COPD. PT STATES ONSET OF ILLNESS WAS SUNDAY. PT TESTED FOR NEGATIVE FOR COVID AND FLU B, PT WAS FLU A+. PT HAS PMH OF COPD, HTN, GERD, OA, HAMMAD, MDD, RLS AND NEUROPATHY. PT ADMITTED FOR TREATMENT AND EVALUATION OF ACUTE ILLNESS. - Past Medical History Past Medical History: Hypertension, COPD - Past Surgical History Surgical History: , Hysterectomy - Family History Family Medical History: Diabetes Mellitus, Coronary Artery Disease, Heart Failure, Hypertension - Social History Does patient currently use any type of tobacco product: No Have you used tobacco products in the last 12 months: Yes Type of Tobacco Use: Cigarettes How many years tobacco product used: 40 Does any household member use tobacco: No Alcohol Use: None Drug Use: None - Review of Systems Constitutional: Fever, Chills, Weakness, Malaise Eyes: No Symptoms Reported ENT: Nose Congestion Respiratory: Shortness of Breath, Sputum, Wheezing Cardiovascular: No Symptoms Reported Gastrointestinal: No Symptoms Reported Genitourinary: No Symptoms Reported Musculoskeletal: Back Pain Skin: No Symptoms Reported Neurological: No Symptoms Reported - Physical Exam Vital Signs: Vital Signs Temperature 98.0 F Pulse Rate [Right Brachial] 80 Pulse Rate 81 Respiratory Rate 24 Blood Pressure [Right Arm] 162/90 O2 Sat by Pulse Oximetry 94 O2 Sat by Pulse Oximetry 98 Oriented: Normal Eyes: Normal Ear: Normal Nose: Normal Throat: Red, Exudate Respiratory: Wheezes Throughout, RLL Diminished, LLL Diminished Cardiovascular: Normal : Normal Auscultation: Bowel Sounds: Normal Palpation: Normal Tenderness: Normal Skin: Decreased Turgur Musculoskeletal: Back:Lumbar Psychiatric: Anxiety Affect: Anxious Speech Pattern: Clear, Appropriate - Assessment/Plan (1) Influenza A Status: Acute Plan: ADMIT, IV HYDRATION. TAMIFLU, SOLU MEDROL, IV LEVAQUIN. RESP THERAPY, SPUTUM CULTURE. SUPPLEMENTAL O2 (2) Gastroesophageal reflux disease Status: Acute (3) COPD with acute bronchitis Status: Acute (4) HAMMAD (generalized anxiety disorder) Status: Acute (5) Hypertension Status: Chronic (6) Lumbar degenerative disc disease Status: Chronic - Allergies Allergies/Adverse Reactions: Allergies Allergy/AdvReac Type Severity Reaction Status Date / Time No Known Drug Allergies Allergy Verified 04/12/20 18:42 - Medications Home Medications: Home Medications Medication Instructions Recorded Confirmed doxepin 25 mg capsule 25 mg PO HS 01/01/20 09/04/21 hydrocodone 5 mg-acetaminophen 325 1 tab PO BID PRN 01/01/20 09/04/21 mg tablet ([place]) ropinirole 1 mg tablet 1 mg PO BID 01/01/20 09/04/21 amlodipine 10 mg tablet 10 mg PO HS 01/17/21 09/04/21 buspirone 10 mg tablet 10 mg PO BID 01/17/21 09/04/21 carbidopa 25 mg-levodopa 100 mg See Rx Instructions .Route .COMPLEX 01/17/21 09/04/21 tablet dicyclomine 20 mg tablet 20 mg PO TID 01/17/21 09/04/21 famotidine 40 mg tablet 40 mg PO DAILY 01/17/21 09/04/21 omeprazole 40 mg capsule,delayed 40 mg PO BID 01/17/21 09/04/21 release vilazodone 40 mg tablet 40 mg PO DAILY 01/17/21 09/04/21 cyclobenzaprine 10 mg tablet 10 mg PO HS 09/04/21 09/04/21 gabapentin 300 mg capsule 300 mg PO QHS 09/04/21 09/04/21 Previous Rx's Medication Instructions Recorded furosemide 40 mg tablet 40 mg PO QAM #10 tabs 09/04/21 omeprazole 40 mg capsule,delayed 40 mg PO QDAY GERD #30 caps 10/21/21 release ondansetron 4 mg disintegrating 4 mg PO Q8H PRN nausea and 10/21/21 tablet vomiting #20 tabs
[2022-11-14] MEDS ORDERED: PULMICORT NEB TX 0.5 MG NEB ONE (19:16)
[2022-11-14] MEDS ORDERED: DUONEB 0.5 MG/3 MG (3 mL) NEB ONE (19:16)
[2022-11-14] MEDS: NS 1,000 ML IV 1,000 ML IV SCH (19:28)
[2022-11-14] MEDS: PROTONIX INJ 40 MG VIAL IVP SCH (19:29)
[2022-11-14] MEDS: LEVAQUIN PREMIX IV 500 MG 500 MG/100 ML BAG IV SCH (19:29)
[2022-11-14] MEDS: ROBITUSSIN DM PO SCH ×2 (19:29→21:02)
[2022-11-14] MEDS: TAMIFLU PO SCH (19:30)
[2022-11-14] MEDS: DUONEB 0.5 MG/3 MG (3 mL) NEB SCH (20:14)
[2022-11-14] MEDS: PULMICORT NEB TX 0.5 MG NEB SCH (20:14)
[2022-11-14] MEDS ORDERED: NEURONTIN CAP 300 MG ONE (20:23)
[2022-11-14] MEDS ORDERED: REQUIP PO ONE (20:23)
[2022-11-14 20:48] LABS: BILIRUBIN,URINE NEGATIVE (NEGATIVE); BLOOD/HEMOGLOBIN,URINE 3+ (NEGATIVE); GLUCOSE, URINE NEGATIVE (NEGATIVE); KETONES,URINE NEGATIVE (NEGATIVE); LEUKOCYTE ESTERASE ,URINE NEGATIVE (NEGATIVE); NITRITES,URINE NEGATIVE (NEGATIVE); PROTEIN,URINE NEGATIVE (NEGATIVE); UROBILINOGEN,URINE NORMAL (NORMAL)
[2022-11-14] MEDS: COLACE CAP 100 MG PO SCH (20:55)
[2022-11-14] MEDS: BUSPAR PO SCH (20:55)
[2022-11-14 20:56] LABS: APPEARANCE,URINE CLEAR (CLEAR); BACTERIA,URINE NEGATIVE /HPF (NEGATIVE); COLOR,URINE YELLOW (YELLOW); SQUAMOUS EPITHELIAL CELL,UR NEGATIVE /HPF (NEGATIVE)
[2022-11-14] MEDS: SINGULAIR TAB 10 MG PO SCH (20:56)
[2022-11-14] MEDS: TUSSIONEX PENNKINETIC SUSP PO PRN (20:56)
[2022-11-14] MEDS: NEURONTIN CAP 300 MG PO SCH (21:00)
[2022-11-14] MEDS: REQUIP PO SCH (21:00)
[2022-11-14] MEDS: NORCO 5/325 MG TAB PO PRN (21:03)
--- NOTE | 2022-11-14 21:13 | RAD ---
EXAM:CHEST, 1 VIEWHISTORY:COUGHING PERSISTENT, SOB, INFLUENZA, SOB, COPD;COMPARISON:09/04/2021TECHNIQUE:Sing le frontal chest radiograph.FINDINGS:Stable cardiomediastinal silhouette. Chronic interstitial lung changes are again seen. Accounting for this, no confluent opacity. No pneumothorax or pleural effusion.IMPRESSION:No definite acute chest findings when accounting for chronic interstitial lung changes.THIS IS AN ELECTRONICALLY VERIFIED FINAL [id number]/14/2022 9:10 PM - Electronically signed by Meño Collins MD
[2022-11-15] MEDS: REQUIP PO SCH ×3 (05:09→21:18)
[2022-11-15] MEDS: NEURONTIN CAP 300 MG PO SCH ×3 (05:09→21:18)
[2022-11-15] MEDS: NS 1,000 ML IV 1,000 ML IV SCH (05:10)
[2022-11-15] MEDS: NORCO 5/325 MG TAB PO PRN (05:10)
[2022-11-15 05:53] LABS: BASOPHILS % (AUTO) 0.6 % (0.2-1.0); EOSINOPHILS # (AUTO) 0.1 x10^3/uL (0.0-0.2); EOSINOPHILS % (AUTO) 1.3 % (0.9-2.9); HEMATOCRIT 33.8 % (36.0-47.0); HEMOGLOBIN 10.9 g/dL (12.0-16.0); LYMPHOCYTES # (AUTO) 1.8 X10^3/uL (1.3-2.9); LYMPHOCYTES % (AUTO) 24.7 % (21.0-51.0); MEAN CORPUSCULAR HEMOGLOBIN 27.5 pg (27.0-34.0); MEAN CORPUSCULAR HGB CONC 32.4 g/dL (33.0-35.0); MEAN CORPUSCULAR VOLUME 84.8 fL (80.0-100.0); MEAN PLATELET VOLUME 8.4 fL (7.4-11.0); MONOCYTES # (AUTO) 0.5 x10^3/uL (0.3-0.8); MONOCYTES % (AUTO) 6.4 % (0.0-13.0); NEUTROPHILS # (AUTO) 4.9 x10^3/uL (2.2-4.8); PLATELET COUNT 378 X10^3/uL (150.0-450.0); RED BLOOD COUNT 3.98 X10^6/uL (3.5-5.4); RED CELL DISTRIBUTION WIDTH 16.4 % (11.6-16.5); WHITE BLOOD COUNT 7.3 X10^3/uL (3.6-10.0)
[2022-11-15 06:05] LABS: ALANINE AMINOTRANSFERASE 10 Units/L (12-78); ALBUMIN 2.7 g/dL (3.4-5.0); ALKALINE PHOSPHATASE 233 Units/L (46-116); ASPARTATE AMINO TRANSFERASE 18 Units/L (15-37); BLOOD UREA NITROGEN 9 mg/dL (7-18); CALCIUM 7.9 mg/dL (8.5-10.1); CARBON DIOXIDE 27.3 mmol/L (21-32); CHLORIDE 103 mmol/L (98-107); COR CA(FOR HYPOALB) 8.9 mg/dL (8.5-10.1); COR NA(FOR HYPERGLY) 139 mmol/L (136-145); CREATININE 0.94 mg/dL (0.55-1.02); GLUCOSE 113 mg/dL (65-99); POTASSIUM 3.6 mmol/L (3.5-5.1); SODIUM 139 mmol/L (136-145); TOTAL PROTEIN 7.8 g/dL (6.4-8.2); eGFR NON BLACK RACES > 60 (>60)
[2022-11-15] MEDS ORDERED: CONSULT PHARMACY - POTASSIUM & MAGNESIUM XX SCH (07:00)
[2022-11-15] MEDS: TAMIFLU PO SCH ×2 (08:43→21:18)
[2022-11-15] MEDS: COZAAR PO SCH (08:43)
[2022-11-15] MEDS: ROBITUSSIN DM PO SCH ×4 (08:43→21:18)
[2022-11-15] MEDS: PAXIL PO SCH (08:43)
[2022-11-15] MEDS: PROTONIX INJ 40 MG VIAL IVP SCH (08:44)
[2022-11-15] MEDS: BUSPAR PO SCH ×2 (08:44→21:18)
[2022-11-15] MEDS: LEVAQUIN PREMIX IV 500 MG 500 MG/100 ML BAG IV SCH (08:45)
[2022-11-15] MEDS: NS + KCL 20 MEQ/L 1,000 ML IV SCH (08:45)
[2022-11-15] MEDS: TUSSIONEX PENNKINETIC SUSP PO PRN (08:56)
[2022-11-15] MEDS: DUONEB 0.5 MG/3 MG (3 mL) NEB SCH ×4 (09:23→20:44)
[2022-11-15] MEDS: PULMICORT NEB TX 0.5 MG NEB SCH ×2 (09:23→20:44)
[2022-11-15] MEDS: SOLU-Medrol 40 MG VIAL IVP SCH ×3 (10:10→21:18)
--- NOTE | 2022-11-15 18:06 | PCM.PROG ---
Progress Note - Progress Note for Day of Date of Exam: 11/15/22 - Subjective Subjective: PT IS 57 WF, DIRECT ADMIT ON 11/14 WITH ACUTE BRONCHITIS AND INFLUENZA. PT HAS PMH OF COPD AND HAS DIFFUSE EXPIRATORY WHEEZES ON EXAM THIS MORNING WITH A PRODUCTIVE COUGH. PTS BP ELEVATED THIS MORNING. PT WAS STARTED ON LOSARTAN 50MG PO DAILY. PT CO MID BACK PAIN DUE TO VIOLENT COUGHING SPELLS. - Past Medical Family Social History Past Med/Fam/Surg Hx: No changes since H&P Allergies: Allergies No Known Drug Allergies Allergy (Verified 04/12/20 18:42) - Review of Systems ROS: No change since H&P - Vital Signs and I&O's Vital Signs: Vital Signs Temperature 98.2 F Temperature 98.1 F Pulse Rate [Right Brachial] 101 Pulse Rate [Right Brachial] 86 Respiratory Rate 22 Respiratory Rate 22 Blood Pressure [Right Arm] 133/86 Blood Pressure [Right Arm] 140/84 O2 Sat by Pulse Oximetry 98 O2 Sat by Pulse Oximetry 95 Intake and Output: Intake & Output 11/13/22 11/14/22 11/15/22 11/16/22 11:59 11:59 11:59 11:59 Intake Total 2037 1450 / 1450 Balance 2037 1450 / 1450 - Physical Exam Oriented: Normal Eyes: Normal Ear: Normal Nose: Normal Throat: Red, Exudate Respiratory: Diminished, Wheezes, Rhonchi Cardiovascular: Normal : Normal Auscultation: Bowel Sounds: Normal Tenderness: Normal Skin: Decreased Turgur Musculoskeletal: Back:Lumbar Psychiatric: Anxiety Affect: Anxious Speech Pattern: Clear, Appropriate - Laboratory and Diagnostics Result Diagrams: 11/15/22 05:19 11/15/22 05:19 Labs: 11/15/22 09:59 Sputum - Expectorated Sputum - Final Laboratory WBC 7.3 X10^3/uL (3.6-10.0) 11/15/22 05:19 RBC 3.98 X10^6/uL (3.5-5.4) 11/15/22 05:19 Hgb 10.9 g/dL (12.0-16.0) L 11/15/22 05:19 Hct 33.8 % (36.0-47.0) L 11/15/22 05:19 MCV 84.8 fL (80.0-100.0) 11/15/22 05:19 MCH 27.5 pg (27.0-34.0) 11/15/22 05:19 MCHC 32.4 g/dL (33.0-35.0) L 11/15/22 05:19 RDW 16.4 % (11.6-16.5) 11/15/22 05:19 Plt Count 378 X10^3/uL (150.0-450.0) 11/15/22 05:19 MPV 8.4 fL (7.4-11.0) 11/15/22 05:19 Neut % (Auto) 67.0 % (42.0-75.0) 11/15/22 05:19 Lymph % (Auto) 24.7 % (21.0-51.0) 11/15/22 05:19 [place] % (Auto) 6.4 % (0.0-13.0) 11/15/22 05:19 Eos % (Auto) 1.3 % (0.9-2.9) 11/15/22 05:19 Baso % (Auto) 0.6 % (0.2-1.0) 11/15/22 05:19 Neut # (Auto) 4.9 x10^3/uL (2.2-4.8) H 11/15/22 05:19 Lymph # (Auto) 1.8 X10^3/uL (1.3-2.9) 11/15/22 05:19 [place] # (Auto) 0.5 x10^3/uL (0.3-0.8) 11/15/22 05:19 Eos # (Auto) 0.1 x10^3/uL (0.0-0.2) 11/15/22 05:19 Baso # (Auto) 0.0 X10^3/uL (0.0-0.1) 11/15/22 05:19 Absolute Nucleated RBC 0.0 /100WBC 11/15/22 05:19 Sodium 139 mmol/L (136-145) 11/15/22 05:19 Corrected Sodium 139 mmol/L (136-145) 11/15/22 05:19 Potassium 3.6 mmol/L (3.5-5.1) 11/15/22 05:19 Chloride 103 mmol/L (98-107) 11/15/22 05:19 Carbon Dioxide 27.3 mmol/L (21-32) 11/15/22 05:19 BUN 9 mg/dL (7-18) 11/15/22 05:19 Creatinine 0.94 mg/dL (0.55-1.02) 11/15/22 05:19 Est GFR (MDRD) Af Amer > 60 (>60) 11/15/22 05:19 Est GFR (MDRD) Non-Af > 60 (>60) 11/15/22 05:19 Glucose 113 mg/dL (65-99) H 11/15/22 05:19 Calcium 7.9 mg/dL (8.5-10.1) L 11/15/22 05:19 Corrected Calcium 8.9 mg/dL (8.5-10.1) 11/15/22 05:19 Magnesium 2.1 mg/dL (2.0-2.9) 11/15/22 05:19 Total Bilirubin 0.30 mg/dL (0.2-1.0) 11/15/22 05:19 AST 18 Units/L (15-37) 11/15/22 05:19 ALT 10 Units/L (12-78) L 11/15/22 05:19 Alkaline Phosphatase 233 Units/L (46-116) H 11/15/22 05:19 Total Protein 7.8 g/dL (6.4-8.2) 11/15/22 05:19 Albumin 2.7 g/dL (3.4-5.0) L 11/15/22 05:19 Globulin 5.1 g/dL (2.5-4.5) H 11/15/22 05:19 Albumin/Globulin Ratio 0.5 Ratio (1.1-2.1) L 11/15/22 05:19 TSH 3rd Generation 1.776 uIU/mL (0.358-3.74) 11/14/22 17:40 Specimen Type Clean catch urine 11/14/22 20:35 Urine Color Yellow (YELLOW) 11/14/22 20:35 Urine Appearance Clear (CLEAR) 11/14/22 20:35 Urine pH 6.0 (5.0 - 8.0) 11/14/22 20:35 Ur Specific [place] 1.015 (1.000-1.030) 11/14/22 20:35 Urine Protein Negative (NEGATIVE) 11/14/22 20:35 Urine Glucose (UA) Negative (NEGATIVE) 11/14/22 20:35 Urine Ketones Negative (NEGATIVE) 11/14/22 20:35 Urine Blood 3+ (NEGATIVE) 11/14/22 20:35 Urine Nitrite Negative (NEGATIVE) 11/14/22 20:35 Urine Bilirubin Negative (NEGATIVE) 11/14/22 20:35 Urine Urobilinogen Normal (NORMAL) 11/14/22 20:35 Ur Leukocyte Esterase Negative (NEGATIVE) 11/14/22 20:35 Urine RBC 3-5 /HPF (0-3) A 11/14/22 20:35 Urine WBC None seen /HPF (0-5) 11/14/22 20:35 Ur Squamous Epith Cells Negative /HPF (NEGATIVE) 11/14/22 20:35 Urine Bacteria Negative /HPF (NEGATIVE) 11/14/22 20:35 Ur Culture Indicated? No/not indicated 11/14/22 20:35 - Plan (1) Influenza A Status: Acute Plan: IV HYDRATION. TAMIFLU, SOLU MEDROL, IV LEVAQUIN. RESP THERAPY, SPUTUM CULTURE. SUPPLEMENTAL O2. BP CONTROL (2) COPD with acute bronchitis Status: Acute (3) Gastroesophageal reflux disease Status: Acute (4) HAMMAD (generalized anxiety disorder) Status: Acute (5) Hypertension Status: Chronic (6) Lumbar degenerative disc disease Status: Chronic
[2022-11-15] MEDS: SINGULAIR TAB 10 MG PO SCH (21:18)
[2022-11-15] MEDS: COLACE CAP 100 MG PO SCH (21:18)
[2022-11-15] MEDS ORDERED: SALINE 0.9% 3 ML NEB TX ONE (23:51)
[2022-11-16] MEDS: DUONEB 0.5 MG/3 MG (3 mL) NEB SCH ×6 (01:03→21:10)
[2022-11-16] MEDS: NS + KCL 20 MEQ/L 1,000 ML IV SCH ×2 (01:04→10:14)
[2022-11-16] MEDS: REQUIP PO SCH ×3 (05:23→21:46)
[2022-11-16] MEDS: NEURONTIN CAP 300 MG PO SCH ×3 (05:23→21:46)
[2022-11-16 06:09] LABS: BASOPHILS # (AUTO) 0.1 X10^3/uL (0.0-0.1); BASOPHILS % (AUTO) 0.6 % (0.2-1.0); HEMATOCRIT 32.4 % (36.0-47.0); HEMOGLOBIN 10.3 g/dL (12.0-16.0); LYMPHOCYTES # (AUTO) 0.7 X10^3/uL (1.3-2.9); LYMPHOCYTES % (AUTO) 4.5 % (21.0-51.0); MEAN CORPUSCULAR HEMOGLOBIN 27.1 pg (27.0-34.0); MEAN CORPUSCULAR HGB CONC 31.7 g/dL (33.0-35.0); MEAN CORPUSCULAR VOLUME 85.4 fL (80.0-100.0); MEAN PLATELET VOLUME 8.6 fL (7.4-11.0); MONOCYTES # (AUTO) 0.3 x10^3/uL (0.3-0.8); MONOCYTES % (AUTO) 1.7 % (0.0-13.0); NEUTROPHILS # (AUTO) 13.8 x10^3/uL (2.2-4.8); NEUTROPHILS % (AUTO) 93.2 % (42.0-75.0); PLATELET COUNT 387 X10^3/uL (150.0-450.0); RED CELL DISTRIBUTION WIDTH 16.3 % (11.6-16.5); WHITE BLOOD COUNT 14.8 X10^3/uL (3.6-10.0)
[2022-11-16 06:28] LABS: ALANINE AMINOTRANSFERASE 8 Units/L (12-78); ALBUMIN 2.4 g/dL (3.4-5.0); ALKALINE PHOSPHATASE 218 Units/L (46-116); ASPARTATE AMINO TRANSFERASE 12 Units/L (15-37); BLOOD UREA NITROGEN 9 mg/dL (7-18); CALCIUM 8.2 mg/dL (8.5-10.1); CARBON DIOXIDE 24.5 mmol/L (21-32); CHLORIDE 105 mmol/L (98-107); COR CA(FOR HYPOALB) 9.5 mg/dL (8.5-10.1); COR NA(FOR HYPERGLY) 141 mmol/L (136-145); CREATININE 0.74 mg/dL (0.55-1.02); GLUCOSE 192 mg/dL (65-99); POTASSIUM 3.6 mmol/L (3.5-5.1); SODIUM 139 mmol/L (136-145); TOTAL PROTEIN 7.1 g/dL (6.4-8.2); eGFR NON BLACK RACES > 60 (>60)
[2022-11-16 06:45] LABS: BAND NEUTROPHILS % 3 % (0-10); PLATELET MORPHOLOGY COMMENT NORMAL (NORMAL)
[2022-11-16] MEDS ORDERED: CONSULT PHARMACY - POTASSIUM & MAGNESIUM XX SCH (08:00)
[2022-11-16] MEDS: PULMICORT NEB TX 0.5 MG NEB SCH ×2 (08:38→21:10)
[2022-11-16] MEDS ORDERED: K-DUR TAB 20 MEQ PO SCH (09:00)
[2022-11-16] MEDS: ROBITUSSIN DM PO SCH ×4 (10:15→21:46)
[2022-11-16] MEDS: BUSPAR PO SCH ×2 (10:15→21:47)
[2022-11-16] MEDS: TAMIFLU PO SCH ×2 (10:15→21:46)
[2022-11-16] MEDS: PROTONIX INJ 40 MG VIAL IVP SCH (10:15)
[2022-11-16] MEDS: PAXIL PO SCH (10:16)
[2022-11-16] MEDS: COZAAR PO SCH (10:16)
[2022-11-16] MEDS: LEVAQUIN PREMIX IV 500 MG 500 MG/100 ML BAG IV SCH (10:16)
[2022-11-16] MEDS: TUSSIONEX PENNKINETIC SUSP PO PRN ×2 (10:17→23:15)
--- NOTE | 2022-11-16 17:06 | PCM.PROG ---
Progress Note - Progress Note for Day of Date of Exam: 11/16/22 - Subjective Subjective: PT IS 57 WF, DIRECT ADMIT ON 11/14 WITH ACUTE BRONCHITIS AND INFLUENZA. PT HAS PMH OF COPD AND HAS DIFFUSE EXPIRATORY WHEEZES ON EXAM THIS MORNING WITH A PRODUCTIVE COUGH. PTS BP STABLE ON LOSARTAN 50MG PO DAILY. PT CO MID BACK PAIN DUE TO VIOLENT COUGHING SPELLS, TUSSIONEX HELPS WITH COUGH ALONG WITH ROBITUSSIN. AIT SWAB CULTURE RESULTS ON CHART. PLAN TO CONTINUE IV LEVAQUIN - Past Medical Family Social History Past Med/Fam/Surg Hx: No changes since H&P Allergies: Allergies No Known Drug Allergies Allergy (Verified 04/12/20 18:42) - Review of Systems ROS: No change since H&P - Vital Signs and I&O's Vital Signs: Vital Signs Temperature 97.9 F Temperature 98.0 F Pulse Rate [Right Brachial] 107 Pulse Rate [Right Brachial] 98 Respiratory Rate 24 Respiratory Rate 24 Blood Pressure [Right Arm] 117/63 Blood Pressure [Right Arm] 134/62 O2 Sat by Pulse Oximetry 97 O2 Sat by Pulse Oximetry 96 Intake and Output: Intake & Output 11/14/22 11/15/22 11/16/22 11/17/22 11:59 11:59 11:59 11:59 Intake Total 2037 3440 / 3440 1580 / 1580 Balance 2037 3440 / 3440 1580 / 1580 - Physical Exam Oriented: Normal Eyes: Normal Ear: Normal Nose: Normal Throat: Red, Exudate Respiratory: Diminished, Wheezes, Rhonchi Cardiovascular: Normal : Normal Auscultation: Bowel Sounds: Normal Tenderness: Normal Skin: Decreased Turgur Musculoskeletal: Back:Lumbar Psychiatric: Anxiety Affect: Anxious Speech Pattern: Clear, Appropriate - Laboratory and Diagnostics Result Diagrams: 11/16/22 05:27 11/16/22 05:27 Labs: 11/15/22 09:59 Sputum - Expectorated Sputum Sputum Culture - Preliminary 11/15/22 09:59 Sputum - Expectorated Sputum - Final Laboratory WBC 14.8 X10^3/uL (3.6-10.0) H 11/16/22 05:27 RBC 3.80 X10^6/uL (3.5-5.4) 11/16/22 05:27 Hgb 10.3 g/dL (12.0-16.0) L 11/16/22 05:27 Hct 32.4 % (36.0-47.0) L 11/16/22 05:27 MCV 85.4 fL (80.0-100.0) 11/16/22 05:27 MCH 27.1 pg (27.0-34.0) 11/16/22 05:27 MCHC 31.7 g/dL (33.0-35.0) L 11/16/22 05:27 RDW 16.3 % (11.6-16.5) 11/16/22 05:27 Plt Count 387 X10^3/uL (150.0-450.0) 11/16/22 05:27 Plt Count Comment Adequate (ADEQUATE) 11/16/22 05:27 MPV 8.6 fL (7.4-11.0) 11/16/22 05:27 Neut % (Auto) 93.2 % (42.0-75.0) H 11/16/22 05:27 Lymph % (Auto) 4.5 % (21.0-51.0) L 11/16/22 05:27 [place] % (Auto) 1.7 % (0.0-13.0) 11/16/22 05:27 Eos % (Auto) 0.0 % (0.9-2.9) L 11/16/22 05:27 Baso % (Auto) 0.6 % (0.2-1.0) 11/16/22 05:27 Neut # (Auto) 13.8 x10^3/uL (2.2-4.8) H 11/16/22 05:27 Lymph # (Auto) 0.7 X10^3/uL (1.3-2.9) L 11/16/22 05:27 [place] # (Auto) 0.3 x10^3/uL (0.3-0.8) 11/16/22 05:27 Eos # (Auto) 0.0 x10^3/uL (0.0-0.2) 11/16/22 05:27 Baso # (Auto) 0.1 X10^3/uL (0.0-0.1) 11/16/22 05:27 Absolute Nucleated RBC 0.0 /100WBC 11/16/22 05:27 Total Counted 100 11/16/22 05:27 Neutrophils % (Manual) 88 % (39-76) H 11/16/22 05:27 Band Neutrophils % 3 % (0-10) 11/16/22 05:27 Lymphocytes % (Manual) 7 % (13-43) L 11/16/22 05:27 Monocytes % (Manual) 2 % (4-9) L 11/16/22 05:27 Plt Morphology Comment Normal (NORMAL) 11/16/22 05:27 RBC Morphology Normal (NORMAL) 11/16/22 05:27 Sodium 139 mmol/L (136-145) 11/16/22 05:27 Corrected Sodium 141 mmol/L (136-145) 11/16/22 05:27 Potassium 3.6 mmol/L (3.5-5.1) 11/16/22 05:27 Chloride 105 mmol/L (98-107) 11/16/22 05:27 Carbon Dioxide 24.5 mmol/L (21-32) 11/16/22 05:27 BUN 9 mg/dL (7-18) 11/16/22 05:27 Creatinine 0.74 mg/dL (0.55-1.02) 11/16/22 05:27 Est GFR (MDRD) Af Amer > 60 (>60) 11/16/22 05:27 Est GFR (MDRD) Non-Af > 60 (>60) 11/16/22 05:27 Glucose 192 mg/dL (65-99) H 11/16/22 05:27 Calcium 8.2 mg/dL (8.5-10.1) L 11/16/22 05:27 Corrected Calcium 9.5 mg/dL (8.5-10.1) 11/16/22 05:27 Magnesium 2.0 mg/dL (2.0-2.9) 11/16/22 05:27 Total Bilirubin 0.10 mg/dL (0.2-1.0) L 11/16/22 05:27 AST 12 Units/L (15-37) L 11/16/22 05:27 ALT 8 Units/L (12-78) L 11/16/22 05:27 Alkaline Phosphatase 218 Units/L (46-116) H 11/16/22 05:27 Total Protein 7.1 g/dL (6.4-8.2) 11/16/22 05:27 Albumin 2.4 g/dL (3.4-5.0) L 11/16/22 05:27 Globulin 4.7 g/dL (2.5-4.5) H 11/16/22 05:27 Albumin/Globulin Ratio 0.5 Ratio (1.1-2.1) L 11/16/22 05:27 TSH 3rd Generation 1.776 uIU/mL (0.358-3.74) 11/14/22 17:40 Specimen Type Clean catch urine 11/14/22 20:35 Urine Color Yellow (YELLOW) 11/14/22 20:35 Urine Appearance Clear (CLEAR) 11/14/22 20:35 Urine pH 6.0 (5.0 - 8.0) 11/14/22 20:35 Ur Specific [place] 1.015 (1.000-1.030) 11/14/22 20:35 Urine Protein Negative (NEGATIVE) 11/14/22 20:35 Urine Glucose (UA) Negative (NEGATIVE) 11/14/22 20:35 Urine Ketones Negative (NEGATIVE) 11/14/22 20:35 Urine Blood 3+ (NEGATIVE) 11/14/22 20:35 Urine Nitrite Negative (NEGATIVE) 11/14/22 20:35 Urine Bilirubin Negative (NEGATIVE) 11/14/22 20:35 Urine Urobilinogen Normal (NORMAL) 11/14/22 20:35 Ur Leukocyte Esterase Negative (NEGATIVE) 11/14/22 20:35 Urine RBC 3-5 /HPF (0-3) A 11/14/22 20:35 Urine WBC None seen /HPF (0-5) 11/14/22 20:35 Ur Squamous Epith Cells Negative /HPF (NEGATIVE) 11/14/22 20:35 Urine Bacteria Negative /HPF (NEGATIVE) 11/14/22 20:35 Ur Culture Indicated? No/not indicated 11/14/22 20:35 Resp Viral Panel (PCR) See scanned report 11/14/22 20:48 - Plan (1) Influenza A Status: Acute Plan: IV HYDRATION. TAMIFLU, SOLU MEDROL, IV LEVAQUIN. RESP THERAPY, SPUTUM CULTURE. SUPPLEMENTAL O2. BP CONTROL (2) COPD with acute bronchitis Status: Acute (3) Gastroesophageal reflux disease Status: Acute (4) HAMMAD (generalized anxiety disorder) Status: Acute (5) Hypertension Status: Chronic (6) Lumbar degenerative disc disease Status: Chronic
[2022-11-16] MEDS: COLACE CAP 100 MG PO SCH (21:46)
[2022-11-16] MEDS: NORCO 5/325 MG TAB PO PRN (21:47)
[2022-11-16] MEDS: SINGULAIR TAB 10 MG PO SCH (21:48)
[2022-11-17] MEDS: DUONEB 0.5 MG/3 MG (3 mL) NEB SCH ×6 (00:45→21:00)
[2022-11-17] MEDS: NS + KCL 20 MEQ/L 1,000 ML IV SCH ×4 (03:02→15:26)
[2022-11-17 05:12] LABS: BASOPHILS # (AUTO) 0.2 X10^3/uL (0.0-0.1); BASOPHILS % (AUTO) 1.4 % (0.2-1.0); EOSINOPHILS # (AUTO) 0.1 x10^3/uL (0.0-0.2); EOSINOPHILS % (AUTO) 0.5 % (0.9-2.9); HEMATOCRIT 31.8 % (36.0-47.0); HEMOGLOBIN 10.3 g/dL (12.0-16.0); LYMPHOCYTES # (AUTO) 3.6 X10^3/uL (1.3-2.9); LYMPHOCYTES % (AUTO) 22.8 % (21.0-51.0); MEAN CORPUSCULAR HEMOGLOBIN 27.7 pg (27.0-34.0); MEAN CORPUSCULAR HGB CONC 32.5 g/dL (33.0-35.0); MEAN CORPUSCULAR VOLUME 85.1 fL (80.0-100.0); MEAN PLATELET VOLUME 8.5 fL (7.4-11.0); MONOCYTES # (AUTO) 0.7 x10^3/uL (0.3-0.8); MONOCYTES % (AUTO) 4.7 % (0.0-13.0); NEUTROPHILS % (AUTO) 70.6 % (42.0-75.0); PLATELET COUNT 394 X10^3/uL (150.0-450.0); RED BLOOD COUNT 3.74 X10^6/uL (3.5-5.4); RED CELL DISTRIBUTION WIDTH 16.9 % (11.6-16.5); WHITE BLOOD COUNT 15.7 X10^3/uL (3.6-10.0)
[2022-11-17] MEDS: NEURONTIN CAP 300 MG PO SCH ×3 (05:22→21:10)
[2022-11-17] MEDS: REQUIP PO SCH ×3 (05:22→22:18)
[2022-11-17 05:27] LABS: ALANINE AMINOTRANSFERASE 15 Units/L (12-78); ALBUMIN 2.6 g/dL (3.4-5.0); ALKALINE PHOSPHATASE 219 Units/L (46-116); ASPARTATE AMINO TRANSFERASE 19 Units/L (15-37); BLOOD UREA NITROGEN 8 mg/dL (7-18); CALCIUM 8.1 mg/dL (8.5-10.1); CARBON DIOXIDE 30.1 mmol/L (21-32); CHLORIDE 104 mmol/L (98-107); COR CA(FOR HYPOALB) 9.2 mg/dL (8.5-10.1); CREATININE 0.68 mg/dL (0.55-1.02); GLUCOSE 96 mg/dL (65-99); POTASSIUM 3.9 mmol/L (3.5-5.1); SODIUM 140 mmol/L (136-145); eGFR NON BLACK RACES > 60 (>60)
[2022-11-17] MEDS: PULMICORT NEB TX 0.5 MG NEB SCH ×2 (08:38→21:00)
[2022-11-17] MEDS: COZAAR PO SCH (09:05)
[2022-11-17] MEDS: TAMIFLU PO SCH ×2 (09:05→21:10)
[2022-11-17] MEDS: PAXIL PO SCH (09:05)
[2022-11-17] MEDS: PROTONIX INJ 40 MG VIAL IVP SCH (09:05)
[2022-11-17] MEDS: ROBITUSSIN DM PO SCH ×4 (09:06→21:09)
[2022-11-17] MEDS: LEVAQUIN PREMIX IV 500 MG 500 MG/100 ML BAG IV SCH (09:06)
[2022-11-17] MEDS: BUSPAR PO SCH ×2 (09:06→21:10)
[2022-11-17] MEDS: NYSTATIN SUSP PO SCH ×4 (12:08→21:09)
--- NOTE | 2022-11-17 12:30 | PCM.PROG ---
Progress Note - Progress Note for Day of Date of Exam: 11/17/22 - Subjective Subjective: PT IS 57 WF, DIRECT ADMIT ON 11/14 WITH ACUTE BRONCHITIS AND INFLUENZA. PT HAS PMH OF COPD AND HAS DIFFUSE EXPIRATORY WHEEZES ON EXAM THIS MORNING WITH A PRODUCTIVE COUGH. PTS BP STABLE ON LOSARTAN 50MG PO DAILY. PT CO MID BACK PAIN DUE TO VIOLENT COUGHING SPELLS, TUSSIONEX HELPS WITH COUGH ALONG WITH ROBITUSSIN. AIT SWAB CULTURE RESULTS ON CHART. PLAN TO CONTINUE IV LEVAQUIN - Past Medical Family Social History Past Med/Fam/Surg Hx: No changes since H&P Allergies: Allergies No Known Drug Allergies Allergy (Verified 04/12/20 18:42) - Review of Systems ROS: No change since H&P - Vital Signs and I&O's Vital Signs: Vital Signs Temperature 98.6 F Temperature 98.3 F Pulse Rate [Right Brachial] 107 Pulse Rate [Right Brachial] 106 Pulse Rate 68 Pulse Rate 66 Respiratory Rate 18 Respiratory Rate 18 Blood Pressure [Left Arm] 113/67 Blood Pressure [Right Arm] 119/74 O2 Sat by Pulse Oximetry 93 O2 Sat by Pulse Oximetry 98 O2 Sat by Pulse Oximetry 97 O2 Sat by Pulse Oximetry 99 Intake and Output: Intake & Output 11/15/22 11/16/22 11/17/22 11/18/22 11:59 11:59 11:59 11:59 Intake Total 2037 3440 / 3440 2782 / 2782 Balance 2037 3440 / 3440 2782 / 2782 - Physical Exam Oriented: Normal Eyes: Normal Ear: Normal Nose: Normal Throat: Red, Exudate Respiratory: Diminished, Wheezes, Rhonchi Cardiovascular: Normal : Normal Auscultation: Bowel Sounds: Normal Tenderness: Normal Skin: Decreased Turgur Musculoskeletal: Back:Lumbar Psychiatric: Anxiety Affect: Anxious Speech Pattern: Clear, Appropriate - Laboratory and Diagnostics Result Diagrams: 11/17/22 04:33 11/17/22 04:33 Labs: 11/15/22 09:59 Sputum - Expectorated Sputum Sputum Culture - Final Klebsiella Pneumoniae 11/15/22 09:59 Sputum - Expectorated Sputum - Final Laboratory WBC 15.7 X10^3/uL (3.6-10.0) H 11/17/22 04:33 RBC 3.74 X10^6/uL (3.5-5.4) 11/17/22 04:33 Hgb 10.3 g/dL (12.0-16.0) L 11/17/22 04:33 Hct 31.8 % (36.0-47.0) L 11/17/22 04:33 MCV 85.1 fL (80.0-100.0) 11/17/22 04:33 MCH 27.7 pg (27.0-34.0) 11/17/22 04:33 MCHC 32.5 g/dL (33.0-35.0) L 11/17/22 04:33 RDW 16.9 % (11.6-16.5) H 11/17/22 04:33 Plt Count 394 X10^3/uL (150.0-450.0) 11/17/22 04:33 Plt Count Comment Adequate (ADEQUATE) 11/16/22 05:27 MPV 8.5 fL (7.4-11.0) 11/17/22 04:33 Neut % (Auto) 70.6 % (42.0-75.0) 11/17/22 04:33 Lymph % (Auto) 22.8 % (21.0-51.0) 11/17/22 04:33 [place] % (Auto) 4.7 % (0.0-13.0) 11/17/22 04:33 Eos % (Auto) 0.5 % (0.9-2.9) L 11/17/22 04:33 Baso % (Auto) 1.4 % (0.2-1.0) H 11/17/22 04:33 Neut # (Auto) 11.0 x10^3/uL (2.2-4.8) H 11/17/22 04:33 Lymph # (Auto) 3.6 X10^3/uL (1.3-2.9) H 11/17/22 04:33 [place] # (Auto) 0.7 x10^3/uL (0.3-0.8) 11/17/22 04:33 Eos # (Auto) 0.1 x10^3/uL (0.0-0.2) 11/17/22 04:33 Baso # (Auto) 0.2 X10^3/uL (0.0-0.1) H 11/17/22 04:33 Absolute Nucleated RBC 0.0 /100WBC 11/17/22 04:33 Total Counted 100 11/16/22 05:27 Neutrophils % (Manual) 88 % (39-76) H 11/16/22 05:27 Band Neutrophils % 3 % (0-10) 11/16/22 05:27 Lymphocytes % (Manual) 7 % (13-43) L 11/16/22 05:27 Monocytes % (Manual) 2 % (4-9) L 11/16/22 05:27 Plt Morphology Comment Normal (NORMAL) 11/16/22 05:27 RBC Morphology Normal (NORMAL) 11/16/22 05:27 Sodium 140 mmol/L (136-145) 11/17/22 04:33 Corrected Sodium TNP 11/17/22 04:33 Potassium 3.9 mmol/L (3.5-5.1) 11/17/22 04:33 Chloride 104 mmol/L (98-107) 11/17/22 04:33 Carbon Dioxide 30.1 mmol/L (21-32) 11/17/22 04:33 BUN 8 mg/dL (7-18) 11/17/22 04:33 Creatinine 0.68 mg/dL (0.55-1.02) 11/17/22 04:33 Est GFR (MDRD) Af Amer > 60 (>60) 11/17/22 04:33 Est GFR (MDRD) Non-Af > 60 (>60) 11/17/22 04:33 Glucose 96 mg/dL (65-99) 11/17/22 04:33 Calcium 8.1 mg/dL (8.5-10.1) L 11/17/22 04:33 Corrected Calcium 9.2 mg/dL (8.5-10.1) 11/17/22 04:33 Magnesium 2.0 mg/dL (2.0-2.9) 11/17/22 04:33 Total Bilirubin 0.20 mg/dL (0.2-1.0) 11/17/22 04:33 AST 19 Units/L (15-37) 11/17/22 04:33 ALT 15 Units/L (12-78) 11/17/22 04:33 Alkaline Phosphatase 219 Units/L (46-116) H 11/17/22 04:33 Total Protein 7.0 g/dL (6.4-8.2) 11/17/22 04:33 Albumin 2.6 g/dL (3.4-5.0) L 11/17/22 04:33 Globulin 4.4 g/dL (2.5-4.5) 11/17/22 04:33 Albumin/Globulin Ratio 0.6 Ratio (1.1-2.1) L 11/17/22 04:33 TSH 3rd Generation 1.776 uIU/mL (0.358-3.74) 11/14/22 17:40 Specimen Type Clean catch urine 11/14/22 20:35 Urine Color Yellow (YELLOW) 11/14/22 20:35 Urine Appearance Clear (CLEAR) 11/14/22 20:35 Urine pH 6.0 (5.0 - 8.0) 11/14/22 20:35 Ur Specific [place] 1.015 (1.000-1.030) 11/14/22 20:35 Urine Protein Negative (NEGATIVE) 11/14/22 20:35 Urine Glucose (UA) Negative (NEGATIVE) 11/14/22 20:35 Urine Ketones Negative (NEGATIVE) 11/14/22 20:35 Urine Blood 3+ (NEGATIVE) 11/14/22 20:35 Urine Nitrite Negative (NEGATIVE) 11/14/22 20:35 Urine Bilirubin Negative (NEGATIVE) 11/14/22 20:35 Urine Urobilinogen Normal (NORMAL) 11/14/22 20:35 Ur Leukocyte Esterase Negative (NEGATIVE) 11/14/22 20:35 Urine RBC 3-5 /HPF (0-3) A 11/14/22 20:35 Urine WBC None seen /HPF (0-5) 11/14/22 20:35 Ur Squamous Epith Cells Negative /HPF (NEGATIVE) 11/14/22 20:35 Urine Bacteria Negative /HPF (NEGATIVE) 11/14/22 20:35 Ur Culture Indicated? No/not indicated 11/14/22 20:35 Resp Viral Panel (PCR) See scanned report 11/14/22 20:48 - Plan (1) Influenza A Status: Acute Plan: IV HYDRATION. TAMIFLU, SOLU MEDROL, IV LEVAQUIN. RESP THERAPY, SPUTUM CULTURE. SUPPLEMENTAL O2. BP CONTROL (2) COPD with acute bronchitis Status: Acute (3) Gastroesophageal reflux disease Status: Acute (4) HAMMAD (generalized anxiety disorder) Status: Acute (5) Hypertension Status: Chronic (6) Lumbar degenerative disc disease Status: Chronic
[2022-11-17] MEDS: NORCO 5/325 MG TAB PO PRN (21:09)
[2022-11-17] MEDS: SINGULAIR TAB 10 MG PO SCH (21:10)
[2022-11-17] MEDS: COLACE CAP 100 MG PO SCH (21:10)
[2022-11-17] MEDS: TUSSIONEX PENNKINETIC SUSP PO PRN (22:18)
[2022-11-18] MEDS: DUONEB 0.5 MG/3 MG (3 mL) NEB SCH ×6 (00:30→21:05)
[2022-11-18] MEDS: NS + KCL 20 MEQ/L 1,000 ML IV SCH ×3 (01:08→14:19)
[2022-11-18 05:02] LABS: BASOPHILS % (AUTO) 0.2 % (0.2-1.0); EOSINOPHILS # (AUTO) 0.2 x10^3/uL (0.0-0.2); HEMATOCRIT 30.6 % (36.0-47.0); HEMOGLOBIN 10.2 g/dL (12.0-16.0); LYMPHOCYTES # (AUTO) 3.1 X10^3/uL (1.3-2.9); LYMPHOCYTES % (AUTO) 33.1 % (21.0-51.0); MEAN CORPUSCULAR HGB CONC 33.2 g/dL (33.0-35.0); MEAN CORPUSCULAR VOLUME 84.5 fL (80.0-100.0); MEAN PLATELET VOLUME 8.2 fL (7.4-11.0); MONOCYTES # (AUTO) 0.7 x10^3/uL (0.3-0.8); MONOCYTES % (AUTO) 7.9 % (0.0-13.0); NEUTROPHILS # (AUTO) 5.3 x10^3/uL (2.2-4.8); NEUTROPHILS % (AUTO) 56.8 % (42.0-75.0); PLATELET COUNT 347 X10^3/uL (150.0-450.0); RED BLOOD COUNT 3.62 X10^6/uL (3.5-5.4); RED CELL DISTRIBUTION WIDTH 16.7 % (11.6-16.5); WHITE BLOOD COUNT 9.3 X10^3/uL (3.6-10.0)
[2022-11-18 05:09] LABS: ALANINE AMINOTRANSFERASE 12 Units/L (12-78); ALBUMIN 2.5 g/dL (3.4-5.0); ALKALINE PHOSPHATASE 222 Units/L (46-116); ASPARTATE AMINO TRANSFERASE 17 Units/L (15-37); BLOOD UREA NITROGEN 8 mg/dL (7-18); CALCIUM 7.8 mg/dL (8.5-10.1); CARBON DIOXIDE 31.8 mmol/L (21-32); CHLORIDE 103 mmol/L (98-107); CREATININE 0.65 mg/dL (0.55-1.02); GLUCOSE 88 mg/dL (65-99); POTASSIUM 4.6 mmol/L (3.5-5.1); SODIUM 140 mmol/L (136-145); TOTAL PROTEIN 6.8 g/dL (6.4-8.2); eGFR NON BLACK RACES > 60 (>60)
[2022-11-18] MEDS: NEURONTIN CAP 300 MG PO SCH ×3 (05:41→21:07)
[2022-11-18] MEDS: REQUIP PO SCH ×3 (05:42→21:08)
[2022-11-18] MEDS: TAMIFLU PO SCH ×2 (09:16→21:07)
[2022-11-18] MEDS: COZAAR PO SCH (09:16)
[2022-11-18] MEDS: NYSTATIN SUSP PO SCH ×4 (09:16→21:06)
[2022-11-18] MEDS: ROBITUSSIN DM PO SCH ×4 (09:16→21:06)
[2022-11-18] MEDS: SOLU-Medrol 40 MG VIAL IVP SCH ×3 (09:17→21:09)
[2022-11-18] MEDS: BUSPAR PO SCH ×2 (09:17→21:08)
[2022-11-18] MEDS: PAXIL PO SCH (09:17)
[2022-11-18] MEDS: PROTONIX INJ 40 MG VIAL IVP SCH (09:17)
[2022-11-18] MEDS: LEVAQUIN PREMIX IV 500 MG 500 MG/100 ML BAG IV SCH (09:17)
[2022-11-18] MEDS: PULMICORT NEB TX 0.5 MG NEB SCH ×2 (09:28→21:05)
--- NOTE | 2022-11-18 16:02 | PCM.PROG ---
Progress Note - Progress Note for Day of Date of Exam: 11/18/22 - Subjective Subjective: IS A 57 YEAR OLD PATIENT OF . SHE IS CURRENTLY INPATIENT STATUS FOR TREATMENT OF INFLUENZA A AND COPD WITH ACUTE BRONCHITIS. SHE HAS A PMH OF GERD, HAMMAD, HTN, COPD, AND LUMBAR DDD. TODAY, SHE IS ALERT AND ORIENTED, LYING IN BED ON MORNING ROUNDS. SHE CONTINUES TO COMPLAIN OF A PRODUCTIVE COUGH, WEAKNESS, AND SHORTNESS OF BREATH AT TIMES. SHE ADMITS TO ONLY SLIGHT IMPROVEMENT IN SYMPTOMS SINCE ADMISSION. SHE HAS HAD AN UNENVENTFUL NIGHT. ON EXAMINATION TODAY, HEART IS REGULAR IN RATE AND RHYTHM. BILATERAL LUNGS ARE NOTED WITH EXPIRATORY WHEEZING. ABDOMEN IS ROUND, SOFT, AND NON-TENDER WITH NORMAL BOWEL SOUNDS NOTED IN ALL QUADRANTS. GOOD RANGE OF MOTION NOTED TO UPPER AND LOWER EXTREMITIES WITH NO EDEMA NOTED. SHE IS CURRENTLY UTILIZING OXYGEN VIA NASAL CANNULA AT 2 LPM. HER OXYGEN SATURATIONS HAVE BEEN IN THE LOWER 90s THIS MORNING. LABS WERE OBTAINED. WBC 9.3, RBC 3.62, HGB 10.2, HCT 30.6, PLT COUNT 347, SODIUM 140, POTASSIUM 4.6, CHLORIDE 103, CARBON DIXOIDE 31.8, BUN 8, CREATININE 0.65, GLUCOSE 88, CALCIUM 7.8, TOTAL BILI 0.10, AST 17, ALT 12, ALK PHOS 222, TOTAL PROTEIN 6.8, ALBUMIN 2.5. AIT RESPIRATORY PANEL WAS POSITIVE FOR RHINOVIRUS, ENTEROBACTER CLOACAE COMPLEX, KLEBSIELLA AEROGENES, AND STREPTOCOCCUS PNEUMONIAE. SPUTUM CULTURE WAS POSITIVE FOR KLEBSIELLA PNEUMONIAE. TODAY, WE WILL CONTINUE HER IV FLUIDS, IV ANTIBIOTICS, RESPIRATORY TREATMENTS, COUGH SUPPRESSANTS, TAMIFLU, AND CURRENT PLAN OF CARE. WE WILL ALSO ADD SOLU- MEDROL 80MG IV Q8H. OTHERWISE, WE WILL FOLLOW UP WITH AM LABS AND CHEST XRAY AND CONTINUE TO MONITOR. TIME SPENT ON CLINICAL ASSESSMENT, REVIEWING LABS AND IMAGING, DECISION MAKING, AND DOCUMENTATION GREATER THAN 45 MINUTES. - Past Medical Family Social History Past Med/Fam/Surg Hx: No changes since H&P Allergies: Allergies No Known Drug Allergies Allergy (Verified 04/12/20 18:42) - Review of Systems ROS: No change since H&P - Vital Signs and I&O's Vital Signs: Vital Signs Temperature 98.2 F Pulse Rate [Right Brachial] 97 Pulse Rate 61 Respiratory Rate 18 Blood Pressure [Left Arm] 159/90 O2 Sat by Pulse Oximetry 95 O2 Sat by Pulse Oximetry 93 Intake and Output: Intake & Output 11/16/22 11/17/22 11/18/22 11/19/22 11:59 11:59 11:59 11:59 Intake Total 3440 / 3440 3162 / 3162 1343 / 1343 776 / 776 Balance 3440 / 3440 3162 / 3162 1343 / 1343 776 / 776 - Physical Exam Oriented: Normal Eyes: Normal Ear: Normal Nose: Normal Throat: Red, Exudate Respiratory: Diminished, Wheezes, Rhonchi Cardiovascular: Normal : Normal Auscultation: Bowel Sounds: Normal Palpation: Normal Tenderness: Normal Skin: Decreased Turgur Musculoskeletal: Back:Lumbar Psychiatric: Anxiety Affect: Anxious Speech Pattern: Clear, Appropriate - Laboratory and Diagnostics Result Diagrams: 11/18/22 04:36 11/18/22 04:36 Labs: 11/15/22 09:59 Sputum - Expectorated Sputum Sputum Culture - Final Klebsiella Pneumoniae 11/15/22 09:59 Sputum - Expectorated Sputum - Final Laboratory WBC 9.3 X10^3/uL (3.6-10.0) 11/18/22 04:36 RBC 3.62 X10^6/uL (3.5-5.4) 11/18/22 04:36 Hgb 10.2 g/dL (12.0-16.0) L 11/18/22 04:36 Hct 30.6 % (36.0-47.0) L 11/18/22 04:36 MCV 84.5 fL (80.0-100.0) 11/18/22 04:36 MCH 28.0 pg (27.0-34.0) 11/18/22 04:36 MCHC 33.2 g/dL (33.0-35.0) 11/18/22 04:36 RDW 16.7 % (11.6-16.5) H 11/18/22 04:36 Plt Count 347 X10^3/uL (150.0-450.0) 11/18/22 04:36 Plt Count Comment Adequate (ADEQUATE) 11/16/22 05:27 MPV 8.2 fL (7.4-11.0) 11/18/22 04:36 Neut % (Auto) 56.8 % (42.0-75.0) 11/18/22 04:36 Lymph % (Auto) 33.1 % (21.0-51.0) 11/18/22 04:36 [place] % (Auto) 7.9 % (0.0-13.0) 11/18/22 04:36 Eos % (Auto) 2.0 % (0.9-2.9) 11/18/22 04:36 Baso % (Auto) 0.2 % (0.2-1.0) 11/18/22 04:36 Neut # (Auto) 5.3 x10^3/uL (2.2-4.8) H 11/18/22 04:36 Lymph # (Auto) 3.1 X10^3/uL (1.3-2.9) H 11/18/22 04:36 [place] # (Auto) 0.7 x10^3/uL (0.3-0.8) 11/18/22 04:36 Eos # (Auto) 0.2 x10^3/uL (0.0-0.2) 11/18/22 04:36 Baso # (Auto) 0.0 X10^3/uL (0.0-0.1) 11/18/22 04:36 Absolute Nucleated RBC 0.0 /100WBC 11/18/22 04:36 Total Counted 100 11/16/22 05:27 Neutrophils % (Manual) 88 % (39-76) H 11/16/22 05:27 Band Neutrophils % 3 % (0-10) 11/16/22 05:27 Lymphocytes % (Manual) 7 % (13-43) L 11/16/22 05:27 Monocytes % (Manual) 2 % (4-9) L 11/16/22 05:27 Plt Morphology Comment Normal (NORMAL) 11/16/22 05:27 RBC Morphology Normal (NORMAL) 11/16/22 05:27 Sodium 140 mmol/L (136-145) 11/18/22 04:36 Corrected Sodium TNP 11/18/22 04:36 Potassium 4.6 mmol/L (3.5-5.1) 11/18/22 04:36 Chloride 103 mmol/L (98-107) 11/18/22 04:36 Carbon Dioxide 31.8 mmol/L (21-32) 11/18/22 04:36 BUN 8 mg/dL (7-18) 11/18/22 04:36 Creatinine 0.65 mg/dL (0.55-1.02) 11/18/22 04:36 Est GFR (MDRD) Af Amer > 60 (>60) 11/18/22 04:36 Est GFR (MDRD) Non-Af > 60 (>60) 11/18/22 04:36 Glucose 88 mg/dL (65-99) 11/18/22 04:36 Calcium 7.8 mg/dL (8.5-10.1) L 11/18/22 04:36 Corrected Calcium 9.0 mg/dL (8.5-10.1) 11/18/22 04:36 Magnesium 2.0 mg/dL (2.0-2.9) 11/17/22 04:33 Total Bilirubin 0.10 mg/dL (0.2-1.0) L 11/18/22 04:36 AST 17 Units/L (15-37) 11/18/22 04:36 ALT 12 Units/L (12-78) 11/18/22 04:36 Alkaline Phosphatase 222 Units/L (46-116) H 11/18/22 04:36 Total Protein 6.8 g/dL (6.4-8.2) 11/18/22 04:36 Albumin 2.5 g/dL (3.4-5.0) L 11/18/22 04:36 Globulin 4.3 g/dL (2.5-4.5) 11/18/22 04:36 Albumin/Globulin Ratio 0.6 Ratio (1.1-2.1) L 11/18/22 04:36 Free T3 pg/dL 2.7 pg/mL (2.5-4.3) 11/14/22 17:40 TSH 3rd Generation 1.776 uIU/mL (0.358-3.74) 11/14/22 17:40 Specimen Type Clean catch urine 11/14/22 20:35 Urine Color Yellow (YELLOW) 11/14/22 20:35 Urine Appearance Clear (CLEAR) 11/14/22 20:35 Urine pH 6.0 (5.0 - 8.0) 11/14/22 20:35 Ur Specific [place] 1.015 (1.000-1.030) 11/14/22 20:35 Urine Protein Negative (NEGATIVE) 11/14/22 20:35 Urine Glucose (UA) Negative (NEGATIVE) 11/14/22 20:35 Urine Ketones Negative (NEGATIVE) 11/14/22 20:35 Urine Blood 3+ (NEGATIVE) 11/14/22 20:35 Urine Nitrite Negative (NEGATIVE) 11/14/22 20:35 Urine Bilirubin Negative (NEGATIVE) 11/14/22 20:35 Urine Urobilinogen Normal (NORMAL) 11/14/22 20:35 Ur Leukocyte Esterase Negative (NEGATIVE) 11/14/22 20:35 Urine RBC 3-5 /HPF (0-3) A 11/14/22 20:35 Urine WBC None seen /HPF (0-5) 11/14/22 20:35 Ur Squamous Epith Cells Negative /HPF (NEGATIVE) 11/14/22 20:35 Urine Bacteria Negative /HPF (NEGATIVE) 11/14/22 20:35 Ur Culture Indicated? No/not indicated 11/14/22 20:35 Resp Viral Panel (PCR) See scanned report 11/14/22 20:48 - Plan (1) Influenza A Status: Acute Plan: IV HYDRATION. TAMIFLU, SOLU MEDROL, IV LEVAQUIN. RESP THERAPY, SPUTUM CULTURE. SUPPLEMENTAL O2. BP CONTROL (2) COPD with acute bronchitis Status: Acute (3) Gastroesophageal reflux disease Status: Acute Qualifiers: Esophagitis presence: esophagitis presence not specified Qualified Code(s): K21.9 - Gastro-esophageal reflux disease without esophagitis (4) HAMMAD (generalized anxiety disorder) Status: Chronic (5) Hypertension Status: Chronic Qualifiers: Hypertension type: primary hypertension Qualified Code(s): I10 - Essential (primary) hypertension (6) Lumbar degenerative disc disease Status: Chronic
[2022-11-18] MEDS: COLACE CAP 100 MG PO SCH (21:06)
[2022-11-18] MEDS: NORCO 5/325 MG TAB PO PRN (21:08)
[2022-11-18] MEDS: SINGULAIR TAB 10 MG PO SCH (21:08)
[2022-11-19] MEDS: DUONEB 0.5 MG/3 MG (3 mL) NEB SCH ×6 (00:30→20:06)
[2022-11-19 05:18] LABS: BASOPHILS # (AUTO) 0.1 X10^3/uL (0.0-0.1); BASOPHILS % (AUTO) 0.8 % (0.2-1.0); HEMATOCRIT 32.2 % (36.0-47.0); HEMOGLOBIN 10.6 g/dL (12.0-16.0); LYMPHOCYTES # (AUTO) 1.3 X10^3/uL (1.3-2.9); LYMPHOCYTES % (AUTO) 10.5 % (21.0-51.0); MEAN CORPUSCULAR HEMOGLOBIN 27.6 pg (27.0-34.0); MEAN CORPUSCULAR HGB CONC 32.8 g/dL (33.0-35.0); MEAN CORPUSCULAR VOLUME 84.1 fL (80.0-100.0); MEAN PLATELET VOLUME 8.5 fL (7.4-11.0); MONOCYTES # (AUTO) 0.3 x10^3/uL (0.3-0.8); MONOCYTES % (AUTO) 2.7 % (0.0-13.0); NEUTROPHILS # (AUTO) 10.3 x10^3/uL (2.2-4.8); PLATELET COUNT 403 X10^3/uL (150.0-450.0); RED BLOOD COUNT 3.82 X10^6/uL (3.5-5.4); RED CELL DISTRIBUTION WIDTH 16.4 % (11.6-16.5)
[2022-11-19] MEDS: REQUIP PO SCH ×3 (05:29→21:12)
[2022-11-19] MEDS: SOLU-Medrol 40 MG VIAL IVP SCH ×3 (05:29→21:12)
[2022-11-19] MEDS: NEURONTIN CAP 300 MG PO SCH ×3 (05:29→21:12)
[2022-11-19 05:33] LABS: ALANINE AMINOTRANSFERASE 12 Units/L (12-78); ALBUMIN 2.7 g/dL (3.4-5.0); ALKALINE PHOSPHATASE 224 Units/L (46-116); ASPARTATE AMINO TRANSFERASE 11 Units/L (15-37); BLOOD UREA NITROGEN 14 mg/dL (7-18); CALCIUM 8.2 mg/dL (8.5-10.1); CHLORIDE 99 mmol/L (98-107); COR CA(FOR HYPOALB) 9.2 mg/dL (8.5-10.1); COR NA(FOR HYPERGLY) 134 mmol/L (136-145); CREATININE 0.87 mg/dL (0.55-1.02); GLUCOSE 140 mg/dL (65-99); SODIUM 133 mmol/L (136-145); TOTAL PROTEIN 7.4 g/dL (6.4-8.2); eGFR NON BLACK RACES > 60 (>60)
--- NOTE | 2022-11-19 07:40 | RAD ---
EXAM:CHEST, 1 VIEWHISTORY:SOB;COMPARISON:11/14/2022. br.br.br.br chestFINDINGS:Patient is mildly rotated. The cardiac and mediastinal contours are normal in size. Lungs are hyperexpanded. Similar-appearing diffusely distributed interstitial opacities. Elevated left hemidiaphragm. No definite pleural effusion pneumothorax.IMPRESSION:No significant change compared to prior radiograph. COPD with chronic interstitial disease. Superimposed pneumonia not excluded. If there is clinical need to evaluate for pulmonary nodules, CT chest is recommended.THIS IS AN ELECTRONICALLY VERIFIED FINAL [id number] 7:37 AM - Electronically signed by Moises Marsh MD
[2022-11-19] MEDS: ROBITUSSIN DM PO SCH ×4 (08:33→21:11)
[2022-11-19] MEDS: TAMIFLU PO SCH ×2 (08:33→21:12)
[2022-11-19] MEDS: PROTONIX INJ 40 MG VIAL IVP SCH (08:33)
[2022-11-19] MEDS: LEVAQUIN PREMIX IV 500 MG 500 MG/100 ML BAG IV SCH (08:33)
[2022-11-19] MEDS: NYSTATIN SUSP PO SCH ×4 (08:33→21:11)
[2022-11-19] MEDS: COZAAR PO SCH (08:34)
[2022-11-19] MEDS: NS + KCL 20 MEQ/L 1,000 ML IV SCH ×3 (08:34→21:17)
[2022-11-19] MEDS: PAXIL PO SCH (08:34)
[2022-11-19] MEDS: BUSPAR PO SCH ×2 (08:34→21:13)
[2022-11-19] MEDS: NORCO 5/325 MG TAB PO PRN ×2 (08:43→21:20)
[2022-11-19] MEDS: PULMICORT NEB TX 0.5 MG NEB SCH ×2 (09:27→20:06)
--- NOTE | 2022-11-19 19:59 | PCM.PROG ---
Progress Note - Progress Note for Day of Date of Exam: 11/19/22 - Subjective Subjective: IS A 57 YEAR OLD PATIENT OF . SHE IS CURRENTLY INPATIENT STATUS FOR TREATMENT OF INFLUENZA A AND COPD WITH ACUTE BRONCHITIS. SHE HAS A PMH OF GERD, HAMMAD, HTN, COPD, AND LUMBAR DDD. TODAY, SHE IS ALERT AND ORIENTED, LYING IN BED ON MORNING ROUNDS. SHE CONTINUES TO COMPLAIN OF A PRODUCTIVE COUGH, WEAKNESS, AND SHORTNESS OF BREATH AT TIMES. SHE ADMITS TO SLIGHT IMPROVEMENT IN SYMPTOMS SINCE ADMISSION. SHE HAS HAD AN UNENVENTFUL NIGHT. ON EXAMINATION TODAY, HEART IS REGULAR IN RATE AND RHYTHM. BILATERAL LUNGS ARE NOTED WITH EXPIRATORY WHEEZING. ABDOMEN IS ROUND, SOFT, AND NON-TENDER WITH NORMAL BOWEL SOUNDS NOTED IN ALL QUADRANTS. GOOD RANGE OF MOTION NOTED TO UPPER AND LOWER EXTREMITIES WITH NO EDEMA NOTED. SHE IS CURRENTLY UTILIZING OXYGEN VIA NASAL CANNULA AT 2 LPM. HER OXYGEN SATURATIONS HAVE BEEN IN THE 90s THIS MORNING. LABS WERE OBTAINED. WBC 12.0, RBC 3.82, HGB 10.6, HCT 32.2, PLT COUNT 403, SODIUM 133, POTASSIUM 4.0, CHLORIDE 99, CARBON DIOXIDE 30.0, BUN 14, CREATININE 0.87, GLUCOSE 140, CALCIUM 8.2, TOTAL BILI 0.20, AST 11, ALT 12, ALK PHOS 224, TOTAL PROTEIN 7.4, ALBUMIN 2.7. AIT RESPIRATORY PANEL WAS POSITIVE FOR RHINOVIRUS, ENTEROBACTER CLOACAE COMPLEX, KLEBSIELLA AEROGENES, AND STREPTOCOCCUS PNEUMONIAE. SPUTUM CULTURE WAS POSITIVE FOR KLEBSIELLA PNEUMONIAE. TODAY, WE WILL CONTINUE HER IV FLUIDS, IV ANTIBIOTICS, RESPIRATORY TREATMENTS, COUGH SUPPRESSANTS, TAMIFLU, AND CURRENT PLAN OF CARE. WE WILL ALSO ADD SOLU- MEDROL 80MG IV Q8H. OTHERWISE, WE WILL FOLLOW UP WITH AM LABS AND CHEST XRAY AND CONTINUE TO MONITOR. TIME SPENT ON CLINICAL ASSESSMENT, REVIEWING LABS AND IMAGING, DECISION MAKING, AND DOCUMENTATION GREATER THAN 45 MINUTES. - Past Medical Family Social History Past Med/Fam/Surg Hx: No changes since H&P Allergies: Allergies No Known Drug Allergies Allergy (Verified 04/12/20 18:42) - Review of Systems ROS: No change since H&P - Vital Signs and I&O's Vital Signs: Vital Signs Temperature 98.9 F Temperature 98.5 F Pulse Rate [Right Brachial] 94 Pulse Rate [Right Brachial] 107 Respiratory Rate 20 Respiratory Rate 20 Blood Pressure [Left Arm] 144/93 Blood Pressure [Left Arm] 177/84 O2 Sat by Pulse Oximetry 96 O2 Sat by Pulse Oximetry 94 Intake and Output: Intake & Output 11/17/22 11/18/22 11/19/22 11/20/22 11:59 11:59 11:59 11:59 Intake Total 3162 / 3162 1343 / 1343 2378 / 2378 720 / 720 Balance 3162 / 3162 1343 / 1343 2378 / 2378 720 / 720 - Physical Exam Oriented: Normal Eyes: Normal Ear: Normal Nose: Normal Throat: Red, Exudate Respiratory: Diminished, Wheezes, Rhonchi Cardiovascular: Normal : Normal Auscultation: Bowel Sounds: Normal Tenderness: Normal Skin: Decreased Turgur Musculoskeletal: Back:Lumbar Psychiatric: Anxiety Affect: Anxious Speech Pattern: Clear, Appropriate - Laboratory and Diagnostics Result Diagrams: 11/19/22 04:35 11/19/22 04:35 Labs: 11/15/22 09:59 Sputum - Expectorated Sputum Sputum Culture - Final Klebsiella Pneumoniae 11/15/22 09:59 Sputum - Expectorated Sputum - Final Laboratory WBC 12.0 X10^3/uL (3.6-10.0) H 11/19/22 04:35 RBC 3.82 X10^6/uL (3.5-5.4) 11/19/22 04:35 Hgb 10.6 g/dL (12.0-16.0) L 11/19/22 04:35 Hct 32.2 % (36.0-47.0) L 11/19/22 04:35 MCV 84.1 fL (80.0-100.0) 11/19/22 04:35 MCH 27.6 pg (27.0-34.0) 11/19/22 04:35 MCHC 32.8 g/dL (33.0-35.0) L 11/19/22 04:35 RDW 16.4 % (11.6-16.5) 11/19/22 04:35 Plt Count 403 X10^3/uL (150.0-450.0) 11/19/22 04:35 Plt Count Comment Adequate (ADEQUATE) 11/16/22 05:27 MPV 8.5 fL (7.4-11.0) 11/19/22 04:35 Neut % (Auto) 86.0 % (42.0-75.0) H 11/19/22 04:35 Lymph % (Auto) 10.5 % (21.0-51.0) L 11/19/22 04:35 [place] % (Auto) 2.7 % (0.0-13.0) 11/19/22 04:35 Eos % (Auto) 0.0 % (0.9-2.9) L 11/19/22 04:35 Baso % (Auto) 0.8 % (0.2-1.0) 11/19/22 04:35 Neut # (Auto) 10.3 x10^3/uL (2.2-4.8) H 11/19/22 04:35 Lymph # (Auto) 1.3 X10^3/uL (1.3-2.9) 11/19/22 04:35 [place] # (Auto) 0.3 x10^3/uL (0.3-0.8) 11/19/22 04:35 Eos # (Auto) 0.0 x10^3/uL (0.0-0.2) 11/19/22 04:35 Baso # (Auto) 0.1 X10^3/uL (0.0-0.1) 11/19/22 04:35 Absolute Nucleated RBC 0.0 /100WBC 11/19/22 04:35 Total Counted 100 11/16/22 05:27 Neutrophils % (Manual) 88 % (39-76) H 11/16/22 05:27 Band Neutrophils % 3 % (0-10) 11/16/22 05:27 Lymphocytes % (Manual) 7 % (13-43) L 11/16/22 05:27 Monocytes % (Manual) 2 % (4-9) L 11/16/22 05:27 Plt Morphology Comment Normal (NORMAL) 11/16/22 05:27 RBC Morphology Normal (NORMAL) 11/16/22 05:27 Sodium 133 mmol/L (136-145) L 11/19/22 04:35 Corrected Sodium 134 mmol/L (136-145) L 11/19/22 04:35 Potassium 4.0 mmol/L (3.5-5.1) 11/19/22 04:35 Chloride 99 mmol/L (98-107) 11/19/22 04:35 Carbon Dioxide 30.0 mmol/L (21-32) 11/19/22 04:35 BUN 14 mg/dL (7-18) 11/19/22 04:35 Creatinine 0.87 mg/dL (0.55-1.02) 11/19/22 04:35 Est GFR (MDRD) Af Amer > 60 (>60) 11/19/22 04:35 Est GFR (MDRD) Non-Af > 60 (>60) 11/19/22 04:35 Glucose 140 mg/dL (65-99) H 11/19/22 04:35 Calcium 8.2 mg/dL (8.5-10.1) L 11/19/22 04:35 Corrected Calcium 9.2 mg/dL (8.5-10.1) 11/19/22 04:35 Magnesium 2.0 mg/dL (2.0-2.9) 11/17/22 04:33 Total Bilirubin 0.20 mg/dL (0.2-1.0) 11/19/22 04:35 AST 11 Units/L (15-37) L 11/19/22 04:35 ALT 12 Units/L (12-78) 11/19/22 04:35 Alkaline Phosphatase 224 Units/L (46-116) H 11/19/22 04:35 Total Protein 7.4 g/dL (6.4-8.2) 11/19/22 04:35 Albumin 2.7 g/dL (3.4-5.0) L 11/19/22 04:35 Globulin 4.7 g/dL (2.5-4.5) H 11/19/22 04:35 Albumin/Globulin Ratio 0.6 Ratio (1.1-2.1) L 11/19/22 04:35 Free T3 pg/dL 2.7 pg/mL (2.5-4.3) 11/14/22 17:40 TSH 3rd Generation 1.776 uIU/mL (0.358-3.74) 11/14/22 17:40 Specimen Type Clean catch urine 11/14/22 20:35 Urine Color Yellow (YELLOW) 11/14/22 20:35 Urine Appearance Clear (CLEAR) 11/14/22 20:35 Urine pH 6.0 (5.0 - 8.0) 11/14/22 20:35 Ur Specific [place] 1.015 (1.000-1.030) 11/14/22 20:35 Urine Protein Negative (NEGATIVE) 11/14/22 20:35 Urine Glucose (UA) Negative (NEGATIVE) 11/14/22 20:35 Urine Ketones Negative (NEGATIVE) 11/14/22 20:35 Urine Blood 3+ (NEGATIVE) 11/14/22 20:35 Urine Nitrite Negative (NEGATIVE) 11/14/22 20:35 Urine Bilirubin Negative (NEGATIVE) 11/14/22 20:35 Urine Urobilinogen Normal (NORMAL) 11/14/22 20:35 Ur Leukocyte Esterase Negative (NEGATIVE) 11/14/22 20:35 Urine RBC 3-5 /HPF (0-3) A 11/14/22 20:35 Urine WBC None seen /HPF (0-5) 11/14/22 20:35 Ur Squamous Epith Cells Negative /HPF (NEGATIVE) 11/14/22 20:35 Urine Bacteria Negative /HPF (NEGATIVE) 11/14/22 20:35 Ur Culture Indicated? No/not indicated 11/14/22 20:35 Resp Viral Panel (PCR) See scanned report 11/14/22 20:48 - Plan (1) Influenza A Status: Acute Plan: IV HYDRATION. TAMIFLU, SOLU MEDROL, IV LEVAQUIN. RESP THERAPY, SPUTUM CULTURE. SUPPLEMENTAL O2. BP CONTROL (2) COPD with acute bronchitis Status: Acute (3) Gastroesophageal reflux disease Status: Acute Qualifiers: Esophagitis presence: esophagitis presence not specified Qualified Code(s): K21.9 - Gastro-esophageal reflux disease without esophagitis (4) HAMMAD (generalized anxiety disorder) Status: Chronic (5) Hypertension Status: Chronic Qualifiers: Hypertension type: primary hypertension Qualified Code(s): I10 - Essential (primary) hypertension (6) Lumbar degenerative disc disease Status: Chronic
[2022-11-19] MEDS ORDERED: CATAPRES TAB 0.1 MG PO ONE (20:35)
--- NOTE | 2022-11-19 20:47 | EKG ---
Test Reason : High B/p Blood Pressure : */* mmHG Vent. Rate : 90 BPM Atrial Rate : 90 BPM P-R Int : 116 ms QRS Dur : 84 ms QT Int : 358 ms P-R-T Axes : 50 -3 46 degrees QTc Int : 437 ms Normal sinus rhythm Normal ECG No previous ECGs available Confirmed by Leroy Rivera ([id number]) on 11/20/2022 8:02:43 AM Referred By: Confirmed By: Leroy Rivera
[2022-11-19] MEDS: SINGULAIR TAB 10 MG PO SCH (21:12)
[2022-11-19] MEDS: COLACE CAP 100 MG PO SCH (21:13)
[2022-11-20] MEDS ORDERED: NORMODYNE INJ 20 MG VIAL IV PRN (00:10)
[2022-11-20] MEDS ORDERED: NORMODYNE INJ 100 MG VIAL ONE (00:27)
[2022-11-20] MEDS: DUONEB 0.5 MG/3 MG (3 mL) NEB SCH ×3 (00:30→09:37)
[2022-11-20] MEDS ORDERED: NORMODYNE INJ 20 MG VIAL ONE (00:30)
[2022-11-20 00:57] VITALS: RESP 18; O2SAT 97
[2022-11-20 05:32] LABS: BASOPHILS # (AUTO) 0.1 X10^3/uL (0.0-0.1); BASOPHILS % (AUTO) 0.7 % (0.2-1.0); HEMATOCRIT 32.3 % (36.0-47.0); HEMOGLOBIN 10.5 g/dL (12.0-16.0); LYMPHOCYTES # (AUTO) 1.7 X10^3/uL (1.3-2.9); MEAN CORPUSCULAR HEMOGLOBIN 27.4 pg (27.0-34.0); MEAN CORPUSCULAR HGB CONC 32.6 g/dL (33.0-35.0); MEAN CORPUSCULAR VOLUME 84.2 fL (80.0-100.0); MEAN PLATELET VOLUME 8.7 fL (7.4-11.0); MONOCYTES # (AUTO) 0.7 x10^3/uL (0.3-0.8); MONOCYTES % (AUTO) 3.9 % (0.0-13.0); NEUTROPHILS # (AUTO) 14.4 x10^3/uL (2.2-4.8); NEUTROPHILS % (AUTO) 85.4 % (42.0-75.0); PLATELET COUNT 437 X10^3/uL (150.0-450.0); RED BLOOD COUNT 3.83 X10^6/uL (3.5-5.4); RED CELL DISTRIBUTION WIDTH 16.7 % (11.6-16.5); WHITE BLOOD COUNT 16.9 X10^3/uL (3.6-10.0)
[2022-11-20] MEDS: NEURONTIN CAP 300 MG PO SCH ×2 (05:38→13:37)
[2022-11-20] MEDS: SOLU-Medrol 40 MG VIAL IVP SCH (05:38)
[2022-11-20] MEDS: REQUIP PO SCH ×2 (05:38→13:37)
[2022-11-20 05:43] LABS: ALANINE AMINOTRANSFERASE 15 Units/L (12-78); ALBUMIN 2.7 g/dL (3.4-5.0); ALKALINE PHOSPHATASE 206 Units/L (46-116); ASPARTATE AMINO TRANSFERASE 14 Units/L (15-37); BLOOD UREA NITROGEN 16 mg/dL (7-18); CALCIUM 8.3 mg/dL (8.5-10.1); CARBON DIOXIDE 31.6 mmol/L (21-32); CHLORIDE 102 mmol/L (98-107); COR CA(FOR HYPOALB) 9.3 mg/dL (8.5-10.1); COR NA(FOR HYPERGLY) 135 mmol/L (136-145); CREATININE 0.71 mg/dL (0.55-1.02); GLUCOSE 126 mg/dL (65-99); POTASSIUM 4.6 mmol/L (3.5-5.1); SODIUM 134 mmol/L (136-145); TOTAL PROTEIN 7.3 g/dL (6.4-8.2); eGFR NON BLACK RACES > 60 (>60)
[2022-11-20] MEDS: NYSTATIN SUSP PO SCH ×2 (08:55→13:37)
[2022-11-20] MEDS: ROBITUSSIN DM PO SCH ×2 (08:55→13:37)
[2022-11-20] MEDS: PAXIL PO SCH (08:56)
[2022-11-20] MEDS: BUSPAR PO SCH (08:57)
[2022-11-20] MEDS: TAMIFLU PO SCH (08:57)
[2022-11-20] MEDS: COZAAR PO SCH (08:57)
[2022-11-20] MEDS: LEVAQUIN PREMIX IV 500 MG 500 MG/100 ML BAG IV SCH (08:59)
[2022-11-20] MEDS: PROTONIX INJ 40 MG VIAL IVP SCH (08:59)
[2022-11-20] MEDS ORDERED: SOLU-Medrol 40 MG VIAL IVP SCH (09:00)
[2022-11-20] MEDS: PULMICORT NEB TX 0.5 MG NEB SCH (09:37)
[2022-11-20 09:42] LABS: ABG ALLEN TEST POS; ABG HCO3 27.9 mmol/L (22-26)
--- NOTE | 2022-11-20 11:30 | RAD ---
EXAM:CHEST, 1 VIEWHISTORY:SOB, INFLUENZA A; COPDCOMPARISON:11/19/2022FINDINGS:Inters titial opacity is consistent with a chronic interstitial disease seen on the CT 01/20/2021.There is no focal abnormality to suggest pneumonia or acute process. No pleural effusion.Cardiomegaly is present.The bones are unremarkable.IMPRESSION:1. No acute findings2. Chronic interstitial lung disease3. CardiomegalyTHIS IS AN ELECTRONICALLY VERIFIED FINAL [id number]/20/2022 11:27 AM - Electronically signed by Da Sanchez MD
[2022-11-20 12:23] VITALS: BP 170/81; PULSE 82; TEMP 98
[2022-11-20] MEDS: NS + KCL 20 MEQ/L 1,000 ML IV SCH (12:29)
[2022-11-20] MEDS ORDERED: DIFLUCAN PO SCH (14:00)
== END 2022-11-20 14:40 | disposition home or self-care (01) | DRG 202 ==
LOC: MED/SURG → OBSVTOIN 15:45
PROVIDERS: ADMIT Internal Medicine; ATTEND Internal Medicine
DX: R06.02 Shortness of breath; J44.0 Chronic obstructive pulmonary disease with (acute) lower respiratory infection; B95.3 Streptococcus pneumoniae as the cause of diseases classified elsewhere; M51.36 Other intervertebral disc degeneration, lumbar region; G25.81 Restless legs syndrome; J09.X2 Influenza due to identified novel influenza A virus with other respiratory manifestations; B96.89 Other specified bacterial agents as the cause of diseases classified elsewhere; I10 Essential (primary) hypertension; F41.8 Other specified anxiety disorders; K21.9 Gastro-esophageal reflux disease without esophagitis; J20.6 Acute bronchitis due to rhinovirus

== ENCOUNTER 2023-02-21 12:46 | Inpatient (IN) ==
[2023-02-21] MEDS ORDERED: ZOFRAN INJ 4 MG VIAL IVP PRN (13:26)
--- NOTE | 2023-02-21 15:01 | RAD ---
EXAM:Two-view chestHISTORY:Shortness of breathCOMPARISON:11/20/2022FINDINGS:Hear t size is normal. Kristi are normal. Diffuse severe chronic interstitial lung changes are present likely fibrotic in origin and progressive when compared with prior examination. No acute alveolar infiltrates, ground-glass infiltrates, or areas of consolidation identified. No pleural effusions or pneumothoraces are identified. Bony thorax is unremarkable.IMPRESSION:Diffuse severe bilateral chronic interstitial lung disease progressive when compared with prior examinationNo acute alveolar infiltrates identified.THIS IS AN ELECTRONICALLY VERIFIED FINAL REPORT02/21/2023 2:58 PM - Electronically signed by Otoniel Douglas MD
[2023-02-21 15:51] VITALS: BMI 32.8
[2023-02-21 16:00] LABS: ABG BASE EXCESS 1.5 mmol/L (-2.0-2.0); ABG HCO3 25.9 mmol/L (22-26)
[2023-02-21 16:20] LABS: BASOPHILS # (AUTO) 0.1 X10^3/uL (0.0-0.1); BASOPHILS % (AUTO) 0.5 % (0.2-1.0); EOSINOPHILS # (AUTO) 0.1 x10^3/uL (0.0-0.2); EOSINOPHILS % (AUTO) 0.6 % (0.9-2.9); HEMATOCRIT 36.3 % (36.0-47.0); HEMOGLOBIN 11.6 g/dL (12.0-16.0); LYMPHOCYTES # (AUTO) 2.5 X10^3/uL (1.3-2.9); LYMPHOCYTES % (AUTO) 25.2 % (21.0-51.0); MEAN CORPUSCULAR HEMOGLOBIN 27.5 pg (27.0-34.0); MEAN CORPUSCULAR HGB CONC 31.9 g/dL (33.0-35.0); MEAN PLATELET VOLUME 8.5 fL (7.4-11.0); MONOCYTES # (AUTO) 0.5 x10^3/uL (0.3-0.8); MONOCYTES % (AUTO) 5.2 % (0.0-13.0); NEUTROPHILS # (AUTO) 6.7 x10^3/uL (2.2-4.8); NEUTROPHILS % (AUTO) 68.5 % (42.0-75.0); PLATELET COUNT 407 X10^3/uL (150.0-450.0); RED BLOOD COUNT 4.22 X10^6/uL (3.5-5.4); RED CELL DISTRIBUTION WIDTH 15.4 % (11.6-16.5); WHITE BLOOD COUNT 9.8 X10^3/uL (3.6-10.0)
[2023-02-21] MEDS: SOLU-Medrol 125 MG VIAL IVP SCH ×2 (16:20→22:30)
[2023-02-21 16:30] LABS: ALANINE AMINOTRANSFERASE 11 Units/L (12-78); ALKALINE PHOSPHATASE 241 Units/L (46-116); ASPARTATE AMINO TRANSFERASE 15 Units/L (15-37); BLOOD UREA NITROGEN 7 mg/dL (7-18); CALCIUM 8.5 mg/dL (8.5-10.1); CARBON DIOXIDE 26.1 mmol/L (21-32); CHLORIDE 101 mmol/L (98-107); COR CA(FOR HYPOALB) 9.3 mg/dL (8.5-10.1); CREATININE 0.72 mg/dL (0.55-1.02); GLUCOSE 95 mg/dL (65-99); MAGNESIUM 1.9 mg/dL (2.0-2.9); POTASSIUM 3.2 mmol/L (3.5-5.1); SODIUM 135 mmol/L (136-145); TOTAL PROTEIN 8.3 g/dL (6.4-8.2); eGFR NON BLACK RACES > 60 (>60)
[2023-02-21] MEDS: TUSSIONEX PENNKINETIC SUSP PO PRN (16:39)
[2023-02-21 16:42] LABS: BILIRUBIN,URINE NEGATIVE (NEGATIVE); BLOOD/HEMOGLOBIN,URINE NEGATIVE (NEGATIVE); GLUCOSE, URINE NEGATIVE (NEGATIVE); KETONES,URINE NEGATIVE (NEGATIVE); LEUKOCYTE ESTERASE ,URINE NEGATIVE (NEGATIVE); NITRITES,URINE NEGATIVE (NEGATIVE); PH,URINE 6.5 (5.0 - 8.0); PROTEIN,URINE 1+ (NEGATIVE); UROBILINOGEN,URINE NORMAL (NORMAL)
[2023-02-21 16:45] LABS: APPEARANCE,URINE CLEAR (CLEAR); BACTERIA,URINE NEGATIVE /HPF (NEGATIVE); COLOR,URINE YELLOW (YELLOW); RBC,URINE NONE SEEN /HPF (0-3); SQUAMOUS EPITHELIAL CELL,UR FEW /HPF (NEGATIVE)
[2023-02-21] MEDS ORDERED: CONSULT PHARMACY - POTASSIUM & MAGNESIUM XX SCH (17:00)
[2023-02-21] MEDS: PROVENTIL NEB TX 0.083% 2.5MG/ 3ML NEB SCH ×2 (17:30→20:30)
[2023-02-21] MEDS ORDERED: CATAPRES TAB 0.1 MG PO ONE (18:05)
--- NOTE | 2023-02-21 18:14 | DR.H&P ---
H&P History & Physical for Day of: H&P Date: 02/21/23 Chief Complaint Chief Complaint: CCC, SOB, N/V Allergies Allergies Allergy/AdvReac Type Severity Reaction Status Date / Time No Known Drug Allergies Allergy Verified 04/12/20 18:42 History of Present Illness History of Present Illness: PT IS 57WF, DIRECT ADMIT FROM DR CANELA OFFICE WITH FAILED OUTPT TREATMENT OF COPD EXACERBATION. PT WAS GIVEN ROCEPHIN 1GM AND KENALOG 40MG IM ON SUNDAY, STARTED ON PO LEVAQUIN WITHOUT IMPROVEMENT. PT HAS PMH OF COPD, HTN, OA, GERD AND RLS. PT ADMITTED FOR TREATMENT OF ACUTE ILLNESS. Past Medical History Past Medical History: COPD and Hypertension Past Surgical History Surgical History: and Hysterectomy Family History Family Medical History: Diabetes Mellitus, Cancer, [place] and Hypertension Social History Does patient currently use any type of tobacco product: Yes Have you used tobacco products in the last 12 months: Yes Type of Tobacco Use: Cigarettes How many years tobacco product used: 40 Alcohol Use: None Drug Use: None Medications Home Medications: Home Medications Medication Instructions Recorded Confirmed Type doxepin 25 mg capsule 25 mg PO HS 01/01/20 02/21/23 History hydrocodone 5 mg-acetaminophen 325 1 tab PO BID PRN 01/01/20 02/21/23 History mg tablet ([place]) ropinirole 1 mg tablet 1 mg PO BID 01/01/20 02/21/23 History buspirone 10 mg tablet 10 mg PO BID 01/17/21 02/21/23 History carbidopa 25 mg-levodopa 100 mg See Rx Instructions .Route .COMPLEX 01/17/21 02/21/23 History tablet dicyclomine 20 mg tablet 20 mg PO TID 01/17/21 02/21/23 History famotidine 40 mg tablet 40 mg PO DAILY 01/17/21 02/21/23 History omeprazole 40 mg capsule,delayed 40 mg PO BID 01/17/21 02/21/23 History release vilazodone 40 mg tablet 40 mg PO DAILY 01/17/21 02/21/23 History cyclobenzaprine 10 mg tablet 10 mg PO HS 09/04/21 02/21/23 History gabapentin 300 mg capsule 300 mg PO QHS 09/04/21 02/21/23 History amlodipine 10 mg tablet (Norvasc) 10 mg PO QDAY 02/21/23 02/21/23 History paroxetine HCl 30 mg tablet 30 mg PO QDAY 02/21/23 02/21/23 History Labs 02/21/23 15:55 02/21/23 15:55 Labs: 02/21/23 16:42 Sputum - Expectorated Sputum - Final Laboratory WBC 9.8 X10^3/uL (3.6-10.0) 02/21/23 15:55 RBC 4.22 X10^6/uL (3.5-5.4) 02/21/23 15:55 Hgb 11.6 g/dL (12.0-16.0) L 02/21/23 15:55 Hct 36.3 % (36.0-47.0) 02/21/23 15:55 MCV 86.0 fL (80.0-100.0) 02/21/23 15:55 MCH 27.5 pg (27.0-34.0) 02/21/23 15:55 MCHC 31.9 g/dL (33.0-35.0) L 02/21/23 15:55 RDW 15.4 % (11.6-16.5) 02/21/23 15:55 Plt Count 407 X10^3/uL (150.0-450.0) 02/21/23 15:55 MPV 8.5 fL (7.4-11.0) 02/21/23 15:55 Neut % (Auto) 68.5 % (42.0-75.0) 02/21/23 15:55 Lymph % (Auto) 25.2 % (21.0-51.0) 02/21/23 15:55 [place] % (Auto) 5.2 % (0.0-13.0) 02/21/23 15:55 Eos % (Auto) 0.6 % (0.9-2.9) L 02/21/23 15:55 Baso % (Auto) 0.5 % (0.2-1.0) 02/21/23 15:55 Neut # (Auto) 6.7 x10^3/uL (2.2-4.8) H 02/21/23 15:55 Lymph # (Auto) 2.5 X10^3/uL (1.3-2.9) 02/21/23 15:55 [place] # (Auto) 0.5 x10^3/uL (0.3-0.8) 02/21/23 15:55 Eos # (Auto) 0.1 x10^3/uL (0.0-0.2) 02/21/23 15:55 Baso # (Auto) 0.1 X10^3/uL (0.0-0.1) 02/21/23 15:55 Absolute Nucleated RBC 0.0 /100WBC 02/21/23 15:55 Sample Site Lbra 02/21/23 15:55 ABG pH 7.430 (7.35-7.45) 02/21/23 15:55 ABG pCO2 39.0 mmHg (35.0-45.0) 02/21/23 15:55 ABG pO2 72.0 mmHg (80.0-100.0) L 02/21/23 15:55 ABG HCO3 25.9 mmol/L (22-26) 02/21/23 15:55 ABG O2 Saturation 95.0 % (90-100) 02/21/23 15:55 ABG Base Excess 1.5 mmol/L (-2.0-2.0) 02/21/23 15:55 Lopez Test N/a 02/21/23 15:55 A-a Gradient 29.0 mmHg 02/21/23 15:55 FiO2 21.0 02/21/23 15:55 Blood Gas Comments Pt pillo well eb 02/21/23 15:55 Sodium 135 mmol/L (136-145) L 02/21/23 15:55 Corrected Sodium TNP 02/21/23 15:55 Potassium 3.2 mmol/L (3.5-5.1) L 02/21/23 15:55 Chloride 101 mmol/L (98-107) 02/21/23 15:55 Carbon Dioxide 26.1 mmol/L (21-32) 02/21/23 15:55 BUN 7 mg/dL (7-18) 02/21/23 15:55 Creatinine 0.72 mg/dL (0.55-1.02) 02/21/23 15:55 Est GFR (MDRD) Af Amer > 60 (>60) 02/21/23 15:55 Est GFR (MDRD) Non-Af > 60 (>60) 02/21/23 15:55 Glucose 95 mg/dL (65-99) 02/21/23 15:55 Calcium 8.5 mg/dL (8.5-10.1) 02/21/23 15:55 Corrected Calcium 9.3 mg/dL (8.5-10.1) 02/21/23 15:55 Magnesium 1.9 mg/dL (2.0-2.9) L 02/21/23 15:55 Total Bilirubin 0.20 mg/dL (0.2-1.0) 02/21/23 15:55 AST 15 Units/L (15-37) 02/21/23 15:55 ALT 11 Units/L (12-78) L 02/21/23 15:55 Alkaline Phosphatase 241 Units/L (46-116) H 02/21/23 15:55 Total Protein 8.3 g/dL (6.4-8.2) H 02/21/23 15:55 Albumin 3.0 g/dL (3.4-5.0) L 02/21/23 15:55 Globulin 5.3 g/dL (2.5-4.5) H 02/21/23 15:55 Albumin/Globulin Ratio 0.6 Ratio (1.1-2.1) L 02/21/23 15:55 Specimen Type Clean catch urine 02/21/23 16: Urine Color Yellow (YELLOW) 02/21/23 16: Urine Appearance Clear (CLEAR) 02/21/23 16: Urine pH 6.5 (5.0 - 8.0) 02/21/23 16: Ur Specific [place] 1.015 (1.000-1.030) 02/21/23 16: Urine Protein 1+ (NEGATIVE) 02/21/23 16: Urine Glucose (UA) Negative (NEGATIVE) 02/21/23 16: Urine Ketones Negative (NEGATIVE) 02/21/23 16: Urine Blood Negative (NEGATIVE) 02/21/23 16: Urine Nitrite Negative (NEGATIVE) 02/21/23 16: Urine Bilirubin Negative (NEGATIVE) 02/21/23 16: Urine Urobilinogen Normal (NORMAL) 02/21/23 16: Ur Leukocyte Esterase Negative (NEGATIVE) 02/21/23 16:27 Urine RBC None seen /HPF (0-3) 02/21/23 16:27 Urine WBC 0-2 /HPF (0-5) 02/21/23 16:27 Ur Squamous Epith Cells Few /HPF (NEGATIVE) 02/21/23 16:27 Urine Bacteria Negative /HPF (NEGATIVE) 02/21/23 16:27 Urine Mucus Rare /HPF (NEGATIVE) 02/21/23 16:27 Ur Culture Indicated? No/not indicated 02/21/23 16:27 Review of Systems Constitutional: Weakness Eyes: No Symptoms Reported ENT: Nose Congestion and Throat Pain Respiratory: Cough, Shortness of Breath, SOB with Excertion, Pleuritic Pain and Sputum Cardiovascular: Palpitations Gastrointestinal: Nausea and Vomiting Genitourinary: No Symptoms Reported Musculoskeletal: Back Pain Skin: No Symptoms Reported Neurological: No Symptoms Reported Physical Exam Vital Signs: Vital Signs Temperature 97.8 F Pulse Rate 87 Pulse Rate 87 Pulse Rate 89 Pulse Rate 88 Pulse Rate 84 Pulse Rate 84 Pulse Rate 84 Pulse Rate 91 Pulse Rate 90 Pulse Rate 81 Pulse Rate 82 Pulse Rate 113 Pulse Rate 84 Pulse Rate 106 Pulse Rate 99 Pulse Rate 100 Pulse Rate 103 Respiratory Rate 24 Respiratory Rate 36 Respiratory Rate 47 Respiratory Rate 25 Respiratory Rate 25 Respiratory Rate 33 Respiratory Rate 28 Respiratory Rate 38 Respiratory Rate 31 Respiratory Rate 23 Respiratory Rate 30 Respiratory Rate 27 Respiratory Rate 36 Respiratory Rate 32 Respiratory Rate 32 Respiratory Rate 30 Blood Pressure 194/89 Blood Pressure 195/95 Blood Pressure 204/103 Blood Pressure 185/97 Blood Pressure 174/89 O2 Sat by Pulse Oximetry 96 O2 Sat by Pulse Oximetry 97 O2 Sat by Pulse Oximetry 98 O2 Sat by Pulse Oximetry 98 O2 Sat by Pulse Oximetry 100 O2 Sat by Pulse Oximetry 98 O2 Sat by Pulse Oximetry 98 O2 Sat by Pulse Oximetry 96 O2 Sat by Pulse Oximetry 94 O2 Sat by Pulse Oximetry 96 O2 Sat by Pulse Oximetry 99 O2 Sat by Pulse Oximetry 96 O2 Sat by Pulse Oximetry 97 O2 Sat by Pulse Oximetry 95 O2 Sat by Pulse Oximetry 97 Oriented: Normal Eyes: Normal Ear: Normal Nose: Discharge Throat: Normal and Exudate Respiratory: Wheezes Throughout Cardiovascular: Normal : Normal Palpation: Normal Tenderness: Epigastric and Mild Skin: Decreased Turgur Musculoskeletal: Back:Lumbar Psychiatric: Anxiety Mood Description: Anxious Speech Pattern: Clear and Appropriate Assessment/Plan (1) COPD with acute bronchitis: Narrative Support Text: ADMIT, RESP CONSULT SPUTUM CULTURE VIRAL RESP SWAB IV ATBX, IV SOLU MEDROL BP CONTROL Status: Acute (2) SOB (shortness of breath): Status: Acute (3) GERD (gastroesophageal reflux disease): Status: Chronic (4) HAMMAD (generalized anxiety disorder): Status: Chronic (5) Lumbar degenerative disc disease: Status: Chronic (6) Hypertension: Qualifiers: Hypertension type: primary hypertension Qualified Code(s): I10 - Essential (primary) hypertension Status: Chronic
[2023-02-21] MEDS: ROBITUSSIN DM PO SCH ×2 (18:17→20:53)
[2023-02-21] MEDS: MAG-OX TAB PO SCH ×2 (18:17→18:31)
[2023-02-21] MEDS: K-DUR TAB 20 MEQ PO SCH ×2 (18:17→18:31)
[2023-02-21] MEDS: NYSTATIN SUSP MT SCH ×2 (18:17→20:51)
[2023-02-21] MEDS: NORVASC TAB 10 MG PO SCH (18:18)
[2023-02-21] MEDS ORDERED: PULMICORT NEB TX 0.5 MG NEB ONE (19:44)
[2023-02-21] MEDS: PULMICORT NEB TX 0.5 MG NEB SCH (20:30)
[2023-02-21] MEDS: NEURONTIN CAP 300 MG PO SCH (20:52)
[2023-02-21] MEDS: PROTONIX INJ 40 MG VIAL IVP SCH (20:53)
[2023-02-21] MEDS: REQUIP PO SCH (20:53)
[2023-02-21] MEDS: NORCO 5/325 MG TAB PO PRN (20:53)
[2023-02-21] MEDS: SINEMET (PLAIN) 25/100 MG PO SCH (20:58)
[2023-02-22] MEDS: PROVENTIL NEB TX 0.083% 2.5MG/ 3ML NEB SCH ×6 (00:30→20:00)
[2023-02-22 04:36] LABS: BASOPHILS # (AUTO) 0.1 X10^3/uL (0.0-0.1); BASOPHILS % (AUTO) 0.8 % (0.2-1.0); HEMATOCRIT 34.8 % (36.0-47.0); HEMOGLOBIN 11.2 g/dL (12.0-16.0); LYMPHOCYTES # (AUTO) 0.9 X10^3/uL (1.3-2.9); LYMPHOCYTES % (AUTO) 10.4 % (21.0-51.0); MEAN CORPUSCULAR HEMOGLOBIN 27.7 pg (27.0-34.0); MEAN CORPUSCULAR HGB CONC 32.1 g/dL (33.0-35.0); MEAN CORPUSCULAR VOLUME 86.4 fL (80.0-100.0); MEAN PLATELET VOLUME 8.7 fL (7.4-11.0); MONOCYTES # (AUTO) 0.2 x10^3/uL (0.3-0.8); MONOCYTES % (AUTO) 2.1 % (0.0-13.0); NEUTROPHILS # (AUTO) 7.3 x10^3/uL (2.2-4.8); NEUTROPHILS % (AUTO) 86.7 % (42.0-75.0); PLATELET COUNT 396 X10^3/uL (150.0-450.0); RED BLOOD COUNT 4.03 X10^6/uL (3.5-5.4); RED CELL DISTRIBUTION WIDTH 15.3 % (11.6-16.5); WHITE BLOOD COUNT 8.4 X10^3/uL (3.6-10.0)
[2023-02-22 04:55] LABS: ALANINE AMINOTRANSFERASE 11 Units/L (12-78); ALBUMIN 2.7 g/dL (3.4-5.0); ALKALINE PHOSPHATASE 220 Units/L (46-116); ASPARTATE AMINO TRANSFERASE 12 Units/L (15-37); BLOOD UREA NITROGEN 15 mg/dL (7-18); CALCIUM 8.7 mg/dL (8.5-10.1); CARBON DIOXIDE 26.1 mmol/L (21-32); CHLORIDE 103 mmol/L (98-107); COR CA(FOR HYPOALB) 9.7 mg/dL (8.5-10.1); COR NA(FOR HYPERGLY) 137 mmol/L (136-145); CREATININE 0.83 mg/dL (0.55-1.02); GLUCOSE 134 mg/dL (65-99); MAGNESIUM 2.1 mg/dL (2.0-2.9); SODIUM 136 mmol/L (136-145); TOTAL PROTEIN 7.8 g/dL (6.4-8.2); eGFR NON BLACK RACES > 60 (>60)
[2023-02-22] MEDS: SOLU-Medrol 125 MG VIAL IVP SCH ×3 (06:13→21:08)
[2023-02-22] MEDS ORDERED: FLUARIX QUAD VACC (FOR AGE 6 MONTHS+) IM ONE (08:13)
[2023-02-22] MEDS: NORVASC TAB 10 MG PO SCH (08:22)
[2023-02-22] MEDS: NYSTATIN SUSP MT SCH ×4 (08:22→20:19)
[2023-02-22] MEDS: PEPCID TAB 40 MG PO SCH (08:22)
[2023-02-22] MEDS: SINEMET (PLAIN) 25/100 MG PO SCH ×3 (08:22→20:19)
[2023-02-22] MEDS: PROTONIX INJ 40 MG VIAL IVP SCH ×2 (08:22→20:19)
[2023-02-22] MEDS: ROBITUSSIN DM PO SCH ×4 (08:22→20:19)
[2023-02-22] MEDS: REQUIP PO SCH ×2 (08:22→20:19)
[2023-02-22] MEDS: PAXIL PO SCH (08:26)
[2023-02-22] MEDS: NORCO 5/325 MG TAB PO PRN ×2 (08:27→19:10)
[2023-02-22] MEDS: PULMICORT NEB TX 0.5 MG NEB SCH ×2 (09:08→20:00)
--- NOTE | 2023-02-22 13:17 | RAD ---
EXAM:CHEST, 1 VIEWHISTORY:COPD, SOB, COUGH;COMPARISON:Prior study or studies were utilized for comparison during interpretation with the most relevant dated yesterdayTECHNIQUE:CHEST, 1 VIEWFINDINGS:Chest:Lines and tubes: Cardiac leads overlie the chest.Mediastinum: Cardiomegaly.Pulmonary vessels: No pulmonary vascular congestion.Lung up: Interstitial markings and hyperinflation of the lungs with diaphragmatic flattening.Pleura: No effusion. No pneumothorax.Bones and soft tissues: No acute osseous or soft tissue abnormality.IMPRESSION:1. No acute cardiopulmonary abnormality2. Stigmata of COPDTHIS IS AN ELECTRONICALLY VERIFIED FINAL REPORT02/22/2023 1:13 PM - Electronically signed by Charles Perdomo MD
[2023-02-22] MEDS: LEVAQUIN PREMIX IV 500 MG 500 MG/100 ML BAG IV SCH (18:16)
[2023-02-22] MEDS: NEURONTIN CAP 300 MG PO SCH (20:19)
[2023-02-23] MEDS: PROVENTIL NEB TX 0.083% 2.5MG/ 3ML NEB SCH ×6 (00:01→20:15)
[2023-02-23] MEDS: TUSSIONEX PENNKINETIC SUSP PO PRN (01:36)
[2023-02-23] MEDS: SOLU-Medrol 125 MG VIAL IVP SCH ×3 (05:19→21:29)
[2023-02-23 05:24] LABS: BASOPHILS # (AUTO) 0.1 X10^3/uL (0.0-0.1); BASOPHILS % (AUTO) 0.3 % (0.2-1.0); LYMPHOCYTES % (AUTO) 4.8 % (21.0-51.0); MEAN CORPUSCULAR HEMOGLOBIN 27.3 pg (27.0-34.0); MEAN CORPUSCULAR HGB CONC 31.5 g/dL (33.0-35.0); MEAN CORPUSCULAR VOLUME 86.7 fL (80.0-100.0); MONOCYTES # (AUTO) 0.6 x10^3/uL (0.3-0.8); MONOCYTES % (AUTO) 2.9 % (0.0-13.0); NEUTROPHILS # (AUTO) 19.4 x10^3/uL (2.2-4.8); PLATELET COUNT 436 X10^3/uL (150.0-450.0); RED BLOOD COUNT 4.03 X10^6/uL (3.5-5.4); RED CELL DISTRIBUTION WIDTH 15.2 % (11.6-16.5)
[2023-02-23 05:38] LABS: ALANINE AMINOTRANSFERASE 14 Units/L (12-78); ALBUMIN 2.7 g/dL (3.4-5.0); ALKALINE PHOSPHATASE 238 Units/L (46-116); ASPARTATE AMINO TRANSFERASE 21 Units/L (15-37); BLOOD UREA NITROGEN 15 mg/dL (7-18); CALCIUM 8.6 mg/dL (8.5-10.1); CARBON DIOXIDE 27.7 mmol/L (21-32); CHLORIDE 102 mmol/L (98-107); COR CA(FOR HYPOALB) 9.6 mg/dL (8.5-10.1); COR NA(FOR HYPERGLY) 137 mmol/L (136-145); CREATININE 0.77 mg/dL (0.55-1.02); GLUCOSE 125 mg/dL (65-99); POTASSIUM 3.9 mmol/L (3.5-5.1); SODIUM 136 mmol/L (136-145); TOTAL PROTEIN 7.6 g/dL (6.4-8.2); eGFR NON BLACK RACES > 60 (>60)
[2023-02-23 06:02] LABS: WHITE BLOOD COUNT 21.1 X10^3/uL (3.6-10.0)
[2023-02-23 06:03] LABS: PLATELET MORPHOLOGY COMMENT NORMAL (NORMAL); STOMATOCYTES PRESENT
[2023-02-23] MEDS: PULMICORT NEB TX 0.5 MG NEB SCH ×2 (08:24→20:15)
[2023-02-23] MEDS: NYSTATIN SUSP MT SCH ×4 (08:36→20:54)
[2023-02-23] MEDS: ROBITUSSIN DM PO SCH ×4 (08:36→20:54)
[2023-02-23] MEDS: PROTONIX INJ 40 MG VIAL IVP SCH ×2 (08:36→20:54)
[2023-02-23] MEDS: LEVAQUIN PREMIX IV 500 MG 500 MG/100 ML BAG IV SCH (08:36)
[2023-02-23] MEDS: PAXIL PO SCH (08:37)
[2023-02-23] MEDS: PEPCID TAB 40 MG PO SCH (08:37)
[2023-02-23] MEDS: SINEMET (PLAIN) 25/100 MG PO SCH ×2 (08:37→20:53)
[2023-02-23] MEDS: REQUIP PO SCH ×2 (08:37→20:52)
[2023-02-23] MEDS: NORVASC TAB 10 MG PO SCH (08:37)
[2023-02-23] MEDS: NORCO 5/325 MG TAB PO PRN ×2 (08:39→20:58)
[2023-02-23] MEDS: COZAAR PO SCH (11:00)
[2023-02-23] MEDS: MUCOMYST 20% 200 MG/ML NEB SCH ×3 (13:21→20:15)
[2023-02-23] MEDS ORDERED: COLACE CAP 100 MG PO PRN (14:55)
[2023-02-23] MEDS ORDERED: COLACE CAP 100 MG PO ONE (14:57)
[2023-02-23] MEDS: NEURONTIN CAP 300 MG PO SCH (20:53)
[2023-02-24] MEDS: MUCOMYST 20% 200 MG/ML NEB SCH ×6 (00:35→21:17)
[2023-02-24] MEDS: PROVENTIL NEB TX 0.083% 2.5MG/ 3ML NEB SCH ×6 (00:35→21:17)
[2023-02-24 05:23] LABS: BASOPHILS # (AUTO) 0.1 X10^3/uL (0.0-0.1); BASOPHILS % (AUTO) 0.4 % (0.2-1.0); HEMATOCRIT 34.1 % (36.0-47.0); HEMOGLOBIN 10.6 g/dL (12.0-16.0); LYMPHOCYTES # (AUTO) 0.8 X10^3/uL (1.3-2.9); LYMPHOCYTES % (AUTO) 4.5 % (21.0-51.0); MEAN CORPUSCULAR HEMOGLOBIN 27.2 pg (27.0-34.0); MEAN CORPUSCULAR HGB CONC 31.1 g/dL (33.0-35.0); MEAN CORPUSCULAR VOLUME 87.3 fL (80.0-100.0); MONOCYTES # (AUTO) 0.6 x10^3/uL (0.3-0.8); MONOCYTES % (AUTO) 3.4 % (0.0-13.0); NEUTROPHILS # (AUTO) 16.3 x10^3/uL (2.2-4.8); NEUTROPHILS % (AUTO) 91.7 % (42.0-75.0); PLATELET COUNT 413 X10^3/uL (150.0-450.0); RED BLOOD COUNT 3.91 X10^6/uL (3.5-5.4); RED CELL DISTRIBUTION WIDTH 15.6 % (11.6-16.5); WHITE BLOOD COUNT 17.7 X10^3/uL (3.6-10.0)
[2023-02-24 05:40] LABS: ALANINE AMINOTRANSFERASE 20 Units/L (12-78); ALBUMIN 2.5 g/dL (3.4-5.0); ALKALINE PHOSPHATASE 216 Units/L (46-116); ASPARTATE AMINO TRANSFERASE 23 Units/L (15-37); BLOOD UREA NITROGEN 18 mg/dL (7-18); CALCIUM 8.1 mg/dL (8.5-10.1); CHLORIDE 102 mmol/L (98-107); COR CA(FOR HYPOALB) 9.3 mg/dL (8.5-10.1); COR NA(FOR HYPERGLY) 137 mmol/L (136-145); CREATININE 0.69 mg/dL (0.55-1.02); GLUCOSE 136 mg/dL (65-99); POTASSIUM 3.8 mmol/L (3.5-5.1); SODIUM 136 mmol/L (136-145); eGFR NON BLACK RACES > 60 (>60)
[2023-02-24 05:51] LABS: PLATELET MORPHOLOGY COMMENT NORMAL (NORMAL); STOMATOCYTES PRESENT
[2023-02-24] MEDS: SOLU-Medrol 125 MG VIAL IVP SCH ×3 (06:21→21:40)
[2023-02-24] MEDS ORDERED: CONSULT PHARMACY - POTASSIUM & MAGNESIUM XX SCH (07:00)
--- NOTE | 2023-02-24 07:04 | RAD ---
EXAM:AP chestHISTORY:Short of breath COPDCOMPARISON:02/22/2023FINDINGS:Stable normal heart size with pulmonary hyperinflation. Interval increase in diffuse bilateral interstitial infiltrates without evidence for airspace consolidation, pneumothorax or developing pleural effusion.IMPRESSION:Increasing interstitial lung process concerning for a developing inflammatory or congestive process, with background COPD.THIS IS AN ELECTRONICALLY VERIFIED FINAL REPORT02/24/2023 7:01 AM - Electronically signed by Paul Leonard MD
[2023-02-24] MEDS: PULMICORT NEB TX 0.5 MG NEB SCH ×2 (08:18→21:17)
[2023-02-24] MEDS: SINEMET (PLAIN) 25/100 MG PO SCH ×2 (08:31→21:30)
[2023-02-24] MEDS: LEVAQUIN PREMIX IV 500 MG 500 MG/100 ML BAG IV SCH (08:31)
[2023-02-24] MEDS: PEPCID TAB 40 MG PO SCH (08:31)
[2023-02-24] MEDS: NYSTATIN SUSP MT SCH ×4 (08:31→21:39)
[2023-02-24] MEDS: ROBITUSSIN DM PO SCH ×4 (08:31→21:31)
[2023-02-24] MEDS: PAXIL PO SCH (08:31)
[2023-02-24] MEDS: PROTONIX INJ 40 MG VIAL IVP SCH ×2 (08:32→21:40)
[2023-02-24] MEDS: COZAAR PO SCH (08:32)
[2023-02-24] MEDS: NORVASC TAB 10 MG PO SCH (08:32)
[2023-02-24] MEDS: REQUIP PO SCH ×2 (08:32→21:30)
[2023-02-24] MEDS: NORCO 5/325 MG TAB PO PRN (08:36)
[2023-02-24] MEDS ORDERED: K-DUR TAB 20 MEQ PO SCH (09:00)
[2023-02-24] MEDS: NEURONTIN CAP 300 MG PO SCH (21:30)
[2023-02-24] MEDS: MILK OF MAGNESIA PO SCH (21:31)
[2023-02-24] MEDS: COLACE CAP 100 MG PO SCH (21:31)
[2023-02-25] MEDS: MUCOMYST 20% 200 MG/ML NEB SCH ×7 (00:30→21:21)
[2023-02-25] MEDS: PROVENTIL NEB TX 0.083% 2.5MG/ 3ML NEB SCH ×6 (00:30→21:21)
[2023-02-25] MEDS: NORCO 5/325 MG TAB PO PRN ×3 (01:11→20:46)
[2023-02-25] MEDS: SOLU-Medrol 125 MG VIAL IVP SCH ×3 (05:27→21:12)
[2023-02-25 05:47] LABS: BASOPHILS % (AUTO) 0.1 % (0.2-1.0); HEMATOCRIT 35.4 % (36.0-47.0); HEMOGLOBIN 11.1 g/dL (12.0-16.0); LYMPHOCYTES % (AUTO) 6.7 % (21.0-51.0); MEAN CORPUSCULAR HEMOGLOBIN 27.1 pg (27.0-34.0); MEAN CORPUSCULAR HGB CONC 31.4 g/dL (33.0-35.0); MEAN CORPUSCULAR VOLUME 86.5 fL (80.0-100.0); MEAN PLATELET VOLUME 8.4 fL (7.4-11.0); MONOCYTES # (AUTO) 0.8 x10^3/uL (0.3-0.8); MONOCYTES % (AUTO) 5.5 % (0.0-13.0); NEUTROPHILS # (AUTO) 13.1 x10^3/uL (2.2-4.8); NEUTROPHILS % (AUTO) 87.7 % (42.0-75.0); PLATELET COUNT 457 X10^3/uL (150.0-450.0); RED CELL DISTRIBUTION WIDTH 15.6 % (11.6-16.5); WHITE BLOOD COUNT 14.9 X10^3/uL (3.6-10.0)
[2023-02-25 06:04] LABS: ALANINE AMINOTRANSFERASE 21 Units/L (12-78); ALBUMIN 2.6 g/dL (3.4-5.0); ALKALINE PHOSPHATASE 214 Units/L (46-116); ASPARTATE AMINO TRANSFERASE 21 Units/L (15-37); BLOOD UREA NITROGEN 16 mg/dL (7-18); CALCIUM 7.7 mg/dL (8.5-10.1); CARBON DIOXIDE 28.4 mmol/L (21-32); CHLORIDE 100 mmol/L (98-107); COR CA(FOR HYPOALB) 8.8 mg/dL (8.5-10.1); COR NA(FOR HYPERGLY) 138 mmol/L (136-145); GLUCOSE 143 mg/dL (65-99); MAGNESIUM 2.8 mg/dL (2.0-2.9); POTASSIUM 3.6 mmol/L (3.5-5.1); SODIUM 137 mmol/L (136-145); eGFR NON BLACK RACES > 60 (>60)
--- NOTE | 2023-02-25 06:28 | RAD ---
EXAM:Portable AP chestHISTORY:Short of breathCOMPARISON:02/24/2023FINDINGS:Hear t size remains normal. There is interval improvement in aeration of the lungs with decreasing interstitial infiltrates. There is now no evidence for localized pneumonia, pulmonary edema or pleural fluid.IMPRESSION:Interval improvement. Appearance of the lungs is now essentially baseline. No new abnormality since 1 day prior.THIS IS AN ELECTRONICALLY VERIFIED FINAL REPORT02/25/2023 6:24 AM - Electronically signed by Paul Leonard MD
[2023-02-25] MEDS ORDERED: CONSULT PHARMACY - POTASSIUM & MAGNESIUM XX SCH (07:00)
[2023-02-25] MEDS ORDERED: K-DUR TAB 20 MEQ PO SCH (09:00)
[2023-02-25] MEDS: COZAAR PO SCH (09:06)
[2023-02-25] MEDS: NYSTATIN SUSP MT SCH ×4 (09:07→20:45)
[2023-02-25] MEDS: LEVAQUIN PREMIX IV 500 MG 500 MG/100 ML BAG IV SCH (09:07)
[2023-02-25] MEDS: NORVASC TAB 10 MG PO SCH (09:07)
[2023-02-25] MEDS: PROTONIX INJ 40 MG VIAL IVP SCH ×2 (09:08→20:44)
[2023-02-25] MEDS: ROBITUSSIN DM PO SCH ×4 (09:08→20:44)
[2023-02-25] MEDS: PEPCID TAB 40 MG PO SCH (09:08)
[2023-02-25] MEDS: SINEMET (PLAIN) 25/100 MG PO SCH ×2 (09:08→20:45)
[2023-02-25] MEDS: PAXIL PO SCH (09:08)
[2023-02-25] MEDS: REQUIP PO SCH ×2 (09:08→20:45)
[2023-02-25] MEDS: PULMICORT NEB TX 0.5 MG NEB SCH ×2 (09:14→21:21)
--- NOTE | 2023-02-25 18:08 | PCM.PROG ---
Progress Note - Progress Note for Day of Date of Exam: 02/24/23 - Subjective Subjective: IS A 57 YEAR OLD PATIENT OF . SHE IS CURRENTLY INPATIENT STATUS FOR TX OF COPD EXACERBATION WITH BRONCHOPNEUMONIA. SHE HAS A PMH OF HTN, GERD, AND MAJOR DEPRESSIVE DISORDER. TODAY, SHE IS ALERT AND ORIENTED, SITTING UP IN BED ON MORNING ROUNDS. SHE COMPLAINS OF COUGH AND SHORTNESS OF BREATH THIS MORNING, BUT DOES ADMIT TO SLIGHT IMPROVEMENT IN SYMPTOMS SINCE SHE WAS ADMITTED. UPON EXAMINATION, HEART IS REGULAR IN RATE AND RHYTHM. BILATERAL LUNGS ARE NOTED WITH SCATTERED WHEEZES. ABDOMEN IS ROUND, SOFT, AND NON-TENDER WITH NORMAL BOWEL SOUNDS NOTED IN ALL QUADRANTS. GOOD RANGE OF MOTION TO ALL EXTREMITIES WITH NO EDEMA NOTED. HER VITALS THIS MORNING ARE:98.2- 85-28-97%-136/84. LABS WERE OBTAINED. WBC 17.7, RBC 3.91, HGB 10.6, HCT 34.1, PLT COUNT 413, SODIUM 136, POTASSIUM 3.8, CHLORIDE 102, BUN 18, CREATININE 0.69, GLUCOSE 136, CALCIUM 8.1, TOTAL BILI 0.10, AST 23, ALT 20, ALK PHOS 216, ALBUMIN 2.5, TOTAL PROTEIN 7.0, ALBUMIN 2.5. SPUTUM CULTURE IS POSITIV E FOR ENTEROBACTER AEROGENES. BLOOD CULTURES ARE PENDING. CHEST XRAY OBTAINED AND REVEALED: Increasing interstitial lung process concerning for a developing inflammatory or congestive process, with background COPD. WE WILL CONTINUE HER IV ANTIBIOTICS, IV STEROIDS, NEB TX, AND CURRENT PLAN OF CARE TODAY. OTHERWISE, WE WILL FOLLOW-UP WITH AM LABS AND CHEST XRAY AND CONTINUE TO MONITOR. TIME SPENT ON CLINICAL ASSESSMENT, REVIEWING LABS AND IMAGING, DECISION MAKING, AND DOCUMENTATION GREATER THAN 45 MINUTES. - Past Medical Family Social History Past Med/Fam/Surg Hx: No changes since H&P Allergies: Allergies No Known Drug Allergies Allergy (Verified 04/12/20 18:42) - Review of Systems ROS: No change since H&P - Vital Signs and I&O's Vital Signs: Vital Signs Temperature 98.5 F Temperature 98.6 F Pulse Rate 88 Pulse Rate 98 Respiratory Rate 18 Respiratory Rate 20 Respiratory Rate 18 Respiratory Rate 20 Blood Pressure 155/77 Blood Pressure 144/78 O2 Sat by Pulse Oximetry 96 O2 Sat by Pulse Oximetry 98 Intake and Output: Intake & Output 02/23/23 02/24/23 02/25/23 02/26/23 11:59 11:59 11:59 11:59 Intake Total 1610 / 1610 1160 / 1160 1310 / 1310 922 / 922 Balance 1610 / 1610 1160 / 1160 1310 / 1310 922 / 922 - Physical Exam Oriented: Normal Eyes: Normal Ear: Normal Nose: Discharge Throat: Exudate, Normal Respiratory: Wheezes Cardiovascular: Normal : Normal Auscultation: Bowel Sounds: Normal Palpation: Normal Tenderness: Normal Skin: Decreased Turgur Musculoskeletal: Back:Lumbar Psychiatric: Anxiety Mood Description: Anxious Speech Pattern: Clear, Appropriate - Laboratory and Diagnostics Result Diagrams: 02/25/23 05:34 02/25/23 05:34 Labs: 02/21/23 16:04 Blood Blood Culture - Preliminary 02/21/23 15:55 Blood Blood Culture - Preliminary 02/21/23 16:42 Sputum - Expectorated Sputum Sputum Culture - Final Enterobacter Aerogenes 02/21/23 16:42 Sputum - Expectorated Sputum - Final Laboratory WBC 14.9 X10^3/uL (3.6-10.0) H 02/25/23 05:34 RBC 4.10 X10^6/uL (3.5-5.4) 02/25/23 05:34 Hgb 11.1 g/dL (12.0-16.0) L 02/25/23 05:34 Hct 35.4 % (36.0-47.0) L 02/25/23 05:34 MCV 86.5 fL (80.0-100.0) 02/25/23 05:34 MCH 27.1 pg (27.0-34.0) 02/25/23 05:34 MCHC 31.4 g/dL (33.0-35.0) L 02/25/23 05:34 RDW 15.6 % (11.6-16.5) 02/25/23 05:34 Plt Count 457 X10^3/uL (150.0-450.0) H 02/25/23 05:34 Plt Count Comment Adequate (ADEQUATE) 02/24/23 04:11 MPV 8.4 fL (7.4-11.0) 02/25/23 05:34 Neut % (Auto) 87.7 % (42.0-75.0) H 02/25/23 05:34 Lymph % (Auto) 6.7 % (21.0-51.0) L 02/25/23 05:34 [place] % (Auto) 5.5 % (0.0-13.0) 02/25/23 05:34 Eos % (Auto) 0.0 % (0.9-2.9) L 02/25/23 05:34 Baso % (Auto) 0.1 % (0.2-1.0) L 02/25/23 05:34 Neut # (Auto) 13.1 x10^3/uL (2.2-4.8) H 02/25/23 05:34 Lymph # (Auto) 1.0 X10^3/uL (1.3-2.9) L 02/25/23 05:34 [place] # (Auto) 0.8 x10^3/uL (0.3-0.8) 02/25/23 05:34 Eos # (Auto) 0.0 x10^3/uL (0.0-0.2) 02/25/23 05:34 Baso # (Auto) 0.0 X10^3/uL (0.0-0.1) 02/25/23 05:34 Absolute Nucleated RBC 0.0 /100WBC 02/25/23 05:34 Total Counted 100 02/24/23 04:11 Neutrophils % (Manual) 88 % (39-76) H 02/24/23 04:11 Lymphocytes % (Manual) 8 % (13-43) L 02/24/23 04:11 Monocytes % (Manual) 4 % (4-9) 02/24/23 04:11 Plt Morphology Comment Normal (NORMAL) 02/24/23 04:11 RBC Morphology Abnormal (NORMAL) A 02/24/23 04:11 Stomatocytes Present 02/24/23 04:11 Sample Site Lbra 02/21/23 15:55 ABG pH 7.430 (7.35-7.45) 02/21/23 15:55 ABG pCO2 39.0 mmHg (35.0-45.0) 02/21/23 15:55 ABG pO2 72.0 mmHg (80.0-100.0) L 02/21/23 15:55 ABG HCO3 25.9 mmol/L (22-26) 02/21/23 15:55 ABG O2 Saturation 95.0 % (90-100) 02/21/23 15:55 ABG Base Excess 1.5 mmol/L (-2.0-2.0) 02/21/23 15:55 Lopez Test N/a 02/21/23 15:55 A-a Gradient 29.0 mmHg 02/21/23 15:55 FiO2 21.0 02/21/23 15:55 Blood Gas Comments Pt pillo well eb 02/21/23 15:55 Sodium 137 mmol/L (136-145) 02/25/23 05:34 Corrected Sodium 138 mmol/L (136-145) 02/25/23 05:34 Potassium 3.6 mmol/L (3.5-5.1) 02/25/23 05:34 Chloride 100 mmol/L (98-107) 02/25/23 05:34 Carbon Dioxide 28.4 mmol/L (21-32) 02/25/23 05:34 BUN 16 mg/dL (7-18) 02/25/23 05:34 Creatinine 0.70 mg/dL (0.55-1.02) 02/25/23 05:34 Est GFR (MDRD) Af Amer > 60 (>60) 02/25/23 05:34 Est GFR (MDRD) Non-Af > 60 (>60) 02/25/23 05:34 Glucose 143 mg/dL (65-99) H 02/25/23 05:34 Calcium 7.7 mg/dL (8.5-10.1) L 02/25/23 05:34 Corrected Calcium 8.8 mg/dL (8.5-10.1) 02/25/23 05:34 Magnesium 2.8 mg/dL (2.0-2.9) 02/25/23 05:34 Total Bilirubin 0.10 mg/dL (0.2-1.0) L 02/25/23 05:34 AST 21 Units/L (15-37) 02/25/23 05:34 ALT 21 Units/L (12-78) 02/25/23 05:34 Alkaline Phosphatase 214 Units/L (46-116) H 02/25/23 05:34 Total Protein 7.0 g/dL (6.4-8.2) 02/25/23 05:34 Albumin 2.6 g/dL (3.4-5.0) L 02/25/23 05:34 Globulin 4.4 g/dL (2.5-4.5) 02/25/23 05:34 Albumin/Globulin Ratio 0.6 Ratio (1.1-2.1) L 02/25/23 05:34 Specimen Type Clean catch urine 02/21/23 16:27 Urine Color Yellow (YELLOW) 02/21/23 16:27 Urine Appearance Clear (CLEAR) 02/21/23 16:27 Urine pH 6.5 (5.0 - 8.0) 02/21/23 16:27 Ur Specific [place] 1.015 (1.000-1.030) 02/21/23 16:27 Urine Protein 1+ (NEGATIVE) 02/21/23 16:27 Urine Glucose (UA) Negative (NEGATIVE) 02/21/23 16: Urine Ketones Negative (NEGATIVE) 02/21/23 16:27 Urine Blood Negative (NEGATIVE) 02/21/23 16:27 Urine Nitrite Negative (NEGATIVE) 02/21/23 16:27 Urine Bilirubin Negative (NEGATIVE) 02/21/23 16:27 Urine Urobilinogen Normal (NORMAL) 02/21/23 16:27 Ur Leukocyte Esterase Negative (NEGATIVE) 02/21/23 16:27 Urine RBC None seen /HPF (0-3) 02/21/23 16:27 Urine WBC 0-2 /HPF (0-5) 02/21/23 16:27 Ur Squamous Epith Cells Few /HPF (NEGATIVE) 02/21/23 16:27 Urine Bacteria Negative /HPF (NEGATIVE) 02/21/23 16:27 Urine Mucus Rare /HPF (NEGATIVE) 02/21/23 16:27 Ur Culture Indicated? No/not indicated 02/21/23 16:27 SARS-CoV-2 (PCR) Negative (NEGATIVE) 02/21/23 17:55 Influenza Type A (PCR) Negative (NEGATIVE) 02/21/23 17:55 Influenza Type B (PCR) Negative (NEGATIVE) 02/21/23 17:55 RSV (PCR) Negative (NEGATIVE) 02/21/23 17:55 - Plan (1) COPD exacerbation Status: Acute Plan: CONTINUE ATBX, STEROIDS, NEB TX, CONTINUE TO MONITOR (2) Bronchopneumonia Status: Acute (3) SOB (shortness of breath) Status: Acute (4) Major depressive disorder Status: Chronic Qualifiers: Major depression recurrence: recurrent Active/Remission status: remission status unspecified Qualified Code(s): F33.9 - Major depressive disorder, recu rrent, unspecified Plan: CONTINUE HOME MEDS (5) CHF (congestive heart failure) Status: Chronic Qualifiers: Heart failure type: unspecified Heart failure chronicity: chronic Qualified Code(s): I50.9 - Heart failure, unspecified Plan: CONTINUE HOME MEDS (6) GERD (gastroesophageal reflux disease) Status: Chronic Qualifiers: Esophagitis presence: esophagitis presence not specified Qualified Code(s): K21.9 - Gastro-esophageal reflux disease without esophagitis Plan: CONTINUE HOME MEDS (7) Hypertension Status: Chronic Qualifiers: Hypertension type: primary hypertension Plan: CONTINUE HOME MEDS
[2023-02-25] MEDS: MILK OF MAGNESIA PO SCH (20:44)
[2023-02-25] MEDS: NEURONTIN CAP 300 MG PO SCH (20:45)
[2023-02-25] MEDS: COLACE CAP 100 MG PO SCH (20:46)
--- NOTE | 2023-02-25 22:27 | PCM.PROG ---
Progress Note - Progress Note for Day of Date of Exam: 02/25/23 - Subjective Subjective: IS A 57 YEAR OLD PATIENT OF . SHE IS CURRENTLY INPATIENT STATUS FOR TX OF COPD EXACERBATION WITH BRONCHOPNEUMONIA. SHE HAS A PMH OF HTN, GERD, AND MAJOR DEPRESSIVE DISORDER. TODAY, SHE IS ALERT AND ORIENTED, SITTING UP IN BED ON MORNING ROUNDS. SHE COMPLAINS OF COUGH AND SHORTNESS OF BREATH THIS MORNING, BUT DOES ADMIT TO SLIGHT IMPROVEMENT IN SYMPTOMS SINCE SHE WAS ADMITTED. UPON EXAMINATION, HEART IS REGULAR IN RATE AND RHYTHM. BILATERAL LUNGS ARE NOTED WITH SCATTERED WHEEZES. ABDOMEN IS ROUND, SOFT, AND NON-TENDER WITH NORMAL BOWEL SOUNDS NOTED IN ALL QUADRANTS. GOOD RANGE OF MOTION TO ALL EXTREMITIES WITH NO EDEMA NOTED. HER VITALS THIS MORNING ARE: 98.6-90-20-99%-148/77. LABS WERE OBTAINED. WBC 14.9, RBC 4.10, HGB 11.1, HCT 35.4, PLT COUNT 457, SODIUM 137, POTASSIUM 3.6, CHLORIDE 100, BUN 16, CREATININE 0.70, GLUCOSE 143, CALCIUM 7.7, MAGNESIUM 2.8, AST 21, ALT 21, ALK PHOS 214, TOTAL PROTEIN 7.0, ALBUMIN 2.6. SPUTUM CULTURE IS POSITIVE FOR ENTEROBACTER AEROGENES. BLOOD CULTURES ARE PENDING. CHEST XRAY OBTAINED AND REVEALED: Interval improvement. Appearance of the lungs is now essentially baseline. No new abnormality since 1 day prior. WE WILL CONTINUE HER IV ANTIBIOTICS, IV STEROIDS, NEB TX, AND CURRENT PLAN OF CARE TODAY. OTHERWISE, WE WILL FOLLOW-UP WITH AM LABS AND CHEST XRAY AND CONTINUE TO MONITOR. TIME SPENT ON CLINICAL ASSESSMENT, REVIEWING LABS AND IMAGING, DECISION MAKING, AND DOCUMENTATION GREATER THAN 45 MINUTES. - Past Medical Family Social History Past Med/Fam/Surg Hx: No changes since H&P Allergies: Allergies No Known Drug Allergies Allergy (Verified 04/12/20 18:42) - Review of Systems ROS: No change since H&P - Vital Signs and I&O's Vital Signs: Vital Signs Temperature 97.7 F Temperature 98.5 F Pulse Rate 97 Pulse Rate 88 Respiratory Rate 18 Respiratory Rate 20 Respiratory Rate 18 Respiratory Rate 20 Respiratory Rate 18 Blood Pressure 135/84 Blood Pressure 155/77 O2 Sat by Pulse Oximetry 100 O2 Sat by Pulse Oximetry 96 Intake and Output: Intake & Output 01/1202/24/23 02/25/23 02/26/23 11:59 11:59 11:59 11:59 Intake Total 1610 / 1610 1160 / 1160 1310 / 1310 922 / 922 Balance 1610 / 1610 1160 / 1160 1310 / 1310 922 / 922 - Physical Exam Oriented: Normal Eyes: Normal Ear: Normal Nose: Discharge Throat: Exudate, Normal Respiratory: Wheezes Cardiovascular: Normal : Normal Auscultation: Bowel Sounds: Normal Tenderness: Normal Skin: Decreased Turgur Musculoskeletal: Back:Lumbar Psychiatric: Anxiety Mood Description: Anxious Speech Pattern: Clear, Appropriate - Laboratory and Diagnostics Result Diagrams: 02/25/23 05:34 02/25/23 05:34 Labs: 02/21/23 16:04 Blood Blood Culture - Preliminary 02/21/23 15:55 Blood Blood Culture - Preliminary 02/21/23 16:42 Sputum - Expectorated Sputum Sputum Culture - Final Enterobacter Aerogenes 02/21/23 16:42 Sputum - Expectorated Sputum - Final Laboratory WBC 14.9 X10^3/uL (3.6-10.0) H 02/25/23 05:34 RBC 4.10 X10^6/uL (3.5-5.4) 02/25/23 05:34 Hgb 11.1 g/dL (12.0-16.0) L 02/25/23 05:34 Hct 35.4 % (36.0-47.0) L 02/25/23 05:34 MCV 86.5 fL (80.0-100.0) 02/25/23 05:34 MCH 27.1 pg (27.0-34.0) 02/25/23 05:34 MCHC 31.4 g/dL (33.0-35.0) L 02/25/23 05:34 RDW 15.6 % (11.6-16.5) 02/25/23 05:34 Plt Count 457 X10^3/uL (150.0-450.0) H 02/25/23 05:34 Plt Count Comment Adequate (ADEQUATE) 02/24/23 04:11 MPV 8.4 fL (7.4-11.0) 02/25/23 05:34 Neut % (Auto) 87.7 % (42.0-75.0) H 02/25/23 05:34 Lymph % (Auto) 6.7 % (21.0-51.0) L 02/25/23 05:34 [place] % (Auto) 5.5 % (0.0-13.0) 02/25/23 05:34 Eos % (Auto) 0.0 % (0.9-2.9) L 02/25/23 05:34 Baso % (Auto) 0.1 % (0.2-1.0) L 02/25/23 05:34 Neut # (Auto) 13.1 x10^3/uL (2.2-4.8) H 02/25/23 05:34 Lymph # (Auto) 1.0 X10^3/uL (1.3-2.9) L 02/25/23 05:34 [place] # (Auto) 0.8 x10^3/uL (0.3-0.8) 02/25/23 05:34 Eos # (Auto) 0.0 x10^3/uL (0.0-0.2) 02/25/23 05:34 Baso # (Auto) 0.0 X10^3/uL (0.0-0.1) 02/25/23 05:34 Absolute Nucleated RBC 0.0 /100WBC 02/25/23 05:34 Total Counted 100 02/24/23 04:11 Neutrophils % (Manual) 88 % (39-76) H 02/24/23 04:11 Lymphocytes % (Manual) 8 % (13-43) L 02/24/23 04:11 Monocytes % (Manual) 4 % (4-9) 02/24/23 04:11 Plt Morphology Comment Normal (NORMAL) 02/24/23 04:11 RBC Morphology Abnormal (NORMAL) A 02/24/23 04:11 Stomatocytes Present 02/24/23 04:11 Sample Site Lbra 02/21/23 15:55 ABG pH 7.430 (7.35-7.45) 02/21/23 15:55 ABG pCO2 39.0 mmHg (35.0-45.0) 02/21/23 15:55 ABG pO2 72.0 mmHg (80.0-100.0) L 02/21/23 15:55 ABG HCO3 25.9 mmol/L (22-26) 02/21/23 15:55 ABG O2 Saturation 95.0 % (90-100) 02/21/23 15:55 ABG Base Excess 1.5 mmol/L (-2.0-2.0) 02/21/23 15:55 Lopez Test N/a 02/21/23 15:55 A-a Gradient 29.0 mmHg 02/21/23 15:55 FiO2 21.0 02/21/23 15:55 Blood Gas Comments Pt pillo well eb 02/21/23 15:55 Sodium 137 mmol/L (136-145) 02/25/23 05:34 Corrected Sodium 138 mmol/L (136-145) 02/25/23 05:34 Potassium 3.6 mmol/L (3.5-5.1) 02/25/23 05:34 Chloride 100 mmol/L (98-107) 02/25/23 05:34 Carbon Dioxide 28.4 mmol/L (21-32) 02/25/23 05:34 BUN 16 mg/dL (7-18) 02/25/23 05:34 Creatinine 0.70 mg/dL (0.55-1.02) 02/25/23 05:34 Est GFR (MDRD) Af Amer > 60 (>60) 02/25/23 05:34 Est GFR (MDRD) Non-Af > 60 (>60) 02/25/23 05:34 Glucose 143 mg/dL (65-99) H 02/25/23 05:34 Calcium 7.7 mg/dL (8.5-10.1) L 02/25/23 05:34 Corrected Calcium 8.8 mg/dL (8.5-10.1) 02/25/23 05:34 Magnesium 2.8 mg/dL (2.0-2.9) 02/25/23 05:34 Total Bilirubin 0.10 mg/dL (0.2-1.0) L 02/25/23 05:34 AST 21 Units/L (15-37) 02/25/23 05:34 ALT 21 Units/L (12-78) 02/25/23 05:34 Alkaline Phosphatase 214 Units/L (46-116) H 02/25/23 05:34 Total Protein 7.0 g/dL (6.4-8.2) 02/25/23 05:34 Albumin 2.6 g/dL (3.4-5.0) L 02/25/23 05:34 Globulin 4.4 g/dL (2.5-4.5) 02/25/23 05:34 Albumin/Globulin Ratio 0.6 Ratio (1.1-2.1) L 02/25/23 05:34 Specimen Type Clean catch urine 02/21/23 16:27 Urine Color Yellow (YELLOW) 02/21/23 16: Urine Appearance Clear (CLEAR) 02/21/23 16: Urine pH 6.5 (5.0 - 8.0) 02/21/23 16: Ur Specific Range 1.015 (1.000-1.030) 02/21/23 16: Urine Protein 1+ (NEGATIVE) 02/21/23 16: Urine Glucose (UA) Negative (NEGATIVE) 02/21/23 16: Urine Ketones Negative (NEGATIVE) 02/21/23 16: Urine Blood Negative (NEGATIVE) 02/21/23 16:27 Urine Nitrite Negative (NEGATIVE) 02/21/23 16:27 Urine Bilirubin Negative (NEGATIVE) 02/21/23 16:27 Urine Urobilinogen Normal (NORMAL) 02/21/23 16: Ur Leukocyte Esterase Negative (NEGATIVE) 02/21/23 16:27 Urine RBC None seen /HPF (0-3) 02/21/23 16:27 Urine WBC 0-2 /HPF (0-5) 02/21/23 16:27 Ur Squamous Epith Cells Few /HPF (NEGATIVE) 02/21/23 16:27 Urine Bacteria Negative /HPF (NEGATIVE) 02/21/23 16:27 Urine Mucus Rare /HPF (NEGATIVE) 02/21/23 16:27 Ur Culture Indicated? No/not indicated 02/21/23 16:27 SARS-CoV-2 (PCR) Negative (NEGATIVE) 02/21/23 17:55 Influenza Type A (PCR) Negative (NEGATIVE) 02/21/23 17:55 Influenza Type B (PCR) Negative (NEGATIVE) 02/21/23 17:55 RSV (PCR) Negative (NEGATIVE) 02/21/23 17:55 - Plan (1) COPD exacerbation Status: Acute Plan: CONTINUE ATBX, STEROIDS, NEB TX, CONTINUE TO MONITOR (2) Bronchopneumonia Status: Acute (3) SOB (shortness of breath) Status: Acute (4) Major depressive disorder Status: Chronic Qualifiers: Major depression recurrence: recurrent Active/Remission status: remission status unspecified Qualified Code(s): F33.9 - Major depressive disorder, recurrent, unspecified Plan: CONTINUE HOME MEDS (5) CHF (congestive heart failure) Status: Chronic Qualifiers: Heart failure type: unspecified Heart failure chronicity: chronic Qualified Code(s): I50.9 - Heart failure, unspecified Plan: CONTINUE HOME MEDS (6) GERD (gastroesophageal reflux disease) Status: Chronic Qualifiers: Esophagitis presence: esophagitis presence not specified Qualified Code(s): K21.9 - Gastro-esophageal reflux disease without esophagitis Plan: CONTINUE HOME MEDS (7) Hypertension Status: Chronic Qualifiers: Hypertension type: primary hypertension Plan: CONTINUE HOME MEDS
[2023-02-26] MEDS: PROVENTIL NEB TX 0.083% 2.5MG/ 3ML NEB SCH ×4 (00:15→13:01)
[2023-02-26] MEDS: MUCOMYST 20% 200 MG/ML NEB SCH ×4 (00:15→13:01)
[2023-02-26 00:22] VITALS: RESP 20
[2023-02-26] MEDS: SOLU-Medrol 125 MG VIAL IVP SCH ×2 (05:41→13:49)
[2023-02-26 06:41] LABS: BASOPHILS % (AUTO) 0.3 % (0.2-1.0); HEMATOCRIT 35.1 % (36.0-47.0); HEMOGLOBIN 11.3 g/dL (12.0-16.0); LYMPHOCYTES # (AUTO) 1.3 X10^3/uL (1.3-2.9); LYMPHOCYTES % (AUTO) 9.7 % (21.0-51.0); MEAN CORPUSCULAR HEMOGLOBIN 27.4 pg (27.0-34.0); MEAN CORPUSCULAR HGB CONC 32.3 g/dL (33.0-35.0); MEAN CORPUSCULAR VOLUME 84.9 fL (80.0-100.0); MEAN PLATELET VOLUME 8.3 fL (7.4-11.0); MONOCYTES # (AUTO) 0.9 x10^3/uL (0.3-0.8); MONOCYTES % (AUTO) 6.5 % (0.0-13.0); NEUTROPHILS # (AUTO) 11.5 x10^3/uL (2.2-4.8); NEUTROPHILS % (AUTO) 83.5 % (42.0-75.0); PLATELET COUNT 454 X10^3/uL (150.0-450.0); RED BLOOD COUNT 4.13 X10^6/uL (3.5-5.4); RED CELL DISTRIBUTION WIDTH 15.9 % (11.6-16.5); WHITE BLOOD COUNT 13.8 X10^3/uL (3.6-10.0)
--- NOTE | 2023-02-26 07:05 | RAD ---
EXAM:CHEST, 1 VIEWHISTORY:sob, hyptertention; copdCOMPARISON:02/25/2023.TECHNIQUE:AP view of the chestFINDINGS:The cardiac and mediastinal contours are normal in size. The lungs are hyperexpanded. There are similar-appearing bilateral interstitial opacities. No definite pleural effusion or pneumothorax. Soft tissue attenuation from the chest wall limits evaluation.IMPRESSION:COPD with likely chronic bilateral interstitial disease. If there is clinical need to evaluate for pulmonary nodules, CT chest is recommended.THIS IS AN ELECTRONICALLY VERIFIED FINAL REPORT02/26/2023 7:01 AM - Electronically signed by Moises Marsh MD
[2023-02-26 07:16] LABS: ALANINE AMINOTRANSFERASE 22 Units/L (12-78); ALBUMIN 2.5 g/dL (3.4-5.0); ALKALINE PHOSPHATASE 195 Units/L (46-116); ASPARTATE AMINO TRANSFERASE 14 Units/L (15-37); BLOOD UREA NITROGEN 18 mg/dL (7-18); CALCIUM 7.4 mg/dL (8.5-10.1); CARBON DIOXIDE 29.7 mmol/L (21-32); CHLORIDE 102 mmol/L (98-107); COR CA(FOR HYPOALB) 8.6 mg/dL (8.5-10.1); COR NA(FOR HYPERGLY) 138 mmol/L (136-145); CREATININE 0.68 mg/dL (0.55-1.02); GLUCOSE 116 mg/dL (65-99); POTASSIUM 3.7 mmol/L (3.5-5.1); SODIUM 138 mmol/L (136-145); TOTAL PROTEIN 6.7 g/dL (6.4-8.2); eGFR NON BLACK RACES > 60 (>60)
[2023-02-26] MEDS: ROBITUSSIN DM PO SCH ×2 (09:14→13:49)
[2023-02-26] MEDS: NYSTATIN SUSP MT SCH ×2 (09:14→13:49)
[2023-02-26] MEDS: PAXIL PO SCH (09:15)
[2023-02-26] MEDS: PROTONIX INJ 40 MG VIAL IVP SCH (09:15)
[2023-02-26] MEDS: SINEMET (PLAIN) 25/100 MG PO SCH (09:16)
[2023-02-26] MEDS: NORVASC TAB 10 MG PO SCH (09:17)
[2023-02-26] MEDS: COZAAR PO SCH (09:17)
[2023-02-26] MEDS: REQUIP PO SCH (09:17)
[2023-02-26] MEDS: PEPCID TAB 40 MG PO SCH (09:18)
[2023-02-26] MEDS: LEVAQUIN PREMIX IV 500 MG 500 MG/100 ML BAG IV SCH (09:26)
[2023-02-26] MEDS: PULMICORT NEB TX 0.5 MG NEB SCH (09:35)
[2023-02-26] MEDS: NORCO 5/325 MG TAB PO PRN (10:20)
[2023-02-26 13:24] VITALS: BP 149/73; PULSE 103; TEMP 98.3; O2SAT 92
== END 2023-02-26 13:35 | disposition home or self-care (01) | DRG 190 ==
LOC: ICU → OBSVTOIN 14:38 → MED/SURG 02-24 18:41
PROVIDERS: ADMIT Internal Medicine; ATTEND Internal Medicine
DX: E87.6 Hypokalemia; E83.42 Hypomagnesemia; R06.02 Shortness of breath; J18.0 Bronchopneumonia, unspecified organism; K21.9 Gastro-esophageal reflux disease without esophagitis; E86.0 Dehydration; R53.1 Weakness; Z20.822 Contact with and (suspected) exposure to COVID-19; F32.89 Other specified depressive episodes; B96.89 Other specified bacterial agents as the cause of diseases classified elsewhere; R11.2 Nausea with vomiting, unspecified; E87.1 Hypo-osmolality and hyponatremia; I10 Essential (primary) hypertension; M51.36 Other intervertebral disc degeneration, lumbar region; J44.1 Chronic obstructive pulmonary disease with (acute) exacerbation

== ENCOUNTER 2023-08-20 16:17 | Inpatient (IN) ==
[2023-08-20] MEDS ORDERED: TUSSIONEX PENNKINETIC SUSP PO PRN (17:40)
--- NOTE | 2023-08-20 18:03 | DR.H&P ---
H&P History & Physical for Day of: H&P Date: 08/20/23 Chief Complaint Chief Complaint: n/v/d, weakness, sob History of Present Illness History of Present Illness: PT IS 57 WF, DIRECT ADMIT FROM DR NEW OFFICE WITH JAYCE, SOB, CO N/V/D FOR AT LEAST TWO WEEKS. PT STATES SHE WAS SEEN IN THE ER ON 08/09 WITH SAME COMPLAINTS AND LOW POTASSIUM. PT WAS TREATED WITH PO POTASSIUM BUT CONTINUES WITH DIARRHEA AND WEAKNESS. SOB, WORSE ON EXERTION AND PRODUCTIVE COUGH WITH BLOOD IN SPUTUM. PT ADMITTED FOR EVALUATION AND TREATMENT OF ACUTE ILLNESS. Past Medical History Past Medical History: COPD and Hypertension Past Surgical History Surgical History: and Hysterectomy Family History Family Medical History: Diabetes Mellitus, Cancer, [place] and Hypertension Medications Home Medications: Home Medications Medication Instructions Recorded Confirmed Type doxepin 25 mg capsule 25 mg PO HS 01/01/20 08/10/23 History hydrocodone 5 mg-acetaminophen 325 1 tab PO BID PRN 01/01/20 08/10/23 History mg tablet (Jenkins) ropinirole 1 mg tablet 1 mg PO BID 01/01/20 08/10/23 History buspirone 10 mg tablet 10 mg PO BID 01/17/21 08/10/23 History carbidopa 25 mg-levodopa 100 mg See Rx Instructions .Route .COMPLEX 01/17/21 08/10/23 History tablet dicyclomine 20 mg tablet 20 mg PO TID 01/17/21 08/10/23 History famotidine 40 mg tablet 40 mg PO DAILY 01/17/21 08/10/23 History omeprazole 40 mg capsule,delayed 40 mg PO BID 01/17/21 08/10/23 History release vilazodone 40 mg tablet 40 mg PO DAILY 01/17/21 08/10/23 History cyclobenzaprine 10 mg tablet 10 mg PO HS 09/04/21 08/10/23 History gabapentin 300 mg capsule 300 mg PO QHS 09/04/21 08/10/23 History amlodipine 10 mg tablet (Norvasc) 10 mg PO QDAY 02/21/23 08/10/23 History paroxetine HCl 30 mg tablet 30 mg PO QDAY 02/21/23 08/10/23 History Allergies Allergies Allergy/AdvReac Type Severity Reaction Status Date / Time No Known Drug Allergies Allergy Verified 04/12/20 18:42 Review of Systems Constitutional: Sweats, Weakness and Malaise Eyes: No Symptoms Reported ENT: Nose Congestion and Throat Pain Respiratory: Cough, Shortness of Breath, Hemoptysis and Wheezing Cardiovascular: Light Headedness Gastrointestinal: Nausea, Vomiting and Diarrhea Genitourinary: No Symptoms Reported Musculoskeletal: Back Pain Skin: No Symptoms Reported Neurological: Other (HEADACHE ) Oriented: Normal Eyes: Normal Nose: Discharge Respiratory: Wheezes Throughout Cardiovascular: Tachycardia and Edema Auscultation: Bowel Sounds: Increased Palpation: Normal Tenderness: Normal and Epigastric Skin: Decreased Turgur Musculoskeletal: Back:Lumbar Mood Description: Depressed Affect: Depressed Speech Pattern: Clear and Appropriate Assessment/Plan (1) Colitis: Narrative Support Text: ADMIT, IV HYDRATION NAUSEA CONTROL, PPI THERAPY POTASSIUM REPLACEMENT IV CIPRO RESP CONSULT, CXR AND ABD SERIES ON ADMISSION STOOL STUDIES, VERIFY AND RESUME HOME MEDICATIONS Status: Acute (2) SOB (shortness of breath): Status: Acute (3) HAMMAD (generalized anxiety disorder): Status: Chronic (4) Hypertension: Qualifiers: Hypertension type: primary hypertension Status: Chronic (5) Lumbar degenerative disc disease: Status: Chronic (6) GERD (gastroesophageal reflux disease): Qualifiers: Esophagitis presence: esophagitis presence not specified Qualified Code(s): K21.9 - Gastro-esophageal reflux disease without esophagitis Status: Chronic (7) Hypokalemia: Status: Acute
[2023-08-20 18:08] LABS: BASOPHILS # (AUTO) 0.1 X10^3/uL (0.0-0.1); BASOPHILS % (AUTO) 0.8 % (0.2-1.0); EOSINOPHILS # (AUTO) 0.1 x10^3/uL (0.0-0.2); EOSINOPHILS % (AUTO) 0.8 % (0.9-2.9); HEMATOCRIT 34.5 % (36.0-47.0); HEMOGLOBIN 11.1 g/dL (12.0-16.0); LYMPHOCYTES # (AUTO) 2.3 X10^3/uL (1.3-2.9); LYMPHOCYTES % (AUTO) 29.6 % (21.0-51.0); MEAN CORPUSCULAR HEMOGLOBIN 29.4 pg (27.0-34.0); MEAN CORPUSCULAR HGB CONC 32.3 g/dL (33.0-35.0); MEAN CORPUSCULAR VOLUME 90.9 fL (80.0-100.0); MEAN PLATELET VOLUME 8.9 fL (7.4-11.0); MONOCYTES # (AUTO) 0.5 x10^3/uL (0.3-0.8); MONOCYTES % (AUTO) 6.5 % (0.0-13.0); NEUTROPHILS # (AUTO) 4.8 x10^3/uL (2.2-4.8); NEUTROPHILS % (AUTO) 62.3 % (42.0-75.0); PLATELET COUNT 449 X10^3/uL (150.0-450.0); RED BLOOD COUNT 3.79 X10^6/uL (3.5-5.4); WHITE BLOOD COUNT 7.7 X10^3/uL (3.6-10.0)
[2023-08-20 18:11] LABS: RETICULOCYTE % 0.58 % (0.8-2.2)
[2023-08-20 18:27] VITALS: BMI 27.8
[2023-08-20] MEDS: CONSULT PHARMACY - POTASSIUM & MAGNESIUM XX SCH ×2 (18:57→19:30)
[2023-08-20 18:58] LABS: ALANINE AMINOTRANSFERASE 9 Units/L (12-78); ALBUMIN 2.6 g/dL (3.4-5.0); ALKALINE PHOSPHATASE 230 Units/L (46-116); ASPARTATE AMINO TRANSFERASE 17 Units/L (15-37); BLOOD UREA NITROGEN 7 mg/dL (7-18); CALCIUM 8.4 mg/dL (8.5-10.1); CARBON DIOXIDE 25.5 mmol/L (21-32); CHLORIDE 104 mmol/L (98-107); COR CA(FOR HYPOALB) 9.5 mg/dL (8.5-10.1); CREATININE 0.84 mg/dL (0.55-1.02); GLUCOSE 80 mg/dL (65-99); MAGNESIUM 1.7 mg/dL (2.0-2.9); SODIUM 140 mmol/L (136-145); TOTAL PROTEIN 7.9 g/dL (6.4-8.2); eGFR NON BLACK RACES > 60 (>60)
[2023-08-20 19:12] LABS: POTASSIUM 2.9 mmol/L (3.5-5.1)
[2023-08-20] MEDS: NS 1,000 ML IV 1,000 ML IV SCH (19:47)
[2023-08-20] MEDS: MAG-OX TAB PO SCH (19:47)
[2023-08-20] MEDS: K-DUR TAB 20 MEQ PO SCH (19:47)
[2023-08-20] MEDS ORDERED: MAGNESIUM SULFATE 1 GRAM/100 mL PREMIX 1 G/100 ML BAG IV SCH (20:00)
[2023-08-20] MEDS: NYSTATIN SUSP PO SCH (20:54)
[2023-08-20] MEDS: CIPRO IV 400 MG PREMIX* 400 MG/200 ML IV.SOLN. IV SCH (20:54)
[2023-08-20] MEDS: PROTONIX INJ 40 MG VIAL IVP SCH (20:54)
[2023-08-20] MEDS: NEURONTIN CAP 300 MG PO SCH (20:55)
[2023-08-20] MEDS: ROBITUSSIN DM PO SCH (20:55)
[2023-08-20] MEDS: PULMICORT NEB TX 0.5 MG NEB SCH (21:43)
[2023-08-20] MEDS: DUONEB 0.5 MG/3 MG (3 mL) NEB SCH (21:44)
[2023-08-20 22:15] LABS: BILIRUBIN,URINE NEGATIVE (NEGATIVE); BLOOD/HEMOGLOBIN,URINE 1+ (NEGATIVE); GLUCOSE, URINE NEGATIVE (NEGATIVE); KETONES,URINE NEGATIVE (NEGATIVE); LEUKOCYTE ESTERASE ,URINE NEGATIVE (NEGATIVE); NITRITES,URINE NEGATIVE (NEGATIVE); PROTEIN,URINE 2+ (NEGATIVE); UROBILINOGEN,URINE NORMAL (NORMAL)
[2023-08-20 22:27] LABS: APPEARANCE,URINE CLEAR (CLEAR); BACTERIA,URINE NEGATIVE /HPF (NEGATIVE); COLOR,URINE YELLOW (YELLOW); RBC,URINE 0-2 /HPF (0-3); SQUAMOUS EPITHELIAL CELL,UR MODERATE /HPF (NEGATIVE)
[2023-08-20] MEDS ORDERED: K-RIDER 10 MEQ/100 ML WATER 10 MEQ/100 ML BAG IV SCH (23:00)
[2023-08-21 05:07] LABS: BASOPHILS % (AUTO) 0.4 % (0.2-1.0); EOSINOPHILS % (AUTO) 0.4 % (0.9-2.9); HEMATOCRIT 31.8 % (36.0-47.0); HEMOGLOBIN 10.3 g/dL (12.0-16.0); LYMPHOCYTES # (AUTO) 2.8 X10^3/uL (1.3-2.9); LYMPHOCYTES % (AUTO) 36.9 % (21.0-51.0); MEAN CORPUSCULAR HEMOGLOBIN 29.7 pg (27.0-34.0); MEAN CORPUSCULAR HGB CONC 32.6 g/dL (33.0-35.0); MEAN PLATELET VOLUME 8.3 fL (7.4-11.0); MONOCYTES # (AUTO) 0.5 x10^3/uL (0.3-0.8); MONOCYTES % (AUTO) 6.6 % (0.0-13.0); NEUTROPHILS # (AUTO) 4.2 x10^3/uL (2.2-4.8); NEUTROPHILS % (AUTO) 55.7 % (42.0-75.0); PLATELET COUNT 369 X10^3/uL (150.0-450.0); RED BLOOD COUNT 3.49 X10^6/uL (3.5-5.4); RED CELL DISTRIBUTION WIDTH 16.3 % (11.6-16.5); WHITE BLOOD COUNT 7.5 X10^3/uL (3.6-10.0)
[2023-08-21 05:42] LABS: ALANINE AMINOTRANSFERASE 10 Units/L (12-78); ALBUMIN 2.3 g/dL (3.4-5.0); ALKALINE PHOSPHATASE 207 Units/L (46-116); ASPARTATE AMINO TRANSFERASE 16 Units/L (15-37); BLOOD UREA NITROGEN 7 mg/dL (7-18); CALCIUM 8.1 mg/dL (8.5-10.1); CARBON DIOXIDE 26.8 mmol/L (21-32); CHLORIDE 105 mmol/L (98-107); COR CA(FOR HYPOALB) 9.5 mg/dL (8.5-10.1); CREATININE 0.78 mg/dL (0.55-1.02); GLUCOSE 90 mg/dL (65-99); MAGNESIUM 1.7 mg/dL (2.0-2.9); POTASSIUM 3.4 mmol/L (3.5-5.1); SODIUM 141 mmol/L (136-145); TOTAL PROTEIN 6.9 g/dL (6.4-8.2); eGFR NON BLACK RACES > 60 (>60)
--- NOTE | 2023-08-21 06:48 | RAD ---
EXAM: Flat and upright abdomen, one-view chest HISTORY: Weight loss, diarrhea COMPARISON: 03/24/2023 FINDINGS: Heart size is normal. Kristi are normal. Lungs appear free of acute alveolar infiltrates and areas of consolidation. Diffuse chronic appearing interstitial lung changes are present and stable. Abdom inal gas pattern is nonspecific and nonobstructive. No abnormal masses or abnormal calcifications ar e identified. No pneumoperitoneum is present. Bony thorax is unremarkable. IMPRESSION: Unremarkable flat and upright abdomen Diffuse chronic interstitial lung changes, stable THIS IS AN ELECTRONICALLY VERIFIED FINAL REPORT 08/21/2023 6:45 AM - Electronically signed by Otoniel Douglas MD
[2023-08-21] MEDS ORDERED: CONSULT PHARMACY - POTASSIUM & MAGNESIUM XX SCH (07:00)
[2023-08-21 08:15] LABS: AMYLASE 72 Units/L (25-115); LIPASE 27 Units/L (16-77)
[2023-08-21] MEDS: NORCO 5/325 MG TAB PO PRN (08:51)
[2023-08-21] MEDS: NORVASC TAB 5 MG PO SCH (08:53)
[2023-08-21] MEDS: REQUIP PO SCH (09:03)
[2023-08-21] MEDS: K-DUR TAB 20 MEQ PO SCH (09:04)
[2023-08-21] MEDS: MAG-OX TAB PO SCH (09:04)
[2023-08-21] MEDS: NICOTINE PATCH TD SCH (09:05)
[2023-08-21] MEDS: PAXIL PO SCH (09:05)
--- NOTE | 2023-08-21 14:31 | CT ---
EXAM:CT abdomen pelvis with IV contrastHISTORY:n/v/d weight loss +20lbs in 4 weeks -COMPARISON:Chest CT 03/24/2023TECHNIQUE:Multiple axial images of the abdomen and pelvis were obtained from the lung bases to the pubic symphysis following the administration of IV contrast. Dose reduction techniques including Automated Exposure Control (AEC) and adjustment of mA and kV were utilized.FINDINGS:The visualized portions of the lung bases reveal prominent COPD changes with multiple bullae. Changes are similar to prior studyLiver and spleen are normal in size. 2 vague areas of diminished enhancement are seen in the liver near the gallbladder fossa and falciform ligament. These are probable areas of focal fatty infiltration or normal variant areas of diminished perfusion. A similar appearance is seen on prior CTA chest.Gallbladder appears normal. No biliary ductal dilation.No pancreatic abnormality is seen.The adrenal glands appear normal.No hydronephrosis or renal abnormality is seen. Ureters and bladder appear normal.No bowel abnormalities are seen. Appendix is not seen but no pericecal inflammation is seen. GI contrast reaches the right side of the colon.No adnexal masses are seen.There is dilation of the distal abdominal aortato 3.2 cm in diameter. Atherosclerotic plaque in the common iliac arteries causes less than 50% stenosis on the right but there is concern for possible 70-80% stenosis on the left.No suspicious lymphadenopathy.No free intraperitoneal air or fluid is seen.No acute bony abnormality is seen.IMPRESSION:Prominent COPD.3.2 cm distal abdominal aortic aneurysm. Likely prominent stenosis in the left common iliac artery.THIS IS AN ELECTRONICALLY VERIFIED FINAL REPORT08/21/2023 2:28 PM - Electronically signed by Tobin Lazo MD
--- NOTE | 2023-08-21 17:43 | PCM.PROG ---
Progress Note Progress Note for Day of Date of Exam: 08/21/23 Subjective Subjective: PT IS 57 WF, ADMITTED WITH COLITIS AND WEAKNESS, HYPOKALEMIA. PT HAS BEEN ON IV CIPRO SINCE ADMISSION WITH STOOL STUDIES ORDERED. PT HAS BEEN NPO THIS AM FOR CT ABD/PELVIS WITH CONTRAST. AMYLASE AND LIPASE ORDERED THIS AM. PT HAS COPD, ON DUO NEBS. PT WAS HYPERTENSIVE THIS AM, HOME MEDICATION HAS NOT BEEN VERIFIED, NORVASC 5MG PO DAILY ORDERED. PLAN TO CONTINUE WITH IV HDYRATION, PAIN AND NAUSEA CONTROL. Past Medical Family Social History Allergies: Allergies No Known Drug Allergies Allergy (Verified 04/12/20 18:42) Vital Signs and I&O's Vital Signs: Vital Signs Pulse Rate 81 Respiratory Rate 20 Respiratory Rate 20 Blood Pressure 161/87 O2 Sat by Pulse Oximetry 98 Intake and Output: Intake & Output 08/19/23 08/20/23 08/21/23 08/22/23 11:59 11:59 11:59 11:59 Intake Total 2727 / 2727 Balance 2727 / 2727 Physical Exam Oriented: Normal Eyes: Normal Ear: Normal Nose: Discharge Throat: Dry Respiratory: Wheezes Cardiovascular: Tachycardia and Edema Auscultation: Bowel Sounds: Increased Tenderness: Normal and Epigastric Skin: Decreased Turgur Musculoskeletal: Back:Lumbar Psychiatric: Depression Mood Description: Depressed Affect: Depressed Speech Pattern: Clear and Appropriate Laboratory and Diagnostics 08/21/23 04:01 08/21/23 04:01 Labs: 08/21/23 02:19 Sputum - Expectorated Sputum - Final Laboratory WBC 7.5 X10^3/uL (3.6-10.0) 08/21/23 04:01 RBC 3.49 X10^6/uL (3.5-5.4) L 08/21/23 04:01 Hgb 10.3 g/dL (12.0-16.0) L 08/21/23 04:01 Hct 31.8 % (36.0-47.0) L 08/21/23 04:01 MCV 91.0 fL (80.0-100.0) 08/21/23 04:01 MCH 29.7 pg (27.0-34.0) 08/21/23 04:01 MCHC 32.6 g/dL (33.0-35.0) L 08/21/23 04:01 RDW 16.3 % (11.6-16.5) 08/21/23 04:01 Plt Count 369 X10^3/uL (150.0-450.0) 08/21/23 04:01 MPV 8.3 fL (7.4-11.0) 08/21/23 04:01 Neut % (Auto) 55.7 % (42.0-75.0) 08/21/23 04:01 Lymph % (Auto) 36.9 % (21.0-51.0) 08/21/23 04:01 [place] % (Auto) 6.6 % (0.0-13.0) 08/21/23 04:01 Eos % (Auto) 0.4 % (0.9-2.9) L 08/21/23 04:01 Baso % (Auto) 0.4 % (0.2-1.0) 08/21/23 04:01 Neut # (Auto) 4.2 x10^3/uL (2.2-4.8) 08/21/23 04:01 Lymph # (Auto) 2.8 X10^3/uL (1.3-2.9) 08/21/23 04:01 [place] # (Auto) 0.5 x10^3/uL (0.3-0.8) 08/21/23 04:01 Eos # (Auto) 0.0 x10^3/uL (0.0-0.2) 08/21/23 04:01 Baso # (Auto) 0.0 X10^3/uL (0.0-0.1) 08/21/23 04:01 Absolute Nucleated RBC 0.1 /100WBC 08/21/23 04:01 Absolute Retic 0.0217 10^6/uL 08/20/23 17:50 Percent Retic 0.58 % (0.8-2.2) L 08/20/23 17:50 Sodium 141 mmol/L (136-145) 08/21/23 04:01 Corrected Sodium TNP 08/21/23 04:01 Potassium 3.4 mmol/L (3.5-5.1) L 08/21/23 04:01 Chloride 105 mmol/L (98-107) 08/21/23 04:01 Carbon Dioxide 26.8 mmol/L (21-32) 08/21/23 04:01 BUN 7 mg/dL (7-18) 08/21/23 04:01 Creatinine 0.78 mg/dL (0.55-1.02) 08/21/23 04:01 Est GFR (MDRD) Af Amer > 60 (>60) 08/21/23 04:01 Est GFR (MDRD) Non-Af > 60 (>60) 08/21/23 04:01 Glucose 90 mg/dL (65-99) 08/21/23 04:01 Calcium 8.1 mg/dL (8.5-10.1) L 08/21/23 04:01 Corrected Calcium 9.5 mg/dL (8.5-10.1) 08/21/23 04:01 Magnesium 1.7 mg/dL (2.0-2.9) L 08/21/23 04:01 Iron 41 ug/dL (50-175) L 08/20/23 18:25 TIBC 325 ug/dL (250-450) 08/20/23 18:25 Transferrin 262 mg/dL (202-364) 08/20/23 18:25 Ferritin 44 ng/mL (8-252) 08/20/23 18:25 Total Bilirubin < 0.10 mg/dL (0.2-1.0) L 08/21/23 04:01 AST 16 Units/L (15-37) 08/21/23 04:01 ALT 10 Units/L (12-78) L 08/21/23 04:01 Alkaline Phosphatase 207 Units/L (46-116) H 08/21/23 04:01 Total Protein 6.9 g/dL (6.4-8.2) 08/21/23 04:01 Albumin 2.3 g/dL (3.4-5.0) L 08/21/23 04:01 Globulin 4.6 g/dL (2.5-4.5) H 08/21/23 04:01 Albumin/Globulin Ratio 0.5 Ratio (1.1-2.1) L 08/21/23 04:01 Amylase 72 Units/L (25-115) 08/21/23 04:01 Lipase 27 Units/L (16-77) 08/21/23 04:01 Vitamin B12 370 pg/mL (193-986) 08/20/23 18:25 Folate 3.5 ng/mL (>8.6) L 08/20/23 18:25 Specimen Type Clean catch urine 08/20/23 21:40 Urine Color Yellow (YELLOW) 08/20/23 21:40 Urine Appearance Clear (CLEAR) 08/20/23 21:40 Urine pH 6.0 (5.0 - 8.0) 08/20/23 21:40 Ur Specific [place] 1.015 (1.000-1.030) 08/20/23 21:40 Urine Protein 2+ (NEGATIVE) 08/20/23 21:40 Urine Glucose (UA) Negative (NEGATIVE) 08/20/23 21:40 Urine Ketones Negative (NEGATIVE) 08/20/23 21:40 Urine Blood 1+ (NEGATIVE) 08/20/23 21:40 Urine Nitrite Negative (NEGATIVE) 08/20/23 21:40 Urine Bilirubin Negative (NEGATIVE) 08/20/23 21:40 Urine Urobilinogen Normal (NORMAL) 08/20/23 21:40 Ur Leukocyte Esterase Negative (NEGATIVE) 08/20/23 21:40 Urine RBC 0-2 /HPF (0-3) 08/20/23 21:40 Urine WBC 0-2 /HPF (0-5) 08/20/23 21:40 Ur Squamous Epith Cells Moderate /HPF (NEGATIVE) 08/20/23 21:40 Urine Bacteria Negative /HPF (NEGATIVE) 08/20/23 21:40 Urine Mucus Many /HPF (NEGATIVE) 08/20/23 21:40 Ur Culture Indicated? No/not indicated 08/20/23 21:40 Plan (1) Colitis: Status: Acute Narrative Support Text: IV CIPRO STOOL STUDIES, IV HYDRATION PAIN AND NAUSEA CONTROL CT ABD/PELVIS CT ORDERED BP MONITORING (2) SOB (shortness of breath): Status: Acute (3) HAMMAD (generalized anxiety disorder): Status: Chronic (4) Hypertension: Status: Chronic Qualifiers: Hypertension type: primary hypertension (5) Lumbar degenerative disc disease: Status: Chronic (6) GERD (gastroesophageal reflux disease): Status: Chronic Qualifiers: Esophagitis presence: esophagitis presence not specified Qualified Code(s): K21.9 - Gastro-esophageal reflux disease without esophagitis (7) Hypokalemia: Status: Acute
[2023-08-22 05:20] LABS: BASOPHILS % (AUTO) 0.6 % (0.2-1.0); EOSINOPHILS % (AUTO) 0.7 % (0.9-2.9); LYMPHOCYTES # (AUTO) 2.7 X10^3/uL (1.3-2.9); LYMPHOCYTES % (AUTO) 40.9 % (21.0-51.0); MEAN CORPUSCULAR HEMOGLOBIN 29.4 pg (27.0-34.0); MEAN CORPUSCULAR HGB CONC 32.3 g/dL (33.0-35.0); MEAN CORPUSCULAR VOLUME 90.8 fL (80.0-100.0); MEAN PLATELET VOLUME 8.2 fL (7.4-11.0); MONOCYTES # (AUTO) 0.5 x10^3/uL (0.3-0.8); MONOCYTES % (AUTO) 7.5 % (0.0-13.0); NEUTROPHILS # (AUTO) 3.3 x10^3/uL (2.2-4.8); NEUTROPHILS % (AUTO) 50.3 % (42.0-75.0); PLATELET COUNT 358 X10^3/uL (150.0-450.0); RED BLOOD COUNT 3.41 X10^6/uL (3.5-5.4); RED CELL DISTRIBUTION WIDTH 16.5 % (11.6-16.5); WHITE BLOOD COUNT 6.5 X10^3/uL (3.6-10.0)
[2023-08-22 05:32] LABS: ALANINE AMINOTRANSFERASE 12 Units/L (12-78); ALBUMIN 2.2 g/dL (3.4-5.0); ALKALINE PHOSPHATASE 180 Units/L (46-116); ASPARTATE AMINO TRANSFERASE 19 Units/L (15-37); BLOOD UREA NITROGEN 4 mg/dL (7-18); CALCIUM 8.1 mg/dL (8.5-10.1); CARBON DIOXIDE 28.6 mmol/L (21-32); CHLORIDE 104 mmol/L (98-107); COR CA(FOR HYPOALB) 9.5 mg/dL (8.5-10.1); CREATININE 0.71 mg/dL (0.55-1.02); GLUCOSE 97 mg/dL (65-99); MAGNESIUM 1.9 mg/dL (2.0-2.9); POTASSIUM 3.6 mmol/L (3.5-5.1); SODIUM 140 mmol/L (136-145); TOTAL PROTEIN 6.5 g/dL (6.4-8.2); eGFR NON BLACK RACES > 60 (>60)
[2023-08-22] MEDS: MAG-OX TAB PO SCH (06:46)
[2023-08-22] MEDS: K-DUR TAB 20 MEQ PO SCH (06:46)
[2023-08-22] MEDS ORDERED: CONSULT PHARMACY - POTASSIUM & MAGNESIUM XX SCH (07:00)
[2023-08-22] MEDS: NS 1,000 ML IV 1,000 ML IV SCH (09:00)
[2023-08-22] MEDS: MILK OF MAGNESIA PO SCH (20:10)
[2023-08-22] MEDS: COLACE CAP 100 MG PO SCH (20:10)
[2023-08-22] MEDS: ZOFRAN INJ 4 MG VIAL IVP PRN (23:22)
[2023-08-23 05:18] LABS: BASOPHILS # (AUTO) 0.1 X10^3/uL (0.0-0.1); BASOPHILS % (AUTO) 1.2 % (0.2-1.0); EOSINOPHILS # (AUTO) 0.1 x10^3/uL (0.0-0.2); EOSINOPHILS % (AUTO) 1.3 % (0.9-2.9); HEMATOCRIT 35.7 % (36.0-47.0); HEMOGLOBIN 11.4 g/dL (12.0-16.0); LYMPHOCYTES # (AUTO) 2.9 X10^3/uL (1.3-2.9); MEAN CORPUSCULAR HEMOGLOBIN 29.2 pg (27.0-34.0); MEAN CORPUSCULAR VOLUME 91.3 fL (80.0-100.0); MEAN PLATELET VOLUME 8.6 fL (7.4-11.0); MONOCYTES # (AUTO) 0.5 x10^3/uL (0.3-0.8); MONOCYTES % (AUTO) 5.6 % (0.0-13.0); NEUTROPHILS # (AUTO) 4.9 x10^3/uL (2.2-4.8); NEUTROPHILS % (AUTO) 57.9 % (42.0-75.0); PLATELET COUNT 368 X10^3/uL (150.0-450.0); RED BLOOD COUNT 3.91 X10^6/uL (3.5-5.4); RED CELL DISTRIBUTION WIDTH 16.4 % (11.6-16.5); WHITE BLOOD COUNT 8.5 X10^3/uL (3.6-10.0)
[2023-08-23 05:25] LABS: ALANINE AMINOTRANSFERASE 18 Units/L (12-78); ALBUMIN 2.5 g/dL (3.4-5.0); ALKALINE PHOSPHATASE 186 Units/L (46-116); ASPARTATE AMINO TRANSFERASE 32 Units/L (15-37); BLOOD UREA NITROGEN 6 mg/dL (7-18); CALCIUM 8.5 mg/dL (8.5-10.1); CARBON DIOXIDE 30.7 mmol/L (21-32); CHLORIDE 101 mmol/L (98-107); COR CA(FOR HYPOALB) 9.7 mg/dL (8.5-10.1); CREATININE 0.77 mg/dL (0.55-1.02); GLUCOSE 108 mg/dL (65-99); MAGNESIUM 2.4 mg/dL (2.0-2.9); POTASSIUM 4.1 mmol/L (3.5-5.1); SODIUM 137 mmol/L (136-145); TOTAL PROTEIN 7.4 g/dL (6.4-8.2); eGFR NON BLACK RACES > 60 (>60)
[2023-08-23 08:31] LABS: CHOL/HDL RATIO 2.8 (0.0-5.0)
[2023-08-23 10:25] VITALS: BP 155/84
[2023-08-23] MEDS ORDERED: OMNIPAQUE 350 mg/mL 100 mL BTL 100 ML ONE (11:17)
[2023-08-23] MEDS ORDERED: OMNIPAQUE 350 mg/mL 50 mL BTL 50 ML ONE (11:18)
[2023-08-23 11:56] VITALS: TEMP 98.4
[2023-08-23 12:07] VITALS: PULSE 93; RESP 18; O2SAT 75
--- NOTE | 2023-08-23 17:54 | PCM.PROG ---
Progress Note Progress Note for Day of Date of Exam: 08/22/23 Subjective Subjective: PT IS 57 WF, ADMITTED WITH COLITIS AND WEAKNESS, HYPOKALEMIA. PT HAS BEEN ON IV CIPRO SINCE ADMISSION WITH STOOL STUDIES, SPUTUM CULTURE ORDERED. AMYLASE AND LIPASE OBTAINED AND WNL. SHE HAD A CT OF ABDOMEN AND PEVLIS YESTERDAY THAT SHOWED PROMENENT COPD, 3.2 CM DISTAL AAA, LIKELY PROMINENT STENOSIS IN THE LEFT COMMON ILIAC ARTERY. AM LABS: WBC 6.5, HGB 10.0, BUN 4/CREATININE 0.71, K 3.6. BLOOD PRESSURE ELEVATED THIS MORNING AT 195/95. SHE DENIES CHEST PAIN, INCRESED SOB, BLURRED VISION. Past Medical Family Social History Allergies: Allergies No Known Drug Allergies Allergy (Verified 04/12/20 18:42) Vital Signs and I&O's Vital Signs: Vital Signs Temperature 98.4 F Pulse Rate 93 Pulse Rate 76 Pulse Rate 93 Pulse Rate 105 Pulse Rate 72 Respiratory Rate 18 Respiratory Rate 33 Respiratory Rate 22 Respiratory Rate 39 Respiratory Rate 17 Blood Pressure 155/84 Blood Pressure 155/84 O2 Sat by Pulse Oximetry 75 O2 Sat by Pulse Oximetry 97 O2 Sat by Pulse Oximetry 100 O2 Sat by Pulse Oximetry 97 O2 Sat by Pulse Oximetry 86 O2 Sat by Pulse Oximetry 98 Intake and Output: Intake & Output 08/21/23 08/22/23 08/23/23 08/24/23 11:59 11:59 11:59 11:59 Intake Total 2727 / 2727 2948 / 2948 2323 / 2323 Output Total 0 / 0 Balance 2727 / 2727 2948 / 2948 2323 / 2323 Physical Exam Oriented: Normal Eyes: Normal Ear: Normal Nose: Discharge Throat: Dry Respiratory: Wheezes Cardiovascular: Tachycardia and Edema Auscultation: Bowel Sounds: Increased Tenderness: Normal and Epigastric Skin: Decreased [place] Musculoskeletal: Back:Lumbar Psychiatric: Depression Mood Description: Depressed Affect: Depressed Speech Pattern: Clear and Appropriate Laboratory and Diagnostics 08/23/23 04:18 08/23/23 04:18 Labs: 08/21/23 02:19 Sputum - Expectorated Sputum Sputum Culture - Final Klebsiella Pneumoniae 08/21/23 02:19 Sputum - Expectorated Sputum - Final Laboratory WBC 8.5 X10^3/uL (3.6-10.0) 08/23/23 04:18 RBC 3.91 X10^6/uL (3.5-5.4) 08/23/23 04:18 Hgb 11.4 g/dL (12.0-16.0) L 08/23/23 04:18 Hct 35.7 % (36.0-47.0) L 08/23/23 04:18 MCV 91.3 fL (80.0-100.0) 08/23/23 04:18 MCH 29.2 pg (27.0-34.0) 08/23/23 04:18 MCHC 32.0 g/dL (33.0-35.0) L 08/23/23 04:18 RDW 16.4 % (11.6-16.5) 08/23/23 04:18 Plt Count 368 X10^3/uL (150.0-450.0) 08/23/23 04:18 MPV 8.6 fL (7.4-11.0) 08/23/23 04:18 Neut % (Auto) 57.9 % (42.0-75.0) 08/23/23 04:18 Lymph % (Auto) 34.0 % (21.0-51.0) 08/23/23 04:18 [place] % (Auto) 5.6 % (0.0-13.0) 08/23/23 04:18 Eos % (Auto) 1.3 % (0.9-2.9) 08/23/23 04:18 Baso % (Auto) 1.2 % (0.2-1.0) H 08/23/23 04:18 Neut # (Auto) 4.9 x10^3/uL (2.2-4.8) H 08/23/23 04:18 Lymph # (Auto) 2.9 X10^3/uL (1.3-2.9) 08/23/23 04:18 [place] # (Auto) 0.5 x10^3/uL (0.3-0.8) 08/23/23 04:18 Eos # (Auto) 0.1 x10^3/uL (0.0-0.2) 08/23/23 04:18 Baso # (Auto) 0.1 X10^3/uL (0.0-0.1) 08/23/23 04:18 Absolute Nucleated RBC 0.1 /100WBC 08/23/23 04:18 Absolute Retic 0.0217 10^6/uL 08/20/23 17:50 Percent Retic 0.58 % (0.8-2.2) L 08/20/23 17:50 Sodium 137 mmol/L (136-145) 08/23/23 04:18 Corrected Sodium TNP 08/23/23 04:18 Potassium 4.1 mmol/L (3.5-5.1) 08/23/23 04:18 Chloride 101 mmol/L (98-107) 08/23/23 04:18 Carbon Dioxide 30.7 mmol/L (21-32) 08/23/23 04:18 BUN 6 mg/dL (7-18) L 08/23/23 04:18 Creatinine 0.77 mg/dL (0.55-1.02) 08/23/23 04:18 Est GFR (MDRD) Af Amer > 60 (>60) 08/23/23 04:18 Est GFR (MDRD) Non-Af > 60 (>60) 08/23/23 04:18 Glucose 108 mg/dL (65-99) H 08/23/23 04:18 Calcium 8.5 mg/dL (8.5-10.1) 08/23/23 04:18 Corrected Calcium 9.7 mg/dL (8.5-10.1) 08/23/23 04:18 Magnesium 2.4 mg/dL (2.0-2.9) 08/23/23 04:18 Iron 41 ug/dL (50-175) L 08/20/23 18:25 TIBC 325 ug/dL (250-450) 08/20/23 18:25 Transferrin 262 mg/dL (202-364) 08/20/23 18:25 Ferritin 44 ng/mL (8-252) 08/20/23 18:25 Total Bilirubin 0.20 mg/dL (0.2-1.0) 08/23/23 04:18 AST 32 Units/L (15-37) 08/23/23 04:18 ALT 18 Units/L (12-78) 08/23/23 04:18 Alkaline Phosphatase 186 Units/L (46-116) H 08/23/23 04:18 Total Protein 7.4 g/dL (6.4-8.2) 08/23/23 04:18 Albumin 2.5 g/dL (3.4-5.0) L 08/23/23 04:18 Globulin 4.9 g/dL (2.5-4.5) H 08/23/23 04:18 Albumin/Globulin Ratio 0.5 Ratio (1.1-2.1) L 08/23/23 04:18 Triglycerides 144 mg/dL (0-150) 08/23/23 04:18 Cholesterol 155 mg/dL (0-200) 08/23/23 04:18 LDL Cholesterol, Calc 71 mg/dL (0-100) 08/23/23 04:18 HDL Cholesterol 55 mg/dL (40-60) 08/23/23 04:18 Cholesterol/HDL Ratio 2.8 (0.0-5.0) 08/23/23 04:18 Amylase 72 Units/L (25-115) 08/21/23 04:01 Lipase 27 Units/L (16-77) 08/21/23 04:01 Vitamin B12 370 pg/mL (193-986) 08/20/23 18:25 Folate 3.5 ng/mL (>8.6) L 08/20/23 18:25 Specimen Type Clean catch urine 08/20/23 21:40 Urine Color Yellow (YELLOW) 08/20/23 21:40 Urine Appearance Clear (CLEAR) 08/20/23 21:40 Urine pH 6.0 (5.0 - 8.0) 08/20/23 21:40 Ur Specific [place] 1.015 (1.000-1.030) 08/20/23 21:40 Urine Protein 2+ (NEGATIVE) 08/20/23 21:40 Urine Glucose (UA) Negative (NEGATIVE) 08/20/23 21:40 Urine Ketones Negative (NEGATIVE) 08/20/23 21:40 Urine Blood 1+ (NEGATIVE) 08/20/23 21:40 Urine Nitrite Negative (NEGATIVE) 08/20/23 21:40 Urine Bilirubin Negative (NEGATIVE) 08/20/23 21:40 Urine Urobilinogen Normal (NORMAL) 08/20/23 21:40 Ur Leukocyte Esterase Negative (NEGATIVE) 08/20/23 21:40 Urine RBC 0-2 /HPF (0-3) 08/20/23 21:40 Urine WBC 0-2 /HPF (0-5) 08/20/23 21:40 Ur Squamous Epith Cells Moderate /HPF (NEGATIVE) 08/20/23 21:40 Urine Bacteria Negative /HPF (NEGATIVE) 08/20/23 21:40 Urine Mucus Many /HPF (NEGATIVE) 08/20/23 21:40 Ur Culture Indicated? No/not indicated 08/20/23 21:40 Plan (1) Colitis: Status: Acute Plan: INCREASE NORVASC TO 10MG. CONTINUE IV HYDRATION, IV ABX, HOME MEDICATIONS, PAIN CONTROL. (2) SOB (shortness of breath): Status: Acute (3) HAMMAD (generalized anxiety disorder): Status: Chronic (4) Hypertension: Status: Chronic Qualifiers: Hypertension type: primary hypertension (5) Lumbar degenerative disc disease: Status: Chronic (6) GERD (gastroesophageal reflux disease): Status: Chronic Qualifiers: Esophagitis presence: esophagitis presence not specified Qualified Code(s): K21.9 - Gastro-esophageal reflux disease without esophagitis (7) Hypokalemia: Status: Acute
== END 2023-08-23 12:45 | disposition home or self-care (01) | DRG 392 ==
LOC: ICU → OBSVTOIN 17:05
PROVIDERS: ADMIT Internal Medicine; ATTEND Internal Medicine
DX: Z68.30 Body mass index [BMI] 30.0-30.9, adult; R11.2 Nausea with vomiting, unspecified; R00.0 Tachycardia, unspecified; J44.9 Chronic obstructive pulmonary disease, unspecified; K21.9 Gastro-esophageal reflux disease without esophagitis; R19.7 Diarrhea, unspecified; M51.36 Other intervertebral disc degeneration, lumbar region; K52.89 Other specified noninfective gastroenteritis and colitis; R06.02 Shortness of breath; R53.1 Weakness; R63.4 Abnormal weight loss; R60.0 Localized edema; E87.6 Hypokalemia; F41.8 Other specified anxiety disorders; E83.42 Hypomagnesemia; I10 Essential (primary) hypertension

== ENCOUNTER 2024-01-21 15:22 | Inpatient (IN) ==
[2024-01-21] MEDS: DUONEB 0.5 MG/3 MG (3 mL) NEB SCH (17:04)
[2024-01-21 17:08] LABS: ABG BASE EXCESS 2.8 mmol/L (-2.0-2.0); ABG HCO3 25.9 mmol/L (22-26)
[2024-01-21 18:17] LABS: ALANINE AMINOTRANSFERASE 9 Units/L (12-78); ALKALINE PHOSPHATASE 250 Units/L (46-116); ASPARTATE AMINO TRANSFERASE 18 Units/L (15-37); BLOOD UREA NITROGEN 19 mg/dL (7-18); CALCIUM 8.8 mg/dL (8.5-10.1); CARBON DIOXIDE 26.8 mmol/L (21-32); CHLORIDE 102 mmol/L (98-107); COR CA(FOR HYPOALB) 9.6 mg/dL (8.5-10.1); CREATININE 0.93 mg/dL (0.55-1.02); GLUCOSE 97 mg/dL (65-99); SODIUM 139 mmol/L (136-145); TOTAL PROTEIN 8.4 g/dL (6.4-8.2); eGFR NON BLACK RACES > 60 (>60)
[2024-01-21] MEDS: TUSSIONEX PENNKINETIC SUSP PO PRN (18:17)
[2024-01-21] MEDS: COZAAR PO SCH (18:17)
[2024-01-21] MEDS: NYSTATIN SUSP PO SCH (18:20)
[2024-01-21] MEDS: SOLU-Medrol 40 MG VIAL IVP SCH (18:22)
[2024-01-21] MEDS: NS 1,000 ML IV 1,000 ML IV SCH (18:22)
[2024-01-21 18:53] VITALS: BMI 27.5
[2024-01-21 19:04] LABS: BASOPHILS % (AUTO) 0.2 % (0.2-1.0); EOSINOPHILS # (AUTO) 0.1 x10^3/uL (0.0-0.2); EOSINOPHILS % (AUTO) 0.6 % (0.9-2.9); HEMATOCRIT 33.1 % (36.0-47.0); HEMOGLOBIN 10.7 g/dL (12.0-16.0); LYMPHOCYTES # (AUTO) 3.1 X10^3/uL (1.3-2.9); LYMPHOCYTES % (AUTO) 25.7 % (21.0-51.0); MEAN CORPUSCULAR HEMOGLOBIN 28.5 pg (27.0-34.0); MEAN CORPUSCULAR HGB CONC 32.4 g/dL (33.0-35.0); MEAN PLATELET VOLUME 8.6 fL (7.4-11.0); MONOCYTES # (AUTO) 0.7 x10^3/uL (0.3-0.8); MONOCYTES % (AUTO) 5.7 % (0.0-13.0); NEUTROPHILS # (AUTO) 8.1 x10^3/uL (2.2-4.8); NEUTROPHILS % (AUTO) 67.8 % (42.0-75.0); PLATELET COUNT 515 X10^3/uL (150.0-450.0); RED BLOOD COUNT 3.76 X10^6/uL (3.5-5.4); WHITE BLOOD COUNT 11.9 X10^3/uL (3.6-10.0)
[2024-01-21] MEDS: NICOTINE PATCH TD SCH (19:52)
[2024-01-21] MEDS: LEVAQUIN PREMIX IV 500 MG 500 MG/100 ML BAG IV SCH (19:52)
[2024-01-21] MEDS: PULMICORT NEB TX 0.5 MG NEB SCH (21:09)
[2024-01-21] MEDS: REQUIP PO SCH (21:48)
[2024-01-21] MEDS: CHECK PATCH XX SCH (21:48)
[2024-01-21] MEDS: PROTONIX INJ 40 MG VIAL IVP SCH (21:48)
[2024-01-22] MEDS: ULTRAM PO PRN (03:12)
--- NOTE | 2024-01-22 04:52 | RAD ---
EXAM:FRONTAL AND LATERAL VIEW CHEST X-RAYHISTORY:COPDCOMPARISON:03/24/2023 br.br.br.br seen in the bilateral mid and lower lung zones.Emphysematous changes are again notedThe heart size is within normal limits.The mediastinum is unremarkable.There is no evidence of pleural effusion or gross pneumothorax.The trachea is midline.On the lateral view, the retrosternal and retrocardiac spaces are clear.IMPRESSION:1. Progressively worsening alveolar airspace disease is seen in the bilateral mid and lower lung zones.2. Emphysematous changes are again notedTHIS IS AN ELECTRONICALLY VERIFIED FINAL [id number]/22/2024 4:49 AM - Electronically signed by Nadir Arguello MD
[2024-01-22 06:37] LABS: BASOPHILS % (AUTO) 0.3 % (0.2-1.0); HEMATOCRIT 31.9 % (36.0-47.0); HEMOGLOBIN 10.3 g/dL (12.0-16.0); LYMPHOCYTES # (AUTO) 0.7 X10^3/uL (1.3-2.9); LYMPHOCYTES % (AUTO) 11.5 % (21.0-51.0); MEAN CORPUSCULAR HEMOGLOBIN 28.5 pg (27.0-34.0); MEAN CORPUSCULAR HGB CONC 32.3 g/dL (33.0-35.0); MEAN CORPUSCULAR VOLUME 88.3 fL (80.0-100.0); MEAN PLATELET VOLUME 8.2 fL (7.4-11.0); MONOCYTES # (AUTO) 0.1 x10^3/uL (0.3-0.8); MONOCYTES % (AUTO) 0.9 % (0.0-13.0); NEUTROPHILS # (AUTO) 5.6 x10^3/uL (2.2-4.8); NEUTROPHILS % (AUTO) 87.3 % (42.0-75.0); PLATELET COUNT 458 X10^3/uL (150.0-450.0); RED BLOOD COUNT 3.61 X10^6/uL (3.5-5.4); RED CELL DISTRIBUTION WIDTH 15.8 % (11.6-16.5); WHITE BLOOD COUNT 6.4 X10^3/uL (3.6-10.0)
[2024-01-22 06:50] LABS: ALANINE AMINOTRANSFERASE 9 Units/L (12-78); ALBUMIN 2.9 g/dL (3.4-5.0); ALKALINE PHOSPHATASE 228 Units/L (46-116); ASPARTATE AMINO TRANSFERASE 12 Units/L (15-37); BLOOD UREA NITROGEN 15 mg/dL (7-18); CALCIUM 8.6 mg/dL (8.5-10.1); CHLORIDE 102 mmol/L (98-107); COR CA(FOR HYPOALB) 9.5 mg/dL (8.5-10.1); COR NA(FOR HYPERGLY) 141 mmol/L (136-145); CREATININE 0.82 mg/dL (0.55-1.02); GLUCOSE 211 mg/dL (65-99); POTASSIUM 3.6 mmol/L (3.5-5.1); SODIUM 138 mmol/L (136-145); TOTAL PROTEIN 7.7 g/dL (6.4-8.2); eGFR NON BLACK RACES > 60 (>60)
[2024-01-22] MEDS ORDERED: CONSULT PHARMACY - POTASSIUM & MAGNESIUM XX SCH (08:00)
--- NOTE | 2024-01-22 08:27 | DR.H&P ---
H&P History & Physical for Day of: H&P Date: 01/21/24 Chief Complaint Chief Complaint: ccc, sob History of Present Illness History of Present Illness: PT IS 58 WF, DIRECT ADMIT FROM DR NWE OFFICE WITH CO CCC AND INCREASED SOB, PT FAILED OUTPT THERAPY. PT WAS SEEN IN OFFICE LAST WEEK AND STARTED ON PO LEVAQUIN, DUO NEBS, HAD IM ROCEPHIN 1GM AND KENALOG IM WITHOUT IMPROVEMENT. PT HAS COPD AND HTN. PT ADMITTED FOR TREATMENT OF ACUTE ILLNESS. Past Medical History Past Medical History: COPD and Hypertension Past Surgical History Surgical History: and Hysterectomy Family History Family Medical History: Diabetes Mellitus, Cancer and [place] Social History Does patient currently use any type of tobacco product: No Have you used tobacco products in the last 12 months: No Type of Tobacco Use: None Alcohol Use: None Drug Use: None Medications Home Medications: Home Medications Medication Instructions Recorded Confirmed Type ropinirole 1 mg tablet 1 mg PO BID 01/01/20 01/21/24 History famotidine 40 mg tablet 40 mg PO DAILY 01/17/21 01/21/24 History omeprazole 40 mg capsule,delayed 40 mg PO BID 01/17/21 01/21/24 History release gabapentin 300 mg capsule 300 mg PO TID 09/04/21 01/21/24 History paroxetine HCl 30 mg tablet 30 mg PO QDAY 02/21/23 01/21/24 History fluconazole 100 mg tablet 100 mg PO QDAY 01/21/24 01/21/24 History levofloxacin 500 mg tablet 500 mg PO Q24H 01/21/24 01/21/24 History losartan 25 mg tablet 25 mg PO QDAY 01/21/24 01/21/24 History montelukast 10 mg tablet 10 mg PO QDAY 01/21/24 01/21/24 History tizanidine 4 mg tablet 4 mg PO Q8H PRN 01/21/24 01/21/24 History Allergies Allergies Allergy/AdvReac Type Severity Reaction Status Date / Time No Known Drug Allergies Allergy Verified 04/12/20 18:42 Labs 01/22/24 05:51 01/22/24 05:51 Labs: 01/21/24 16:55 Sputum - Expectorated Sputum - Final Laboratory WBC 6.4 X10^3/uL (3.6-10.0) 01/22/24 05:51 RBC 3.61 X10^6/uL (3.5-5.4) 01/22/24 05:51 Hgb 10.3 g/dL (12.0-16.0) L 01/22/24 05:51 Hct 31.9 % (36.0-47.0) L 01/22/24 05:51 MCV 88.3 fL (80.0-100.0) 01/22/24 05:51 MCH 28.5 pg (27.0-34.0) 01/22/24 05:51 MCHC 32.3 g/dL (33.0-35.0) L 01/22/24 05:51 RDW 15.8 % (11.6-16.5) 01/22/24 05:51 Plt Count 458 X10^3/uL (150.0-450.0) H 01/22/24 05:51 MPV 8.2 fL (7.4-11.0) 01/22/24 05:51 Neut % (Auto) 87.3 % (42.0-75.0) H 01/22/24 05:51 Lymph % (Auto) 11.5 % (21.0-51.0) L 01/22/24 05:51 [place] % (Auto) 0.9 % (0.0-13.0) 01/22/24 05:51 Eos % (Auto) 0.0 % (0.9-2.9) L 01/22/24 05:51 Baso % (Auto) 0.3 % (0.2-1.0) 01/22/24 05:51 Neut # (Auto) 5.6 x10^3/uL (2.2-4.8) H 01/22/24 05:51 Lymph # (Auto) 0.7 X10^3/uL (1.3-2.9) L 01/22/24 05:51 [place] # (Auto) 0.1 x10^3/uL (0.3-0.8) L 01/22/24 05:51 Eos # (Auto) 0.0 x10^3/uL (0.0-0.2) 01/22/24 05:51 Baso # (Auto) 0.0 X10^3/uL (0.0-0.1) 01/22/24 05:51 Absolute Nucleated RBC 0.0 /100WBC 01/22/24 05:51 Sample Site Lbra 01/21/24 17:01 ABG pH 7.490 (7.35-7.45) H 01/21/24 17:01 ABG pCO2 34.0 mmHg (35.0-45.0) L 01/21/24 17:01 ABG pO2 63.0 mmHg (80.0-100.0) L 01/21/24 17:01 ABG HCO3 25.9 mmol/L (22-26) 01/21/24 17:01 ABG O2 Saturation 94.0 % (90-100) 01/21/24 17:01 ABG Base Excess 2.8 mmol/L (-2.0-2.0) H 01/21/24 17:01 Lopez Test N/a 01/21/24 17:01 A-a Gradient 44.0 mmHg 01/21/24 17:01 FiO2 21.0 01/21/24 17:01 Blood Gas Comments Pt pillo well elj cdn 01/21/24 17:01 Sodium 138 mmol/L (136-145) 01/22/24 05:51 Corrected Sodium 141 mmol/L (136-145) 01/22/24 05:51 Potassium 3.6 mmol/L (3.5-5.1) 01/22/24 05:51 Chloride 102 mmol/L (98-107) 01/22/24 05:51 Carbon Dioxide 23.0 mmol/L (21-32) 01/22/24 05:51 BUN 15 mg/dL (7-18) 01/22/24 05:51 Creatinine 0.82 mg/dL (0.55-1.02) 01/22/24 05:51 Est GFR (MDRD) Af Amer > 60 (>60) 01/22/24 05:51 Est GFR (MDRD) Non-Af > 60 (>60) 01/22/24 05:51 Glucose 211 mg/dL (65-99) H 01/22/24 05:51 Calcium 8.6 mg/dL (8.5-10.1) 01/22/24 05:51 Corrected Calcium 9.5 mg/dL (8.5-10.1) 01/22/24 05:51 Magnesium 2.0 mg/dL (2.0-2.9) 01/21/24 17:48 Total Bilirubin 0.20 mg/dL (0.2-1.0) 01/22/24 05:51 AST 12 Units/L (15-37) L 01/22/24 05:51 ALT 9 Units/L (12-78) L 01/22/24 05:51 Alkaline Phosphatase 228 Units/L (46-116) H 01/22/24 05:51 Total Protein 7.7 g/dL (6.4-8.2) 01/22/24 05:51 Albumin 2.9 g/dL (3.4-5.0) L 01/22/24 05:51 Globulin 4.8 g/dL (2.5-4.5) H 01/22/24 05:51 Albumin/Globulin Ratio 0.6 Ratio (1.1-2.1) L 01/22/24 05:51 Review of Systems Constitutional: No Symptoms Reported Eyes: No Symptoms Reported ENT: No Symptoms Reported Respiratory: Shortness of Breath Cardiovascular: Chest Pain Gastrointestinal: Nausea Genitourinary: No Symptoms Reported Musculoskeletal: No Symptoms Reported Skin: No Symptoms Reported Neurological: Weakness and Other (HEADACHES) Physical Exam Vital Signs: Vital Signs Temperature 98.6 F Temperature 98.1 F Pulse Rate [Right Brachial] 79 Pulse Rate [Right Brachial] 78 Pulse Rate 78 Pulse Rate 78 Respiratory Rate 18 Respiratory Rate 19 Respiratory Rate 16 Respiratory Rate 20 Blood Pressure [Right Arm] 191/88 Blood Pressure [Right Arm] 170/74 O2 Sat by Pulse Oximetry 96 O2 Sat by Pulse Oximetry 99 O2 Sat by Pulse Oximetry 95 O2 Sat by Pulse Oximetry 97 Oriented: Normal Eyes: Normal Ear: Normal Nose: Discharge Throat: Red and Exudate Respiratory: Rhonchi Throughout and Wheezes Throughout Cardiovascular: Tachycardia Auscultation: Bowel Sounds: Normal Palpation: Normal Tenderness: Normal Skin: Bruising Musculoskeletal: Back:Lumbar Psychiatric: Anxiety Affect: Anxious Speech Pattern: Clear and Appropriate Assessment/Plan (1) COPD exacerbation: Status: Acute Plan: ADMIT, ABG ON ADMISSION, IV ATBX RESP CONSULT SUPPLEMENTAL O2, BP CONTROL VERIFY AND RESUME HOME MEDICATIONS IV SOLU MEDROL, CXR ON ADMISSION (2) SOB (shortness of breath): Status: Acute (3) Hypertension: Qualifiers: Hypertension type: primary hypertension Status: Chronic (4) GERD (gastroesophageal reflux disease): Qualifiers: Esophagitis presence: esophagitis presence not specified Qualified Code(s): K21.9 - Gastro-esophageal reflux disease without esophagitis Status: Chronic (5) HAMMAD (generalized anxiety disorder): Status: Chronic
[2024-01-22] MEDS: LOVENOX INJ 40 MG SYR SC SCH (08:42)
[2024-01-22] MEDS: NORCO 5/325 MG TAB PO PRN (08:43)
[2024-01-22] MEDS: COZAAR PO SCH (08:43)
[2024-01-22] MEDS: K-DUR TAB 20 MEQ PO SCH (08:44)
[2024-01-22] MEDS: ROBITUSSIN DM PO PRN (12:49)
[2024-01-22] MEDS: NORVASC TAB 5 MG PO SCH (12:49)
--- NOTE | 2024-01-22 18:04 | PCM.PROG ---
Progress Note Progress Note for Day of Date of Exam: 01/22/24 Subjective Subjective: PT IS 58 WF, DIRECT ADMIT WITH SOB DUE TO PNEUMONIA. PT HAS PRODUCTIVE COUGH WITH BLOOD TINGED SPUTUM THIS AM. HER BP IS ELEVATED THIS AM. PT TAKES LOSARTAN AT HOME AND IT WAS INCREASED TO 50MG PO DAILY. PT RELATED INCREASED PRESSURE TO PAIN. PT CO SORE ALL OVER AND INCREASED PAIN TO MID BACK. PT HAS ORAL THRUSH AND IS TAKING NYSTATIN. PT CO HEADACHE THIS AM. Past Medical Family Social History Allergies: Allergies No Known Drug Allergies Allergy (Verified 04/12/20 18:42) Vital Signs and I&O's Vital Signs: Vital Signs Temperature 97.8 F Temperature 98.1 F Pulse Rate [Right Brachial] 76 Pulse Rate [Right Brachial] 79 Respiratory Rate 19 Respiratory Rate 18 Respiratory Rate 19 Respiratory Rate 19 Blood Pressure [Right Arm] 159/73 Blood Pressure [Right Arm] 179/76 O2 Sat by Pulse Oximetry 97 O2 Sat by Pulse Oximetry 97 Intake and Output: Intake & Output 01/20/24 01/21/24 01/22/24 01/23/24 11:59 11:59 11:59 11:59 Intake Total 926 / 926 1792 / 1792 Balance 926 / 926 1792 / 1792 Physical Exam Oriented: Normal Eyes: Normal Ear: Normal Nose: Discharge Throat: Red and Exudate Respiratory: Diminished and Wheezes Cardiovascular: Tachycardia Auscultation: Bowel Sounds: Normal Tenderness: Normal Skin: Bruising Musculoskeletal: Back:Lumbar Psychiatric: Anxiety Affect: Anxious Speech Pattern: Clear and Appropriate Laboratory and Diagnostics 01/22/24 05:51 01/22/24 05:51 Labs: 01/21/24 16:55 Sputum - Expectorated Sputum Sputum Culture - Preliminary 01/21/24 16:55 Sputum - Expectorated Sputum - Final Laboratory WBC 6.4 X10^3/uL (3.6-10.0) 01/22/24 05:51 RBC 3.61 X10^6/uL (3.5-5.4) 01/22/24 05:51 Hgb 10.3 g/dL (12.0-16.0) L 01/22/24 05:51 Hct 31.9 % (36.0-47.0) L 01/22/24 05:51 MCV 88.3 fL (80.0-100.0) 01/22/24 05:51 MCH 28.5 pg (27.0-34.0) 01/22/24 05:51 MCHC 32.3 g/dL (33.0-35.0) L 01/22/24 05:51 RDW 15.8 % (11.6-16.5) 01/22/24 05:51 Plt Count 458 X10^3/uL (150.0-450.0) H 01/22/24 05:51 MPV 8.2 fL (7.4-11.0) 01/22/24 05:51 Neut % (Auto) 87.3 % (42.0-75.0) H 01/22/24 05:51 Lymph % (Auto) 11.5 % (21.0-51.0) L 01/22/24 05:51 [place] % (Auto) 0.9 % (0.0-13.0) 01/22/24 05:51 Eos % (Auto) 0.0 % (0.9-2.9) L 01/22/24 05:51 Baso % (Auto) 0.3 % (0.2-1.0) 01/22/24 05:51 Neut # (Auto) 5.6 x10^3/uL (2.2-4.8) H 01/22/24 05:51 Lymph # (Auto) 0.7 X10^3/uL (1.3-2.9) L 01/22/24 05:51 [place] # (Auto) 0.1 x10^3/uL (0.3-0.8) L 01/22/24 05:51 Eos # (Auto) 0.0 x10^3/uL (0.0-0.2) 01/22/24 05:51 Baso # (Auto) 0.0 X10^3/uL (0.0-0.1) 01/22/24 05:51 Absolute Nucleated RBC 0.0 /100WBC 01/22/24 05:51 Sample Site Lbra 01/21/24 17:01 ABG pH 7.490 (7.35-7.45) H 01/21/24 17:01 ABG pCO2 34.0 mmHg (35.0-45.0) L 01/21/24 17:01 ABG pO2 63.0 mmHg (80.0-100.0) L 01/21/24 17:01 ABG HCO3 25.9 mmol/L (22-26) 01/21/24 17:01 ABG O2 Saturation 94.0 % (90-100) 01/21/24 17:01 ABG Base Excess 2.8 mmol/L (-2.0-2.0) H 01/21/24 17:01 Lopez Test N/a 01/21/24 17:01 A-a Gradient 44.0 mmHg 01/21/24 17:01 FiO2 21.0 01/21/24 17:01 Blood Gas Comments Pt pillo well elj cdn 01/21/24 17:01 Sodium 138 mmol/L (136-145) 01/22/24 05:51 Corrected Sodium 141 mmol/L (136-145) 01/22/24 05:51 Potassium 3.6 mmol/L (3.5-5.1) 01/22/24 05:51 Chloride 102 mmol/L (98-107) 01/22/24 05:51 Carbon Dioxide 23.0 mmol/L (21-32) 01/22/24 05:51 BUN 15 mg/dL (7-18) 01/22/24 05:51 Creatinine 0.82 mg/dL (0.55-1.02) 01/22/24 05:51 Est GFR (MDRD) Af Amer > 60 (>60) 01/22/24 05:51 Est GFR (MDRD) Non-Af > 60 (>60) 01/22/24 05:51 Glucose 211 mg/dL (65-99) H 01/22/24 05:51 Calcium 8.6 mg/dL (8.5-10.1) 01/22/24 05:51 Corrected Calcium 9.5 mg/dL (8.5-10.1) 01/22/24 05:51 Magnesium 2.0 mg/dL (2.0-2.9) 01/21/24 17:48 Total Bilirubin 0.20 mg/dL (0.2-1.0) 01/22/24 05:51 AST 12 Units/L (15-37) L 01/22/24 05:51 ALT 9 Units/L (12-78) L 01/22/24 05:51 Alkaline Phosphatase 228 Units/L (46-116) H 01/22/24 05:51 Total Protein 7.7 g/dL (6.4-8.2) 01/22/24 05:51 Albumin 2.9 g/dL (3.4-5.0) L 01/22/24 05:51 Globulin 4.8 g/dL (2.5-4.5) H 01/22/24 05:51 Albumin/Globulin Ratio 0.6 Ratio (1.1-2.1) L 01/22/24 05:51 Plan (1) COPD exacerbation: Status: Acute Plan: ABG ON ADMISSION, IV ATBX RESP CONSULT SUPPLEMENTAL O2, BP CONTROL VERIFY AND RESUME HOME MEDICATIONS IV SOLU MEDROL, CXR (2) SOB (shortness of breath): Status: Acute (3) Hypertension: Status: Chronic Qualifiers: Hypertension type: primary hypertension (4) GERD (gastroesophageal reflux disease): Status: Chronic Qualifiers: Esophagitis presence: esophagitis presence not specified Qualified Code(s): K21.9 - Gastro-esophageal reflux disease without esophagitis (5) HAMMAD (generalized anxiety disorder): Status: Chronic (6) Bronchopneumonia: Status: Acute
[2024-01-23 06:10] LABS: BASOPHILS # (AUTO) 0.1 X10^3/uL (0.0-0.1); BASOPHILS % (AUTO) 0.6 % (0.2-1.0); HEMATOCRIT 30.1 % (36.0-47.0); HEMOGLOBIN 9.7 g/dL (12.0-16.0); LYMPHOCYTES # (AUTO) 2.7 X10^3/uL (1.3-2.9); LYMPHOCYTES % (AUTO) 16.5 % (21.0-51.0); MEAN CORPUSCULAR HEMOGLOBIN 28.4 pg (27.0-34.0); MEAN CORPUSCULAR HGB CONC 32.3 g/dL (33.0-35.0); MEAN PLATELET VOLUME 8.1 fL (7.4-11.0); MONOCYTES # (AUTO) 1.2 x10^3/uL (0.3-0.8); MONOCYTES % (AUTO) 7.2 % (0.0-13.0); NEUTROPHILS # (AUTO) 12.5 x10^3/uL (2.2-4.8); NEUTROPHILS % (AUTO) 75.7 % (42.0-75.0); PLATELET COUNT 464 X10^3/uL (150.0-450.0); RED BLOOD COUNT 3.41 X10^6/uL (3.5-5.4); RED CELL DISTRIBUTION WIDTH 15.8 % (11.6-16.5); WHITE BLOOD COUNT 16.6 X10^3/uL (3.6-10.0)
[2024-01-23 06:18] LABS: ALANINE AMINOTRANSFERASE 12 Units/L (12-78); ALBUMIN 2.5 g/dL (3.4-5.0); ALKALINE PHOSPHATASE 197 Units/L (46-116); ASPARTATE AMINO TRANSFERASE 18 Units/L (15-37); BLOOD UREA NITROGEN 16 mg/dL (7-18); CALCIUM 8.5 mg/dL (8.5-10.1); CARBON DIOXIDE 28.9 mmol/L (21-32); CHLORIDE 107 mmol/L (98-107); COR CA(FOR HYPOALB) 9.7 mg/dL (8.5-10.1); CREATININE 0.66 mg/dL (0.55-1.02); GLUCOSE 102 mg/dL (65-99); POTASSIUM 3.8 mmol/L (3.5-5.1); SODIUM 141 mmol/L (136-145); TOTAL PROTEIN 6.8 g/dL (6.4-8.2); eGFR NON BLACK RACES > 60 (>60)
[2024-01-23] MEDS: PAXIL PO SCH (15:46)
[2024-01-24 06:19] LABS: HEMOGLOBIN 11.5 g/dL (12.0-16.0); MEAN CORPUSCULAR HEMOGLOBIN 28.5 pg (27.0-34.0); MEAN PLATELET VOLUME 8.1 fL (7.4-11.0); RED BLOOD COUNT 4.05 X10^6/uL (3.5-5.4); RED CELL DISTRIBUTION WIDTH 15.9 % (11.6-16.5); WHITE BLOOD COUNT 10.1 X10^3/uL (3.6-10.0)
[2024-01-24 06:26] LABS: BASOPHILS # (AUTO) 0.1 X10^3/uL (0.0-0.1); BASOPHILS % (AUTO) 1.1 % (0.2-1.0); EOSINOPHILS # (AUTO) 0.1 x10^3/uL (0.0-0.2); EOSINOPHILS % (AUTO) 0.9 % (0.9-2.9); HEMATOCRIT 35.9 % (36.0-47.0); LYMPHOCYTES # (AUTO) 3.4 X10^3/uL (1.3-2.9); LYMPHOCYTES % (AUTO) 33.9 % (21.0-51.0); MEAN CORPUSCULAR HGB CONC 32.2 g/dL (33.0-35.0); MEAN CORPUSCULAR VOLUME 88.7 fL (80.0-100.0); MONOCYTES # (AUTO) 0.9 x10^3/uL (0.3-0.8); MONOCYTES % (AUTO) 8.8 % (0.0-13.0); NEUTROPHILS # (AUTO) 5.6 x10^3/uL (2.2-4.8); NEUTROPHILS % (AUTO) 55.3 % (42.0-75.0); PLATELET COUNT 493 X10^3/uL (150.0-450.0)
[2024-01-24 06:36] LABS: ALANINE AMINOTRANSFERASE 14 Units/L (12-78); ALBUMIN 2.8 g/dL (3.4-5.0); ALKALINE PHOSPHATASE 222 Units/L (46-116); ASPARTATE AMINO TRANSFERASE 16 Units/L (15-37); BLOOD UREA NITROGEN 15 mg/dL (7-18); CALCIUM 8.9 mg/dL (8.5-10.1); CARBON DIOXIDE 29.1 mmol/L (21-32); CHLORIDE 104 mmol/L (98-107); COR CA(FOR HYPOALB) 9.9 mg/dL (8.5-10.1); CREATININE 0.69 mg/dL (0.55-1.02); GLUCOSE 101 mg/dL (65-99); MAGNESIUM 2.1 mg/dL (2.0-2.9); POTASSIUM 3.7 mmol/L (3.5-5.1); SODIUM 141 mmol/L (136-145); TOTAL PROTEIN 7.7 g/dL (6.4-8.2); eGFR NON BLACK RACES > 60 (>60)
[2024-01-24] MEDS ORDERED: K-DUR TAB 20 MEQ PO SCH (07:00)
[2024-01-24] MEDS ORDERED: CONSULT PHARMACY - POTASSIUM & MAGNESIUM XX SCH (07:00)
[2024-01-24] MEDS: K-DUR TAB 20 MEQ PO SCH (09:48)
[2024-01-24] MEDS ORDERED: MILK OF MAGNESIA PO PRN (10:17)
[2024-01-24] MEDS: PREDNISONE TAB 20 MG PO ONE (10:44)
[2024-01-24] MEDS: PREDNISONE TAB 20 MG PO NR (10:46)
--- NOTE | 2024-01-24 14:59 | RAD ---
EXAM: CHEST, 1 VIEW HISTORY: pneumonia, copd; COMPARISON: Prior study or studies were utilized for comparison during interpretation with the most relevant ranjit ed 03/24/2023 TECHNIQUE: CHEST, 1 VIEW FINDINGS: Chest: Lines and tubes: None Mediastinum: Cardiac and mediastinal shadow is within normal limits for size and contour. Pulmonary vessels: No pulmonary vascular congestion. Lung up: Increased interstitial opacities are noted Pleura: No effusion. No pneumothorax. Bones and soft tissues: No acute osseous or soft tissue abnormality. IMPRESSION: 1. Diffusely increased interstitial opacities are noted, suggesting interstitial lung disease. No de finite acute abnormality identified THIS IS AN ELECTRONICALLY VERIFIED FINAL REPORT 01/24/2024 2:56 PM - Electronically signed by Charles Perdomo MD
--- NOTE | 2024-01-24 17:35 | PCM.PROG ---
Progress Note Progress Note for Day of Date of Exam: 01/24/24 Subjective Subjective: PT IS 58 WF, DIRECT ADMIT WITH SOB DUE TO PNEUMONIA. PT HAS PRODUCTIVE COUGH. HER BP IS ELEVATED THIS AM. PT TAKES LOSARTAN AT HOME AND IT WAS INCREASED TO 50MG PO DAILY. PT RELATED INCREASED PRESSURE TO PAIN. PT IS CURRENTLY ON NORVASC AND LOSARTAN FOR BP CONTROL. PT HAS IV LASIX YESTERDAY WITH GOOD URINE OUTPT. PT'S SOLU MEDROL STOPPED AND CHANGED TO ORAL PREDNISONE. PT CO SORE ALL OVER AND INCREASED PAIN TO MID BACK. PT HAS ORAL THRUSH AND IS TAKING NYSTATIN. WBC 10.1, HGB 11.5. SPUTUM RESULTS SENSATIVE TO LEVAQUIN Past Medical Family Social History Allergies: Allergies No Known Drug Allergies Allergy (Verified 04/12/20 18:42) Vital Signs and I&O's Vital Signs: Vital Signs Temperature 98 F Temperature 97.8 F Pulse Rate [Right Brachial] 98 Pulse Rate [Right Brachial] 78 Respiratory Rate 20 Respiratory Rate 20 Respiratory Rate 18 Respiratory Rate 20 Blood Pressure [Left Arm] 151/72 Blood Pressure [Left Arm] 175/83 O2 Sat by Pulse Oximetry 96 O2 Sat by Pulse Oximetry 100 Intake and Output: Intake & Output 01/22/24 01/23/24 01/24/24 01/25/24 11:59 11:59 11:59 11:59 Intake Total 926 / 926 2352 / 2352 1488 / 1488 396 / 396 Balance 926 / 926 2352 / 2352 1488 / 1488 396 / 396 Physical Exam Oriented: Normal Eyes: Normal Ear: Normal Nose: Discharge Throat: Red and Exudate Respiratory: Diminished and Wheezes Cardiovascular: Tachycardia Auscultation: Bowel Sounds: Normal Tenderness: Normal Skin: Bruising Musculoskeletal: Back:Lumbar Psychiatric: Anxiety Affect: Anxious Speech Pattern: Clear and Appropriate Laboratory and Diagnostics 01/24/24 05:40 01/24/24 05:40 Labs: 01/21/24 16:55 Sputum - Expectorated Sputum Sputum Culture - Final Enterobacter Aerogenes 01/21/24 16:55 Sputum - Expectorated Sputum - Final Laboratory WBC 10.1 X10^3/uL (3.6-10.0) H 01/24/24 05:40 RBC 4.05 X10^6/uL (3.5-5.4) 01/24/24 05:40 Hgb 11.5 g/dL (12.0-16.0) L 01/24/24 05:40 Hct 35.9 % (36.0-47.0) L 01/24/24 05:40 MCV 88.7 fL (80.0-100.0) 01/24/24 05:40 MCH 28.5 pg (27.0-34.0) 01/24/24 05:40 MCHC 32.2 g/dL (33.0-35.0) L 01/24/24 05:40 RDW 15.9 % (11.6-16.5) 01/24/24 05:40 Plt Count 493 X10^3/uL (150.0-450.0) H 01/24/24 05:40 MPV 8.1 fL (7.4-11.0) 01/24/24 05:40 Neut % (Auto) 55.3 % (42.0-75.0) 01/24/24 05:40 Lymph % (Auto) 33.9 % (21.0-51.0) 01/24/24 05:40 [place] % (Auto) 8.8 % (0.0-13.0) 01/24/24 05:40 Eos % (Auto) 0.9 % (0.9-2.9) 01/24/24 05:40 Baso % (Auto) 1.1 % (0.2-1.0) H 01/24/24 05:40 Neut # (Auto) 5.6 x10^3/uL (2.2-4.8) H 01/24/24 05:40 Lymph # (Auto) 3.4 X10^3/uL (1.3-2.9) H 01/24/24 05:40 [place] # (Auto) 0.9 x10^3/uL (0.3-0.8) H 01/24/24 05:40 Eos # (Auto) 0.1 x10^3/uL (0.0-0.2) 01/24/24 05:40 Baso # (Auto) 0.1 X10^3/uL (0.0-0.1) 01/24/24 05:40 Absolute Nucleated RBC 0.4 /100WBC 01/24/24 05:40 Sample Site Lbra 01/21/24 17:01 ABG pH 7.490 (7.35-7.45) H 01/21/24 17:01 ABG pCO2 34.0 mmHg (35.0-45.0) L 01/21/24 17:01 ABG pO2 63.0 mmHg (80.0-100.0) L 01/21/24 17:01 ABG HCO3 25.9 mmol/L (22-26) 01/21/24 17:01 ABG O2 Saturation 94.0 % (90-100) 01/21/24 17:01 ABG Base Excess 2.8 mmol/L (-2.0-2.0) H 01/21/24 17:01 Lopez Test N/a 01/21/24 17:01 A-a Gradient 44.0 mmHg 01/21/24 17:01 FiO2 21.0 01/21/24 17:01 Blood Gas Comments Pt pillo well elj cdn 01/21/24 17:01 Sodium 141 mmol/L (136-145) 01/24/24 05:40 Corrected Sodium TNP 01/24/24 05:40 Potassium 3.7 mmol/L (3.5-5.1) 01/24/24 05:40 Chloride 104 mmol/L (98-107) 01/24/24 05:40 Carbon Dioxide 29.1 mmol/L (21-32) 01/24/24 05:40 BUN 15 mg/dL (7-18) 01/24/24 05:40 Creatinine 0.69 mg/dL (0.55-1.02) 01/24/24 05:40 Est GFR (MDRD) Af Amer > 60 (>60) 01/24/24 05:40 Est GFR (MDRD) Non-Af > 60 (>60) 01/24/24 05:40 Glucose 101 mg/dL (65-99) H 01/24/24 05:40 Calcium 8.9 mg/dL (8.5-10.1) 01/24/24 05:40 Corrected Calcium 9.9 mg/dL (8.5-10.1) 01/24/24 05:40 Magnesium 2.1 mg/dL (2.0-2.9) 01/24/24 05:40 Total Bilirubin 0.20 mg/dL (0.2-1.0) 01/24/24 05:40 AST 16 Units/L (15-37) 01/24/24 05:40 ALT 14 Units/L (12-78) 01/24/24 05:40 Alkaline Phosphatase 222 Units/L (46-116) H 01/24/24 05:40 Total Protein 7.7 g/dL (6.4-8.2) 01/24/24 05:40 Albumin 2.8 g/dL (3.4-5.0) L 01/24/24 05:40 Globulin 4.9 g/dL (2.5-4.5) H 01/24/24 05:40 Albumin/Globulin Ratio 0.6 Ratio (1.1-2.1) L 01/24/24 05:40 Resp Viral Panel (PCR) See scanned report 01/21/24 16:55 Plan (1) COPD exacerbation: Status: Acute Plan: ABG ON ADMISSION, IV ATBX RESP CONSULT SUPPLEMENTAL O2, BP CONTROL VERIFY AND RESUME HOME MEDICATIONS IV SOLU MEDROL, CXR (2) SOB (shortness of breath): Status: Acute (3) Hypertension: Status: Chronic Qualifiers: Hypertension type: primary hypertension (4) GERD (gastroesophageal reflux disease): Status: Chronic Qualifiers: Esophagitis presence: esophagitis presence not specified Qualified Code(s): K21.9 - Gastro-esophageal reflux disease without esophagitis (5) HAMMAD (generalized anxiety disorder): Status: Chronic (6) Bronchopneumonia: Status: Acute
[2024-01-24] MEDS: COLACE CAP 100 MG PO SCH (20:18)
[2024-01-25 06:31] LABS: BASOPHILS # (AUTO) 0.2 X10^3/uL (0.0-0.1); BASOPHILS % (AUTO) 1.4 % (0.2-1.0); EOSINOPHILS % (AUTO) 0.3 % (0.9-2.9); HEMATOCRIT 33.4 % (36.0-47.0); HEMOGLOBIN 10.6 g/dL (12.0-16.0); LYMPHOCYTES # (AUTO) 3.8 X10^3/uL (1.3-2.9); LYMPHOCYTES % (AUTO) 27.4 % (21.0-51.0); MEAN CORPUSCULAR HGB CONC 31.9 g/dL (33.0-35.0); MEAN CORPUSCULAR VOLUME 87.7 fL (80.0-100.0); MEAN PLATELET VOLUME 7.8 fL (7.4-11.0); MONOCYTES # (AUTO) 1.1 x10^3/uL (0.3-0.8); MONOCYTES % (AUTO) 8.3 % (0.0-13.0); NEUTROPHILS # (AUTO) 8.6 x10^3/uL (2.2-4.8); NEUTROPHILS % (AUTO) 62.6 % (42.0-75.0); PLATELET COUNT 465 X10^3/uL (150.0-450.0); RED CELL DISTRIBUTION WIDTH 15.7 % (11.6-16.5); WHITE BLOOD COUNT 13.7 X10^3/uL (3.6-10.0)
[2024-01-25 06:46] LABS: ALANINE AMINOTRANSFERASE 13 Units/L (12-78); ALBUMIN 2.7 g/dL (3.4-5.0); ALKALINE PHOSPHATASE 212 Units/L (46-116); ASPARTATE AMINO TRANSFERASE 11 Units/L (15-37); BLOOD UREA NITROGEN 15 mg/dL (7-18); CARBON DIOXIDE 28.8 mmol/L (21-32); CHLORIDE 105 mmol/L (98-107); GLUCOSE 102 mg/dL (65-99); POTASSIUM 3.6 mmol/L (3.5-5.1); SODIUM 141 mmol/L (136-145); TOTAL PROTEIN 7.2 g/dL (6.4-8.2); eGFR NON BLACK RACES > 60 (>60)
[2024-01-25] MEDS ORDERED: CONSULT PHARMACY - POTASSIUM & MAGNESIUM XX SCH (08:00)
[2024-01-25] MEDS: K-DUR TAB 20 MEQ PO SCH (08:23)
[2024-01-26 07:05] LABS: BASOPHILS # (AUTO) 0.1 X10^3/uL (0.0-0.1); BASOPHILS % (AUTO) 0.8 % (0.2-1.0); EOSINOPHILS # (AUTO) 0.2 x10^3/uL (0.0-0.2); EOSINOPHILS % (AUTO) 1.5 % (0.9-2.9); HEMOGLOBIN 10.8 g/dL (12.0-16.0); LYMPHOCYTES # (AUTO) 3.6 X10^3/uL (1.3-2.9); LYMPHOCYTES % (AUTO) 30.2 % (21.0-51.0); MEAN CORPUSCULAR HGB CONC 31.9 g/dL (33.0-35.0); MEAN CORPUSCULAR VOLUME 87.8 fL (80.0-100.0); MEAN PLATELET VOLUME 7.9 fL (7.4-11.0); MONOCYTES # (AUTO) 1.1 x10^3/uL (0.3-0.8); MONOCYTES % (AUTO) 9.5 % (0.0-13.0); NEUTROPHILS # (AUTO) 6.9 x10^3/uL (2.2-4.8); PLATELET COUNT 405 X10^3/uL (150.0-450.0); RED BLOOD COUNT 3.87 X10^6/uL (3.5-5.4); RED CELL DISTRIBUTION WIDTH 15.5 % (11.6-16.5); WHITE BLOOD COUNT 11.9 X10^3/uL (3.6-10.0)
--- NOTE | 2024-01-26 07:07 | RAD ---
EXAM: CHEST, PA/LAT ADULT HISTORY: Cough cold congestion COMPARISON: 01/24/2024 FINDINGS: The trachea is midline. The cardiac silhouette is enlarged with a tortuous thoracic aorta . The jaelyn gs are clear without focal infiltrate or effusion. The bony thorax is unremarkable. IMPRESSION: No acute cardiopulmonary disease. THIS IS AN ELECTRONICALLY VERIFIED FINAL REPORT 01/26/2024 7:04 AM - Electronically signed by Juan Centeno MD
[2024-01-26 07:27] LABS: ALANINE AMINOTRANSFERASE 14 Units/L (12-78); ALBUMIN 2.8 g/dL (3.4-5.0); ALKALINE PHOSPHATASE 216 Units/L (46-116); ASPARTATE AMINO TRANSFERASE 13 Units/L (15-37); BLOOD UREA NITROGEN 12 mg/dL (7-18); CALCIUM 8.6 mg/dL (8.5-10.1); CHLORIDE 103 mmol/L (98-107); COR CA(FOR HYPOALB) 9.6 mg/dL (8.5-10.1); CREATININE 0.71 mg/dL (0.55-1.02); GLUCOSE 101 mg/dL (65-99); POTASSIUM 3.7 mmol/L (3.5-5.1); SODIUM 140 mmol/L (136-145); TOTAL PROTEIN 7.3 g/dL (6.4-8.2); eGFR NON BLACK RACES > 60 (>60)
[2024-01-26] MEDS ORDERED: CONSULT PHARMACY - POTASSIUM & MAGNESIUM XX SCH (08:00)
[2024-01-26] MEDS: K-DUR TAB 20 MEQ PO SCH (08:21)
[2024-01-26 11:51] VITALS: BP 143/86; PULSE 95; RESP 19; TEMP 98.6; O2SAT 95
== END 2024-01-26 13:35 | disposition home or self-care (01) | DRG 190 ==
LOC: MED/SURG 16:01
PROVIDERS: ADMIT Internal Medicine; ATTEND Internal Medicine

== ENCOUNTER 2024-04-16 15:23 | Inpatient (IN) ==
--- NOTE | 2024-04-16 17:56 | DR.H&P ---
H&P History & Physical for Day of: H&P Date: 04/16/24 Chief Complaint Chief Complaint: ccc, weakness, "coughing up blood" History of Present Illness History of Present Illness: PT IS 58 WF, DIRECT ADMIT FROM DR NEW OFFICE W ITH CO EXTREME FATIGUE, COUGHING UP BLOOD. PT HAS PMH OF CAD, COPD, HTN AND REPORTS SHE WAS STARTED ON BLOOD THINNER AFTER ID LAST MONTH. PT ADMITTED FOR TREATMENT AND EVALUATION OF ACUTE ILNESS Past Medical History Past Medical History: COPD and Hypertension Past Surgical History Surgical History: and Hysterectomy Family History Family Medical History: Diabetes Mellitus, Cancer and ID Medications Home Medications: Home Medications Medication Instructions Recorded Confirmed Type ropinirole 1 mg tablet 1 mg PO BID 01/01/20 04/14/24 History famotidine 40 mg tablet 40 mg PO DAILY 01/17/21 04/14/24 History omeprazole 40 mg capsule,delayed 40 mg PO BID 01/17/21 04/14/24 History release gabapentin 300 mg capsule 300 mg PO TID 09/04/21 04/14/24 History paroxetine HCl 30 mg tablet 30 mg PO QDAY 02/21/23 04/14/24 History losartan 25 mg tablet 25 mg PO QDAY 01/21/24 04/14/24 History montelukast 10 mg tablet 10 mg PO QDAY 01/21/24 04/14/24 History tizanidine 4 mg tablet 4 mg PO Q8H PRN 01/21/24 04/14/24 History apixaban 5 mg tablet (Eliquis) 5 mg PO BID 04/14/24 04/14/24 History aspirin 81 mg tablet,delayed 81 mg PO QDAY 04/14/24 04/14/24 History release Allergies Allergies Allergy/AdvReac Type Severity Reaction Status Date / Time No Known Drug Allergies Allergy Verified 04/14/24 13:38 Review of Systems Constitutional: Weakness Eyes: No Symptoms Reported ENT: No Symptoms Reported Respiratory: Cough, Shortness of Breath, Hemoptysis, SOB with Excertion and Pleuritic Pain Cardiovascular: Chest Pain, Palpitations and Orthopnea Gastrointestinal: Nausea, Vomiting and Abdominal Pain Genitourinary: No Symptoms Reported Musculoskeletal: Back Pain Skin: No Symptoms Reported Neurological: Weakness Oriented: Normal Eyes: Normal Ear: Normal Nose: Injected and Discharge Throat: Tonsillar Hypertrophy and Exudate Respiratory: Wheezes Throughout Cardiovascular: Normal Auscultation: Bowel Sounds: Normal Palpation: Normal Tenderness: Normal Skin: Decreased Turgur Musculoskeletal: Left, Shoulder, Back:Thoracic and Back:Lumbar Psychiatric: Anxiety Mood Description: Calm Affect: Anxious Speech Pattern: Clear and Appropriate Assessment/Plan (1) COPD exacerbation: Status: Acute Plan: ADMIT, PNEUMONIA PROTOCOL SUPPLEMENTAL O2, SPUTUM CULTURE IV HYDRATION BP CONTROL, CE (2) Respiratory failure with hypoxia: Qualifiers: Chronicity: acute on chronic Qualified Code(s): J96.21 - Acute and chronic respiratory failure with hypoxia Status: Acute (3) HAMMAD (generalized anxiety disorder): Status: Chronic (4) Hypertension: Qualifiers: Hypertension type: primary hypertension Status: Chronic (5) Lumbar degenerative disc disease: Status: Chronic
[2024-04-16 18:01] LABS: BASOPHILS % (AUTO) 0.5 % (0.2-1.0); EOSINOPHILS # (AUTO) 0.1 x10^3/uL (0.0-0.2); EOSINOPHILS % (AUTO) 0.9 % (0.9-2.9); HEMATOCRIT 31.1 % (36.0-47.0); LYMPHOCYTES # (AUTO) 2.9 X10^3/uL (1.3-2.9); LYMPHOCYTES % (AUTO) 30.4 % (21.0-51.0); MEAN CORPUSCULAR HEMOGLOBIN 26.2 pg (27.0-34.0); MEAN CORPUSCULAR HGB CONC 32.1 g/dL (33.0-35.0); MEAN CORPUSCULAR VOLUME 81.5 fL (80.0-100.0); MONOCYTES # (AUTO) 0.7 x10^3/uL (0.3-0.8); MONOCYTES % (AUTO) 7.9 % (0.0-13.0); NEUTROPHILS # (AUTO) 5.7 x10^3/uL (2.2-4.8); NEUTROPHILS % (AUTO) 60.3 % (42.0-75.0); PLATELET COUNT 493 X10^3/uL (150.0-450.0); RED BLOOD COUNT 3.81 X10^6/uL (3.5-5.4); RED CELL DISTRIBUTION WIDTH 17.1 % (11.6-16.5); WHITE BLOOD COUNT 9.5 X10^3/uL (3.6-10.0)
[2024-04-16 18:21] LABS: ALANINE AMINOTRANSFERASE 16 Units/L (12-78); ALBUMIN 2.6 g/dL (3.4-5.0); ALKALINE PHOSPHATASE 203 Units/L (46-116); ASPARTATE AMINO TRANSFERASE 23 Units/L (15-37); BLOOD UREA NITROGEN 16 mg/dL (7-18); CALCIUM 8.7 mg/dL (8.5-10.1); CARBON DIOXIDE 25.1 mmol/L (21-32); CHLORIDE 103 mmol/L (98-107); COR CA(FOR HYPOALB) 9.8 mg/dL (8.5-10.1); CREATININE 0.79 mg/dL (0.55-1.02); GLUCOSE 98 mg/dL (65-99); POTASSIUM 3.7 mmol/L (3.5-5.1); SODIUM 136 mmol/L (136-145); TOTAL PROTEIN 8.6 g/dL (6.4-8.2); eGFR NON BLACK RACES > 60 (>60)
[2024-04-16] MEDS: NS 1,000 ML IV 1,000 ML IV SCH (18:21)
[2024-04-16] MEDS: ROBITUSSIN DM PO SCH (18:21)
[2024-04-16] MEDS: ZITHROMAX INJ 500 MG VIAL 500 MG in D5W 250 ML IV 250 ML IV SCH (18:22)
[2024-04-16] MEDS: SOLU-Medrol 40 MG VIAL IVP SCH (18:27)
[2024-04-16] MEDS: NYSTATIN SUSP MT SCH (18:27)
[2024-04-16] MEDS: DUONEB 0.5 MG/3 MG (3 mL) NEB SCH (20:32)
[2024-04-16] MEDS: PULMICORT NEB TX 0.5 MG NEB SCH (20:33)
--- NOTE | 2024-04-16 20:43 | EKG ---
Test Reason : sob, chest pain Blood Pressure : */* mmHG Vent. Rate : 81 BPM Atrial Rate : 81 BPM P-R Int : 132 ms QRS Dur : 80 ms QT Int : 374 ms P-R-T Axes : 56 -14 30 degrees QTc Int : 434 ms Normal sinus rhythm Possible Left atrial enlargement Nonspecific ST abnormality Abnormal ECG When compared with ECG of 21-FEB-2024 12:13, No significant change was found Confirmed by Manuel Ortiz MD ([id number]) on 04/17/2024 6:37:09 AM Referred By: Confirmed By: Manuel Ortiz MD
[2024-04-16] MEDS: REQUIP PO SCH (21:03)
[2024-04-16] MEDS: NEURONTIN CAP 300 MG PO SCH (22:52)
[2024-04-17 00:03] VITALS: BMI 26.9
[2024-04-17] MEDS: NORCO 5/325 MG TAB PO PRN (01:19)
--- NOTE | 2024-04-17 02:56 | EKG ---
Test Reason : sob, chest pain Blood Pressure : */* mmHG Vent. Rate : 73 BPM Atrial Rate : 73 BPM P-R Int : 140 ms QRS Dur : 82 ms QT Int : 414 ms P-R-T Axes : 48 -16 24 degrees QTc Int : 456 ms Normal sinus rhythm Possible Left atrial enlargement Borderline ECG When compared with ECG of 16-APR-2024 20:20, (Unconfirmed) No significant change was found Confirmed by Manuel Ortiz MD ([id number]) on 04/17/2024 6:39:57 AM Referred By: Confirmed By: Manuel Ortiz MD
[2024-04-17 04:18] LABS: HEMOGLOBIN 9.7 g/dL (12.0-16.0); MEAN CORPUSCULAR HGB CONC 31.7 g/dL (33.0-35.0); MONOCYTES # (AUTO) 0.1 x10^3/uL (0.3-0.8)
[2024-04-17 04:21] LABS: BASOPHILS % (AUTO) 0.3 % (0.2-1.0); HEMATOCRIT 30.6 % (36.0-47.0); MEAN CORPUSCULAR HEMOGLOBIN 25.9 pg (27.0-34.0); MEAN CORPUSCULAR VOLUME 81.5 fL (80.0-100.0); MONOCYTES % (AUTO) 1.5 % (0.0-13.0); NEUTROPHILS # (AUTO) 4.5 x10^3/uL (2.2-4.8); NEUTROPHILS % (AUTO) 80.2 % (42.0-75.0); PLATELET COUNT 478 X10^3/uL (150.0-450.0); RED BLOOD COUNT 3.75 X10^6/uL (3.5-5.4); RED CELL DISTRIBUTION WIDTH 16.9 % (11.6-16.5); WHITE BLOOD COUNT 5.6 X10^3/uL (3.6-10.0)
[2024-04-17 04:27] LABS: ALANINE AMINOTRANSFERASE 16 Units/L (12-78); ALBUMIN 2.6 g/dL (3.4-5.0); ALKALINE PHOSPHATASE 195 Units/L (46-116); ASPARTATE AMINO TRANSFERASE 22 Units/L (15-37); BLOOD UREA NITROGEN 13 mg/dL (7-18); CALCIUM 8.6 mg/dL (8.5-10.1); CARBON DIOXIDE 25.6 mmol/L (21-32); CHLORIDE 104 mmol/L (98-107); CHOL/HDL RATIO 2.9 (0.0-5.0); CHOLESTEROL 140 mg/dL (0-200); COR CA(FOR HYPOALB) 9.7 mg/dL (8.5-10.1); COR NA(FOR HYPERGLY) 139 mmol/L (136-145); CREATININE 0.62 mg/dL (0.55-1.02); GLUCOSE 134 mg/dL (65-99); HDL CHOLESTEROL 48 mg/dL (40-60); POTASSIUM 4.5 mmol/L (3.5-5.1); SODIUM 138 mmol/L (136-145); TOTAL PROTEIN 7.9 g/dL (6.4-8.2); TRIGLYCERIDES 77 mg/dL (0-150); eGFR NON BLACK RACES > 60 (>60)
[2024-04-17] MEDS: TUSSIONEX PENNKINETIC SUSP PO PRN (05:13)
--- NOTE | 2024-04-17 08:32 | RAD ---
EXAM:Two-view chestHISTORY:Shortness of breath, pneumoniaCOMPARISON:02/21/2024FINDINGS:H eart size is normal. Kristi are normal. Lungs are well inflated. Redemonstrated is diffuse severe bilateral chronic interstitial lung disease not significantly changed in degree or distribution from the prior examination. There are no alveolar infiltrates or areas of consolidation identified. However, with this degree of chronic interstitial lung disease present exclusion of superimposed acute pneumonitis or atypical pneumonia would be difficult.. Clinical and laboratory correlation recommended. Detection of small nodules is also compromised by the degree of chronic interstitial lung change present. Bony thorax is unremarkable.IMPRESSION:Diffuse severe bilateral chronic interstitial lung disease not significantly changed in degree or distribution from the prior examination. With this degree of chronic change present superimposed acute pneumonitis or atypical pneumonia would be difficult to exclude radiographically. Clinical and laboratory correlation recommended.No acute alveolar infiltrates or areas of consolidation identified.THIS IS AN ELECTRONICALLY VERIFIED FINAL REPORT04/17/2024 8:29 AM - Electronically signed by Otoniel Douglas MD
[2024-04-17 08:46] LABS: ABG ALLEN TEST POS; ABG BASE EXCESS -2.3 mmol/L (-2.0-2.0); ABG HCO3 22.5 mmol/L (22-26)
[2024-04-17] MEDS: ELIQUIS PO SCH (08:47)
[2024-04-17] MEDS: PAXIL PO SCH (08:48)
[2024-04-17] MEDS: K-DUR TAB 20 MEQ PO SCH (08:50)
[2024-04-17] MEDS: NORVASC TAB 10 MG PO SCH (08:50)
[2024-04-17 10:50] LABS: BILIRUBIN,URINE NEGATIVE (NEGATIVE); BLOOD/HEMOGLOBIN,URINE NEGATIVE (NEGATIVE); GLUCOSE, URINE NEGATIVE (NEGATIVE); KETONES,URINE NEGATIVE (NEGATIVE); LEUKOCYTE ESTERASE ,URINE NEGATIVE (NEGATIVE); NITRITES,URINE NEGATIVE (NEGATIVE); PH,URINE 6.5 (5.0 - 8.0); PROTEIN,URINE 1+ (NEGATIVE); UROBILINOGEN,URINE NORMAL (NORMAL)
[2024-04-17 10:55] LABS: APPEARANCE,URINE CLEAR (CLEAR); COLOR,URINE YELLOW (YELLOW)
[2024-04-17 11:02] LABS: BACTERIA,URINE 1+ /HPF (NEGATIVE); RBC,URINE 0-2 /HPF (0-3); SQUAMOUS EPITHELIAL CELL,UR MANY /HPF (NEGATIVE)
[2024-04-17] MEDS: LASIX IVP ONE (11:14)
[2024-04-17] MEDS: SOLU-Medrol 40 MG VIAL IVP SCH (13:15)
--- NOTE | 2024-04-17 15:09 | CT ---
EXAM: CT CHEST WITH IV CONTRAST HISTORY: SOB, CHF; HTN, COPD HYSTER COMPARISON: Chest x-ray dated 04/16/2024; CT dated 03/24/2023. TECHNIQUE: Axial CT images were obtained through the chest after administration of IV contrast. Coronal and sag ittal reformatted images were included. All CT scans at this facility use dose modulation, iterative reconstruction, and/or weight based dosi ng when appropriate to reduce radiation dose to as low as reasonably achievable. FINDINGS: Moderate aortic and coronary artery calcifications. Chronic dilated main pulmonary artery measures 3 .6 cm in diameter without filling defect, suggestive of pulmonary hypertension. Cardiomegaly. No pe ricardial effusion. Nonspecific mildly prominent mediastinal lymph nodes. Severe emphysema. Trachea is midline and central airways are patent. No focal consolidation. No pl eural effusion or pneumothorax. Osteopenia. No acute osseous findings. No acute findings in the visualized upper abdomen. IMPRESSION: 1. No acute findings. Severe emphysema without focal consolidation. 2. Chronic dilated main pulmonary artery, compatible with pulmonary hypertension. THIS IS AN ELECTRONICALLY VERIFIED FINAL REPORT 04/17/2024 3:06 PM - Electronically signed by Dakota Horan MD
[2024-04-17] MEDS: OMNIPAQUE 350 mg/mL 100 mL BTL 100 ML ONE (16:39)
--- NOTE | 2024-04-17 16:53 | CT ---
EXAM: CT CERVICAL SPINE WITHOUT CONTRAST HISTORY: NECK PAIN; HTN, COPD HYSTER COMPARISON: None available. TECHNIQUE: Axial CT images were obtained through the cervical spine without contrast. All CT scans at this facility use dose modulation, iterative reconstruction, and/or weight based dosi ng when appropriate to reduce radiation dose to as low as reasonably achievable. FINDINGS: No acute cervical spine fracture or subluxation. Straightening of cervical lordosis. Osteopenia. N o CT evidence of spinal canal stenosis or foraminal narrowing. Prevertebral soft tissues are within normal limits. Vascular structures containing contrast from CT chest performed on same date. No acute findings in t he soft tissues of the neck. IMPRESSION: No acute cervical spine fracture or subluxation. THIS IS AN ELECTRONICALLY VERIFIED FINAL REPORT 04/17/2024 4:50 PM - Electronically signed by Dakota Horan MD
[2024-04-18 06:30] LABS: BASOPHILS # (AUTO) 0.1 X10^3/uL (0.0-0.1); BASOPHILS % (AUTO) 0.3 % (0.2-1.0); HEMATOCRIT 31.8 % (36.0-47.0); HEMOGLOBIN 9.9 g/dL (12.0-16.0); LYMPHOCYTES # (AUTO) 1.8 X10^3/uL (1.3-2.9); LYMPHOCYTES % (AUTO) 9.3 % (21.0-51.0); MEAN CORPUSCULAR HEMOGLOBIN 25.8 pg (27.0-34.0); MEAN CORPUSCULAR HGB CONC 31.2 g/dL (33.0-35.0); MEAN CORPUSCULAR VOLUME 82.5 fL (80.0-100.0); MEAN PLATELET VOLUME 7.9 fL (7.4-11.0); MONOCYTES # (AUTO) 0.6 x10^3/uL (0.3-0.8); NEUTROPHILS # (AUTO) 17.2 x10^3/uL (2.2-4.8); NEUTROPHILS % (AUTO) 87.4 % (42.0-75.0); PLATELET COUNT 592 X10^3/uL (150.0-450.0); RED BLOOD COUNT 3.85 X10^6/uL (3.5-5.4); WHITE BLOOD COUNT 19.6 X10^3/uL (3.6-10.0)
[2024-04-18 06:51] LABS: ALANINE AMINOTRANSFERASE 16 Units/L (12-78); ALBUMIN 2.6 g/dL (3.4-5.0); ALKALINE PHOSPHATASE 193 Units/L (46-116); ASPARTATE AMINO TRANSFERASE 23 Units/L (15-37); BLOOD UREA NITROGEN 16 mg/dL (7-18); CALCIUM 8.6 mg/dL (8.5-10.1); CARBON DIOXIDE 25.7 mmol/L (21-32); CHLORIDE 105 mmol/L (98-107); COR CA(FOR HYPOALB) 9.7 mg/dL (8.5-10.1); COR NA(FOR HYPERGLY) 140 mmol/L (136-145); CREATININE 0.73 mg/dL (0.55-1.02); GLUCOSE 123 mg/dL (65-99); POTASSIUM 4.1 mmol/L (3.5-5.1); SODIUM 139 mmol/L (136-145); TOTAL PROTEIN 8.4 g/dL (6.4-8.2); eGFR NON BLACK RACES > 60 (>60)
[2024-04-18] MEDS: LASIX IVP ONE (09:45)
[2024-04-18] MEDS: NICOTINE PATCH TD SCH (09:45)
--- NOTE | 2024-04-18 12:45 | PCM.PROG ---
Progress Note Progress Note for Day of Date of Exam: 04/18/24 Subjective Subjective: The patient is a 58-year-old white female admitted with pneumonia and hemoptysis. She was started on Zithromax on admission. We ordered a CT of her chest with contrast this morning. The patient reports in February she had a myocardial infarction and was flown to [place]. At that time, she was diagnosed with atrial fibrillation and has been on Eliquis since then. The patient also states that she was told that she had a lung mass and was diagnosed with coronary artery disease. Her cardiac enzymes on admission were stable. Her BNP was elevated. We ordered IV Lasix 20 mg with potassium replacement this morning. Pt had CT of chest negative for lung mass. Pt continues with thick mu cous production with small blood clots. Pt has terrible coughing spells, currently on robitussin and tussionex Past Medical Family Social History Allergies: Allergies No Known Drug Allergies Allergy (Verified 04/14/24 13:38) Vital Signs and I&O's Vital Signs: Vital Signs Temperature 97.9 F Pulse Rate [Brachial] 81 Pulse Rate 83 Respiratory Rate 18 Respiratory Rate 20 Respiratory Rate 18 Blood Pressure [Left Arm] 143/73 O2 Sat by Pulse Oximetry 97 O2 Sat by Pulse Oximetry 97 Intake and Output: Intake & Output 04/16/24 04/17/24 04/18/24 04/19/24 11:59 11:59 11:59 11:59 Intake Total 1185 / 1185 1995 Balance 1185 / 1185 1995 Physical Exam Oriented: Normal Eyes: Normal Ear: Normal Nose: Injected and Discharge Throat: Tonsillar Hypertrophy and Exudate Respiratory: Wheezes and Rhonchi Cardiovascular: Normal Auscultation: Bowel Sounds: Normal Tenderness: Normal Skin: Decreased Turgur Musculoskeletal: Left, Shoulder, Back:Thoracic and Back:Lumbar Psychiatric: Anxiety Mood Description: Calm Affect: Anxious Speech Pattern: Clear and Appropriate Laboratory and Diagnostics 04/18/24 06:14 04/18/24 06:14 Labs: 04/16/24 22:53 Sputum - Expectorated Sputum Sputum Culture - Final Enterobacter Aerogenes 04/16/24 22:53 Sputum - Expectorated Sputum - Final Laboratory WBC 19.6 X10^3/uL (3.6-10.0) H D 04/18/24 06:14 RBC 3.85 X10^6/uL (3.5-5.4) 04/18/24 06:14 Hgb 9.9 g/dL (12.0-16.0) L 04/18/24 06:14 Hct 31.8 % (36.0-47.0) L 04/18/24 06:14 MCV 82.5 fL (80.0-100.0) 04/18/24 06:14 MCH 25.8 pg (27.0-34.0) L 04/18/24 06:14 MCHC 31.2 g/dL (33.0-35.0) L 04/18/24 06:14 RDW 17.0 % (11.6-16.5) H 04/18/24 06:14 Plt Count 592 X10^3/uL (150.0-450.0) H 04/18/24 06:14 MPV 7.9 fL (7.4-11.0) 04/18/24 06:14 Neut % (Auto) 87.4 % (42.0-75.0) H 04/18/24 06:14 Lymph % (Auto) 9.3 % (21.0-51.0) L 04/18/24 06:14 [place] % (Auto) 3.0 % (0.0-13.0) 04/18/24 06:14 Eos % (Auto) 0.0 % (0.9-2.9) L 04/18/24 06:14 Baso % (Auto) 0.3 % (0.2-1.0) 04/18/24 06:14 Neut # (Auto) 17.2 x10^3/uL (2.2-4.8) H 04/18/24 06:14 Lymph # (Auto) 1.8 X10^3/uL (1.3-2.9) 04/18/24 06:14 [place] # (Auto) 0.6 x10^3/uL (0.3-0.8) 04/18/24 06:14 Eos # (Auto) 0.0 x10^3/uL (0.0-0.2) 04/18/24 06:14 Baso # (Auto) 0.1 X10^3/uL (0.0-0.1) 04/18/24 06:14 Absolute Nucleated RBC 0.0 /100WBC 04/18/24 06:14 Sample Site Rra 04/17/24 08:42 ABG pH 7.380 (7.35-7.45) 04/17/24 08:42 ABG pCO2 38.0 mmHg (35.0-45.0) 04/17/24 08:42 ABG pO2 60.0 mmHg (80.0-100.0) L 04/17/24 08:42 ABG HCO3 22.5 mmol/L (22-26) 04/17/24 08:42 ABG O2 Saturation 90.0 % (90-100) 04/17/24 08:42 ABG Base Excess -2.3 mmol/L (-2.0-2.0) L 04/17/24 08:42 Lopez Test Pos 04/17/24 08:42 A-a Gradient 42.0 mmHg 04/17/24 08:42 FiO2 21.0 04/17/24 08:42 Blood Gas Comments Pt pillo well eb 04/17/24 08:42 Sodium 139 mmol/L (136-145) 04/18/24 06:14 Corrected Sodium 140 mmol/L (136-145) 04/18/24 06:14 Potassium 4.1 mmol/L (3.5-5.1) 04/18/24 06:14 Chloride 105 mmol/L (98-107) 04/18/24 06:14 Carbon Dioxide 25.7 mmol/L (21-32) 04/18/24 06:14 BUN 16 mg/dL (7-18) 04/18/24 06:14 Creatinine 0.73 mg/dL (0.55-1.02) 04/18/24 06:14 Est GFR (MDRD) Af Amer > 60 (>60) 04/18/24 06:14 Est GFR (MDRD) Non-Af > 60 (>60) 04/18/24 06:14 Glucose 123 mg/dL (65-99) H 04/18/24 06:14 Calcium 8.6 mg/dL (8.5-10.1) 04/18/24 06:14 Corrected Calcium 9.7 mg/dL (8.5-10.1) 04/18/24 06:14 Total Bilirubin 0.10 mg/dL (0.2-1.0) L 04/18/24 06:14 AST 23 Units/L (15-37) 04/18/24 06:14 ALT 16 Units/L (12-78) 04/18/24 06:14 Alkaline Phosphatase 193 Units/L (46-116) H 04/18/24 06:14 Creatine Kinase 25 Units/L (26-192) L 04/17/24 04:00 Troponin I High Sens 8.5 ng/L (4.0-60.0) 04/17/24 04:00 B-Natriuretic Peptide 840 pg/mL (0-79) H 04/18/24 06:14 Total Protein 8.4 g/dL (6.4-8.2) H 04/18/24 06:14 Albumin 2.6 g/dL (3.4-5.0) L 04/18/24 06:14 Globulin 5.8 g/dL (2.5-4.5) H 04/18/24 06:14 Albumin/Globulin Ratio 0.4 Ratio (1.1-2.1) L 04/18/24 06:14 Triglycerides 77 mg/dL (0-150) 04/17/24 04:00 Cholesterol 140 mg/dL (0-200) 04/17/24 04:00 LDL Cholesterol, Calc 77 mg/dL (0-100) 04/17/24 04:00 HDL Cholesterol 48 mg/dL (40-60) 04/17/24 04:00 Cholesterol/HDL Ratio 2.9 (0.0-5.0) 04/17/24 04:00 Specimen Type Clean catch urine 04/17/24 10:20 Urine Color Yellow (YELLOW) 04/17/24 10:20 Urine Appearance Clear (CLEAR) 04/17/24 10:20 Urine pH 6.5 (5.0 - 8.0) 04/17/24 10:20 Ur Specific [place] 1.020 (1.000-1.030) 04/17/24 10:20 Urine Protein 1+ (NEGATIVE) 04/17/24 10:20 Urine Glucose (UA) Negative (NEGATIVE) 04/17/24 10:20 Urine Ketones Negative (NEGATIVE) 04/17/24 10:20 Urine Blood Negative (NEGATIVE) 04/17/24 10:20 Urine Nitrite Negative (NEGATIVE) 04/17/24 10:20 Urine Bilirubin Negative (NEGATIVE) 04/17/24 10:20 Urine Urobilinogen Normal (NORMAL) 04/17/24 10:20 Ur Leukocyte Esterase Negative (NEGATIVE) 04/17/24 10:20 Urine RBC 0-2 /HPF (0-3) 04/17/24 10:20 Urine WBC 0-2 /HPF (0-5) 04/17/24 10:20 Ur Squamous Epith Cells Many /HPF (NEGATIVE) 04/17/24 10:20 Urine Bacteria 1+ /HPF (NEGATIVE) 04/17/24 10:20 Urine Mucus Few /HPF (NEGATIVE) 04/17/24 10:20 Ur Culture Indicated? No/not indicated 04/17/24 10:20 Plan (1) COPD exacerbation: Status: Acute Plan: PNEUMONIA PROTOCOL SUPPLEMENTAL O2, SPUTUM CULTURE IV HYDRATION BP CONTROL, CE (2) Respiratory failure with hypoxia: Status: Acute Qualifiers: Chronicity: acute on chronic Qualified Code(s): J96.21 - Acute and chronic respiratory failure with hypoxia (3) HAMMAD (generalized anxiety disorder): Status: Chronic (4) Hypertension: Status: Chronic Qualifiers: Hypertension type: primary hypertension (5) Lumbar degenerative disc disease: Status: Chronic (6) Atrial fibrillation: Status: Acute (7) CAD (coronary artery disease): Status: Acute (8) CHF exacerbation: Status: Acute Qualifiers: Heart failure type: unspecified Qualified Code(s): I50.9 - Heart failure, unspecified
[2024-04-18] MEDS: LEVAQUIN PREMIX IV 500 MG 500 MG/100 ML BAG IV SCH (13:20)
[2024-04-19 06:44] LABS: BASOPHILS # (AUTO) 0.1 X10^3/uL (0.0-0.1); BASOPHILS % (AUTO) 0.6 % (0.2-1.0); HEMATOCRIT 31.8 % (36.0-47.0); HEMOGLOBIN 9.9 g/dL (12.0-16.0); LYMPHOCYTES # (AUTO) 1.5 X10^3/uL (1.3-2.9); LYMPHOCYTES % (AUTO) 9.4 % (21.0-51.0); MEAN CORPUSCULAR HEMOGLOBIN 25.7 pg (27.0-34.0); MEAN CORPUSCULAR VOLUME 82.8 fL (80.0-100.0); MEAN PLATELET VOLUME 8.3 fL (7.4-11.0); MONOCYTES # (AUTO) 0.5 x10^3/uL (0.3-0.8); MONOCYTES % (AUTO) 3.2 % (0.0-13.0); NEUTROPHILS # (AUTO) 13.6 x10^3/uL (2.2-4.8); NEUTROPHILS % (AUTO) 86.8 % (42.0-75.0); PLATELET COUNT 485 X10^3/uL (150.0-450.0); RED BLOOD COUNT 3.84 X10^6/uL (3.5-5.4); RED CELL DISTRIBUTION WIDTH 17.5 % (11.6-16.5); WHITE BLOOD COUNT 15.7 X10^3/uL (3.6-10.0)
[2024-04-19 07:04] LABS: ALANINE AMINOTRANSFERASE 21 Units/L (12-78); ALBUMIN 2.6 g/dL (3.4-5.0); ALKALINE PHOSPHATASE 174 Units/L (46-116); ASPARTATE AMINO TRANSFERASE 22 Units/L (15-37); BLOOD UREA NITROGEN 19 mg/dL (7-18); CALCIUM 8.6 mg/dL (8.5-10.1); CARBON DIOXIDE 28.7 mmol/L (21-32); CHLORIDE 104 mmol/L (98-107); COR CA(FOR HYPOALB) 9.7 mg/dL (8.5-10.1); COR NA(FOR HYPERGLY) 140 mmol/L (136-145); CREATININE 0.66 mg/dL (0.55-1.02); GLUCOSE 129 mg/dL (65-99); POTASSIUM 4.1 mmol/L (3.5-5.1); SODIUM 139 mmol/L (136-145); TOTAL PROTEIN 7.9 g/dL (6.4-8.2); eGFR NON BLACK RACES > 60 (>60)
--- NOTE | 2024-04-19 12:56 | PCM.PROG ---
Progress Note Progress Note for Day of Date of Exam: 04/19/24 Subjective Subjective: Patient seen at bedside, no acute events overnight. She is currently admitted for pneumonia and acute respiratory failure. She does have a history of severe emphysema and uses 3 L oxygen at home. She remains on IV antibiotics and steroids. She had CT-upper ext done yesterday which is still pending. CT chest did show severe emphysema. Labs/imaging reviewed: -WBC 15.7 hemoglobin 9.9 potassium 4.1 creatinine 0.66 BNP 645 -AIT negative -CT cervical and chest reviewed -Sputum culture: Enterobacter Plan: Wean O2 as tolerated, continue nebs, Pulmicort and IS. Continue cough me dicine. Continue Solu-Medrol and Levaquin. Continue home medications. Replace electrolytes as per protocol. Follow CT results. Follow final cultures. Monitor a.m. labs and imaging. Past Medical Family Social History Allergies: Allergies No Known Drug Allergies Allergy (Verified 04/14/24 13:38) Vital Signs and I&O's Vital Signs: Vital Signs Pulse Rate 69 Respiratory Rate 18 O2 Sat by Pulse Oximetry 99 Intake and Output: Intake & Output 04/16/24 04/17/24 04/18/24 04/19/24 23:59 23:59 23:59 23:59 Intake Total 120 / 120 1608 / 1608 3265 / 3265 552 / 552 Balance 120 / 120 1608 / 1608 3265 / 3265 552 / 552 Physical Exam Oriented: Normal Eyes: Normal Ear: Normal Throat: Tonsillar Hypertrophy and Exudate Respiratory: Generalized and Diminished Cardiovascular: Normal Auscultation: Bowel Sounds: Normal Tenderness: Normal Skin: Decreased Turgur Musculoskeletal: Left, Shoulder, Back:Thoracic and Back:Lumbar Psychiatric: Normal Mood Description: Calm Affect: Normal Speech Pattern: Clear and Appropriate Laboratory and Diagnostics 04/19/24 05:20 04/19/24 05:20 Labs: 04/16/24 18:05 Blood Blood Culture - Preliminary 04/16/24 17:43 Blood Blood Culture - Preliminary 04/16/24 22:53 Sputum - Expectorated Sputum Sputum Culture - Final Enterobacter Aerogenes 04/16/24 22:53 Sputum - Expectorated Sputum - Final Laboratory WBC 15.7 X10^3/uL (3.6-10.0) H 04/19/24 05:20 RBC 3.84 X10^6/uL (3.5-5.4) 04/19/24 05:20 Hgb 9.9 g/dL (12.0-16.0) L 04/19/24 05:20 Hct 31.8 % (36.0-47.0) L 04/19/24 05:20 MCV 82.8 fL (80.0-100.0) 04/19/24 05:20 MCH 25.7 pg (27.0-34.0) L 04/19/24 05:20 MCHC 31.0 g/dL (33.0-35.0) L 04/19/24 05:20 RDW 17.5 % (11.6-16.5) H 04/19/24 05:20 Plt Count 485 X10^3/uL (150.0-450.0) H 04/19/24 05:20 MPV 8.3 fL (7.4-11.0) 04/19/24 05:20 Neut % (Auto) 86.8 % (42.0-75.0) H 04/19/24 05:20 Lymph % (Auto) 9.4 % (21.0-51.0) L 04/19/24 05:20 [place] % (Auto) 3.2 % (0.0-13.0) 04/19/24 05:20 Eos % (Auto) 0.0 % (0.9-2.9) L 04/19/24 05:20 Baso % (Auto) 0.6 % (0.2-1.0) 04/19/24 05:20 Neut # (Auto) 13.6 x10^3/uL (2.2-4.8) H 04/19/24 05:20 Lymph # (Auto) 1.5 X10^3/uL (1.3-2.9) 04/19/24 05:20 [place] # (Auto) 0.5 x10^3/uL (0.3-0.8) 04/19/24 05:20 Eos # (Auto) 0.0 x10^3/uL (0.0-0.2) 04/19/24 05:20 Baso # (Auto) 0.1 X10^3/uL (0.0-0.1) 04/19/24 05:20 Absolute Nucleated RBC 0.0 /100WBC 04/19/24 05:20 Sample Site Rra 04/17/24 08:42 ABG pH 7.380 (7.35-7.45) 04/17/24 08:42 ABG pCO2 38.0 mmHg (35.0-45.0) 04/17/24 08:42 ABG pO2 60.0 mmHg (80.0-100.0) L 04/17/24 08:42 ABG HCO3 22.5 mmol/L (22-26) 04/17/24 08:42 ABG O2 Saturation 90.0 % (90-100) 04/17/24 08:42 ABG Base Excess -2.3 mmol/L (-2.0-2.0) L 04/17/24 08:42 Lopez Test Pos 04/17/24 08:42 A-a Gradient 42.0 mmHg 04/17/24 08:42 FiO2 21.0 04/17/24 08:42 Blood Gas Comments Pt pillo well eb 04/17/24 08:42 Sodium 139 mmol/L (136-145) 04/19/24 05:20 Corrected Sodium 140 mmol/L (136-145) 04/19/24 05:20 Potassium 4.1 mmol/L (3.5-5.1) 04/19/24 05:20 Chloride 104 mmol/L (98-107) 04/19/24 05:20 Carbon Dioxide 28.7 mmol/L (21-32) 04/19/24 05:20 BUN 19 mg/dL (7-18) H 04/19/24 05:20 Creatinine 0.66 mg/dL (0.55-1.02) 04/19/24 05:20 Est GFR (MDRD) Af Amer > 60 (>60) 04/19/24 05:20 Est GFR (MDRD) Non-Af > 60 (>60) 04/19/24 05:20 Glucose 129 mg/dL (65-99) H 04/19/24 05:20 Calcium 8.6 mg/dL (8.5-10.1) 04/19/24 05:20 Corrected Calcium 9.7 mg/dL (8.5-10.1) 04/19/24 05:20 Total Bilirubin 0.20 mg/dL (0.2-1.0) 04/19/24 05:20 AST 22 Units/L (15-37) 04/19/24 05:20 ALT 21 Units/L (12-78) 04/19/24 05:20 Alkaline Phosphatase 174 Units/L (46-116) H 04/19/24 05:20 Creatine Kinase 25 Units/L (26-192) L 04/17/24 04:00 Troponin I High Sens 8.5 ng/L (4.0-60.0) 04/17/24 04:00 B-Natriuretic Peptide 645 pg/mL (0-79) H 04/19/24 05:20 Total Protein 7.9 g/dL (6.4-8.2) 04/19/24 05:20 Albumin 2.6 g/dL (3.4-5.0) L 04/19/24 05:20 Globulin 5.3 g/dL (2.5-4.5) H 04/19/24 05:20 Albumin/Globulin Ratio 0.5 Ratio (1.1-2.1) L 04/19/24 05:20 Triglycerides 77 mg/dL (0-150) 04/17/24 04:00 Cholesterol 140 mg/dL (0-200) 04/17/24 04:00 LDL Cholesterol, Calc 77 mg/dL (0-100) 04/17/24 04:00 HDL Cholesterol 48 mg/dL (40-60) 04/17/24 04:00 Cholesterol/HDL Ratio 2.9 (0.0-5.0) 04/17/24 04:00 Specimen Type Clean catch urine 04/17/24 10:20 Urine Color Yellow (YELLOW) 04/17/24 10:20 Urine Appearance Clear (CLEAR) 04/17/24 10:20 Urine pH 6.5 (5.0 - 8.0) 04/17/24 10:20 Ur Specific [place] 1.020 (1.000-1.030) 04/17/24 10:20 Urine Protein 1+ (NEGATIVE) 04/17/24 10:20 Urine Glucose (UA) Negative (NEGATIVE) 04/17/24 10:20 Urine Ketones Negative (NEGATIVE) 04/17/24 10:20 Urine Blood Negative (NEGATIVE) 04/17/24 10:20 Urine Nitrite Negative (NEGATIVE) 04/17/24 10:20 Urine Bilirubin Negative (NEGATIVE) 04/17/24 10:20 Urine Urobilinogen Normal (NORMAL) 04/17/24 10:20 Ur Leukocyte Esterase Negative (NEGATIVE) 04/17/24 10:20 Urine RBC 0-2 /HPF (0-3) 04/17/24 10:20 Urine WBC 0-2 /HPF (0-5) 04/17/24 10:20 Ur Squamous Epith Cells Many /HPF (NEGATIVE) 04/17/24 10:20 Urine Bacteria 1+ /HPF (NEGATIVE) 04/17/24 10:20 Urine Mucus Few /HPF (NEGATIVE) 04/17/24 10:20 Ur Culture Indicated? No/not indicated 04/17/24 10:20 Plan (1) Pneumonia: Status: Acute (2) COPD exacerbation: Status: Acute Plan: (3) CHF exacerbation: Status: Acute Qualifiers: Heart failure type: unspecified Qualified Code(s): I50.9 - Heart failure, unspecified (4) Respiratory failure with hypoxia: Status: Acute Qualifiers: Chronicity: acute on chronic Qualified Code(s): J96.21 - Acute and chronic respiratory failure with hypoxia (5) HAMMAD (generalized anxiety disorder): Status: Chronic (6) Hypertension: Status: Chronic Qualifiers: Hypertension type: primary hypertension Qualified Code(s): I10 - Essential (primary) hypertension (7) Lumbar degenerative disc disease: Status: Chronic (8) Atrial fibrillation: Status: Chronic (9) CAD (coronary artery disease): Status: Chronic
--- NOTE | 2024-04-19 19:09 | EKG ---
Test Reason : neck pain and dizziness Blood Pressure : */* mmHG Vent. Rate : 78 BPM Atrial Rate : 78 BPM P-R Int : 116 ms QRS Dur : 88 ms QT Int : 384 ms P-R-T Axes : 50 3 34 degrees QTc Int : 437 ms Sinus rhythm with premature atrial complexes Otherwise normal ECG When compared with ECG of 17-APR-2024 02:34, premature atrial complexes are now present Confirmed by Manuel Ortiz MD ([id number]) on 04/20/2024 7:33:19 AM Referred By: Confirmed By: Manuel Ortiz MD
[2024-04-19] MEDS: ZOFRAN INJ 4 MG VIAL IVP PRN (20:00)
--- NOTE | 2024-04-19 20:16 | CT ---
EXAM:UPPER EXT W/O CONHISTORY:LEFT SHOULDER PAIN; HTN, COPD HYSTERCOMPARISON:None.TECHNIQUE:Non-cont rast axial CT images of the left upper extremity/shoulder. Images were reformatted into coronal and sagittal planes for further evaluation.Radiation dose: 127.23 mGy-cm total DLPFINDINGS:No fracture or dislocation.Acromioclavicular and glenohumeral joints appear grossly normal.Imaged portion of the left lung demonstrates moderate to severe centrilobular and paraseptal emphysema.No pneumothorax.Soft tissues are grossly unremarkable.No left shoulder joint effusion.Muscles of the chest and imaged portion of the upper extremity are grossly normal.IMPRESSION:1. Unremarkable exam of the left shoulder.2. Moderate to severe centrilobular and paraseptal emphysema.THIS IS AN ELECTRONICALLY VERIFIED FINAL REPORT04/19/2024 8:13 PM - Electronically signed by Terence Mitchell MD
[2024-04-20 05:42] LABS: BASOPHILS # (AUTO) 0.1 X10^3/uL (0.0-0.1); BASOPHILS % (AUTO) 0.7 % (0.2-1.0); HEMATOCRIT 30.2 % (36.0-47.0); HEMOGLOBIN 9.6 g/dL (12.0-16.0); LYMPHOCYTES # (AUTO) 1.4 X10^3/uL (1.3-2.9); MEAN CORPUSCULAR HEMOGLOBIN 25.9 pg (27.0-34.0); MEAN CORPUSCULAR HGB CONC 31.6 g/dL (33.0-35.0); MEAN CORPUSCULAR VOLUME 81.8 fL (80.0-100.0); MEAN PLATELET VOLUME 8.1 fL (7.4-11.0); MONOCYTES # (AUTO) 0.7 x10^3/uL (0.3-0.8); MONOCYTES % (AUTO) 5.6 % (0.0-13.0); NEUTROPHILS # (AUTO) 10.4 x10^3/uL (2.2-4.8); NEUTROPHILS % (AUTO) 82.7 % (42.0-75.0); PLATELET COUNT 491 X10^3/uL (150.0-450.0); RED BLOOD COUNT 3.69 X10^6/uL (3.5-5.4); RED CELL DISTRIBUTION WIDTH 17.5 % (11.6-16.5); WHITE BLOOD COUNT 12.6 X10^3/uL (3.6-10.0)
[2024-04-20 06:14] LABS: ALANINE AMINOTRANSFERASE 25 Units/L (12-78); ALBUMIN 2.5 g/dL (3.4-5.0); ALKALINE PHOSPHATASE 168 Units/L (46-116); ASPARTATE AMINO TRANSFERASE 23 Units/L (15-37); BLOOD UREA NITROGEN 20 mg/dL (7-18); CALCIUM 8.3 mg/dL (8.5-10.1); CARBON DIOXIDE 28.7 mmol/L (21-32); CHLORIDE 104 mmol/L (98-107); COR CA(FOR HYPOALB) 9.5 mg/dL (8.5-10.1); COR NA(FOR HYPERGLY) 141 mmol/L (136-145); CREATININE 0.71 mg/dL (0.55-1.02); GLUCOSE 131 mg/dL (65-99); POTASSIUM 3.5 mmol/L (3.5-5.1); SODIUM 140 mmol/L (136-145); TOTAL PROTEIN 7.4 g/dL (6.4-8.2); eGFR NON BLACK RACES > 60 (>60)
[2024-04-20] MEDS ORDERED: CONSULT PHARMACY - POTASSIUM & MAGNESIUM XX SCH (07:00)
[2024-04-20] MEDS: K-DUR TAB 20 MEQ PO SCH (09:38)
--- NOTE | 2024-04-20 11:52 | PCM.PROG ---
Progress Note Progress Note for Day of Date of Exam: 04/20/24 Subjective Subjective: Patient seen at bedside, no acute events overnight. She is currently admitted for pneumonia and acute respiratory failure. She did have some chest pain yesterday, trop and EKG were negative. CT-upper ext did not show any acute changes. She does have a history of severe emphysema and uses 3 L oxygen at home. She remains on IV antibiotics and steroids. Labs/imaging reviewed: -WBC 12.6 hemoglobin 9.6 potassium 3.5 creatinine 0.71 -AIT negative -CT upper ext, cervical and chest reviewed -Sputum culture: Enterobacter Plan: Wean O2 as tolerated, continue nebs, Pulmicort and IS. Continue cough medicine. Continue Solu-Medrol and Levaquin. Continue home medications. Replace electrolytes as per protocol. Follow final cultures. Monitor a.m. labs and imaging. Past Medical Family Social History Allergies: Allergies No Known Drug Allergies Allergy (Verified 04/14/24 13:38) Vital Signs and I&O's Vital Signs: Vital Signs Temperature 98.1 F Temperature 98.1 F Pulse Rate [Brachial] 82 Pulse Rate [Brachial] 69 Pulse Rate 66 Respiratory Rate 17 Respiratory Rate 18 Respiratory Rate 16 Blood Pressure [Left Arm] 171/79 Blood Pressure [Left Arm] 141/71 O2 Sat by Pulse Oximetry 98 O2 Sat by Pulse Oximetry 95 O2 Sat by Pulse Oximetry 98 Intake and Output: Intake & Output 04/17/24 04/18/24 04/19/24 04/21/24 23:59 23:59 23:59 00:59 Intake Total 1608 / 1608 3265 / 3265 2292 / 2292 980 / 980 Balance 1608 / 1608 3265 / 3265 2292 / 2292 980 / 980 Physical Exam Oriented: Normal Eyes: Normal Ear: Normal Nose: Normal Throat: Dry Respiratory: Generalized and Diminished Cardiovascular: Normal Auscultation: Bowel Sounds: Normal Palpation: Normal Tenderness: Normal Skin: Decreased Turgur Musculoskeletal: Left, Shoulder, Back:Thoracic and Back:Lumbar Psychiatric: Normal Mood Description: Calm Affect: Normal Speech Pattern: Clear and Appropriate Laboratory and Diagnostics 04/20/24 05:15 04/20/24 05:15 Labs: 04/16/24 18:05 Blood Blood Culture - Preliminary 04/16/24 17:43 Blood Blood Culture - Preliminary 04/16/24 22:53 Sputum - Expectorated Sputum Sputum Culture - Final Enterobacter Aerogenes 04/16/24 22:53 Sputum - Expectorated Sputum - Final Laboratory WBC 12.6 X10^3/uL (3.6-10.0) H 04/20/24 05:15 RBC 3.69 X10^6/uL (3.5-5.4) 04/20/24 05:15 Hgb 9.6 g/dL (12.0-16.0) L 04/20/24 05:15 Hct 30.2 % (36.0-47.0) L 04/20/24 05:15 MCV 81.8 fL (80.0-100.0) 04/20/24 05:15 MCH 25.9 pg (27.0-34.0) L 04/20/24 05:15 MCHC 31.6 g/dL (33.0-35.0) L 04/20/24 05:15 RDW 17.5 % (11.6-16.5) H 04/20/24 05:15 Plt Count 491 X10^3/uL (150.0-450.0) H 04/20/24 05:15 MPV 8.1 fL (7.4-11.0) 04/20/24 05:15 Neut % (Auto) 82.7 % (42.0-75.0) H 04/20/24 05:15 Lymph % (Auto) 11.0 % (21.0-51.0) L 04/20/24 05:15 [place] % (Auto) 5.6 % (0.0-13.0) 04/20/24 05:15 Eos % (Auto) 0.0 % (0.9-2.9) L 04/20/24 05:15 Baso % (Auto) 0.7 % (0.2-1.0) 04/20/24 05:15 Neut # (Auto) 10.4 x10^3/uL (2.2-4.8) H 04/20/24 05:15 Lymph # (Auto) 1.4 X10^3/uL (1.3-2.9) 04/20/24 05:15 [place] # (Auto) 0.7 x10^3/uL (0.3-0.8) 04/20/24 05:15 Eos # (Auto) 0.0 x10^3/uL (0.0-0.2) 04/20/24 05:15 Baso # (Auto) 0.1 X10^3/uL (0.0-0.1) 04/20/24 05:15 Absolute Nucleated RBC 0.0 /100WBC 04/20/24 05:15 Sample Site Rra 04/17/24 08:42 ABG pH 7.380 (7.35-7.45) 04/17/24 08:42 ABG pCO2 38.0 mmHg (35.0-45.0) 04/17/24 08:42 ABG pO2 60.0 mmHg (80.0-100.0) L 04/17/24 08:42 ABG HCO3 22.5 mmol/L (22-26) 04/17/24 08:42 ABG O2 Saturation 90.0 % (90-100) 04/17/24 08:42 ABG Base Excess -2.3 mmol/L (-2.0-2.0) L 04/17/24 08:42 Lopez Test Pos 04/17/24 08:42 A-a Gradient 42.0 mmHg 04/17/24 08:42 FiO2 21.0 04/17/24 08:42 Blood Gas Comments Pt pillo well eb 04/17/24 08:42 Sodium 140 mmol/L (136-145) 04/20/24 05:15 Corrected Sodium 141 mmol/L (136-145) 04/20/24 05:15 Potassium 3.5 mmol/L (3.5-5.1) 04/20/24 05:15 Chloride 104 mmol/L (98-107) 04/20/24 05:15 Carbon Dioxide 28.7 mmol/L (21-32) 04/20/24 05:15 BUN 20 mg/dL (7-18) H 04/20/24 05:15 Creatinine 0.71 mg/dL (0.55-1.02) 04/20/24 05:15 Est GFR (MDRD) Af Amer > 60 (>60) 04/20/24 05:15 Est GFR (MDRD) Non-Af > 60 (>60) 04/20/24 05:15 Glucose 131 mg/dL (65-99) H 04/20/24 05:15 Calcium 8.3 mg/dL (8.5-10.1) L 04/20/24 05:15 Corrected Calcium 9.5 mg/dL (8.5-10.1) 04/20/24 05:15 Magnesium 2.1 mg/dL (2.0-2.9) 04/20/24 05:15 Total Bilirubin 0.20 mg/dL (0.2-1.0) 04/20/24 05:15 AST 23 Units/L (15-37) 04/20/24 05:15 ALT 25 Units/L (12-78) 04/20/24 05:15 Alkaline Phosphatase 168 Units/L (46-116) H 04/20/24 05:15 Creatine Kinase 25 Units/L (26-192) L 04/17/24 04:00 Troponin I High Sens 10.3 ng/L (4.0-60.0) 04/19/24 18:55 B-Natriuretic Peptide 645 pg/mL (0-79) H 04/19/24 05:20 Total Protein 7.4 g/dL (6.4-8.2) 04/20/24 05:15 Albumin 2.5 g/dL (3.4-5.0) L 04/20/24 05:15 Globulin 4.9 g/dL (2.5-4.5) H 04/20/24 05:15 Albumin/Globulin Ratio 0.5 Ratio (1.1-2.1) L 04/20/24 05:15 Triglycerides 77 mg/dL (0-150) 04/17/24 04:00 Cholesterol 140 mg/dL (0-200) 04/17/24 04:00 LDL Cholesterol, Calc 77 mg/dL (0-100) 04/17/24 04:00 HDL Cholesterol 48 mg/dL (40-60) 04/17/24 04:00 Cholesterol/HDL Ratio 2.9 (0.0-5.0) 04/17/24 04:00 Specimen Type Clean catch urine 04/17/24 10:20 Urine Color Yellow (YELLOW) 04/17/24 10:20 Urine Appearance Clear (CLEAR) 04/17/24 10:20 Urine pH 6.5 (5.0 - 8.0) 04/17/24 10:20 Ur Specific [place] 1.020 (1.000-1.030) 04/17/24 10:20 Urine Protein 1+ (NEGATIVE) 04/17/24 10:20 Urine Glucose (UA) Negative (NEGATIVE) 04/17/24 10:20 Urine Ketones Negative (NEGATIVE) 04/17/24 10:20 Urine Blood Negative (NEGATIVE) 04/17/24 10:20 Urine Nitrite Negative (NEGATIVE) 04/17/24 10:20 Urine Bilirubin Negative (NEGATIVE) 04/17/24 10:20 Urine Urobilinogen Normal (NORMAL) 04/17/24 10:20 Ur Leukocyte Esterase Negative (NEGATIVE) 04/17/24 10:20 Urine RBC 0-2 /HPF (0-3) 04/17/24 10:20 Urine WBC 0-2 /HPF (0-5) 04/17/24 10:20 Ur Squamous Epith Cells Many /HPF (NEGATIVE) 04/17/24 10:20 Urine Bacteria 1+ /HPF (NEGATIVE) 04/17/24 10:20 Urine Mucus Few /HPF (NEGATIVE) 04/17/24 10:20 Ur Culture Indicated? No/not indicated 04/17/24 10:20 Plan (1) Pneumonia: Status: Acute Qualifiers: Pneumonia type: due to unspecified organism Laterality: bilateral Lung location: unspecified part of lung Qualified Code(s): J18.9 - Pneumonia, unspecified organism (2) COPD exacerbation: Status: Acute Plan: (3) CHF exacerbation: Status: Acute Qualifiers: Heart failure type: unspecified Qualified Code(s): I50.9 - Heart failure, unspecified (4) Respiratory failure with hypoxia: Status: Acute Qualifiers: Chronicity: acute on chronic Qualified Code(s): J96.21 - Acute and chronic respiratory failure with hypoxia (5) HAMMAD (generalized anxiety disorder): Status: Chronic (6) Hypertension: Status: Chronic Qualifiers: Hypertension type: primary hypertension Qualified Code(s): I10 - Essential (primary) hypertension (7) Lumbar degenerative disc disease: Status: Chronic Qualifiers: Disc-related pain type: unspecified whether pain present Qualified Code(s): M51.369 - Other intervertebral disc degeneration, lumbar region without mention of lumbar back pain or lower extremity pain (8) Atrial fibrillation: Status: Chronic Qualifiers: Atrial fibrillation type: unspecified chronic Qualified Code(s): I48.20 - Chronic atrial fibrillation, unspecified (9) CAD (coronary artery disease): Status: Chronic
[2024-04-20] MEDS: ULTRAM PO PRN (13:05)
[2024-04-20] MEDS: COLACE CAP 100 MG PO PRN (23:04)
[2024-04-20] MEDS: MILK OF MAGNESIA PO PRN (23:04)
[2024-04-21 04:39] VITALS: RESP 18
[2024-04-21 06:04] LABS: BASOPHILS % (AUTO) 0.2 % (0.2-1.0); HEMATOCRIT 31.7 % (36.0-47.0); HEMOGLOBIN 9.9 g/dL (12.0-16.0); LYMPHOCYTES % (AUTO) 12.6 % (21.0-51.0); MEAN CORPUSCULAR HEMOGLOBIN 25.5 pg (27.0-34.0); MEAN CORPUSCULAR HGB CONC 31.2 g/dL (33.0-35.0); MEAN CORPUSCULAR VOLUME 81.7 fL (80.0-100.0); MEAN PLATELET VOLUME 8.1 fL (7.4-11.0); MONOCYTES # (AUTO) 1.2 x10^3/uL (0.3-0.8); MONOCYTES % (AUTO) 7.9 % (0.0-13.0); NEUTROPHILS # (AUTO) 12.4 x10^3/uL (2.2-4.8); NEUTROPHILS % (AUTO) 79.3 % (42.0-75.0); PLATELET COUNT 530 X10^3/uL (150.0-450.0); RED BLOOD COUNT 3.88 X10^6/uL (3.5-5.4); RED CELL DISTRIBUTION WIDTH 17.4 % (11.6-16.5); WHITE BLOOD COUNT 15.7 X10^3/uL (3.6-10.0)
[2024-04-21 06:26] LABS: ALANINE AMINOTRANSFERASE 38 Units/L (12-78); ALBUMIN 2.6 g/dL (3.4-5.0); ALKALINE PHOSPHATASE 159 Units/L (46-116); ASPARTATE AMINO TRANSFERASE 30 Units/L (15-37); BLOOD UREA NITROGEN 22 mg/dL (7-18); CALCIUM 8.2 mg/dL (8.5-10.1); CARBON DIOXIDE 28.3 mmol/L (21-32); CHLORIDE 103 mmol/L (98-107); COR CA(FOR HYPOALB) 9.3 mg/dL (8.5-10.1); COR NA(FOR HYPERGLY) 139 mmol/L (136-145); CREATININE 0.62 mg/dL (0.55-1.02); GLUCOSE 124 mg/dL (65-99); POTASSIUM 3.2 mmol/L (3.5-5.1); SODIUM 138 mmol/L (136-145); TOTAL PROTEIN 7.1 g/dL (6.4-8.2); eGFR NON BLACK RACES > 60 (>60)
[2024-04-21] MEDS ORDERED: CONSULT PHARMACY - POTASSIUM & MAGNESIUM XX SCH (07:00)
[2024-04-21 07:38] LABS: PLATELET MORPHOLOGY COMMENT NORMAL (NORMAL)
[2024-04-21 07:40] LABS: STOMATOCYTES FEW
[2024-04-21] MEDS: MORPHINE SULFATE INJ 2 MG INJ IVP ONE (08:04)
--- NOTE | 2024-04-21 08:30 | RAD ---
EXAM:Left shoulder three viewsHISTORY:PainCOMPARISON:None r.br.br or osteolytic process identified. Joint spaces and soft tissues are unremarkable.IMPRESSION:No acute findings or significant arthropathy identified.THIS IS AN ELECTRONICALLY VERIFIED FINAL REPORT04/21/2024 8:22 AM - Electronically signed by Paul Leonard MD
[2024-04-21] MEDS: K-DUR TAB 20 MEQ PO SCH (08:55)
[2024-04-21 09:02] VITALS: O2SAT 98
[2024-04-21] MEDS: TORADOL 30 MG VIAL IVP ONE (09:08)
[2024-04-21 11:53] VITALS: BP 174/88; PULSE 86; TEMP 98
--- NOTE | 2024-04-21 12:00 | RAD ---
EXAM:CHEST, 1 VIEWHISTORY:PNEUMONIA;COMPARISON: 025FINDINGS:The trachea is midline. The cardiac silhouette is unremarkable. Chronic interstitial lung changes throughout the right and left hemithorax are observed without focal infiltrate or effusion.. The bony thorax is unremarkable.IMPRESSION:No acute cardiopulmonary disease.THIS IS AN ELECTRONICALLY VERIFIED FINAL REPORT04/21/2024 11:56 AM - Electronically signed by Juan Centeno MD
== END 2024-04-21 11:41 | disposition home or self-care (01) | DRG 177 ==
LOC: MED/SURG → OBSVTOIN 16:43
PROVIDERS: ADMIT Internal Medicine; ATTEND Internal Medicine
DX: J15.69 Pneumonia due to other Gram-negative bacteria; M54.2 Cervicalgia; J96.21 Acute and chronic respiratory failure with hypoxia; B96.89 Other specified bacterial agents as the cause of diseases classified elsewhere; Z99.81 Dependence on supplemental oxygen; G25.81 Restless legs syndrome; Z72.0 Tobacco use; G62.9 Polyneuropathy, unspecified; J44.1 Chronic obstructive pulmonary disease with (acute) exacerbation; Z16.19 Resistance to other specified beta lactam antibiotics; R42 Dizziness and giddiness; I11.0 Hypertensive heart disease with heart failure; R04.2 Hemoptysis; M25.512 Pain in left shoulder; I25.2 Old myocardial infarction; Z16.11 Resistance to penicillins; M51.369 Other intervertebral disc degeneration, lumbar region without mention of lumbar back pain or lower extremity pain; J43.8 Other emphysema; Z29.89 Encounter for other specified prophylactic measures; F41.1 Generalized anxiety disorder; I50.9 Heart failure, unspecified; I25.10 Atherosclerotic heart disease of native coronary artery without angina pectoris; Z79.01 Long term (current) use of anticoagulants; I48.91 Unspecified atrial fibrillation; R94.31 Abnormal electrocardiogram [ECG] [EKG]; R07.89 Other chest pain; R53.1 Weakness; M19.90 Unspecified osteoarthritis, unspecified site

== ENCOUNTER 2024-12-15 15:38 | Observation (INO) ==
--- NOTE | 2024-12-15 17:27 | EKG ---
Test Reason : HX AFIB Blood Pressure : */* mmHG Vent. Rate : 80 BPM Atrial Rate : 80 BPM P-R Int : 136 ms QRS Dur : 80 ms QT Int : 398 ms P-R-T Axes : 30 -12 37 degrees QTc Int : 459 ms Normal sinus rhythm with sinus arrhythmia Normal ECG When compared with ECG of 19-APR-2024 18:51, premature atrial complexes are no longer present Confirmed by Manuel Ortiz MD ([id number]) on 12/16/2024 7:13:19 AM Referred By: Confirmed By: Manuel Ortiz MD
[2024-12-15 17:29] LABS: ABG BASE EXCESS 3.3 mmol/L (-2.0-2.0); ABG HCO3 27.8 mmol/L (22-26); ABG PCO2 41.0 mmHg (35.0-45.0); ABG PH 7.440 (7.35-7.45)
[2024-12-15 17:30] LABS: ABG ALLEN TEST POS; ABG OXYGEN SATURATION 82.0 % (90-100); ABG PO2 44.0 mmHg (80.0-100.0)
--- NOTE | 2024-12-15 17:33 | DR.H&P ---
H&P History & Physical for Day of: H&P Date: 12/15/24 Chief Complaint Chief Complaint: HEADACHE, HIGH BLOOD PRESSURE History of Present Illness History of Present Illness: PT IS 59 WF, DIRECT ADMIT WITH HYPERTENSIVE URGENCY FROM DR CANELA OFFICE. PT WAS SEEN IN THE ER ONE WEEK AGO FOR SAME ISSURE AFTER HH NURSE CALLED EMS TO EVALUATE PT FOR BP >210 SYSTOLIC. PT LOSARTAN WAS RECENTLY INCREASED TO 5OMG PO BID AND PRN CATAPRES. PT BP IN OFFICE TODAY WAS 188/ 110. PT HAS PMH OF AFIB ON INSOLE PRESSER ELIQUIS. PT HAS COPD AND RESP FAILURE RECENTLY REQUIRING SUPPLMENTAL O2. PT CO CHRONIC COUGHING AND NO INCREASED SOB. Past Medical History Past Medical History: Anxiety, COPD, Depression and Hypertension Past Surgical History Surgical History: and Hysterectomy Family History Family Medical History: Diabetes Mellitus, Cancer and [place] Medications Home Medications: Home Medications Medication Instructions Recorded Confirmed Type ropinirole 1 mg tablet 1 mg PO BID 01/01/20 5 History omeprazole 40 mg capsule,delayed 40 mg PO BID 01/17/21 11/27/24 History release gabapentin 300 mg capsule 300 mg PO TID 09/04/2111/27 History paroxetine HCl 30 mg tablet 30 mg PO QDAY 02/21/23 History amitriptyline 10 mg tablet 25 mg PO HS 11/27/24 History apixaban 5 mg tablet (Eliquis) 5 mg PO BID 11/27/24 History cyclobenzaprine 10 mg tablet 10 mg PO Q8H PRN Spasms 1 11/27/24 History losartan 25 mg tablet 25 mg PO BID 11/27/24 History montelukast 10 mg tablet 10 mg PO DAILY 11/27/2411/12 History Allergies Allergies Allergy/AdvReac Type Severity Reaction Status Date / Time No Known Drug Allergies Allergy Verified 11/27/24 14:18 Review of Systems Constitutional: Weakness Eyes: No Symptoms Reported ENT: No Symptoms Reported Respiratory: Cough, SOB with Excertion and Wheezing Cardiovascular: No Symptoms Reported Gastrointestinal: Nausea Genitourinary: Frequency Musculoskeletal: Back Pain Skin: No Symptoms Reported Neurological: Weakness Oriented: Normal Eyes: Normal Ear: Normal Nose: Discharge Throat: Red and Exudate Respiratory: Wheezes Throughout Cardiovascular: negative Tachycardia Auscultation: Bowel Sounds: Normal Palpation: Normal Tenderness: Epigastric and Mild Skin: Decreased Turgur Musculoskeletal: Back:Lumbar Psychiatric: Anxiety Mood Description: Anxious Affect: Normal Speech Pattern: Clear and Appropriate Assessment/Plan (1) Hypertensive urgency: Status: Acute Plan: ADMIT, CARDIAC MONITORING CT HEAD ON ADMISSION EKG, VERIFY HOME MEDICATIONS RESP CONSULT, SUPPLEMENTAL O2 (2) CAD (coronary artery disease): Status: Chronic (3) Atrial fibrillation: Qualifiers: Atrial fibrillation type: unspecified chronic Qualified Code(s): I48.20 - Chronic atrial fibrillation, unspecified Status: Chronic (4) Respiratory failure with hypoxia: Qualifiers: Chronicity: acute on chronic Qualified Code(s): J96.21 - Acute and chronic respiratory failure with hypoxia Status: Acute (5) Back pain: Qualifiers: Back pain location: low back pain Back pain laterality: bilateral Sciatica presence: without sciatica Qualified Code(s): M54.5 - Low back pain Status: Chronic (6) Lumbar degenerative disc disease: Qualifiers: Disc-related pain type: unspecified whether pain present Qualified Code(s): M51.369 - Other intervertebral disc degeneration, lumbar region without mention of lumbar back pain or lower extremity pain Status: Chronic
[2024-12-15] MEDS: APRESOLINE INJ 20 MG VIAL IVP PRN (18:04)
[2024-12-15 18:15] LABS: RED CELL DISTRIBUTION WIDTH 15.1 % (11.6-16.5)
[2024-12-15 18:21] LABS: MEAN PLATELET VOLUME 8.9 fL (7.4-11.0)
[2024-12-15 18:23] LABS: CREATININE 0.76 mg/dL (0.55-1.02); eGFR NON BLACK RACES > 60 (>60)
[2024-12-15 18:36] VITALS: BMI 29.9
[2024-12-15] MEDS: PULMICORT NEB TX 0.5 MG NEB SCH (20:01)
[2024-12-15] MEDS: PROVENTIL NEB TX 0.083% 2.5MG/ 3ML NEB SCH (20:01)
[2024-12-15] MEDS ORDERED: PULMICORT NEB TX 0.5 MG NEB SCH (21:00)
[2024-12-15] MEDS: ELIQUIS PO SCH (21:05)
[2024-12-15] MEDS: COZAAR PO SCH (21:05)
[2024-12-15] MEDS: REQUIP PO SCH (21:05)
[2024-12-15] MEDS: NEURONTIN CAP 300 MG PO SCH (21:05)
[2024-12-15] MEDS: PROTONIX INJ 40 MG VIAL IVP SCH (21:06)
--- NOTE | 2024-12-15 21:09 | RAD ---
EXAM: CHEST, 1 VIEW HISTORY: Shortness of breath COMPARISON: April 21, 2024 TECHNIQUE: Chest radiographic imaging, AP portable projection, 1 image FINDINGS: Mild cardiomegaly. Diffuse increased interstitial markings. No focal airspace disease. No pleural effusion. No pneumothorax. No acute osseous abnormality. IMPRESSION: Findings are concerning for acute cardiogenic edema and/or chronic changes. THIS IS AN ELECTRONICALLY VERIFIED FINAL REPORT 12/15/2024 9:06 PM - Electronically signed by Terence Mitchell MD
[2024-12-15] MEDS: NEURONTIN CAP 300 MG ONE (21:42)
[2024-12-15] MEDS: NORCO 5/325 MG TAB PO PRN (22:59)
[2024-12-16] MEDS: CATAPRES TAB 0.1 MG PO ONE (00:29)
[2024-12-16] MEDS: CATAPRES TAB 0.1 MG ONE (00:40)
[2024-12-16 04:59] LABS: MEAN PLATELET VOLUME 8.7 fL (7.4-11.0); RED CELL DISTRIBUTION WIDTH 15.2 % (11.6-16.5)
[2024-12-16 05:05] LABS: COR NA(FOR HYPERGLY) 142 mmol/L (136-145); CREATININE 0.86 mg/dL (0.55-1.02); eGFR NON BLACK RACES > 60 (>60)
[2024-12-16] MEDS ORDERED: CONSULT PHARMACY - POTASSIUM & MAGNESIUM XX SCH (07:00)
[2024-12-16 07:38] VITALS: BP 159/76; RESP 20; TEMP 98.1; O2SAT 96
[2024-12-16] MEDS: K-DUR TAB 20 MEQ PO SCH ×2 (08:31→08:32)
[2024-12-16] MEDS: PAXIL PO SCH (08:31)
[2024-12-16] MEDS: LASIX IVP SCH (08:32)
[2024-12-16 08:35] VITALS: PULSE 102
[2024-12-16] MEDS: K-DUR TAB 20 MEQ PO ONE (08:48)
[2024-12-16 18:06] LABS: COR CA(FOR HYPOALB) 9.1 mg/dL (8.5-10.1)
[2024-12-16 18:11] LABS: BLOOD ALCOHOL < 0.3 mg/dL (0-19.9)
== END 2024-12-16 11:50 | disposition home health service (06) ==
LOC: MED/SURG
PROVIDERS: ADMIT Internal Medicine; ATTEND Internal Medicine
DX: I48.20 Chronic atrial fibrillation, unspecified; I16.0 Hypertensive urgency; J96.21 Acute and chronic respiratory failure with hypoxia; Z72.0 Tobacco use; R74.8 Abnormal levels of other serum enzymes; Z66 Do not resuscitate; F41.8 Other specified anxiety disorders; R51.9 Headache, unspecified; E83.51 Hypocalcemia; M51.369 Other intervertebral disc degeneration, lumbar region without mention of lumbar back pain or lower extremity pain; D72.828 Other elevated white blood cell count; Z79.01 Long term (current) use of anticoagulants; D64.89 Other specified anemias; M54.59 Other low back pain; J44.9 Chronic obstructive pulmonary disease, unspecified; R73.09 Other abnormal glucose; I25.10 Atherosclerotic heart disease of native coronary artery without angina pectoris; R05.3 Chronic cough